=== PATIENT | female | born 1970 | race Caucasian/White ===

== ENCOUNTER → 2020-07-23 11:09 | Outpatient (REF) | payer OTHER, SELFPAY | LOC: HO.SL 11:09 | PROVIDERS: PCP Internal Medicine; Visit Provider Nurse Practitioner Family | DX: G47.33 Obstructive sleep apnea (adult) (pediatric) (principal) | CPT/HCPCS: 95806 ==

== ENCOUNTER → 2020-09-11 08:25 | Outpatient (BNVA) | payer OTHER, SELFPAY | PROVIDERS: Visit Provider Nurse Practitioner Family | DX: Z13.89 Encounter for screening for other disorder (principal) ==

== ENCOUNTER 2020-10-12 11:30 | Emergency (ER) | payer OTHER, SELFPAY ==
--- NOTE | 2020-10-12 | ECG_ITS ---
Test Reason : CHEST DISCOMFORT Blood Pressure : / mmHG Vent. Rate : 082 BPM Atrial Rate : 082 BPM P-R Int : 170 ms QRS Dur : 088 ms QT Int : 388 ms P-R-T Axes : 047 016 017 degrees QTc Int : 453 ms Normal sinus rhythm Normal ECG No previous ECGs available Referred By: Generic ED Physician Electronically Signed By:Saeid Higgins
[2020-10-12 11:39] VITALS: BP 144/75; PULSE 78; RESP 18; TEMP 36.7; O2SAT 98
[2020-10-12 11:49] LABS: Glucose, Whole Blood 120 mg/dL (60-115)
--- NOTE | 2020-10-12 12:12 | XR_ITS ---
EXAMINATION: XR CHEST CLINICAL INFORMATION: Palpitations COMPARISON: None TECHNIQUE: Portable upright AP view of the chest was obtained. FINDINGS: The lungs are clear. There is a vascularity is normal. The heart is normal in size. There is no vascular congestion, airspace consolidation, or effusion. The cardiac and hilar and mediastinal contours and visualized bony structures are unremarkable. XR/XR chest 1V IMPRESSION: Unremarkable examination.
--- NOTE | 2020-10-12 12:13 | ED_ITS ---
HPI - Chest Pain General Chief Complaint: Chest Pain Stated Complaint: Chest discomfort Time Seen by Provider: 10/12/20 11:46 Source: patient Mode of arrival: ambulatory History of Present Illness HPI narrative: 50-year-old female with a past medical history of asthma, DM, fibromyalgia, hyperlipidemia presenting today complaining of intermittent palpitations x 1.5 weeks with assoc intermittent SOB, lightheadedness and blurry vision. Denies fever, chills, cough, headache, abd pain, nausea, vomiting, recent travel, hx clots, LE edema MD complaint: chest discomfort Related Data Home Medications Medication Instructions Recorded Confirmed aspirin 81 mg chewable tablet 81 mg PO DAILY 09/11/20 atorvastatin 10 mg tablet 10 mg PO DAILY 09/11/20 cetirizine 10 mg tablet 10 mg PO DAILY 09/11/20 metformin 500 mg tablet 500 mg PO BID 09/11/20 omeprazole magnesium 20 mg 20 mg PO DAILY 09/11/20 capsule,delayed release pioglitazone 15 mg tablet 15 mg PO DAILY 09/11/20 Allergies Allergy/AdvReac Type Severity Reaction Status Date / Time moxifloxacin [From Avelox] AdvReac Intermediate hand and Verified 09/11/20 10:04 limp numbness Review of Systems Review of Systems: Constitutional: No Weight loss, No Fever, No Chills, No Night Sweats, No Fatigue, No Malaise ENT/Mouth: No Hearing loss, No Ear Pain, No Nasal Congestion, No Sinus Pain, No Hoarseness, No sore throat, No Rhinorrhea Eyes: No Eye Pain, No Swelling, No Redness, No Foreign Body,+blurry Vision Cardiovascular: No Chest Pain, +intermittent SOB, + Palpitations Respiratory: No Cough, No Sputum, No Wheezing Gastrointestinal: No Nausea, No Vomiting, No Diarrhea, No Constipation, No Abdominal pain Genitourinary: No irregular bleeding, No Dysuria, No Urinary Frequency, No Hematuria Musculoskeletal: No joint pain, No Myalgias, No Joint Swelling Skin: No Skin Lesions, No rash Neuro: No Weakness, No Numbness, No Paresthesias, No Loss of Consciousness, +lighteadedness, No Headache Yes all other systems are reviewed and are negative Neurologic: Denies Sensory deficit (Neuro) [facility] Past Medical History Attestation statement: The following information was validated with the patient. Medical History (Updated 10/12/20 @ 14:06 by ALEC Corey) Asthma Carpal tunnel syndrome on right Diabetes Fibromyalgia High cholesterol Surgical History (Updated 10/12/20 @ 11:43 by Wanda Lira) H/O shoulder surgery Social History Social History Smoked in Last 30 Days: No Use of substances other than those prescribed or required for medical reasons: No Advance Directives: No Advance Directives Information Provided: No Physical Exam Vital Signs: Vital Signs: Last Vital Signs Temp 98.1 F 10/12/20 11:39 Pulse 76 10/12/20 12:34 Resp 18 10/12/20 11:39 BP 143/80 H 10/12/20 12:34 Pulse Ox 98 10/12/20 11:39 Body Mass Index 30.0 Const: General: cooperative, healthy appearing and comfortable Orientation/consciousness: patient oriented x3 Limitations: no limitations HENMT: Head: Yes normal to inspection Ears: hearing grossly normal bilaterally General nose exam: Normal external nose present Face and sinus: Yes normal facial exam Throat: Yes posterior oropharynx normal Eyes: General: appearance normal, both eyes and all related structures Conjunctivae: conjunctivae normal Sclerae: sclerae normal Corneas: corneas normal Pupils: Equal, round and reactive pupils present EOM: EOMs intact bilaterally Neck: Neck: Yes normal visual inspection and Yes no meningeal signs Resp: Effort & Inspection: normal respiratory effort Auscultation: clear to auscultation bilaterally, no crackles, no rales, no rhonchi and no wheezes Cardio: Rate: regular rate Heart sounds: S1 normal heart sound present and S2 normal heart sound present GI: Inspection: Yes normal to inspection Palpation (GI): Soft to palpation, nontender, no guarding and not rigid Skin: Rashes: no rashes Wounds: no wounds Neuro: General: patient oriented x3, gait normal, no meningeal signs and no focal motor deficits Cranial nerves: Yes CN's II-XII intact bilaterally and Yes Equal, round and reactive pupils present Cognition (Neuro): normal cognition Gait exam (Neuro): Normal gait present Motor exam (neuro): 5/5 motor strength present throughout Sensory Exam: No Sensory deficit (Neuro) Coordination: [id number] test normal Extrem: General: Yes normal to inspection Course Course Course Narrative: * labs and UA unremarkable * CXR unremarkable, orthostatic VS negative * VA 20/30 and 20/40 results discussed with patient including worrisome s/s and strict return precautions. She has f/u with her PCP on Thursday. She verbalized understanding and feels safe for d/c MDM - Chest Pain MDM Narrative Medical decision making narrative: 50-year-old female with a past medical history of asthma, DM, fibromyalgia, hyperlipidemia presenting today complaining of intermittent palpitations x 1.5 weeks with assoc intermittent SOB, lightheadedness and blurry vision. On exam VSS, NAD, well appearing, no focal deficits, lungs CTA. Concern for metabolic abnls vs arrhythmia vs ?infectious etiology vs anxiety. Low concern for CVA/TIA, pna, ACS or PE Plan: EKG, labs, UA, CXR, Orthostatics, VA, Reassess Lab Data Result diagrams: 10/12/20 12:29 10/12/20 11:21 Labs: Lab Results 10/12/20 10/12/20 10/12/20 Range/Units 11:21 11:37 12:29 WBC 5.2 (4.8-10.8) X10*3/uL RBC 4.42 (4.20-5.50) X10*6/uL Hgb 12.6 (12.0-16.0) g/dl Hct 39.7 (37-47) % MCV 89.8 (80-98) fL MCH 28.5 (27.0-33.0) pg MCHC 31.7 (31.0-35.0) g/dl RDW 13.3 (11.0-16.0) % Plt Count 247 (160-400) X10*3/uL MPV 8.9 L (9.4-12.3) fL Immature Gran % (Auto) 0.2 (0.0-0.4) % Neut % (Auto) 56.0 (45-73) % Lymph % (Auto) 34.2 (20-40) % Bullitt % (Auto) 7.7 (2-11) % Eos % (Auto) 1.5 (0-4) % Baso % (Auto) 0.4 (0-2) % Lymph # (Auto) 1.8 (1.2-4.9) X10*3/uL Bullitt # (Auto) 0.4 (0.1-1.2) X10*3/uL Eos # (Auto) 0.1 (0.0-0.4) X10*3/uL Baso # (Auto) 0.0 (0.0-0.2) X10*3/uL Abs Immat Gran (auto) 0.01 (0.00-0.03) X10*3/uL Absolute Neuts (auto) 2.9 (2.0-8.3) X10*3/uL Absolute Nucleated RBC 0.000 (0.0-0.012) X10*3/uL Nucleated RBC % (auto) 0.0 (0.0-0.2) /100WBC Hold Blue Top Sodium 141 (135-145) mmol/L Potassium 3.7 (3.3-5.1) mmol/l Chloride 104 (96-108) mmol/L Carbon Dioxide 27 (22-29) mmol/L Anion Gap 14 (12-20) BUN 18 H (9-16) mg/dL Creatinine 0.78 (0.5-1.4) mg/dL Estim Creat Clear Calc 73.5 Estimated GFR > 60 POC Glucose 120 H (60-115) mg/dL Random Glucose 88 (60-115) mg/dL Calcium 8.8 (8.4-10.2) mg/dL Magnesium 1.6 (1.6-2.6) mg/dL Total Bilirubin 0.4 (0.0-1.0) mg/dL Direct Bilirubin 0.2 (0.0-0.5) mg/dL AST 19 (5-31) U/L ALT 15 (0-31) U/L Alkaline Phosphatase 71 (39-117) U/L Troponin I High Sens (<3.5-17.0) ng/L B-Natriuretic Peptide (<100) pg/mL Total Protein 6.8 (6.5-8.0) g/dL Albumin 3.9 (3.5-5.0) g/dL TSH 2.29 (0.32-4.0) mIU/mL Urine Color Urine Appearance Urine pH (5.0-8.0) Ur Specific Taylor (1.005-1.025) Urine Protein (NEG-TRACE) MG/DL Urine Glucose (UA) (NEG) MG/DL Urine Ketones (NEG) MG/DL Urine Blood (NEG) Urine Nitrite (NEG) Ur Leukocyte Esterase (NEG) Urine Test (NEGATIVE) 10/12/20 10/12/20 10/12/20 Range/Units 12:29 12:29 12:29 WBC (4.8-10.8) X10*3/uL RBC (4.20-5.50) X10*6/uL Hgb (12.0-16.0) g/dl Hct (37-47) % MCV (80-98) fL MCH (27.0-33.0) pg MCHC (31.0-35.0) g/dl RDW (11.0-16.0) % Plt Count (160-400) X10*3/uL MPV (9.4-12.3) fL Immature Gran % (Auto) (0.0-0.4) % Neut % (Auto) (45-73) % Lymph % (Auto) (20-40) % Bullitt % (Auto) (2-11) % Eos % (Auto) (0-4) % Baso % (Auto) (0-2) % Lymph # (Auto) (1.2-4.9) X10*3/uL Bullitt # (Auto) (0.1-1.2) X10*3/uL Eos # (Auto) (0.0-0.4) X10*3/uL Baso # (Auto) (0.0-0.2) X10*3/uL Abs Immat Gran (auto) (0.00-0.03) X10*3/uL Absolute Neuts (auto) (2.0-8.3) X10*3/uL Absolute Nucleated RBC (0.0-0.012) X10*3/uL Nucleated RBC % (auto) (0.0-0.2) /100WBC Hold Blue Top SEE NOTE Sodium (135-145) mmol/L Potassium (3.3-5.1) mmol/l Chloride (96-108) mmol/L Carbon Dioxide (22-29) mmol/L Anion Gap (12-20) BUN (9-16) mg/dL Creatinine (0.5-1.4) mg/dL Estim Creat Clear Calc Estimated GFR POC Glucose (60-115) mg/dL Random Glucose (60-115) mg/dL Calcium (8.4-10.2) mg/dL Magnesium (1.6-2.6) mg/dL Total Bilirubin (0.0-1.0) mg/dL Direct Bilirubin (0.0-0.5) mg/dL AST (5-31) U/L ALT (0-31) U/L Alkaline Phosphatase (39-117) U/L Troponin I High Sens < 3.5 (<3.5-17.0) ng/L B-Natriuretic Peptide < 10 (<100) pg/mL Total Protein (6.5-8.0) g/dL Albumin (3.5-5.0) g/dL TSH (0.32-4.0) mIU/mL Urine Color YELLOW Urine Appearance CLEAR Urine pH 5.5 (5.0-8.0) Ur Specific Taylor 1.025 (1.005-1.025) Urine Protein NEG (NEG-TRACE) MG/DL Urine Glucose (UA) NEG (NEG) MG/DL Urine Ketones NEG (NEG) MG/DL Urine Blood NEG (NEG) Urine Nitrite NEG (NEG) Ur Leukocyte Esterase NEG (NEG) Urine Test NEGATIVE (NEGATIVE) Discharge Plan Discharge Clinical Impression: Palpitations Patient Disposition: Home, Self-Care Instructions: Heart Palpitations (ED) Additional Instructions: YOUR BLOOD WORK And CHEST X-RAY WERE REASSURING TODAY IN THE ED FOLLOW UP WITH YOUR MD ON SCHEDULED IF YOUR SYMPTOMS PERSIST OR WORSEN, YOU HAVE FEVER, RETURN TO THE ED Prescriptions: No Action aspirin [Aspirin Childrens] 81 mg tablet,chewable 81 mg PO DAILY RF: 0 cetirizine [Zyrtec] 10 mg tablet 10 mg PO DAILY RF: 0 omeprazole magnesium [Acid [employer] (omeprazole)] 20 mg capsule,delayed release(DR/EC) 20 mg PO DAILY RF: 0 pioglitazone 15 mg tablet 15 mg PO DAILY RF: 0 metformin 500 mg tablet 500 mg PO BID RF: 0 atorvastatin 10 mg tablet 10 mg PO DAILY RF: 0 Referrals: Saeid Higgins MD [Physician] - 1 week
[2020-10-12] MEDS: 0.9 % Sodium Chloride 1,000 ML 999 ML IVCONT (12:28)
[2020-10-12 12:32] VITALS: BP 138/73; PULSE 72
[2020-10-12 12:33] VITALS: BP 144/77; PULSE 76
[2020-10-12 12:34] VITALS: BP 143/80; PULSE 76
[2020-10-12 12:37] LABS: Basophils Percent Auto 0.4 % (0-2); Eosinophils Absolute Auto 0.1 X10*3/uL (0.0-0.4); Eosinophils Percent Auto 1.5 % (0-4); Hematocrit 39.7 % (37-47); Hemoglobin 12.6 g/dl (12.0-16.0); Imm Gran Abs Auto 0.01 X10*3/uL (0.00-0.03); Imm Gran Pct Auto 0.2 % (0.0-0.4); Lymphocytes Absolute Auto 1.8 X10*3/uL (1.2-4.9); Lymphocytes Percent Auto 34.2 % (20-40); MANUAL DIFF FLAG NO; Mean Corpuscular HGB Conc 31.7 g/dl (31.0-35.0); Mean Corpuscular Hemoglobin 28.5 pg (27.0-33.0); Mean Corpuscular Volume 89.8 fL (80-98); Mean Platelet Volume 8.9 fL (9.4-12.3); Monocytes Absolute Auto 0.4 X10*3/uL (0.1-1.2); Monocytes Percent Auto 7.7 % (2-11); Neutrophils Absolute Auto 2.9 X10*3/uL (2.0-8.3); Platelet Count 247 X10*3/uL (160-400); Red Blood Count 4.42 X10*6/uL (4.20-5.50); Red Cell Distribution Width 13.3 % (11.0-16.0); White Blood Count 5.2 X10*3/uL (4.8-10.8)
[2020-10-12 12:41] LABS: Glucose Urine UA NEG (NEG); Leukocyte Esterase Urine NEG (NEG); Nitrite Urine NEG (NEG); PH 5.5 (5.0-8.0); Specific Gravity - Urine 1.025 (1.005-1.025); Urine Blood NEG (NEG); Urine Ketones NEG (NEG); Urine Protein NEG (NEG-TRACE)
[2020-10-12 12:42] LABS: Appearance Urine CLEAR; Color Urine YELLOW
[2020-10-12 12:43] LABS: UPreg QC Valid YES; Urine Pregnancy NEGATIVE (NEGATIVE)
[2020-10-12 13:08] LABS: Alanine Aminotransferase 15 U/L (0-31); Albumin Level 3.9 g/dL (3.5-5.0); Alkaline Phosphatase 71 U/L (39-117); Anion Gap 14 (12-20); Aspartate Amino Transferase 19 U/L (5-31); Bilirubin Direct 0.2 mg/dL (0.0-0.5); Bilirubin Total 0.4 mg/dL (0.0-1.0); Blood Urea Nitrogen 18 mg/dL (9-16); Calcium 8.8 mg/dL (8.4-10.2); Carbon Dioxide 27 mmol/L (22-29); Chloride 104 mmol/L (96-108); Creatinine Clr Calc Pharmacy 73.5; Estimated Glomerular Filt Rate > 60; Glucose Random 88 mg/dL (60-115); Magnesium 1.6 mg/dL (1.6-2.6); Potassium 3.7 mmol/l (3.3-5.1); Sodium 141 mmol/L (135-145); Total Protein 6.8 g/dL (6.5-8.0)
[2020-10-12 13:12] LABS: B Type Natriuretic Peptide < 10 pg/mL (<100); Troponin-I High Sensitivity < 3.5 ng/L (<3.5-17.0)
[2020-10-12 13:31] LABS: TSH reflex Free T4 2.29 mIU/mL (0.32-4.0)
== END 2020-10-12 15:13 | disposition home or self-care (01) ==
PROVIDERS: Physician Assistant; Emergency Provider Emergency Medicine; PCP Internal Medicine
DX: R00.2 Palpitations (principal); R07.9 Chest pain, unspecified; Z79.899 Other long term (current) drug therapy
CPT/HCPCS: 36415; 71045; 80048; 80076; 81003; 81025; 82947; 83735; 83880; 84443; 84484; 85025; 93005; 96360; 99284

== ENCOUNTER → 2021-10-02 14:21 | Outpatient (BNVA) | payer OTHER, SELFPAY | PROVIDERS: PCP Internal Medicine; Visit Provider Nurse Practitioner Family ==

== ENCOUNTER → 2024-03-02 12:45 | Outpatient (BNVA) | payer SELFPAY | PROVIDERS: PCP Internal Medicine ==

== ENCOUNTER → 2024-03-15 11:26 | Outpatient (BNVA) | payer OTHER, SELFPAY | PROVIDERS: PCP Internal Medicine; Visit Provider Physician Assistant Medical | DX: Z13.89 Encounter for screening for other disorder (principal) | CPT/HCPCS: 84450; 84460; 86803; 87389; 99202 ==

== ENCOUNTER 2024-04-08 07:19 | Outpatient (REF) | payer OTHER, SELFPAY | END 2024-04-08 07:20 | disposition home or self-care (01) | LOC: HO.MAMMO 07:19 | PROVIDERS: PCP Nurse Practitioner Acute Care; Visit Provider Internal Medicine | DX: Z12.31 Encounter for screening mammogram for malignant neoplasm of breast (principal) | CPT/HCPCS: 77063; 77067 ==

== ENCOUNTER → 2024-04-08 07:30 | Outpatient (BNV) | payer OTHER, SELFPAY | PROVIDERS: PCP Nurse Practitioner Acute Care; Visit Provider Radiology Diagnostic Radiology | DX: Z12.31 Encounter for screening mammogram for malignant neoplasm of breast (principal) | CPT/HCPCS: 77063; 77067 ==

== ENCOUNTER → 2024-04-27 09:34 | Outpatient (BNVA) | payer OTHER, SELFPAY | PROVIDERS: PCP Nurse Practitioner Acute Care | DX: Z13.89 Encounter for screening for other disorder (principal) | CPT/HCPCS: 84450; 84460; 87389; 99211 ==

== ENCOUNTER 2024-06-01 08:10 | Outpatient (REF) | payer OTHER, SELFPAY ==
[2024-06-01 08:27] LABS: MANUAL DIFF FLAG NO
[2024-06-01 08:45] LABS: Basophils Percent Auto 0.8 % (0-2); Eosinophils Absolute Auto 0.2 X10*3/uL (0.0-0.4); Eosinophils Percent Auto 3.8 % (0-4); Hematocrit 42.4 % (37.0-47.0); Hemoglobin 13.8 g/dl (12.0-16.0); Imm Gran Abs Auto 0.01 X10*3/uL (0.00-0.03); Imm Gran Pct Auto 0.2 % (0.0-0.4); Lymphocytes Percent Auto 39.8 % (20-40); Mean Corpuscular HGB Conc 32.5 g/dl (31.0-35.0); Mean Corpuscular Hemoglobin 28.5 pg (27.0-33.0); Mean Corpuscular Volume 87.6 fL (80.0-98.0); Mean Platelet Volume 8.9 fL (9.4-12.3); Monocytes Absolute Auto 0.5 X10*3/uL (0.1-1.2); Monocytes Percent Auto 9.1 % (2-11); Neutrophils Absolute Auto 2.3 x10*3/uL (2.0-8.3); Neutrophils Percent Auto 46.3 % (45-73); Platelet Count 257 X10*3/uL (160-400); Red Blood Count 4.84 X10*6/uL (4.20-5.50); Red Cell Distribution Width 13.1 % (11.0-16.0)
[2024-06-01 09:02] LABS: Estimated Average Glucose 126 mg/dL
[2024-06-01 09:35] LABS: Alanine Aminotransferase 13 U/L (0-31); Albumin Level 4.2 g/dL (3.5-5.0); Alkaline Phosphatase 60 U/L (39-117); Anion Gap 10 (12-20); Aspartate Amino Transferase 18 U/L (5-31); Bilirubin Total 0.5 mg/dL (0.0-1.0); Blood Urea Nitrogen 12 mg/dL (9-16); Calcium 9.4 mg/dL (8.4-10.2); Carbon Dioxide 28 mmol/L (22-29); Chloride 106 mmol/L (96-108); Cholesterol 146 mg/dL (<200); Estimated Glomerular Filt Rate > 60; Glucose Random 116 mg/dL (60-115); HDL Cholesterol 57 mg/dL (>40); LDL Cholesterol Calculated 69 mg/dL (<100); Potassium 4.2 mmol/L (3.3-5.1); Sodium 140 mmol/L (135-145); Total Protein 7.1 g/dL (6.5-8.0); Triglycerides 101 mg/dL (<150)
[2024-06-01 09:51] LABS: TSH reflex Free T4 4.03 uIU/mL (0.32-4.0)
[2024-06-01 10:27] LABS: Free T4 (Free Thyroxine) 0.84 ng/dL (0.71-1.85)
[2024-06-01 10:57] LABS: Appearance Urine Clear; Color Urine Yellow; Glucose Urine UA >=1000 mg/dL (Negative); Leukocyte Esterase Urine Negative (Negative); Nitrite Urine Negative (Negative); PH 5.5 (5.0-9.0); Specific Gravity - Urine >= 1.030 (1.005-1.025); UMIC TRIGGER UACC YES; Urine Blood Negative (Negative); Urine Ketones Negative (Negative); Urine Protein Negative (Neg-Trace)
[2024-06-01 11:09] LABS: Bacteria Urine None Seen (None Seen); Hyaline Casts Urine 0-2 /LPF (0-2); RBC Urine 0-2 /HPF (0-2); Squamous Epithelial Cell Urine 0-2 /HPF (0-2); WBC Urine 0-5 /HPF (0-5)
[2024-06-01 12:00] LABS: Creatinine Urine 75.83 mg/dL; Microalbum/Creatinine Ratio Ur 7.9 ug/mg cr (<30)
== END 2024-06-01 08:11 | disposition home or self-care (01) ==
LOC: HO.LAB 08:10
PROVIDERS: PCP Nurse Practitioner Acute Care; Visit Provider Nurse Practitioner Acute Care
DX: E11.9 Type 2 diabetes mellitus without complications (principal); K21.9 Gastro-esophageal reflux disease without esophagitis; E78.00 Pure hypercholesterolemia, unspecified; E55.9 Vitamin D deficiency, unspecified
CPT/HCPCS: 36415; 80053; 80061; 81001; 82043; 82306; 82570; 83036; 84439; 84443; 85025

== ENCOUNTER → 2024-06-20 12:37 | Outpatient (BNVA) | payer OTHER, SELFPAY | PROVIDERS: PCP Nurse Practitioner Acute Care | DX: Z13.89 Encounter for screening for other disorder (principal) | CPT/HCPCS: 84450; 84460; 86803; 87389; 99211 ==

== ENCOUNTER → 2024-09-13 13:34 | Outpatient (BNVA) | payer OTHER, SELFPAY | PROVIDERS: PCP Nurse Practitioner Acute Care | DX: Z13.89 Encounter for screening for other disorder (principal) | CPT/HCPCS: 84450; 84460; 86803; 87389; 99211 ==

== ENCOUNTER 2024-09-16 16:41 | Emergency (ER) | payer OTHER, SELFPAY ==
--- NOTE | ~2024-09-16 | XR_ITS ---
EXAMINATION: XR CHEST CLINICAL INFORMATION: cough, wheezing COMPARISON: Chest radiograph dated October 12, 2020. TECHNIQUE: 2 views of the chest were obtained. FINDINGS: The heart is normal in size. Both lungs are clear. No pleural effusion. No pneumothorax. No acute osseous abnormality. XR/XR chest 2V IMPRESSION: No acute cardiopulmonary disease. Electronically signed by: Mukesh Catalan DO 09/16/2024 05:39 PM EST
--- NOTE | 2024-09-16 16:46 | ECG_ITS ---
Test Reason : cp Blood Pressure : / mmHG Vent. Rate : 096 BPM Atrial Rate : 096 BPM P-R Int : 158 ms QRS Dur : 086 ms QT Int : 354 ms P-R-T Axes : -19 015 007 degrees QTc Int : 447 ms Sinus rhythm with marked sinus arrhythmia Low voltage QRS Borderline ECG When compared with ECG of 12-OCT-2020 11:33, T wave inversion now evident in Anterior leads Referred By: Maynor Lyon Electronically Signed By:MARICRUZ LOPES MD
--- OUTSIDE RECORDS SUMMARY | 2024-09-16 16:48 | XMS_ITS | Patient Health Record ---
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 Name Role Phone WALLACE DING Unavailable [phone] ALLERGIES Allergen (clinical drug ingredient) Drug/Non Drug Allergy documented on EMR Reaction Allergy Type Onset Date Status Pollen Pollen Swelling Allergy Active RESULTS Component Value Reference Range Notes CR Shoulder RT Min 2 View Reviewed date:06/21/2024 08:18:51 AM Interpretation: Performing Lab: Notes/Report: Original Ordering Provider: WALLACE DING NP [facility] CR Humerus RT Min 2 Views Reviewed date:06/21/2024 08:18:51 AM Interpretation: Performing Lab: Notes/Report: Original Ordering Provider: WALLACE DING NP [facility] CR Forearm RT 2 Views Reviewed date:06/21/2024 08:18:51 AM Interpretation: Performing Lab: Notes/Report: Original Ordering Provider: WALLACE DING NP [facility] MR Brain WO Reviewed date:01/21/2024 12:48:24 PM Interpretation: Performing Lab: Notes/Report: Original Ordering Provider: WALLACE DING NP [facility] REASON FOR REFERRAL Reason Pt called office req uesting neurology referral Diagnosis 1 Chronic tension-type headache, intractable (G44.221) Diagnosis 2 Pain in eye, unspeci fied laterality (H57.10) Referral Organization [facility] 119 Referring Provider First Name WALLACE Referring Provider Last Name TOÑA Referring Provider Speciality Internal M edicine Referred Provider Specialty Neurology General Notes faxed over to [facility] neurology at , fax [phone] Clinical Notes Annie Petty 12/27 04:05:18 PM >\, called to get an update on status of the referral , they stated they did not receive anything, they requested we sent over office notes and once they receive the notes they will reach out to the pt directly. I did get Pt registered over the phone and gave them her information such as diagnosis and past imaging that has been done. called Pt to update her. 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 - as directed for 365 days 07/06 Active Cetirizine HCl 10 MG TAKE ONE (1) TABLET BY MOUTH EVERY DAY for 90 Active Albuterol Sulfate HFA 108 (90 Base) MCG/ACT 1 puff as needed Inhalation every 4 hrs for 30 days 06/24/2023 Active Omeprazole 20 MG TAKE TWO (2) CAPSULE S (40MG)PO ONCE EVERY DAY for 45 Active Ozempic (1 MG/DOSE) 4 MG/3ML 1mg Subcutaneous weekly for 30 days Active Lexapro 5 MG 1 tablet Orally Once a day for 90 days Active Wixela Inhub 500-50 MCG/ACT 1 puff Inhalation Twice a day Active Farxiga 10 MG 1 tablet Orally Once a day for 90 days Active Montelukast Sodium 10 MG 1 tablet Orally Once a day Active Losartan Potassium 50 MG 1 tablet Orally Once a day for 90 days 06/24/2023 Active Lidocaine 5 % 1 patch remove after 12 hours Externally Once a day for 30 days Active Ondansetron HCl 4 MG 1 tablet Orally jo ry 8 hrs for 30 days Active FreeStyle Racquel 3 Sensor - Use 1 sensor every 14 days for diabetes E11.9 for 90 days Active Atorvastatin Calcium 10 MG 1 tablet Oral ly Once a day for 90 days Active Dexcom G7 Sensor - apply one sensor jo ry 10 days for 30 days 01/21/2024 Active SOCIAL HISTORY Tobacco Use: Social History Observation Description Date Details (start date - stop date) Never Smoker NA - NA Sex Assigned At : Social History Observation Description Sex Assigned At Unknown Tobacco Use/Smoking Question Answer Notes Are you a nonsmoker Section Notes: 3 children Some college- phlebotomy 3 children Some college- phlebotomy 3 children Some college- phlebotomy 3 children Some college- phlebotomy 3 children Some college- phlebotomy 3 children Some college- phlebotomy 3 children Some college- phlebotomy 3 children Some college- phlebotomy PROBLEMS Problem Type ICD Code Onset Dates Problem Status W/U Status Risk SNOMED Code Notes Problem Vitamin D deficiency, unspecified (E55.9) Active confirmed Vitamin D deficiency (11657040) Problem Chronic tension-type headache, intractable (G44.221) Active confirmed [id number] Problem Fibromyalgia (M79.7) Active confirmed 738940238 Problem Pure hypercholesterolemi a, unspecified (E78.00) Active confirmed 370706610 Problem Hyperlipidemia, unspecified hyperlipidemia type (E78.5) Active confirmed Hyperlipidaemia (20377595) Problem Hypothyroidism, unspecified type (E03.9) Active confirmed Hypothyroidism (37837342) Problem Gastroesophageal reflux disease without esophagitis (K21.9) Active confirmed 224498600 Problem Type 2 diabetes mellitus without complication, without long-term current use of insulin (E11.9) Active confirmed 189546124 Problem Other migraine without status migrainosus, not intractable (G43.809) Active confirmed 97485254 Problem Pain in eye, unspecified laterality (H57.10) Active confirmed 19066150 VITAL SIGNS Heart Rate 90 /min 06/20/2024 Oximetry 97 % 05/30/2024 Blood pressure diastolic 60 mm Hg 06/20/2024 Height 60 in 06/20/2024 Blood pressure systolic 102 mm Hg 06/20/2024 Weight 115 lbs 06/20/2024 BMI 22.46 kg/m2 06/20/2024 Encounters Encounter Location Date Provider Diagnosis [facility] [address] [facility] [address] [facility] [address] [place] [address] 02/23/[address] [facility] [address] [email or web address] [address] [place] [address] 11/09/2023 WALLACE DING Type 2 diabetes ray itus without complication, without long-term current use of insulin E11.9 ; Fibromyalgia M79.7 ; Gastroesophageal reflux disease without esophagitis K21.9 ; Pure hypercholesterolemia, unspecified E78.00 ; Vitamin D deficiency, unspecified E55.9 and Nausea R11.[address] [facility] [address] [address] 01/08/2024 WALLACE DING Transient visual los s, left H53.122 ; Other migraine without status migrainosus, not intractable G43.809 and Intermittent confusion R41.0 [facility] [address] [address] 05/30/2024 WALLACE DING Type 2 diabetes ray itus without complication, without long-term current use of insulin E11.9 ; Fibromyalgia M79.7 ; Gastroesophageal reflux disease without esophagitis K21.9 ; Pure hypercholesterolemia, unspecified E78.00 ; Vitamin D deficiency, unspecified E55.9 and Transient visual loss, left H53.122 [facility] [address] 06/20/2024 WALLACE DING Type 2 diabetes ray itus without complication, without long-term current use of insulin E11.9 ; Annual physical exam Z00.00 ; Fibromyalgia M79.7 ; Gastroesophageal reflux disease without esophagitis K21.9 ; Pure hypercholesterolemia, unspecified E78.00 ; Closed fracture of nasal bone, initial encounter S02.2XXA ; Acute pain of right shoulder M25.511 and Right arm pain M79.601 [facility] [address] [place] [address] 11/18/2023 [facility] [address] [address] 12/28/2023 [facility] [address] [facility] [address] [address] 01/05/2024 [facility] [address] [address] 01/21/[address] [facility] [address] [facility] [address] [place] [address] 01/25/[address] [facility] [address] [facility] [address] [facility] [address] [place], [place] 02/02/2024 WALLACE Morales M79.[address] [facility] [address] [facility] [address] [place] [address] 02/09/2024 WALLACE Vilchis [address] [facility] [address] [place], [place] 03/02/[address] [facility] [address] [facility] [address] [place] [address] 03/11/[address] [facility] [address] [facility] [address] [facility] [address] [place], [place] 03/15/[address] [facility] [address] [facility] [address] [place], [place] 03/18/[address] [facility] [address] [facility] [address] [place], [place] 03/18/[address] [facility] [address] [facility] [address] [place], [place] 03/22/[address] [facility] [address] [facility] [address] [place], [place] 03/28/[address] [facility] [address] [facility] [address] [place], [place] 03/29/[address] [facility] [address] [facility] [address] [place], [place] 04/01/[address] [facility] [address] [facility] [address] [place] [address] 05/16/[address] [facility] [address] [facility] [address] [place], [place] 05/17/2024 WALLACE DING [facility] M79.[address] [facility] [address] [facility] [address] [place] [address] 06/08/[address] [facility] [address] [facility] [address] [place], [place] 06/14/2024 [facility] [address] [facility] [address] [place] [address] 07/05/2024 [facility] [address] [facility] [address] [place], [place] 08/01/2024 [facility] [address] [facility] [address] [place] [address] 08/01/2024 [facility] [address] [facility] [address] [place], [place] 08/09/2024 WALLACE BORJANAK Pre-op exam Z01.[address] [facility] [address] [facility] [address] [place], [place] 08/12/2024 [facility] [address] [facility] [address] [place] [address] 06/02/2024 WALLACE COVARRUBIAS ASSESSMENTS Encounter Date Diagnosis Assessment Notes Treatment Notes Treatment Clinical Notes Section Notes 01/08/2024 Transient visual loss, left (ICD-10 - H53.122) Patient is here today for an ER follow-up visit Patient seen and examined. Full past medical history, social history, family history, allergies and current medications were reviewed and updated. Hospital diagnostics, laboratory data, imaging, clinical notes were reviewed Will obtain MRI without contrast She will be referred to neurology for further workup I did give her some samples of CGRP to trial in case this is a complex migraine to see if it helps her symptoms Of note, some information is being carried forward from prior records for informational purposes only and is being cited so that efficiency, safety and quality of the patient's care is not compromised This note was prepared using voice recognition software and direct typing Please excuse inadvertent weight checker or typing errors, or uncorrected word substitutions Although every attempt has been made by the provider to proofread this document, occasional misspellings and typographical errors may still be present Due to the previous pandemic, and the use of personal protective equipment (PPE) This may decrease voice recognition accuracy Inadvertent weight checker errors may occur 02/02/2024 Fibromyalgia (ICD-10 - M79.7) 05/17/2024 Fibromyalgia (ICD-10 - M79.7) 11/09/2023 Type 2 diabetes mellitus without complication, without long-term current use of insulin (ICD-10 - E11.9) Pt here for chronic disease mgt visit/DM2 Diabetes: Current regimen: Metformin 500 mg BID ER Please continue with CGM and Ozempic, as well as SGLT-2 Farxiga we have started Farxiga 10mg f/u hgb a1c in office next OV HTN: Patients SBP in office today is 138. Patient instructed to keep at home BP journal and bring Journal to f/u visit possible low dose RAHUL or ARB for renalprotection Anxiety/Depression we have started LExapro 5mg f/u CPE, with Labs We discussed in detail the management of diabetes mellitus. Emphasis was paid on nutrition, low carbohydrate diet with good fat and protein sources, fruits and vegetables was discussed. Exercise was recommended. Incorporation of daily walking into a routine was discussed. A pedometer goal of 10,000 steps was discussed. Management of diabetes mellitus along with medications to treat the condition was discussed. Importance of diabetic foot exam, diabetic eye exam, urine microalbumin analysis annually was discussed. Side effects of diabetic medications were discussed again. Patient agrees to take medications as prescribed and comply with lifestyle modifications. Reviewed with patient the importance of medication and treatment plan compliance with BP goal of less then 140/90 per JNC 8 guidelines based on patient's age. This will ensure optimal health outcomes and prevent target organ damage. Made aware that uncontrolled hypertension may be silent and result in a stroke, heart attack, renal failure or even . Discussed the rationale for individualized medication regimen and the effects of their BP. Instructed to seek emergent care if the patient develops a headache, blurry vision, dizziness, chest pain or pressure. Of note, some information is being carried forward from prior records for informational purposes only and is being cited so that efficiency, safety and quality of the patient's care is not compromised This note was prepared using voice recognition software and direct typing Please excuse inadvertent weight checker or typing errors, or uncorrected word substitutions Although every attempt has been made by the provider to proofread this document, occasional misspellings and typographical errors may still be present Due to the previous pandemic, and the use of personal protective equipment (PPE) This may decrease voice recognition accuracy Inadvertent weight checker errors may occur 01/08/2024 Other migraine without status migrainosus, not intractable (ICD-10 - G43.809) Patient is here today for an ER follow-up visit Patient seen and examined. Full past medical history, social history, family history, allergies and current medications were reviewed and updated. Hospital diagnostics, laboratory data, imaging, clinical notes were reviewed Will obtain MRI without contrast She will be referred to neurology for further workup I did give her some samples of CGRP to trial in case this is a complex migraine to see if it helps her symptoms Of note, some information is being carried forward from prior records for informational purposes only and is being cited so that efficiency, safety and quality of the patient's care is not compromised This note was prepared using voice recognition software and direct typing Please excuse inadvertent weight checker or typing errors, or uncorrected word substitutions Although every attempt has been made by the provider to proofread this document, occasional misspellings and typographical errors may still be present Due to the previous pandemic, and the use of personal protective equipment (PPE) This may decrease voice recognition accuracy Inadvertent weight checker errors may occur 05/30/2024 Type 2 diabetes mellitus without complication, without long-term current use of insulin (ICD-10 - E11.9) Pt here for chronic disease mgt visit/DM2 Acute Concerns/Problem List: 05/30/2024 _update labs and CPE Refer to [facility] for colonoscopy screening Diabetes management and glycemic control is excellent at 6.2 Continue SGLT, Ozempic 1 mg as well as metformin We have discontinued sulfonylurea Blood pressure is stable We discussed in detail the management of diabetes mellitus. Emphasis was paid on nutrition, low carbohydrate diet with good fat and protein sources, fruits and vegetables was discussed. Exercise was recommended. Incorporation of daily walking into a routine was discussed. A pedometer goal of 10,000 steps was discussed. Management of diabetes mellitus along with medications to treat the condition was discussed. Importance of diabetic foot exam, diabetic eye exam, urine microalbumin analysis annually was discussed. Side effects of diabetic medications were discussed again. Patient agrees to take medications as prescribed and comply with lifestyle modifications. Reviewed with patient the importance of medication and treatment plan compliance with BP goal of less then 140/90 per JNC 8 guidelines based on patient's age. This will ensure optimal health outcomes and prevent target organ damage. Made aware that uncontrolled hypertension may be silent and result in a stroke, heart attack, renal failure or even . Discussed the rationale for individualized medication regimen and the effects of their BP. Instructed to seek emergent care if the patient develops a headache, blurry vision, dizziness, chest pain or pressure. Of note, some information is being carried forward from prior records for informational purposes only and is being cited so that efficiency, safety and quality of the patient's care is not compromised This note was prepared using voice recognition software and direct typing Please excuse inadvertent weight checker or typing errors, or uncorrected word substitutions Although every attempt has been made by the provider to proofread this document, occasional misspellings and typographical errors may still be present Due to the previous pandemic, and the use of personal protective equipment (PPE) This may decrease voice recognition accuracy Inadvertent weight checker errors may occur 06/20/2024 Annual physical exam (ICD-10 - Z00.00) Pt here for CPE Acute Concerns/Problem List: 06/20/2024 Will get some x-rays of the right forearm/ shoulder Discussed closed head injury nasal bone fractures Did see ENT Refer to [facility] for colonoscopy screening Diabetes management and glycemic control is excellent at 6 Continue SGLT, Ozempic 1 mg as well as metformin We have discontinued sulfonylurea Blood pressure is stable We discussed in detail the management of diabetes mellitus. Emphasis was paid on nutrition, low carbohydrate diet with good fat and protein sources, fruits and vegetables was discussed. Exercise was recommended. Incorporation of daily walking into a routine was discussed. A pedometer goal of 10,000 steps was discussed. Management of diabetes mellitus along with medications to treat the condition was discussed. Importance of diabetic foot exam, diabetic eye exam, urine microalbumin analysis annually was discussed. Side effects of diabetic medications were discussed again. Patient agrees to take medications as prescribed and comply with lifestyle modifications. Reviewed with patient the importance of medication and treatment plan compliance with BP goal of less then 140/90 per JNC 8 guidelines based on patient's age. This will ensure optimal health outcomes and prevent target organ damage. Made aware that uncontrolled hypertension may be silent and result in a stroke, heart attack, renal failure or even . Discussed the rationale for individualized medication regimen and the effects of their BP. Instructed to seek emergent care if the patient develops a headache, blurry vision, dizziness, chest pain or pressure. Of note, some information is being carried forward from prior records for informational purposes only and is being cited so that efficiency, safety and quality of the patient's care is not compromised This note was prepared using voice recognition software and direct typing Please excuse inadvertent weight checker or typing errors, or uncorrected word substitutions Although every attempt has been made by the provider to proofread this document, occasional misspellings and typographical errors may still be present Due to the previous pandemic, and the use of personal protective equipment (PPE) This may decrease voice recognition accuracy Inadvertent weight checker errors may occur 06/20/2024 Type 2 diabetes mellitus without complication, without long-term current use of insulin (ICD-10 - E11.9) Pt here for CPE Acute Concerns/Problem List: 06/20/2024 Will get some x-rays of the right forearm/ shoulder Discussed closed head injury nasal bone fractures Did see ENT Refer to [facility] for colonoscopy screening Diabetes management and glycemic control is excellent at 6 Continue SGLT, Ozempic 1 mg as well as metformin We have discontinued sulfonylurea Blood pressure is stable We discussed in detail the management of diabetes mellitus. Emphasis was paid on nutrition, low carbohydrate diet with good fat and protein sources, fruits and vegetables was discussed. Exercise was recommended. Incorporation of daily walking into a routine was discussed. A pedometer goal of 10,000 steps was discussed. Management of diabetes mellitus along with medications to treat the condition was discussed. Importance of diabetic foot exam, diabetic eye exam, urine microalbumin analysis annually was discussed. Side effects of diabetic medications were discussed again. Patient agrees to take medications as prescribed and comply with lifestyle modifications. Reviewed with patient the importance of medication and treatment plan compliance with BP goal of less then 140/90 per JNC 8 guidelines based on patient's age. This will ensure optimal health outcomes and prevent target organ damage. Made aware that uncontrolled hypertension may be silent and result in a stroke, heart attack, renal failure or even . Discussed the rationale for individualized medication regimen and the effects of their BP. Instructed to seek emergent care if the patient develops a headache, blurry vision, dizziness, chest pain or pressure. Of note, some information is being carried forward from prior records for informational purposes only and is being cited so that efficiency, safety and quality of the patient's care is not compromised This note was prepared using voice recognition software and direct typing Please excuse inadvertent weight checker or typing errors, or uncorrected word substitutions Although every attempt has been made by the provider to proofread this document, occasional misspellings and typographical errors may still be present Due to the previous pandemic, and the use of personal protective equipment (PPE) This may decrease voice recognition accuracy Inadvertent weight checker errors may occur 08/09/2024 Pre-op exam (ICD-10 - Z01.818) 06/20/2024 Fibromyalgia (ICD-10 - M79.7) Pt here for CPE Acute Concerns/Problem List: 06/20/2024 Will get some x-rays of the right forearm/ shoulder Discussed closed head injury nasal bone fractures Did see ENT Refer to [facility] for colonoscopy screening Diabetes management and glycemic control is excellent at 6 Continue SGLT, Ozempic 1 mg as well as metformin We have discontinued sulfonylurea Blood pressure is stable We discussed in detail the management of diabetes mellitus. Emphasis was paid on nutrition, low carbohydrate diet with good fat and protein sources, fruits and vegetables was discussed. Exercise was recommended. Incorporation of daily walking into a routine was discussed. A pedometer goal of 10,000 steps was discussed. Management of diabetes mellitus along with medications to treat the condition was discussed. Importance of diabetic foot exam, diabetic eye exam, urine microalbumin analysis annually was discussed. Side effects of diabetic medications were discussed again. Patient agrees to take medications as prescribed and comply with lifestyle modifications. Reviewed with patient the importance of medication and treatment plan compliance with BP goal of less then 140/90 per JNC 8 guidelines based on patient's age. This will ensure optimal health outcomes and prevent target organ damage. Made aware that uncontrolled hypertension may be silent and result in a stroke, heart attack, renal failure or even . Discussed the rationale for individualized medication regimen and the effects of their BP. Instructed to seek emergent care if the patient develops a headache, blurry vision, dizziness, chest pain or pressure. Of note, some information is being carried forward from prior records for informational purposes only and is being cited so that efficiency, safety and quality of the patient's care is not compromised This note was prepared using voice recognition software and direct typing Please excuse inadvertent weight checker or typing errors, or uncorrected word substitutions Although every attempt has been made by the provider to proofread this document, occasional misspellings and typographical errors may still be present Due to the previous pandemic, and the use of personal protective equipment (PPE) This may decrease voice recognition accuracy Inadvertent weight checker errors may occur 01/08/2024 Intermittent confusion (ICD-10 - R41.0) Patient is here today for an ER follow-up visit Patient seen and examined. Full past medical history, social history, family history, allergies and current medications were reviewed and updated. Hospital diagnostics, laboratory data, imaging, clinical notes were reviewed Will obtain MRI without contrast She will be referred to neurology for further workup I did give her some samples of CGRP to trial in case this is a complex migraine to see if it helps her symptoms Of note, some information is being carried forward from prior records for informational purposes only and is being cited so that efficiency, safety and quality of the patient's care is not compromised This note was prepared using voice recognition software and direct typing Please excuse inadvertent weight checker or typing errors, or uncorrected word substitutions Although every attempt has been made by the provider to proofread this document, occasional misspellings and typographical errors may still be present Due to the previous pandemic, and the use of personal protective equipment (PPE) This may decrease voice recognition accuracy Inadvertent weight checker errors may occur 05/30/2024 Fibromyalgia (ICD-10 - M79.7) Pt here for chronic disease mgt visit/DM2 Acute Concerns/Problem List: 05/30/2024 _update labs and CPE Refer to [facility] for colonoscopy screening Diabetes management and glycemic control is excellent at 6.2 Continue SGLT, Ozempic 1 mg as well as metformin We have discontinued sulfonylurea Blood pressure is stable We discussed in detail the management of diabetes mellitus. Emphasis was paid on nutrition, low carbohydrate diet with good fat and protein sources, fruits and vegetables was discussed. Exercise was recommended. Incorporation of daily walking into a routine was discussed. A pedometer goal of 10,000 steps was discussed. Management of diabetes mellitus along with medications to treat the condition was discussed. Importance of diabetic foot exam, diabetic eye exam, urine microalbumin analysis annually was discussed. Side effects of diabetic medications were discussed again. Patient agrees to take medications as prescribed and comply with lifestyle modifications. Reviewed with patient the importance of medication and treatment plan compliance with BP goal of less then 140/90 per JNC 8 guidelines based on patient's age. This will ensure optimal health outcomes and prevent target organ damage. Made aware that uncontrolled hypertension may be silent and result in a stroke, heart attack, renal failure or even . Discussed the rationale for individualized medication regimen and the effects of their BP. Instructed to seek emergent care if the patient develops a headache, blurry vision, dizziness, chest pain or pressure. Of note, some information is being carried forward from prior records for informational purposes only and is being cited so that efficiency, safety and quality of the patient's care is not compromised This note was prepared using voice recognition software and direct typing Please excuse inadvertent weight checker or typing errors, or uncorrected word substitutions Although every attempt has been made by the provider to proofread this document, occasional misspellings and typographical errors may still be present Due to the previous pandemic, and the use of personal protective equipment (PPE) This may decrease voice recognition accuracy Inadvertent weight checker errors may occur 11/09/2023 Fibromyalgia (ICD-10 - M79.7) Pt here for chronic disease mgt visit/DM2 Diabetes: Current regimen: Metformin 500 mg BID ER Please continue with CGM and Ozempic, as well as SGLT-2 Farxiga we have started Farxiga 10mg f/u hgb a1c in office next OV HTN: Patients SBP in office today is 138. Patient instructed to keep at home BP journal and bring Journal to f/u visit possible low dose RAHUL or ARB for renalprotection Anxiety/Depression we have started LExapro 5mg f/u CPE, with Labs We discussed in detail the management of diabetes mellitus. Emphasis was paid on nutrition, low carbohydrate diet with good fat and protein sources, fruits and vegetables was discussed. Exercise was recommended. Incorporation of daily walking into a routine was discussed. A pedometer goal of 10,000 steps was discussed. Management of diabetes mellitus along with medications to treat the condition was discussed. Importance of diabetic foot exam, diabetic eye exam, urine microalbumin analysis annually was discussed. Side effects of diabetic medications were discussed again. Patient agrees to take medications as prescribed and comply with lifestyle modifications. Reviewed with patient the importance of medication and treatment plan compliance with BP goal of less then 140/90 per JNC 8 guidelines based on patient's age. This will ensure optimal health outcomes and prevent target organ damage. Made aware that uncontrolled hypertension may be silent and result in a stroke, heart attack, renal failure or even . Discussed the rationale for individualized medication regimen and the effects of their BP. Instructed to seek emergent care if the patient develops a headache, blurry vision, dizziness, chest pain or pressure. Of note, some information is being carried forward from prior records for informational purposes only and is being cited so that efficiency, safety and quality of the patient's care is not compromised This note was prepared using voice recognition software and direct typing Please excuse inadvertent weight checker or typing errors, or uncorrected word substitutions Although every attempt has been made by the provider to proofread this document, occasional misspellings and typographical errors may still be present Due to the previous pandemic, and the use of personal protective equipment (PPE) This may decrease voice recognition accuracy Inadvertent weight checker errors may occur 11/09/2023 Gastroesophageal reflux disease without esophagitis (ICD-10 - K21.9) Pt here for chronic disease mgt visit/DM2 Diabetes: Current regimen: Metformin 500 mg BID ER Please continue with CGM and Ozempic, as well as SGLT-2 Farxiga we have started Farxiga 10mg f/u hgb a1c in office next OV HTN: Patients SBP in office today is 138. Patient instructed to keep at home BP journal and bring Journal to f/u visit possible low dose RAHUL or ARB for renalprotection Anxiety/Depression we have started LExapro 5mg f/u CPE, with Labs We discussed in detail the management of diabetes mellitus. Emphasis was paid on nutrition, low carbohydrate diet with good fat and protein sources, fruits and vegetables was discussed. Exercise was recommended. Incorporation of daily walking into a routine was discussed. A pedometer goal of 10,000 steps was discussed. Management of diabetes mellitus along with medications to treat the condition was discussed. Importance of diabetic foot exam, diabetic eye exam, urine microalbumin analysis annually was discussed. Side effects of diabetic medications were discussed again. Patient agrees to take medications as prescribed and comply with lifestyle modifications. Reviewed with patient the importance of medication and treatment plan compliance with BP goal of less then 140/90 per JNC 8 guidelines based on patient's age. This will ensure optimal health outcomes and prevent target organ damage. Made aware that uncontrolled hypertension may be silent and result in a stroke, heart attack, renal failure or even . Discussed the rationale for individualized medication regimen and the effects of their BP. Instructed to seek emergent care if the patient develops a headache, blurry vision, dizziness, chest pain or pressure. Of note, some information is being carried forward from prior records for informational purposes only and is being cited so that efficiency, safety and quality of the patient's care is not compromised This note was prepared using voice recognition software and direct typing Please excuse inadvertent weight checker or typing errors, or uncorrected word substitutions Although every attempt has been made by the provider to proofread this document, occasional misspellings and typographical errors may still be present Due to the previous pandemic, and the use of personal protective equipment (PPE) This may decrease voice recognition accuracy Inadvertent weight checker errors may occur 06/20/2024 Gastroesophageal reflux disease without esophagitis (ICD-10 - K21.9) Pt here for CPE Acute Concerns/Problem List: 06/20/2024 Will get some x-rays of the right forearm/ shoulder Discussed closed head injury nasal bone fractures Did see ENT Refer to [facility] for colonoscopy screening Diabetes management and glycemic control is excellent at 6 Continue SGLT, Ozempic 1 mg as well as metformin We have discontinued sulfonylurea Blood pressure is stable We discussed in detail the management of diabetes mellitus. Emphasis was paid on nutrition, low carbohydrate diet with good fat and protein sources, fruits and vegetables was discussed. Exercise was recommended. Incorporation of daily walking into a routine was discussed. A pedometer goal of 10,000 steps was discussed. Management of diabetes mellitus along with medications to treat the condition was discussed. Importance of diabetic foot exam, diabetic eye exam, urine microalbumin analysis annually was discussed. Side effects of diabetic medications were discussed again. Patient agrees to take medications as prescribed and comply with lifestyle modifications. Reviewed with patient the importance of medication and treatment plan compliance with BP goal of less then 140/90 per JNC 8 guidelines based on patient's age. This will ensure optimal health outcomes and prevent target organ damage. Made aware that uncontrolled hypertension may be silent and result in a stroke, heart attack, renal failure or even . Discussed the rationale for individualized medication regimen and the effects of their BP. Instructed to seek emergent care if the patient develops a headache, blurry vision, dizziness, chest pain or pressure. Of note, some information is being carried forward from prior records for informational purposes only and is being cited so that efficiency, safety and quality of the patient's care is not compromised This note was prepared using voice recognition software and direct typing Please excuse inadvertent weight checker or typing errors, or uncorrected word substitutions Although every attempt has been made by the provider to proofread this document, occasional misspellings and typographical errors may still be present Due to the previous pandemic, and the use of personal protective equipment (PPE) This may decrease voice recognition accuracy Inadvertent weight checker errors may occur 05/30/2024 Gastroesophageal reflux disease without esophagitis (ICD-10 - K21.9) Pt here for chronic disease mgt visit/DM2 Acute Concerns/Problem List: 05/30/2024 _update labs and CPE Refer to [facility] for colonoscopy screening Diabetes management and glycemic control is excellent at 6.2 Continue SGLT, Ozempic 1 mg as well as metformin We have discontinued sulfonylurea Blood pressure is stable We discussed in detail the management of diabetes mellitus. Emphasis was paid on nutrition, low carbohydrate diet with good fat and protein sources, fruits and vegetables was discussed. Exercise was recommended. Incorporation of daily walking into a routine was discussed. A pedometer goal of 10,000 steps was discussed. Management of diabetes mellitus along with medications to treat the condition was discussed. Importance of diabetic foot exam, diabetic eye exam, urine microalbumin analysis annually was discussed. Side effects of diabetic medications were discussed again. Patient agrees to take medications as prescribed and comply with lifestyle modifications. Reviewed with patient the importance of medication and treatment plan compliance with BP goal of less then 140/90 per JNC 8 guidelines based on patient's age. This will ensure optimal health outcomes and prevent target organ damage. Made aware that uncontrolled hypertension may be silent and result in a stroke, heart attack, renal failure or even . Discussed the rationale for individualized medication regimen and the effects of their BP. Instructed to seek emergent care if the patient develops a headache, blurry vision, dizziness, chest pain or pressure. Of note, some information is being carried forward from prior records for informational purposes only and is being cited so that efficiency, safety and quality of the patient's care is not compromised This note was prepared using voice recognition software and direct typing Please excuse inadvertent weight checker or typing errors, or uncorrected word substitutions Although every attempt has been made by the provider to proofread this document, occasional misspellings and typographical errors may still be present Due to the previous pandemic, and the use of personal protective equipment (PPE) This may decrease voice recognition accuracy Inadvertent weight checker errors may occur 06/20/2024 Pure hypercholesterolemi a, unspecified (ICD-10 - E78.00) Pt here for CPE Acute Concerns/Problem List: 06/20/2024 Will get some x-rays of the right forearm/ shoulder Discussed closed head injury nasal bone fractures Did see ENT Refer to [facility] for colonoscopy screening Diabetes management and glycemic control is excellent at 6 Continue SGLT, Ozempic 1 mg as well as metformin We have discontinued sulfonylurea Blood pressure is stable We discussed in detail the management of diabetes mellitus. Emphasis was paid on nutrition, low carbohydrate diet with good fat and protein sources, fruits and vegetables was discussed. Exercise was recommended. Incorporation of daily walking into a routine was discussed. A pedometer goal of 10,000 steps was discussed. Management of diabetes mellitus along with medications to treat the condition was discussed. Importance of diabetic foot exam, diabetic eye exam, urine microalbumin analysis annually was discussed. Side effects of diabetic medications were discussed again. Patient agrees to take medications as prescribed and comply with lifestyle modifications. Reviewed with patient the importance of medication and treatment plan compliance with BP goal of less then 140/90 per JNC 8 guidelines based on patient's age. This will ensure optimal health outcomes and prevent target organ damage. Made aware that uncontrolled hypertension may be silent and result in a stroke, heart attack, renal failure or even . Discussed the rationale for individualized medication regimen and the effects of their BP. Instructed to seek emergent care if the patient develops a headache, blurry vision, dizziness, chest pain or pressure. Of note, some information is being carried forward from prior records for informational purposes only and is being cited so that efficiency, safety and quality of the patient's care is not compromised This note was prepared using voice recognition software and direct typing Please excuse inadvertent weight checker or typing errors, or uncorrected word substitutions Although every attempt has been made by the provider to proofread this document, occasional misspellings and typographical errors may still be present Due to the previous pandemic, and the use of personal protective equipment (PPE) This may decrease voice recognition accuracy Inadvertent weight checker errors may occur 11/09/2023 Pure hypercholesterolemi a, unspecified (ICD-10 - E78.00) Pt here for chronic disease mgt visit/DM2 Diabetes: Current regimen: Metformin 500 mg BID ER Please continue with CGM and Ozempic, as well as SGLT-2 Farxiga we have started Farxiga 10mg f/u hgb a1c in office next OV HTN: Patients SBP in office today is 138. Patient instructed to keep at home BP journal and bring Journal to f/u visit possible low dose RAHUL or ARB for renalprotection Anxiety/Depression we have started LExapro 5mg f/u CPE, with Labs We discussed in detail the management of diabetes mellitus. Emphasis was paid on nutrition, low carbohydrate diet with good fat and protein sources, fruits and vegetables was discussed. Exercise was recommended. Incorporation of daily walking into a routine was discussed. A pedometer goal of 10,000 steps was discussed. Management of diabetes mellitus along with medications to treat the condition was discussed. Importance of diabetic foot exam, diabetic eye exam, urine microalbumin analysis annually was discussed. Side effects of diabetic medications were discussed again. Patient agrees to take medications as prescribed and comply with lifestyle modifications. Reviewed with patient the importance of medication and treatment plan compliance with BP goal of less then 140/90 per JNC 8 guidelines based on patient's age. This will ensure optimal health outcomes and prevent target organ damage. Made aware that uncontrolled hypertension may be silent and result in a stroke, heart attack, renal failure or even . Discussed the rationale for individualized medication regimen and the effects of their BP. Instructed to seek emergent care if the patient develops a headache, blurry vision, dizziness, chest pain or pressure. Of note, some information is being carried forward from prior records for informational purposes only and is being cited so that efficiency, safety and quality of the patient's care is not compromised This note was prepared using voice recognition software and direct typing Please excuse inadvertent weight checker or typing errors, or uncorrected word substitutions Although every attempt has been made by the provider to proofread this document, occasional misspellings and typographical errors may still be present Due to the previous pandemic, and the use of personal protective equipment (PPE) This may decrease voice recognition accuracy Inadvertent weight checker errors may occur 05/30/2024 Pure hypercholesterolemi a, unspecified (ICD-10 - E78.00) Pt here for chronic disease mgt visit/DM2 Acute Concerns/Problem List: 05/30/2024 _update labs and CPE Refer to [facility] for colonoscopy screening Diabetes management and glycemic control is excellent at 6.2 Continue SGLT, Ozempic 1 mg as well as metformin We have discontinued sulfonylurea Blood pressure is stable We discussed in detail the management of diabetes mellitus. Emphasis was paid on nutrition, low carbohydrate diet with good fat and protein sources, fruits and vegetables was discussed. Exercise was recommended. Incorporation of daily walking into a routine was discussed. A pedometer goal of 10,000 steps was discussed. Management of diabetes mellitus along with medications to treat the condition was discussed. Importance of diabetic foot exam, diabetic eye exam, urine microalbumin analysis annually was discussed. Side effects of diabetic medications were discussed again. Patient agrees to take medications as prescribed and comply with lifestyle modifications. Reviewed with patient the importance of medication and treatment plan compliance with BP goal of less then 140/90 per JNC 8 guidelines based on patient's age. This will ensure optimal health outcomes and prevent target organ damage. Made aware that uncontrolled hypertension may be silent and result in a stroke, heart attack, renal failure or even . Discussed the rationale for individualized medication regimen and the effects of their BP. Instructed to seek emergent care if the patient develops a headache, blurry vision, dizziness, chest pain or pressure. Of note, some information is being carried forward from prior records for informational purposes only and is being cited so that efficiency, safety and quality of the patient's care is not compromised This note was prepared using voice recognition software and direct typing Please excuse inadvertent weight checker or typing errors, or uncorrected word substitutions Although every attempt has been made by the provider to proofread this document, occasional misspellings and typographical errors may still be present Due to the previous pandemic, and the use of personal protective equipment (PPE) This may decrease voice recognition accuracy Inadvertent weight checker errors may occur 05/30/2024 Vitamin D deficiency, unspecified (ICD-10 - E55.9) Pt here for chronic disease mgt visit/DM2 Acute Concerns/Problem List: 05/30/2024 _update labs and CPE Refer to [facility] for colonoscopy screening Diabetes management and glycemic control is excellent at 6.2 Continue SGLT, Ozempic 1 mg as well as metformin We have discontinued sulfonylurea Blood pressure is stable We discussed in detail the management of diabetes mellitus. Emphasis was paid on nutrition, low carbohydrate diet with good fat and protein sources, fruits and vegetables was discussed. Exercise was recommended. Incorporation of daily walking into a routine was discussed. A pedometer goal of 10,000 steps was discussed. Management of diabetes mellitus along with medications to treat the condition was discussed. Importance of diabetic foot exam, diabetic eye exam, urine microalbumin analysis annually was discussed. Side effects of diabetic medications were discussed again. Patient agrees to take medications as prescribed and comply with lifestyle modifications. Reviewed with patient the importance of medication and treatment plan compliance with BP goal of less then 140/90 per JNC 8 guidelines based on patient's age. This will ensure optimal health outcomes and prevent target organ damage. Made aware that uncontrolled hypertension may be silent and result in a stroke, heart attack, renal failure or even . Discussed the rationale for individualized medication regimen and the effects of their BP. Instructed to seek emergent care if the patient develops a headache, blurry vision, dizziness, chest pain or pressure. Of note, some information is being carried forward from prior records for informational purposes only and is being cited so that efficiency, safety and quality of the patient's care is not compromised This note was prepared using voice recognition software and direct typing Please excuse inadvertent weight checker or typing errors, or uncorrected word substitutions Although every attempt has been made by the provider to proofread this document, occasional misspellings and typographical errors may still be present Due to the previous pandemic, and the use of personal protective equipment (PPE) This may decrease voice recognition accuracy Inadvertent weight checker errors may occur 11/09/2023 Vitamin D deficiency, unspecified (ICD-10 - E55.9) Pt here for chronic disease mgt visit/DM2 Diabetes: Current regimen: Metformin 500 mg BID ER Please continue with CGM and Ozempic, as well as SGLT-2 Farxiga we have started Farxiga 10mg f/u hgb a1c in office next OV HTN: Patients SBP in office today is 138. Patient instructed to keep at home BP journal and bring Journal to f/u visit possible low dose RAHUL or ARB for renalprotection Anxiety/Depression we have started LExapro 5mg f/u CPE, with Labs We discussed in detail the management of diabetes mellitus. Emphasis was paid on nutrition, low carbohydrate diet with good fat and protein sources, fruits and vegetables was discussed. Exercise was recommended. Incorporation of daily walking into a routine was discussed. A pedometer goal of 10,000 steps was discussed. Management of diabetes mellitus along with medications to treat the condition was discussed. Importance of diabetic foot exam, diabetic eye exam, urine microalbumin analysis annually was discussed. Side effects of diabetic medications were discussed again. Patient agrees to take medications as prescribed and comply with lifestyle modifications. Reviewed with patient the importance of medication and treatment plan compliance with BP goal of less then 140/90 per JNC 8 guidelines based on patient's age. This will ensure optimal health outcomes and prevent target organ damage. Made aware that uncontrolled hypertension may be silent and result in a stroke, heart attack, renal failure or even . Discussed the rationale for individualized medication regimen and the effects of their BP. Instructed to seek emergent care if the patient develops a headache, blurry vision, dizziness, chest pain or pressure. Of note, some information is being carried forward from prior records for informational purposes only and is being cited so that efficiency, safety and quality of the patient's care is not compromised This note was prepared using voice recognition software and direct typing Please excuse inadvertent weight checker or typing errors, or uncorrected word substitutions Although every attempt has been made by the provider to proofread this document, occasional misspellings and typographical errors may still be present Due to the previous pandemic, and the use of personal protective equipment (PPE) This may decrease voice recognition accuracy Inadvertent weight checker errors may occur 06/20/2024 Closed fracture of nasal bone, initial encounter (ICD-10 - S02.2XXA) Pt here for CPE Acute Concerns/Problem List: 06/20/2024 Will get some x-rays of the right forearm/ shoulder Discussed closed head injury nasal bone fractures Did see ENT Refer to [facility] for colonoscopy screening Diabetes management and glycemic control is excellent at 6 Continue SGLT, Ozempic 1 mg as well as metformin We have discontinued sulfonylurea Blood pressure is stable We discussed in detail the management of diabetes mellitus. Emphasis was paid on nutrition, low carbohydrate diet with good fat and protein sources, fruits and vegetables was discussed. Exercise was recommended. Incorporation of daily walking into a routine was discussed. A pedometer goal of 10,000 steps was discussed. Management of diabetes mellitus along with medications to treat the condition was discussed. Importance of diabetic foot exam, diabetic eye exam, urine microalbumin analysis annually was discussed. Side effects of diabetic medications were discussed again. Patient agrees to take medications as prescribed and comply with lifestyle modifications. Reviewed with patient the importance of medication and treatment plan compliance with BP goal of less then 140/90 per JNC 8 guidelines based on patient's age. This will ensure optimal health outcomes and prevent target organ damage. Made aware that uncontrolled hypertension may be silent and result in a stroke, heart attack, renal failure or even . Discussed the rationale for individualized medication regimen and the effects of their BP. Instructed to seek emergent care if the patient develops a headache, blurry vision, dizziness, chest pain or pressure. Of note, some information is being carried forward from prior records for informational purposes only and is being cited so that efficiency, safety and quality of the patient's care is not compromised This note was prepared using voice recognition software and direct typing Please excuse inadvertent weight checker or typing errors, or uncorrected word substitutions Although every attempt has been made by the provider to proofread this document, occasional misspellings and typographical errors may still be present Due to the previous pandemic, and the use of personal protective equipment (PPE) This may decrease voice recognition accuracy Inadvertent weight checker errors may occur 06/20/2024 Acute pain of right shoulder (ICD-10 - M25.511) Pt here for CPE Acute Concerns/Problem List: 06/20/2024 Will get some x-rays of the right forearm/ shoulder Discussed closed head injury nasal bone fractures Did see ENT Refer to [facility] for colonoscopy screening Diabetes management and glycemic control is excellent at 6 Continue SGLT, Ozempic 1 mg as well as metformin We have discontinued sulfonylurea Blood pressure is stable We discussed in detail the management of diabetes mellitus. Emphasis was paid on nutrition, low carbohydrate diet with good fat and protein sources, fruits and vegetables was discussed. Exercise was recommended. Incorporation of daily walking into a routine was discussed. A pedometer goal of 10,000 steps was discussed. Management of diabetes mellitus along with medications to treat the condition was discussed. Importance of diabetic foot exam, diabetic eye exam, urine microalbumin analysis annually was discussed. Side effects of diabetic medications were discussed again. Patient agrees to take medications as prescribed and comply with lifestyle modifications. Reviewed with patient the importance of medication and treatment plan compliance with BP goal of less then 140/90 per JNC 8 guidelines based on patient's age. This will ensure optimal health outcomes and prevent target organ damage. Made aware that uncontrolled hypertension may be silent and result in a stroke, heart attack, renal failure or even . Discussed the rationale for individualized medication regimen and the effects of their BP. Instructed to seek emergent care if the patient develops a headache, blurry vision, dizziness, chest pain or pressure. Of note, some information is being carried forward from prior records for informational purposes only and is being cited so that efficiency, safety and quality of the patient's care is not compromised This note was prepared using voice recognition software and direct typing Please excuse inadvertent weight checker or typing errors, or uncorrected word substitutions Although every attempt has been made by the provider to proofread this document, occasional misspellings and typographical errors may still be present Due to the previous pandemic, and the use of personal protective equipment (PPE) This may decrease voice recognition accuracy Inadvertent weight checker errors may occur 05/30/2024 Transient visual loss, left (ICD-10 - H53.122) Pt here for chronic disease mgt visit/DM2 Acute Concerns/Problem List: 05/30/2024 _update labs and CPE Refer to [facility] for colonoscopy screening Diabetes management and glycemic control is excellent at 6.2 Continue SGLT, Ozempic 1 mg as well as metformin We have discontinued sulfonylurea Blood pressure is stable We discussed in detail the management of diabetes mellitus. Emphasis was paid on nutrition, low carbohydrate diet with good fat and protein sources, fruits and vegetables was discussed. Exercise was recommended. Incorporation of daily walking into a routine was discussed. A pedometer goal of 10,000 steps was discussed. Management of diabetes mellitus along with medications to treat the condition was discussed. Importance of diabetic foot exam, diabetic eye exam, urine microalbumin analysis annually was discussed. Side effects of diabetic medications were discussed again. Patient agrees to take medications as prescribed and comply with lifestyle modifications. Reviewed with patient the importance of medication and treatment plan compliance with BP goal of less then 140/90 per JNC 8 guidelines based on patient's age. This will ensure optimal health outcomes and prevent target organ damage. Made aware that uncontrolled hypertension may be silent and result in a stroke, heart attack, renal failure or even . Discussed the rationale for individualized medication regimen and the effects of their BP. Instructed to seek emergent care if the patient develops a headache, blurry vision, dizziness, chest pain or pressure. Of note, some information is being carried forward from prior records for informational purposes only and is being cited so that efficiency, safety and quality of the patient's care is not compromised This note was prepared using voice recognition software and direct typing Please excuse inadvertent weight checker or typing errors, or uncorrected word substitutions Although every attempt has been made by the provider to proofread this document, occasional misspellings and typographical errors may still be present Due to the previous pandemic, and the use of personal protective equipment (PPE) This may decrease voice recognition accuracy Inadvertent weight checker errors may occur 11/09/2023 Nausea (ICD-10 - R11.0) Pt here for chronic disease mgt visit/DM2 Diabetes: Current regimen: Metformin 500 mg BID ER Please continue with CGM and Ozempic, as well as SGLT-2 Farxiga we have started Farxiga 10mg f/u hgb a1c in office next OV HTN: Patients SBP in office today is 138. Patient instructed to keep at home BP journal and bring Journal to f/u visit possible low dose RAHUL or ARB for renalprotection Anxiety/Depression we have started LExapro 5mg f/u CPE, with Labs We discussed in detail the management of diabetes mellitus. Emphasis was paid on nutrition, low carbohydrate diet with good fat and protein sources, fruits and vegetables was discussed. Exercise was recommended. Incorporation of daily walking into a routine was discussed. A pedometer goal of 10,000 steps was discussed. Management of diabetes mellitus along with medications to treat the condition was discussed. Importance of diabetic foot exam, diabetic eye exam, urine microalbumin analysis annually was discussed. Side effects of diabetic medications were discussed again. Patient agrees to take medications as prescribed and comply with lifestyle modifications. Reviewed with patient the importance of medication and treatment plan compliance with BP goal of less then 140/90 per JNC 8 guidelines based on patient's age. This will ensure optimal health outcomes and prevent target organ damage. Made aware that uncontrolled hypertension may be silent and result in a stroke, heart attack, renal failure or even . Discussed the rationale for individualized medication regimen and the effects of their BP. Instructed to seek emergent care if the patient develops a headache, blurry vision, dizziness, chest pain or pressure. Of note, some information is being carried forward from prior records for informational purposes only and is being cited so that efficiency, safety and quality of the patient's care is not compromised This note was prepared using voice recognition software and direct typing Please excuse inadvertent weight checker or typing errors, or uncorrected word substitutions Although every attempt has been made by the provider to proofread this document, occasional misspellings and typographical errors may still be present Due to the previous pandemic, and the use of personal protective equipment (PPE) This may decrease voice recognition accuracy Inadvertent weight checker errors may occur 06/20/2024 Right arm pain (ICD-10 - M79.601) Pt here for CPE Acute Concerns/Problem List: 06/20/2024 Will get some x-rays of the right forearm/ shoulder Discussed closed head injury nasal bone fractures Did see ENT Refer to [facility] for colonoscopy screening Diabetes management and glycemic control is excellent at 6 Continue SGLT, Ozempic 1 mg as well as metformin We have discontinued sulfonylurea Blood pressure is stable We discussed in detail the management of diabetes mellitus. Emphasis was paid on nutrition, low carbohydrate diet with good fat and protein sources, fruits and vegetables was discussed. Exercise was recommended. Incorporation of daily walking into a routine was discussed. A pedometer goal of 10,000 steps was discussed. Management of diabetes mellitus along with medications to treat the condition was discussed. Importance of diabetic foot exam, diabetic eye exam, urine microalbumin analysis annually was discussed. Side effects of diabetic medications were discussed again. Patient agrees to take medications as prescribed and comply with lifestyle modifications. Reviewed with patient the importance of medication and treatment plan compliance with BP goal of less then 140/90 per JNC 8 guidelines based on patient's age. This will ensure optimal health outcomes and prevent target organ damage. Made aware that uncontrolled hypertension may be silent and result in a stroke, heart attack, renal failure or even . Discussed the rationale for individualized medication regimen and the effects of their BP. Instructed to seek emergent care if the patient develops a headache, blurry vision, dizziness, chest pain or pressure. Of note, some information is being carried forward from prior records for informational purposes only and is being cited so that efficiency, safety and quality of the patient's care is not compromised This note was prepared using voice recognition software and direct typing Please excuse inadvertent weight checker or typing errors, or uncorrected word substitutions Although every attempt has been made by the provider to proofread this document, occasional misspellings and typographical errors may still be present Due to the previous pandemic, and the use of personal protective equipment (PPE) This may decrease voice recognition accuracy Inadvertent weight checker errors may occur PLAN OF TREATMENT Pending Test Test Name Order Date PT AND PTT 06/24/2023 MRI : Brain without Contrast 01/08/2024 EKG 06/24/2023 25OH VITAMIN D 11/09/2023 CBC (COMPLETE BLOOD COUNT) WITH DIFF 02/2024 COMPREHENSIVE METABOLIC PANEL 11/09/2023 HEMOGLOBIN A1C 11/09/2023 LIPID PANEL 11/09/2023 MICROALBUMIN, URINE 11/09/2023 TSH WITH REFLEX TO FT4 11/09/2023 URINALYSIS W/REFLEX CULTURE 11/09/2023 Chest 2 Views Frontal and Lat 06/26/2023 XR Forearm 2 Views RT 06/20/2024 XR Humerus 2+ Views RT 06/20/2024 XR Shoulder 2+ Views RT 06/20/2024 INSULIN LEVEL 05/20/2023 COMPLETE URINALYSIS 05/20/2023 Next Appt Details Provider Name:WALLACE DING, 12/20/2024 03:30:00 PM, [address] [facility], [facility] [[email or web address] [address], [place], [address], Insurance Providers Payer Name Payer Address Payer Phone Subscriber Number Group Number Insured Name Patient Relationship to Insured Coverage Start Date Coverage End Date [facility] [address] [place] [address] [phone] [id number] PAULO LOPEZ Self - patient is the insured MEDICAL (GENERAL) HISTORY Medical History History ICD Code high cholesterol Diabetes Asthma Headaches Fibromyalgia
--- OUTSIDE RECORDS SUMMARY | 2024-09-16 16:48 | XMS_ITS ---
Author Organization [facility] Address [address] [place] [address] Care Team Providers Care Market Research Coordinator Name Role Phone MARCIWALLACE Hart Unavailable [phone] MEDICATIONS Medication SIG (Take, Route, Frequency, Duration) Notes Start Date End Date Status Albuterol Sulfate HFA 108 (90 Base) MCG/ACT 1 puff as needed Inhalation every 4 hrs for 30 days 06/24/2023 Active Encounters Encounter Location Date Provider Diagnosis [facility] [address] [address] 08/09/2024 WALLACE DING Pre-op exam Z01.818 ASSESSMENTS Encounter Date Diagnosis Assessment Notes Treatment Notes Treatment Clinical Notes Section Notes 08/09/2024 Pre-op exam (ICD-10 - Z01.818) PLAN OF TREATMENT Medication Medication Name Sig Start Date Stop Date Notes Albuterol Sulfate HFA 108 (9 0 Base) MCG/ACT 1 puff as needed Inhalation every 4 hrs for 30 days 06/24/2023 Next Appt Details Provider Name:WALLACE DING, 12/20/2024 03:30:00 PM, [address] [address], [place], [address], Progress Notes * PAULO LOPEZ LDOB:[birth year] (54 yo F)Acc No.[id number]:08/09/2024 Patient:??PAULO LOPEZ :1970?Age:54 Y?Sex:Fe male Address:[address] [place] [address], [place] [address] * Refills?? Refill Albuterol Sulfate HFA Aerosol Solution, 108 (90 Base) MCG/ACT, Inhalation, 1 Unspecified, 1 puff as needed, every 4 hrs, 30 days, Refills=3 * true * Date:??
--- OUTSIDE RECORDS SUMMARY | 2024-09-16 16:48 | XMS_ITS ---
Author Organization [facility] Address [address] [place] [address] Care Team Providers Care Wire Coiler Name Role Phone WALLACE DING Unavailable [phone] MEDICATIONS Medication SIG (Take, Route, Fr equency, Duration) Notes Start Date End Date Status Dexcom G7 Sorter Pricer - as directed for 365 days 07/06 Active Encounters Encounter Location Date Provider Diagnosis [facility] [address] [address] 08/01/2024 WALLACE DING PLAN OF TREATMENT Medication Medication Name Sig Start Date Stop Date Notes Dexcom G7 Sorter Pricer - as directed for 365 days 08/01/2024 Next Appt Details Provider Name:WALLACE DING, 12/20/2024 03:30:00 PM, [address] [facility], [address] [address], [place], [address], Progress Notes * PAULO LOPEZ LDOB:[birth year] (54 yo F)Acc No.[id number]:08/01/2024 Patient:??PAULO LOPEZ :1970?Age:54 Y?Sex:Fe male Address:[address] [place] [address] * Refills?? Start Dexcom G7 Sorter Pricer Device, -, 1 Unspecified, as directed, 365 days, Refills=3 * true * Date:??
--- OUTSIDE RECORDS SUMMARY | 2024-09-16 16:48 | XMS_ITS ---
Author Organization [facility] Address [address] [place] [address] Care Team Providers Care Central Lab Technician Name Role Phone GOLDCRESENCIO WALLACE Unavailable [phone] MEDICATIONS Medication SIG (Take, Route, Frequency, Duration) Notes Start Date End Date Status Albuterol Sulfate (2.5 MG/3ML) 0.083% 3 mL as needed Inhalation every 6 hrs for 30 days 08/12/2024 Active Encounters Encounter Location Date Provider Diagnosis [facility] [address] [address] 08/12/2024 WALLACE DING PLAN OF TREATMENT Medication Medication Name Sig Start Date Stop Date Notes Albuterol Sulfate (2.5 MG/3ML) 0.083% 3 mL as needed Inhalation every 6 hrs for 30 days 08/12/2024 Next Appt Details Provider Name:WALLACE DING, 12/20/2024 03:30:00 PM, [address], [address], Progress Notes * PAULO LOPEZ LDOB:[birth year] (54 yo F)Acc No.[id number]:08/12/2024 Patient:??PAULO LOPEZ :1970?Age:54 Y?Sex:Fe male Address:[address] [place] [address] * Refills?? Start Albuterol Sulfate Nebulization Solution, (2.5 MG/3ML) 0.083%, Inhalation, 360 ML, 3 mL as needed, every 6 hrs, 30 days, Refills=1 * true * Date:??
--- OUTSIDE RECORDS SUMMARY | 2024-09-16 16:49 | XMS_ITS | Data Portability ---
Author Organization [place] - [facility], Allergy Address [address] [place] [address] Care Team Providers Care Project Economist Name Role Phone WALLACE DING Primary Care Provider [phone] Assessment Encounter Date Assessment Date Assessment LastModified by Organization Details LastModified Time 06/14/2024 06/14/2024 The patient has an isolated non-displaced nasal fracture. There is no septal hematoma. There is no significant nasal obstruction or cosmetic deformity. I have not recommended surgical repair. Pt understands that the ultimate result after normal healing may result in mild cosmetic change and obstruction. They are comfortable with this plan of action. All questions were answered. [email or web address] Not available 06/14/2024 15:22:37 Plan of Treatment Reminders Order Date Submit Date Provider Last Modified By Organization Details Last Modified Time Details Appointments None record ed. Lab None record ed. Referral None record ed. Procedures None record ed. Surgeries None record ed. Imaging None record ed. Medication Orders None record ed. Patient TargetsNo targets recorded. Patient InstructionsNo instructions recorded. Reason for Referral None Reported. Results Created Date Observation Date Name Description Value Unit Range Abnormal Flag Note LastModifiedBy Organization Detail LastModifiedTime 06/14/20 24 06/12/2024 CT, maxil lofac ial, w/o contr ast No observ ation record ed. [email or web address] Not Available 06/05 15:09:44 Result Notes None recorded. Problems Name Problem SNOMED Code Status Onset Date Resolution Date Notes Provider Name and Address Organization Details Recorded Time Closed fracture of nasal bones 19879011 Active 024 KERRI TREJO PA-C [address] [facility], [facility] [place] doming[place], [address] , [place] - [facility] 15:22:16 Problem Notes None recorded. Procedures Surgical History None recorded. Imaging Results Imaging Date Name Status LastModified by Organiz ation Details LastModified Time 06/12/2024 CT, maxillofacial , w/o contrast completed [email or web address] Information not available 06/14/2024 15:09:44 Procedure Notes None recorded. Medical Equipment None Reported. Medications Name Sig Start Date Stop Date Status Note LastModified by Organization Details LastModified Time losartan 50 mg tablet active Not Available Not Available Not Available terconazole 0.4 % vaginal cream active Not Available Not Availa ble Not Available cetirizine 10 mg tablet active Not Available Not Available No t Available atorvastatin 10 mg tablet active Not Available Not Available No t Available azithromycin 250 mg tablet active Not Available Not Availabl e Not Available metronidazole 0.75 % (37.5 mg/5 gram) vaginal gel active Not Available Not Available Not Available ondansetron HCl 4 mg tablet active Not Available Not Available Not Available prednisone 20 mg tablet 06/14 completed Not Available Not Available Not Available omeprazole 40 mg capsule,delayed release active Not Available Not Available Not Available omeprazole 20 mg capsule,delayed release active Not Available Not Available Not Available ibuprofen 600 mg tablet active Not Available Not Available No t Available albuterol sulfate HFA 90 mcg/actuation aerosol inhaler active Not Available Not Availa ble Not Available fluticasone propionate 50 mcg/actuation nasal spray,suspensio n active Not Available Not Available Not Available metformin ER 500 mg tablet,extended release 24 hr active Not Available Not Availabl e Not Available oxycodone 5 mg tablet 06/14 completed Not Available Not Available Not Available escitalopram 5 mg tablet active Not Available Not Available No t Available Symbicort 160 mcg-4.5 mcg/actuation HFA aerosol inhaler active Not Available Not Available Not Available Aerochamber Plus Flow-Vu active Not Available Not Available Not Available Farxiga 10 mg tablet active Not Available Not Available Not Available FreeStyle Racquel 14 Day Sensor kit active Not Available Not Available Not Available Ozempic 1 mg/dose (4 mg/3 mL) subcutaneous pen injector active Not Available Not Available Not Available Dexcom G7 Sensor device active Not Available Not Availabl e Not Available FreeStyle Racquel [address] [place] active Not Available Not Available Not Available Vitals Date Recorded Body height Body mass index (BMI) Body weight Provider Name and Address Organization Details Last Updated DateTime 06/14/2024 152.4 cm 22.5 kg/m2 46343.12 g Paola Vyas [place] - [facility] 06/14/2024 14:52:28 Social History None recorded. Functional Status None recorded. Mental Status None recorded. Family History Nothing Reported. Medical History No medical history recorded. Gynecological HistoryNo gynecological history recorded. Obstetrics History GPAL:G 0 P 0 0 0 0 Past Encounters Encounter ID Performer Location Encounter Start Date Encounter Closed Date Diagnosis/Indication Diagnosis SNOMED-CT Code Diagnosis ICD10 Code 13113 KERRI TREJO PA-C [facility] [address] [address] 06/14/2024 14:43:26 06/14/2024 15:05:35 Closed fracture of nasal bones 75024319 S02.2XXA Health Concerns Section Related Observation LastModified by Organization Detai ls LastModified Time None Recorded Concern Status LastModified by Organization Details LastModified Time None Recorded Advance Directives Directive None Recorded Payers Encounter Date Sequence Insurance Name Policy Number Policy Johnson Covered Member ID Johnson Member ID Guarantor Name 06/14/2024 1 [employer] [facility] [id number] [facility] [id number] Notes Date Note Type Note Provider Name and Address Organization Details Recorded Time 06/14/2024 text/html 54 year old radha singleton presents for evaluation of the nose. Fell face forward onto cement 06/11. Hit her face, mostly the right eye. No epistaxis at the time. She has not noticed a change in the appearance of the nose but she does endorse reduced airflow on both sides. No dental malocclusion nor chipped teeth. Hurts to move the right eye, attributes to her significant bruising. There has been no diplopia. Vision was a little blurry when the eye was swollen mostly shut, but it is improving now. Feels a throbbing pain in the region of the eye. She has been blowing her nose a little bit, no blood. KERRI TREJO PA-C [address] [place] [address],[place] [address], [place], [address], [facility] - [facility] 06/14/2024 15:22:53 OBGyn Episode No OBEpisode recorded.
--- OUTSIDE RECORDS SUMMARY | 2024-09-16 16:49 | XMS_ITS ---
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 Name Role Phone Janel Temple Primary Care Provider Unavailmick e MARIAJOSE PATEL Unavailable [phone] REASON FOR VISIT 1 month f/u Encounters Encounter Location Date Provider Diagnosis [facility] [address] [address] 10/16/2023 MARIAJOSE PATEL PLAN OF TREATMENT No Information Progress Notes * Jessica LOPEZDOB: [birth year] (54 yo F)Acc No.[id number]:10/16/2023 post-op Patient:??Jessica LOPEZ Provider:??Mariajose Patel DPM :1970?Age:53 Y?Sex:Fe male Date:10/16/2023 Phone: Address:[address] [place], [place] [phone] Pcp:Janel Temple Subjective: * Chief Complaints: Objective: Assessment: Plan: * Treatment: * Billing Information: * Sign off status: Pending * Provider:??Mariajose Patel DPM Date: ??10/16/2023
--- OUTSIDE RECORDS SUMMARY | 2024-09-16 16:49 | XMS_ITS ---
Author Organization [facility] Address [address] [address] Care Team Providers Care Group Home Paraprofessional Name Role Phone RachanaJanel pace Primary Care Provider Unavailmick e HUSSEIN DUMONT Unavailable [phone] REASON FOR VISIT Cxl Apt Encounters Encounter Location Date Provider Diagnosis [facility] [address] [address] 10/20/2023 HUSSEIN DUMONT PLAN OF TREATMENT No Information Progress Notes * Jessica LOPEZDOB: [birth year] (53 yo F)Acc No.[id number]:10/20/2023 Patient:??Jessica LOPEZ :1970?Age:53 Y?Sex:Fe male Phone: Address:[address] [place] [phone] * true * Date:??
--- OUTSIDE RECORDS SUMMARY | 2024-09-16 16:49 | XMS_ITS ---
Author Organization [facility] Address [address] [address] Care Team Providers Care Foot Roentgenologist Name Role Phone Janel Temple Primary Care Provider Unavailmick e MARIAJOSE PATEL Unavailable [phone] REASON FOR VISIT 1 month f/u Encounters Encounter Location Date Provider Diagnosis [facility] [address] [address] 10/21/2023 MARIAJOSE PATEL PLAN OF TREATMENT No Information Progress Notes * Jessica LOPEZDOB: [birth year] (54 yo F)Acc No.[id number]:10/21/2023 post-op Patient:??Jessica LOPEZ Provider:??Mariajose Patel DPM :1970?Age:53 Y?Sex:Fe male Date:10/21/2023 Phone: Address:[address] [place], [place] [phone] Pcp:Janel Temple Subjective: * Chief Complaints: Objective: Assessment: Plan: * Treatment: * Billing Information: * Sign off status: Pending * Provider:??Mariajose Patel DPM Date: ??10/21/2023
--- OUTSIDE RECORDS SUMMARY | 2024-09-16 16:50 | XMS_ITS | Patient Health Record ---
Author Organization [facility] Address [address] [facility] [address] [place] [address] Care Team Providers Care Typing Office Worker Name Role Phone RachanaJanel pace Primary Care Provider UnavailHUSSEIN Vicente Unavailable [phone] ALLERGIES Allergen (clinical drug ingredient) Drug/Non Drug Allergy documented on EMR Reaction Allergy Type Onset Date Status moxifloxacin Avelox blurry vision Drug Allergy Active povidone-iodine Betadine rash, itchy Drug Allergy Active REASON FOR REFERRAL No Information MEDICATIONS Medication SIG (Take, Route, Frequency, Duration) Notes Start Date End Date Status Losartan Potassium 25 MG 1 tablet Orally Once a day Active Acetaminophen 500 MG 1 tablet as needed Orally every 6 hrs for 30 days 07/10/2023 Not-Taking Ozempic 1MG Active oxyCODONE HCl 5 MG 1 tablet as needed Orally every 6 hrs for 5 days PRN 07/10/2023 Not-Taking Ondansetron HCl 4 MG 1 tablet Orally jo ry 8 hours as needed for nausea for 10 days 07/10/2023 Not-Taking Ibuprofen 600 MG 1 tablet with food o r milk as needed Orally four times a day for 30 days 07/10/2023 Not-Taking Cetirizine HCl 10 MG 1 tablet Orally Onc e a day Active Atorvastatin Calcium 10 MG 1 tablet Orally Once a day Active Lidocaine 5 % 1 patch remove after 12 hours Externally Once a day PRN Active Aspirin 81 MG 1 tablet Orally Once a day Not-Taking Flovent HFA 110 MCG/ACT 2 puffs Inhalati on Twice a day Active glipiZIDE ER 5 MG 1 tablet with food Orally Once a day Not-Taking Ativan 0.5 MG 1 tablet at bedtime as needed Orally Once a day PRN Not-Taking metFORMIN HCl ER 500 MG 1 tablet with ev ening meal Orally Once a day Active Xopenex HFA 45 MCG/ACT 1 puff as needed Inhalation every 6 hrs Active Victoza 18 MG/3ML as directed Subcutaneous Not-Taking Omeprazole 20 MG 1 capsule 30 minutes before morning meal Orally Once a day Active glipiZIDE ER 10 MG 1 tablet with breakf ast Orally Once a day Not-Taking PROBLEMS Problem Type ICD Code Onset Dates Problem Status W/U Status Risk SNOMED Code Notes Problem Hallux rigidus, right foot (M20.21) Active confirmed 581574128 Problem Hallux rigidus, left foot (M20.22) Active confirmed 096010973 Problem Controlled type 2 diabetes mellitus without complication, without long-term current use of insulin (E11.9) Active confirmed [id number] Encounters Encounter Location Date Provider Diagnosis [facility] [address] [address] 10/16/2023 HUSSEIN DUMONT [facility] [address] [address] 10/21/2023 HUSSEIN DUMONT [facility] [address] [address] 10/20/2023 HUSSEIN DUMONT PLAN OF TREATMENT Pending Test Test Name Order Date X ray : Foot, left 3v 03/06/2023 X ray : Foot, right 3v 08/19/2023 X ray : Foot, right 3v 09/14/2023 X ray : Foot, right 3v 03/06/2023 BASIC METABOLIC PANEL 05/08/2023 CBC (COMPLETE BLOOD COUNT) WITH DIFF 01/2023 Insurance Providers Payer Name Payer Address Payer Phone Subscriber Number Group Number Insured Name Patient Relationship to Insured Coverage Start Date Coverage End Date [facility] [address] [place] [address] [id number] Jessica Lozano Self - patient is the insured MEDICAL (GENERAL) HISTORY Medical History History ICD Code anxiety and depression asthma chronic low back pain dense breasts disorder of left rotator cuff hypertension REGINA on CPAP type 2 diabetes mellitus fibromyalgia + COVID X 2 COVID vaccinated X 2 (Pfizer) Surgical History Surgery Date(Month/Year) esophagogastroduodenoscopy and biopsy upper gastrointestinal endoscopy colonoscopy 05/22/2017 right wrist carpel tunnel left shoulder bone spur right shoulder bone spur Hospitalization History Reason Date(Month/Year) asthma 10/2022 vaginal delivery (girl) 1990 vaginal delivery (girl) 1987 vaginal delivery (boy) 1987
[2024-09-16 17:08] VITALS: BP 136/71; PULSE 94; RESP 18; TEMP 36.8; O2SAT 98; BMI 22.1
--- NOTE | 2024-09-16 17:13 | ED.GENADULT ---
HPI - General Adult General Chief complaint: Upper Respiratory Symptoms Stated complaint: Chest pain, asthma Time Seen by Provider: 09/16/24 17:25 Source: patient Mode of arrival: ambulatory Limitations: no limitations History of Present Illness HPI narrative: Patient is a 54-year-old female with past medical history of asthma, diabetes, GERD, hypertension, sleep apnea, fibromyalgia presenting to emergency department for evaluation. She reports that she has been experiencing intermittent episodes of shortness of breath and wheezing over the past month. She takes her inhalers as well as her nebulizer machine and her symptoms improve but then return. She has associated intermittently productive cough, pain to the anterior chest but only during episodes of coughing. She denies associated fevers, chills, lower extremity redness pain or swelling. She states that this does feel consistent with her asthma exacerbations which she has experienced in the past. She expresses a lot of reservations about taking prednisone as when she has taken in the past it causes her blood sugars to become extremely elevated and she ultimately winds up being hospitalized. She would very much like to avoid this. She is not taking any insulin, her only diabetes management is Ozempic weekly. Related Data Home Medications ?Medication ?Instructions ?Recorded ?Confirmed aspirin 81 mg chewable tablet 81 mg PO DAILY 09/11/20 10/02/21 (Aspirin Childrens) atorvastatin 10 mg tablet 10 mg PO DAILY 09/11/20 10/02/21 cetirizine 10 mg tablet (Zyrtec) 10 mg PO DAILY 09/11/20 10/02/21 metformin 500 mg tablet 500 mg PO BID 09/11/20 10/02/21 omeprazole magnesium 20 mg 20 mg PO DAILY 09/11/20 10/02/21 capsule,delayed release (Acid Live In Housekeeper (omeprazole)) liraglutide 0.6 mg/0.1 mL (18 mg/3 1.2 mg subcut DAILY 10/02/21 10/02/21 mL) subcutaneous pen injector (Victoza 2-Emile) tramadol 50 mg tablet 50 mg PO Q8H PRN 10/02/21 10/02/21 Previous Rx's ?Medication ?Instructions ?Recorded lidocaine 5 % topical patch 1 patch topical DAILY 30 days #30 10/28/21 ea azithromycin 250 mg tablet See Rx Instructions PO .COMPLEX #6 09/16/24 tabs prednisone 20 mg tablet 20 mg PO DAILY #5 tabs 09/16/24 Allergies Allergy/AdvReac Type Severity Reaction Status Date / Time moxifloxacin [From Avelox] AdvReac Intermediate hand and Verified 09/16/24 17:09 limp numbness Review of Systems Review of Systems: Yes all other systems are reviewed and are negative COUNTS INCLUDE 234 BEDS AT THE [facility] Past Medical History Attestation statement: The following information was validated with the patient. Source: old records reviewed Medical History Carpal tunnel syndrome on right Fibromyalgia Asthma High cholesterol Diabetes Surgical History H/O shoulder surgery Social History Social History Advance Directives: No Advance Directives Information Provided: No Do you have a plan to hurt others: No Plan Physical Exam ED Vital Signs: Vital Signs - 24 hr 09/16/24 17:08 09/16/24 17:30 Temperature 98.2 F Pulse Rate 94 94 Respiratory Rate 18 18 Blood Pressure 136/71 Pulse Oximetry 98 BMI result Body Mass Index 22.1 Appearance: Alert.?Oriented to person, place and time. No acute distress.?Normal affect. Eyes: Pupils equal, round and reactive to light.? ENT: Pharynx normal.?? Neck: Normal inspection.? Neck supple.?? CVS: Heart sounds normal. Normal heart rate and rhythm.? Pulses normal.?? Respiratory: No respiratory distress.? Lung sounds with diffuse expiratory wheezing Abdomen: Soft and non-tender. Normoactive bowel sounds. Skin: Skin warm and dry.? Normal skin color.? Extremities: No lower extremity edema.? No calf ttp? Neuro: Moves all extremities spontaneously. Sensation intact bilaterally. No focal neuro deficits. Ambulates with normal steady gait. Course Course Course Narrative: RME, this is a rapid medical exam performed by Lai Lyon please refer to primary provider for complete H&P- 54-year-old female with past medical history significant for asthma, diabetes, GERD, hypertension, sleep apnea presents for evaluation of shortness of breath and wheezing for the last month. She feels it is consistent with her asthma. She used a nebulizer treatment with minimal relief. She denies any fevers, chills but is endorsing chest pain with coughing. EKG was performed. Plan for chest x-ray, viral swabs and likely DuoNeb treatment Medications Administered Discontinued Medications Generic Name Dose Route Start Last Admin Trade Name Freq PRN Reason Stop Dose Admin Albuterol Sulfate 2.5 mg/ 0 mg 09/16/24 17:25 09/16/24 17:29 Albuterol/Ipratropium 3 ml INHALE 09/16/24 17:26 1 dose ONCE ONE Administration Medical Decision Making Medical Decision Making [facility] Narrative: Patient is a 54-year-old female with past medical history of asthma, diabetes, GERD, hypertension, sleep apnea, fibromyalgia presenting for evaluation of intermittent shortness breath cough and difficulty breathing over the past month. At this time she is well-appearing, nontoxic, afebrile, no respiratory distress. She has a history of asthma, has diffuse expiratory wheezing on examination. At rest she is without tachypnea, increased work of breathing, or tripoding. She is able to ambulate down the ledezma with minimal dyspnea. She declines interest in receiving additional nebulizer at this time. We discussed the usage of prednisone during an asthma exacerbation to facilitate improvement, she has significant reservations as it is open hyperglycemia for her. She is requesting a lower than normal dosing. I did discuss with her that 20 mg daily may not be sufficient to facilitate resolution of her symptoms, but will trial and advised close monitoring of her blood glucose levels. CXR is without evidence of pneumonia, she may benefit from azithromycin for police atopic effect which I will send to the pharmacy as well. Differential Diagnosis Differential Diagnoses: The differential diagnosis associated with the presentation includes No rash or lesions, urticaria, or evidence of angioedema to suggest allergic reaction/anaphylaxis. No swallowing difficulties to suggest aspiration. No persistent chest pain, lower extremity redness pain or swelling, history of VTE/malignancy to suggest ACS. CHF, pericardial effusion, or pulmonary embolism. No palpitations or history of known arrhythmias. No recent trauma or injury, no tracheal deviation, unlikely tension pneumothorax. No acute bleeding or known anemia, no associated dizziness fatigue or chest pain to suggest acute anemia. Admission/Observation Consideration of admission/observation: Escalation of care including admission/observation considered (Respiratory distress, on room air hypoxia, ambulatory with a steady gait, after receiving nebulizer treatment well enough for discharge home) Lab Data [facility] Lab Attestation statement: I reviewed the patient's lab results. (Viral serologies are negative) Labs: Lab Results 09/16/24 Range/Units 17:26 Influenza Type A (PCR) NEGATIVE (Negative) Influenza Type B (PCR) NEGATIVE (Negative) RSV RNA Qual (PCR) NEGATIVE (Negative) SARS-CoV-2 RNA (RT-PCR) NEGATIVE (Negative) Independent Interpretation I performed an independent interpretation of an: EKG and Plain X-Ray (No consolidation or infiltrate) Interpretation: EKG reveals a sinus rhythm, ventricular rate of 96, QTC 447, no ST elevation, no ST depression Radiology Impression Discussion of test interpretation with radiology: I have reviewed the radiologist's reading. Radiologist Impression: XR/XR chest 2V IMPRESSION: No acute cardiopulmonary disease. External Record Review External record reviewed: Outpatient record Prescription Management I considered prescription management with: Other (See narrative above) Discharge Plan Discharge Clinical Impression: Asthma exacerbation Patient Disposition: Home, Self-Care Prescriptions: New prednisone 20 mg tablet 20 mg PO DAILY Qty: 5 0RF azithromycin 250 mg tablet See Rx Instructions .ROUTE .COMPLEX Qty: 6 0RF Rx Instructions: For 250 mg dose pack: take 500 mg today (day 1), then 250 mg for 4 days (days 2-5) No Action lidocaine 5 % adhesive patch,medicated 1 patch topical DAILY 30 Days Qty: 30 8RF Rx Instructions: leave on most painful area for up to 12 hrs aspirin [Aspirin Childrens] 81 mg tablet,chewable 81 mg PO DAILY cetirizine [Zyrtec] 10 mg tablet 10 mg PO DAILY omeprazole magnesium [Acid Live In Housekeeper (omeprazole)] 20 mg capsule,delayed release(DR/EC) 20 mg PO DAILY metformin 500 mg tablet 500 mg PO BID atorvastatin 10 mg tablet 10 mg PO DAILY Victoza 2-Emile 0.6 mg/0.1 mL (18 mg/3 mL) pen injector 1.2 mg subcut DAILY tramadol 50 mg tablet 50 mg PO Q8H PRN Referrals: Physician,Unknown J [Primary Care Provider] - Print Language: Swedish
[2024-09-16] MEDS: Albuterol Sulfate 2.5 MG, Albuterol/Iprat 2.5/0.5MG 3 ML 3 ML INHALE (17:29)
[2024-09-16 17:30] VITALS: PULSE 94; RESP 18; O2SAT 97
[2024-09-16 18:10] LABS: Influenza A PCR NEGATIVE (Negative); Influenza B PCR NEGATIVE (Negative); Resp Syncy Virus RNA Qual PCR NEGATIVE (Negative); SARS COV2 PCR INHOUSE NEGATIVE (Negative)
[2024-09-16 18:57] VITALS: BP 132/79; PULSE 94; RESP 18; TEMP 36.7; O2SAT 97
== END 2024-09-16 19:00 | disposition home or self-care (01) ==
PROVIDERS: Physician Assistant; Emergency Provider Emergency Medicine
DX: J45.901 Unspecified asthma with (acute) exacerbation (principal); R06.02 Shortness of breath; R05.9 Cough, unspecified; K21.9 Gastro-esophageal reflux disease without esophagitis; I10 Essential (primary) hypertension; J45.909 Unspecified asthma, uncomplicated; Z79.899 Other long term (current) drug therapy; Z03.818 Encounter for observation for suspected exposure to other biological agents ruled out
CPT/HCPCS: 0241U; 71046; 93005; 94640; 94664; 99284

== ENCOUNTER → 2024-09-16 16:46 | Outpatient (BNV) | payer OTHER, SELFPAY | PROVIDERS: Emergency Provider Emergency Medicine; Visit Provider Internal Medicine Cardiovascular Disease | DX: R07.9 Chest pain, unspecified (principal) | CPT/HCPCS: 93010 ==

== ENCOUNTER 2024-11-10 07:49 | Outpatient (REF) | payer OTHER, SELFPAY ==
--- OUTSIDE RECORDS SUMMARY | 2024-11-10 07:52 | XMS_ITS | Data Portability ---
Author Organization [place] - [facility], Allergy Address [address] [place] [id number] Care Team Providers Care Telecommunications Support Name Role Phone WALLACE DING Primary Care Provider Assessment Encounter Date Assessment Date Assessment LastModified [...] Recorded Time Closed fracture of nasal bones [id number] Active [id number] KERRI TREJO PA-C [address] [facility], [facility] [place], [address] , [place] - [facility] 15:22:16 Problem Notes None recorded. Procedures Surgical [...] Availabl e Not Available [employer] [place] [address] [place] active Not Available Not Available Not Available Vitals Date Recorded Body height Body mass index (BMI) Body weight Provider Name and Address Organization Details Last Updated DateTime 06/14/2024 152.4 cm 22.5 kg/m2 58171.12 g Paola Vyas [place] - [facility] 06/14/2024 14:52:28 Social History None recorded. Functional Status None recorded. Mental Status None recorded. Family History Nothing Reported. Medical History No medical history recorded. Gynecological HistoryNo gynecological history recorded. Obstetrics History GPAL:G 0 P 0 0 0 0 Past Encounters Encounter ID Performer Location Encounter Start Date Encounter Closed Date Diagnosis/Indication Diagnosis SNOMED-CT Code Diagnosis ICD10 Code Diagnosis Note [id number] KERRI TREJO PA-C [facility] [address] [place] [address] 06/14/2024 14:43:26 06/14/2024 15:05:35 Closed fracture of nasal bones 85290598 S02.2XXA Health Concerns Section Related Observation LastModified by Organization Detai ls LastModified Time None Recorded Concern Status LastModified by Organization Details LastModified Time None Recorded Advance Directives Directive None Recorded Payers Encounter Date Sequence Insurance Name Policy Number Policy Johnson Covered Member ID Johnson Member ID Guarantor Name 06/14/2024 1 [employer] [place] [id number] ([facility] [id number] Jessica Lozano [id number] Jessica Blake Notes Date Note Type Note Provider Name and Address Organization Details Recorded Time 06/14/2024 text/html 54 year old femsuhail singleton presents for evaluation of the nose. [...] little bit, no blood. KERRI TREJO PA-C [address] [facility],[place] [address], [place], [address], [facility] - [facility] 06/14/2024 15:22:53 OBGyn Episode No OBEpisode recorded.
[2024-11-10 07:58] LABS: MANUAL DIFF FLAG NO
[2024-11-10 08:14] LABS: Basophils Percent Auto 0.7 % (0-2); Eosinophils Absolute Auto 0.3 X10*3/uL (0.0-0.4); Hematocrit 43.6 % (37.0-47.0); Hemoglobin 14.3 g/dl (12.0-16.0); Imm Gran Abs Auto 0.01 X10*3/uL (0.00-0.03); Imm Gran Pct Auto 0.2 % (0.0-0.4); Lymphocytes Absolute Auto 2.2 X10*3/uL (1.2-4.9); Lymphocytes Percent Auto 49.2 % (20-40); Mean Corpuscular HGB Conc 32.8 g/dl (31.0-35.0); Mean Corpuscular Hemoglobin 28.6 pg (27.0-33.0); Mean Corpuscular Volume 87.2 fL (80.0-98.0); Mean Platelet Volume 8.9 fL (9.4-12.3); Monocytes Absolute Auto 0.4 X10*3/uL (0.1-1.2); Monocytes Percent Auto 8.8 % (2-11); Neutrophils Absolute Auto 1.6 x10*3/uL (2.0-8.3); Neutrophils Percent Auto 35.1 % (45-73); Platelet Count 241 X10*3/uL (160-400); Red Cell Distribution Width 12.9 % (11.0-16.0); White Blood Count 4.5 X10*3/uL (4.8-10.8)
[2024-11-10 08:50] LABS: Alanine Aminotransferase 19 U/L (0-31); Albumin Level 4.2 g/dL (3.5-5.0); Alkaline Phosphatase 58 U/L (39-117); Anion Gap 8 (12-20); Aspartate Amino Transferase 25 U/L (5-31); Bilirubin Total 0.4 mg/dL (0.0-1.0); Blood Urea Nitrogen 12 mg/dL (9-16); Calcium 9.3 mg/dL (8.4-10.2); Carbon Dioxide 29 mmol/L (22-29); Chloride 106 mmol/L (96-108); Cholesterol 138 mg/dL (<200); Estimated Glomerular Filt Rate > 60; Glucose Random 129 mg/dL (60-115); HDL Cholesterol 56 mg/dL (>40); LDL Cholesterol Calculated 70 mg/dL (<100); Potassium 3.8 mmol/L (3.3-5.1); Sodium 139 mmol/L (135-145); Total Protein 7.4 g/dL (6.5-8.0); Triglycerides 60 mg/dL (<150)
[2024-11-10 09:07] LABS: TSH reflex Free T4 4.46 uIU/mL (0.32-4.0); Vitamin D 25-OH Total 16.9 ng/mL (>30)
[2024-11-10 10:07] LABS: Free T4 (Free Thyroxine) 0.98 ng/dL (0.71-1.85)
[2024-11-10 11:21] LABS: Estimated Average Glucose 126 mg/dL; Hemoglobin A1C 155.1134 umol/L; Total Hemoglobin (HGBA1C) 3643.2753 umol/L
== END 2024-11-10 07:50 | disposition home or self-care (01) ==
LOC: HO.LAB 07:49
PROVIDERS: PCP Nurse Practitioner Acute Care; Visit Provider Nurse Practitioner Acute Care
DX: Z00.00 Encounter for general adult medical examination without abnormal findings (principal); R53.1 Weakness; E55.9 Vitamin D deficiency, unspecified; E03.9 Hypothyroidism, unspecified; E78.5 Hyperlipidemia, unspecified; E11.9 Type 2 diabetes mellitus without complications
CPT/HCPCS: 36415; 80053; 80061; 82306; 83036; 84439; 84443; 85025

== ENCOUNTER → 2024-12-02 07:42 | Outpatient (REF) | payer OTHER, SELFPAY ==
--- NOTE | 2024-12-02 | ECG_ITS ---
Test Reason : r00.2 Blood Pressure : */* mmHG Vent. Rate : 75 BPM Atrial Rate : 75 BPM P-R Int : 176 ms QRS Dur : 80 ms QT Int : 388 ms P-R-T Axes : 71 59 63 degrees QTcB Int : 433 ms Normal sinus rhythm Normal ECG When compared with ECG of 16-Sep-2024 16:51, T wave inversion no longer evident in Anterior leads Referred By: Janel Temple Electronically Signed By: Saeid Higgins
--- OUTSIDE RECORDS SUMMARY | 2024-12-02 07:46 | XMS_ITS ---
Author Organization [facility] Address [address] [address] Care Team Providers Care Manager Interventional Name Role Phone Janel Temple Primary Care Provider Unavailmick e MARIAJOSE PATEL Unavailable [phone] REASON FOR VISIT 1 month f/u Encounters Encounter Location Date Provider Diagnosis [facility] [address] [address] 10/16/2023 MARIAJOSE PATEL Plan Of Treatment No Information Progress Notes * Jessica LOPEZDOB: [birth year] (54 yo F)Acc No.[id number]:10/16/2023 post-op Patient:?JESSICA Jessica Provider:?Mariajose Patel DPM :1970???Age:53 Y???Sex:Female D ate:10/16/2023 Phone: Address:[address] [place], [place] [phone] Pcp:Janel Temple Subjective: * Chief Complaints: Objective: * Vitals:? Assessment: Plan: * Treatment: * Billing Information: * Electronic signature of DIOR PATEL D.P.M on 12/02/2024 at 07:46 AM EST Sign off status: Pending * Provider:?Mariajose Patel DPM Date:? 10/16/2023 Generated for Ana stephenson/Rose/eTkaismitting on:?12/02/2024 07:46 AM EST
--- OUTSIDE RECORDS SUMMARY | 2024-12-02 07:47 | XMS_ITS ---
Author Organization [facility] Address [address] [address] Care Team Providers Care Campus Security Officer Name Role Phone Janel Temple Primary Care Provider Unavailmick e MARIAJOSE PATEL Unavailable [phone] REASON FOR VISIT 1 month f/u Encounters Encounter Location Date Provider Diagnosis [facility] [address] [address] 10/21/2023 MARIAJOSE PATEL Plan Of Treatment No Information Progress Notes * Jessica LOPEZDOB: [birth year] (54 yo F)Acc No.[id number]:10/21/2023 post-op Patient:?Jessica LOPEZ Provider:?Mariajose Patel DPM :1970???Age:53 Y???Sex:Female D ate:10/21/2023 Phone: Address:[address] [place], [place] [phone] Pcp:Janel Temple Subjective: * Chief Complaints: Objective: * Vitals:? Assessment: Plan: * Treatment: * Billing Information: * Electronic signature of DIOR PATEL D.P.M on 12/02/2024 at 07:47 AM EST Sign off status: Pending * Provider:?Mariajose Patel DPM Date:? 10/21/2023 Generated for Ana stephenson/Rose/eTkaismitting on:?12/02/2024 07:47 AM EST
--- OUTSIDE RECORDS SUMMARY | 2024-12-02 07:47 | XMS_ITS | Patient Health Record ---
Author Organization [facility] Address [address] [place] [address] Care Team Providers Care Escape Wheel Tooth Cutter Name Role Phone WALLACE DING Unavailable [phone] ALLERGIES Allergen (clinical drug ingredient) Drug/Non Drug Allergy documented on EMR Reaction Allergy Type Onset Date Status Pollen Pollen Swelling Allergy Active RESULTS Component Value Reference Range Notes MR Brain WO Reviewed date:01/21/2024 12:48:24 PM Interpretation: Performing Lab: Notes/Report: Original Ordering Provider: WALLACE DING [facility] CR Shoulder RT Min 2 View Reviewed date:06/21/2024 08:18:51 AM Interpretation: Performing Lab: Notes/Report: Original Ordering Provider: WALLACE DING NP [facility] CR Humerus RT Min 2 Views Reviewed date:06/21/2024 08:18:51 AM Interpretation: Performing Lab: Notes/Report: Original Ordering Provider: WALLACE DING NP [facility] CR Forearm RT 2 Views Reviewed date:06/21/2024 08:18:51 AM Interpretation: Performing Lab: Notes/Report: Original Ordering Provider: WALLACE DING NP [facility] REASON FOR REFERRAL Reason Pt called office req uesting neurology referral Diagnosis 1 Chronic tension-type headache, intractable (G44.221) Diagnosis 2 Pain in eye, unspeci fied laterality (H57.10) Referral Organization [facility] 119 Referring Provider First Name WALLACE Referring Provider Last Name TOÑA Referring Provider Speciality Internal M edicine Referred Provider Specialty Neurology General Notes faxed over to [facility] neurology at , fax [phone] Clinical Notes Annie Petty 12/27 04:05:18 PM [...] Pt schedule for NPV with reynaldo decker, SKIN CARE THERAPIST for 04/01/24 at 7AM Referral Priority Routine Diagnosis 1 Asthma, unspecified asthma severity, unspecified whether complicated, unspecified whether persistent (J45.909) Referral Organization [place] [address] Referring Provider First Name WALLACE Referring Provider Last Name TOÑA Referring Provider Speciality Internal M edicine Referred Provider Specialty Pulmonology General Notes Dr. José Miguel Ayon , , Clinical Notes Annie Petty 09/23 02:28:04 PM >, Betsy Cook 10/20/2024 02:40:37 PM > Scheduled for 12/02 at 3 pm. Pt aware Referral Priority Routine MEDICATIONS Medication SIG (Take, Route, Frequency, Duration) Notes Start Date End Date Status Atorvastatin Calcium 10 MG TAKE 1 TABLET BY MOUTH ONCE A DAY 90 DAYS for 90 Active Ondansetron HCl 4 MG 1 tablet Orally jo ry 8 hrs for 30 days Active Albuterol Sulfate (2.5 MG/3ML) 0.083% INHALE 3ML VIA NEBULIZER EVERY 6 HOURS NEEDED for 30 Active Diclofenac Sodium 3 % 1 application to a ffected area Externally Twice a day for 30 days 05/27/2023 Active Losartan Potassium 50 MG 1 tablet Orally Once a day for 90 days 06/24/2023 Active Farxiga 10 MG 1 tablet Orally Once a day for 90 days Active Dexcom G7 Needle Loom Setter - as directed for 365 days 07/06 Active FreeStyle Racquel 3 Sensor - Use 1 sensor every 14 days for diabetes E11.9 for 90 days Active metFORMIN HCl ER 500 MG TAKE ONE TABLET BY MOUTH TWO TIMES A DAY WITH FOOD for 30 Active Albuterol Sulfate HFA 108 (90 Base) MCG/ACT 1 puff as needed Inhalation every 4 hrs for 30 days 06/24/2023 Active Lidocaine 5 % 1 patch remove after 12 hours Externally Once a day for 30 days Active Dexcom G7 Sensor - apply one sensor jo ry 10 days for 30 days 01/21/2024 Active Cetirizine HCl 10 MG TAKE ONE (1) TABLET BY MOUTH EVERY DAY for 90 Active Omeprazole 20 MG TAKE TWO (2) CAPSULE S (40MG)PO ONCE EVERY DAY for 45 Active SOCIAL HISTORY Tobacco Use: Social History [...] unspecified (E55.9) Active confirmed Vitamin D deficiency (86205740) Problem Chronic tension-type headache, intractable (G44.221) Active confirmed 304153168120056 Problem Fibromyalgia (M79.7) Active confirmed 763744005 Problem Weakness (R53.1) Active confirmed 52014 008 Problem Pure hypercholesterolemi a, unspecified (E78.00) Active confirmed 447910540 Problem Hyperlipidemia, unspecified hyperlipidemia type (E78.5) Active confirmed Hyperlipidaemia (40610433) Problem Hypothyroidism, unspecified type (E03.9) Active confirmed Hypothyroidism (32090905) Problem Annual physical exam (Z00.00) Active confirmed 127395986 Problem Gastroesophageal reflux disease without esophagitis (K21.9) Active confirmed 669046129 Problem Type 2 diabetes mellitus without complication, without long-term current use of insulin (E11.9) Active confirmed 807691843 Problem Asthma, unspecified asthma severity, unspecified whether complicated, unspecified whether persistent (J45.909) Active confirmed 064482301 Problem Other migraine without status migrainosus, not intractable (G43.809) Active confirmed 86581316 Problem Pain in eye, unspecified laterality (H57.10) Active confirmed 45179802 VITAL SIGNS Heart Rate 88 /min 12/01/2024 Blood pressure diastolic 82 mm Hg 12/01/2024 Oximetry 99 % 12/01/2024 Height 60 in 12/01/2024 Blood pressure systolic 124 mm Hg 12/01/2024 Weight 115 lbs 12/01/2024 BMI 22.46 kg/m2 12/01/2024 Encounters Encounter Location Date Provider Diagnosis [place] [address] 02/23/2024 WALLACE DING [place] [address] 01/08/2024 WALLACE DING Transient visual los s, left H53.122 ; Other migraine without status migrainosus, not intractable G43.809 and Intermittent confusion R41.0 [place] [address] 05/30/2024 WALLACE DING Type 2 diabetes ray itus without complication, without long-term current use of insulin E11.9 ; Fibromyalgia M79.7 ; Gastroesophageal reflux disease without esophagitis K21.9 ; Pure hypercholesterolemia, unspecified E78.00 ; Vitamin D deficiency, unspecified E55.9 and Transient visual loss, left H53.122 [place] [address] 06/20/2024 WALLACE DING Type 2 diabetes ray itus without complication, without long-term current use of insulin E11.9 ; Annual physical exam Z00.00 ; Fibromyalgia M79.7 ; Gastroesophageal reflux disease without esophagitis K21.9 ; Pure hypercholesterolemia, unspecified E78.00 ; Closed fracture of nasal bone, initial encounter S02.2XXA ; Acute pain of right shoulder M25.511 and Right arm pain M79.601 [place] [address] 12/01/2024 WALLACE DING Palpitations R00.2 a nd Abdominal bloating R14.0 [place] [address] 12/28/2023 WALLACE DING [place] [address] 01/04/[address] [facility] [address] [facility] [address] [place] [address] 01/05/[address] [facility] [address] [facility] [address] [place], [place] 01/21/[address] [facility] [address] [facility] [address] [place] [address] 01/25/[address] [facility] [address] [facility] [address] [place] [address] 02/02/2024 WALLACE DING [facility] M79.[address] [facility] [address] [facility] [address] [facility] [address] [place] [address] 02/09/2024 WALLACE DING [address] [place] [address] 03/02/[address] [facility] [address] [facility] [address] [place] [address] 03/11/[address] [facility] [address] [facility] [address] [place] [address] 03/15/[address] [facility] [address] [facility] [address] [place] [address] 03/18/[address] [facility] [address] [facility] [address] [place], [place] 03/18/[address] [facility] [address] [facility] [address] [place], [place] 03/22/[address] [facility] [address] [facility] [address] [place] [address] 03/28/[address] [facility] [address] [facility] [address] [place] [address] 03/29/[address] [facility] [address] [facility] [address] [place] 04/01/[address] [facility] [address] [facility] [address] [place] 05/16/[address] [facility] [address] [facility] [address] [place] 05/17/2024 WALLACE DING Fibromyalgia M79.[address] [facility] [address] [facility] [address] [place] [address] 06/08/[address] [facility] [address] [facility] [address] [place] 06/14/2024 WALLACE DING [address] [place] [address] 07/05/[address] [facility] [address] [facility] [address] [place], [place] 08/01/[address] [facility] [address] [facility] [address] [place], [place] 08/01/[address] [facility] [address] [facility] [address] [place] 08/09/2024 WALLACE DING Pre-op exam Z01.[address] [facility] [address] [facility] [address] [place], [place] 08/12/[address] [facility] [address] [facility] [address] [place], [place] 09/23/[address] [facility] [address] [facility] [address] [place] 11/08/2024 WALLACE DING Annual physical exam Z00.00 ; Weakness R53.1 ; Vitamin D deficiency, unspecified E55.9 ; Hypothyroidism, unspecified type E03.9 ; Hyperlipidemia, unspecified hyperlipidemia type E78.5 and Type 2 diabetes mellitus without complication, without long-term current use of insulin E11.9 [address] [place] [address] 11/11/[address] [facility] [address] [place] [address] 11/16/[address] [facility] [address] [facility] [address] [place] 11/30/2024 [facility] [address] [place] [address] 06/02/[address] [facility] [address] [place] [address] 10/10/2024 WALLACE DING Type 2 diabetes ray itus without complication, without long-term current use of insulin E11.9 and Pre-op exam Z01.[address] [facility] [address] [address] 11/17/[address] [facility] [address] [facility] [address] [place] [address] 11/29/2024 WALLACE DING ASSESSMENTS Encounter Date Diagnosis Assessment Notes Treatment [...] software and direct typing Please excuse inadvertent estate conservator or typing errors, or uncorrected word substitutions Although every attempt has been made by the provider to proofread this document, occasional misspellings and typographical errors may still be present Due to the previous pandemic, and the use of personal protective equipment (PPE) This may decrease voice recognition accuracy Inadvertent estate conservator errors may occur 02/02/2024 Fibromyalgia (ICD-10 - M79.7) 05/17/2024 Fibromyalgia (ICD-10 - M79.7) 01/08/2024 Other migraine without status migrainosus, not [...] software and direct typing Please excuse inadvertent estate conservator or typing errors, or uncorrected word substitutions Although every attempt has been made by the provider to proofread this document, occasional misspellings and typographical errors may still be present Due to the previous pandemic, and the use of personal protective equipment (PPE) This may decrease voice recognition accuracy Inadvertent estate conservator errors may occur 05/30/2024 Type 2 diabetes mellitus without complication, without long-term current use of insulin (ICD-10 - E11.9) Pt here for chronic disease mgt visit/DM2 Acute Concerns/Problem List: 05/30/2024 _update labs and CPE Refer to [facility] for colonoscopy screening Diabetes management and [...] software and direct typing Please excuse inadvertent estate conservator or typing errors, or uncorrected word substitutions Although every attempt has been made by the provider to proofread this document, occasional misspellings and typographical errors may still be present Due to the previous pandemic, and the use of personal protective equipment (PPE) This may decrease voice recognition accuracy Inadvertent estate conservator errors may occur 06/20/2024 Annual physical exam (ICD-10 - Z00.00) Pt here for CPE Acute Concerns/Problem List: 06/20/2024 Will get some x-rays of the right forearm/ shoulder Discussed closed head injury nasal bone fractures Did see ENT Refer to [facility] for colonoscopy screening Diabetes management and [...] software and direct typing Please excuse inadvertent estate conservator or typing errors, or uncorrected word substitutions Although every attempt has been made by the provider to proofread this document, occasional misspellings and typographical errors may still be present Due to the previous pandemic, and the use of personal protective equipment (PPE) This may decrease voice recognition accuracy Inadvertent estate conservator errors may occur 06/20/2024 Type 2 diabetes mellitus without complication, without long-term current use of insulin (ICD-10 - E11.9) Pt here for CPE Acute Concerns/Problem List: 06/20/2024 Will get some x-rays of the right forearm/ shoulder Discussed closed head injury nasal bone fractures Did see ENT Refer to [facility] for colonoscopy screening Diabetes management and [...] software and direct typing Please excuse inadvertent estate conservator or typing errors, or uncorrected word substitutions Although every attempt has been made by the provider to proofread this document, occasional misspellings and typographical errors may still be present Due to the previous pandemic, and the use of personal protective equipment (PPE) This may decrease voice recognition accuracy Inadvertent estate conservator errors may occur 08/09/2024 Pre-op exam (ICD-10 - Z01.818) 10/10/2024 Type 2 diabetes mellitus without complication, without long-term current use of insulin (ICD-10 - E11.9) 11/08/2024 Annual physical exam (ICD-10 - Z00.00) 12/01/2024 Palpitations (ICD-10 - R00.2) Currently in NSR, says she is not presently having Palpitations. She will go for EKG today. Discussed Holter Monitor, she will be outfitted with 14 day model. She will hold PPI for two weeks, get H pylori testing due to bloating. Other comprehensive labs reviewed at [facility] and were unremarkable including thyroid function Of note, some information is being carried forward from prior records for informational purposes only and is being cited so that efficiency, safety and quality of the patient's care is not compromised This note was prepared using voice recognition software and direct typing Please excuse inadvertent estate conservator or typing errors, or uncorrected word substitutions Although every attempt has been made by the provider to proofread this document, occasional misspellings and typographical errors may still be present Due to the previous pandemic, and the use of personal protective equipment (PPE) This may decrease voice recognition accuracy Inadvertent estate conservator errors may occur 12/01/2024 Abdominal bloating (ICD-10 - R14.0) Currently in NSR, says she is not presently having Palpitations. She will go for EKG today. Discussed Holter Monitor, she will be outfitted with 14 day model. She will hold PPI for two weeks, get H pylori testing due to bloating. Other comprehensive labs reviewed at [facility] and were unremarkable including thyroid function Of note, some information is being carried forward from prior records for informational purposes only and is being cited so that efficiency, safety and quality of the patient's care is not compromised This note was prepared using voice recognition software and direct typing Please excuse inadvertent estate conservator or typing errors, or uncorrected word substitutions Although every attempt has been made by the provider to proofread this document, occasional misspellings and typographical errors may still be present Due to the previous pandemic, and the use of personal protective equipment (PPE) This may decrease voice recognition accuracy Inadvertent estate conservator errors may occur 11/08/2024 Weakness (ICD-10 - R53.1) 10/10/2024 Pre-op exam (ICD-10 - Z01.818) 06/20/2024 Fibromyalgia (ICD-10 - M79.7) Pt here for CPE Acute Concerns/Problem List: 06/20/2024 Will get some x-rays of the right forearm/ shoulder Discussed closed head injury nasal bone fractures Did see ENT Refer to [facility] for colonoscopy screening Diabetes management and [...] software and direct typing Please excuse inadvertent estate conservator or typing errors, or uncorrected word substitutions Although every attempt has been made by the provider to proofread this document, occasional misspellings and typographical errors may still be present Due to the previous pandemic, and the use of personal protective equipment (PPE) This may decrease voice recognition accuracy Inadvertent estate conservator errors may occur 01/08/2024 Intermittent confusion (ICD-10 [...] software and direct typing Please excuse inadvertent estate conservator or typing errors, or uncorrected word substitutions Although every attempt has been made by the provider to proofread this document, occasional misspellings and typographical errors may still be present Due to the previous pandemic, and the use of personal protective equipment (PPE) This may decrease voice recognition accuracy Inadvertent estate conservator errors may occur 05/30/2024 Fibromyalgia (ICD-10 - M79.7) Pt here for chronic disease mgt visit/DM2 Acute Concerns/Problem List: 05/30/2024 _update labs and CPE Refer to [facility] for colonoscopy screening Diabetes management and [...] software and direct typing Please excuse inadvertent estate conservator or typing errors, or uncorrected word substitutions Although every attempt has been made by the provider to proofread this document, occasional misspellings and typographical errors may still be present Due to the previous pandemic, and the use of personal protective equipment (PPE) This may decrease voice recognition accuracy Inadvertent estate conservator errors may occur 06/20/2024 Gastroesophageal reflux disease without esophagitis (ICD-10 - K21.9) Pt here for CPE Acute Concerns/Problem List: 06/20/2024 Will get some x-rays of the right forearm/ shoulder Discussed closed head injury nasal bone fractures Did see ENT Refer to [facility] for colonoscopy screening Diabetes management and [...] software and direct typing Please excuse inadvertent estate conservator or typing errors, or uncorrected word substitutions Although every attempt has been made by the provider to proofread this document, occasional misspellings and typographical errors may still be present Due to the previous pandemic, and the use of personal protective equipment (PPE) This may decrease voice recognition accuracy Inadvertent estate conservator errors may occur 05/30/2024 Gastroesophageal reflux disease without esophagitis (ICD-10 - K21.9) Pt here for chronic disease mgt visit/DM2 Acute Concerns/Problem List: 05/30/2024 _update labs and CPE Refer to [facility] for colonoscopy screening Diabetes management and [...] software and direct typing Please excuse inadvertent estate conservator or typing errors, or uncorrected word substitutions Although every attempt has been made by the provider to proofread this document, occasional misspellings and typographical errors may still be present Due to the previous pandemic, and the use of personal protective equipment (PPE) This may decrease voice recognition accuracy Inadvertent estate conservator errors may occur 11/08/2024 Vitamin D deficiency, unspecified (ICD-10 - E55.9) 06/20/2024 Pure hypercholesterolemi a, unspecified (ICD-10 - E78.00) Pt here for CPE Acute Concerns/Problem List: 06/20/2024 Will get some x-rays of the right forearm/ shoulder Discussed closed head injury nasal bone fractures Did see ENT Refer to [facility] for colonoscopy screening Diabetes management and [...] software and direct typing Please excuse inadvertent estate conservator or typing errors, or uncorrected word substitutions Although every attempt has been made by the provider to proofread this document, occasional misspellings and typographical errors may still be present Due to the previous pandemic, and the use of personal protective equipment (PPE) This may decrease voice recognition accuracy Inadvertent estate conservator errors may occur 11/08/2024 Hypothyroidism, unspecified type (ICD-10 - E03.9) 05/30/2024 Pure hypercholesterolemi a, unspecified (ICD-10 - E78.00) Pt here for chronic disease mgt visit/DM2 Acute Concerns/Problem List: 05/30/2024 _update labs and CPE Refer to [facility] for colonoscopy screening Diabetes management and [...] software and direct typing Please excuse inadvertent estate conservator or typing errors, or uncorrected word substitutions Although every attempt has been made by the provider to proofread this document, occasional misspellings and typographical errors may still be present Due to the previous pandemic, and the use of personal protective equipment (PPE) This may decrease voice recognition accuracy Inadvertent estate conservator errors may occur 05/30/2024 Vitamin D deficiency, unspecified (ICD-10 - E55.9) Pt here for chronic disease mgt visit/DM2 Acute Concerns/Problem List: 05/30/2024 _update labs and CPE Refer to [facility] for colonoscopy screening Diabetes management and [...] software and direct typing Please excuse inadvertent estate conservator or typing errors, or uncorrected word substitutions Although every attempt has been made by the provider to proofread this document, occasional misspellings and typographical errors may still be present Due to the previous pandemic, and the use of personal protective equipment (PPE) This may decrease voice recognition accuracy Inadvertent estate conservator errors may occur 11/08/2024 Hyperlipidemia, unspecified hyperlipidemia type (ICD-10 - E78.5) 06/20/2024 Closed fracture of nasal bone, initial encounter (ICD-10 - S02.2XXA) Pt here for CPE Acute Concerns/Problem List: 06/20/2024 Will get some x-rays of the right forearm/ shoulder Discussed closed head injury nasal bone fractures Did see ENT Refer to [facility] for colonoscopy screening Diabetes management and [...] software and direct typing Please excuse inadvertent estate conservator or typing errors, or uncorrected word substitutions Although every attempt has been made by the provider to proofread this document, occasional misspellings and typographical errors may still be present Due to the previous pandemic, and the use of personal protective equipment (PPE) This may decrease voice recognition accuracy Inadvertent estate conservator errors may occur 06/20/2024 Acute pain of right shoulder (ICD-10 - M25.511) Pt here for CPE Acute Concerns/Problem List: 06/20/2024 Will get some x-rays of the right forearm/ shoulder Discussed closed head injury nasal bone fractures Did see ENT Refer to [facility] for colonoscopy screening Diabetes management and [...] software and direct typing Please excuse inadvertent estate conservator or typing errors, or uncorrected word substitutions Although every attempt has been made by the provider to proofread this document, occasional misspellings and typographical errors may still be present Due to the previous pandemic, and the use of personal protective equipment (PPE) This may decrease voice recognition accuracy Inadvertent estate conservator errors may occur 05/30/2024 Transient visual loss, left (ICD-10 - H53.122) Pt here for chronic disease mgt visit/DM2 Acute Concerns/Problem List: 05/30/2024 _update labs and CPE Refer to [facility] for colonoscopy screening Diabetes management and [...] software and direct typing Please excuse inadvertent estate conservator or typing errors, or uncorrected word substitutions Although every attempt has been made by the provider to proofread this document, occasional misspellings and typographical errors may still be present Due to the previous pandemic, and the use of personal protective equipment (PPE) This may decrease voice recognition accuracy Inadvertent estate conservator errors may occur 11/08/2024 Type 2 diabetes mellitus without complication, without long-term current use of insulin (ICD-10 - E11.9) 06/20/2024 Right arm pain (ICD-10 - M79.601) Pt here for CPE Acute Concerns/Problem List: 06/20/2024 Will get some x-rays of the right forearm/ shoulder Discussed closed head injury nasal bone fractures Did see ENT Refer to [facility] for colonoscopy screening Diabetes management and [...] software and direct typing Please excuse inadvertent estate conservator or typing errors, or uncorrected word substitutions Although every attempt has been made by the provider to proofread this document, occasional misspellings and typographical errors may still be present Due to the previous pandemic, and the use of personal protective equipment (PPE) This may decrease voice recognition accuracy Inadvertent estate conservator errors may occur PLAN OF TREATMENT Pending Test Test Name Order Date PT AND PTT 06/24/2023 MRI : Brain without Contrast 01/08/2024 EKG 06/24/2023 EKG 12/01/2024 25OH VITAMIN D 11/08/2024 25OH VITAMIN D 11/09/2023 CBC (COMPLETE BLOOD COUNT) WITH DIFF 02/2024 CBC (COMPLETE BLOOD COUNT) WITH DIFF 01/2025 COMPREHENSIVE METABOLIC PANEL 11/08/2024 COMPREHENSIVE METABOLIC PANEL 11/09/2023 HEMOGLOBIN A1C 11/09/2023 HEMOGLOBIN A1C 11/08/2024 LIPID PANEL 11/08/2024 LIPID PANEL 11/09/2023 MICROALBUMIN, URINE 11/09/2023 TSH WITH REFLEX TO FT4 11/09/2023 TSH WITH REFLEX TO FT4 11/08/2024 URINALYSIS W/REFLEX CULTURE 11/09/2023 Chest 2 Views Frontal and Lat 06/26/2023 C-Peptide 11/08/2024 XR Forearm 2 Views RT 06/20/2024 XR Humerus 2+ Views RT 06/20/2024 XR Shoulder 2+ Views RT 06/20/2024 INSULIN LEVEL 05/20/2023 COMPLETE URINALYSIS 05/20/2023 H PYLORI BREATH TEST 12/01/2024 Next Appt Details Provider Name:WALLACE DING, 12/20/2024 03:30:00 PM, [address] [place] [address] [address], [address], Insurance Providers Payer Name Payer Address Payer Phone Subscriber Number Group Number Insured Name Patient Relationship to Insured Coverage Start Date Coverage End Date Blue Benefits Admin [address] [address] [place] [address] [phone] [id number] PAULO LOPEZ Self - patient is the insured MEDICAL (GENERAL) HISTORY Medical History History ICD Code high cholesterol Diabetes Asthma Headaches Fibromyalgia
--- OUTSIDE RECORDS SUMMARY | 2024-12-02 07:47 | XMS_ITS | Patient Health Record ---
Author Organization [facility] Address [address] [facility] [address] [place] [address] Care Team Providers Care Fiber Drier Operator Name Role Phone RachanaJanel pace Primary Care Provider Unavailabl e Allergies Allergen (clinical drug ingredient) Drug/Non Drug Allergy documented on EMR Reaction Allergy Type Onset Date Status moxifloxacin Avelox blurry vision Drug Allergy Active povidone-iodine Betadine rash, itchy Drug Allergy Active Reason For Referral No Information Medications Medication SIG (Take, Route, Frequency, Duration) Notes [...] breakf ast Orally Once a day Not-Taking Problems Problem Type SNOMED Code ICD Code Onset Dates Problem Status W/U Status Risk Notes Problem 691771472 Hallux rigidus, right foot (M20.21) Active confirmed Problem [id number] Hallux rigidus, left foot (M20.22) Active confirmed Problem 750592283 Controlled type 2 diabetes mellitus without complication, without long-term current use of insulin (E11.9) Active confirmed Plan Of Treatment Pending Test Test Name Order Date X [...] Insured Coverage Start Date Coverage End Date [facility] [address] [facility] [place] [address] [id number] Jessica Lozano Self - patient is the insured Medical (General) History Medical History History ICD Code anxiety and [...] vaginal delivery (girl) 1987 vaginal delivery (boy) 1986
--- OUTSIDE RECORDS SUMMARY | 2024-12-02 07:47 | XMS_ITS ---
Author Organization [facility] Address [address] [place] [address] Care Team Providers Care Plaster Mold Maker Name Role Phone MARCIHailey WALLACE Unavailable [phone] REASON FOR VISIT New Refill Request MEDICATIONS Medication SIG (Take, Route, Fr equency, Duration) Notes Start Date End Date Status Ozempic (1 MG/DOSE) 4 MG/3ML INJECT 1MG (0.75ML) SUBCUTANEOUSLY WEEKLY for 37 Act tierra Encounters Encounter Location Date Provider Diagnosis [facility] [address] [address] 11/29/2024 WALLACE DING PLAN OF TREATMENT Medication Medication Name Sig Start Date Stop Date Notes Ozempic (1 MG/DOSE) 4 MG/3ML INJECT 1MG (0.75ML) SUBCUTANEOUSLY WEEKLY for 37 Next Appt Details Provider Name:WALLACE DING, 12/20/2024 03:30:00 PM, [address] [address], [place], [address], Progress Notes * PAULO LOPEZ LDOB:[birth year] (54 yo F)Acc No.[id number]:11/29/2024 Patient:??PAULO LOPEZ :1970?Age:54 Y?Sex:Fe male Address:[address] [place] [address] * Refills?? Refill Ozempic (1 MG/DOSE) Solution Pen-injector, 4 MG/3ML, 4, INJECT 1MG (0.75ML) SUBCUTANEOUSLY WEEKLY, 37, Refills=3 * true * Date:??
--- OUTSIDE RECORDS SUMMARY | 2024-12-02 07:47 | XMS_ITS ---
Author Organization [facility] Address [address] [address] Care Team Providers Care Environment Coordinator Name Role Phone RachanaJanel pace Primary Care Provider Unavailmick e HUSSEIN DUMONT Unavailable [phone] REASON FOR VISIT Cxl Apt Encounters Encounter Location Date Provider Diagnosis [facility] [address] [address] 10/20/2023 HUSSEIN DUMONT Plan Of Treatment No Information Progress Notes * Jessica LOPEZDOB: [birth year] (53 yo F)Acc No.[id number]:10/20/2023 Patient:?Jessica LOPEZ :1970???Age:53 Y???Sex:Female Phone: Address:[address] [place] [address] * true * Date:? Generated for Rimai seema/Rose/eTransmitting on:?12/02/2024 07:46 AM EST
--- OUTSIDE RECORDS SUMMARY | 2024-12-02 07:47 | XMS_ITS ---
Author Organization [facility] Address [address] [place] [address] Care Team Providers Care Health Education Specialist Name Role Phone GOLDWALLACE DUPONT Unavailable [phone] REASON FOR VISIT heart palpitations Encounters Encounter Location Date Provider Diagnosis [facility] [address] [facility] [address] [place] [address] 11/30/2024 WALLACE DING PLAN OF TREATMENT Next Appt Details Provider Name:WALLACE DING, 12/20/2024 03:30:00 PM, [address], [address], [place], [address], Progress Notes * PAULO LOPEZ LDOB:[birth year] (54 yo F)Acc No.[id number]:11/30/2024 Patient:??PUALO LOPEZ :1970?Age:54 Y?Sex:Fe male Address:[address] [place] [address] * true * Date:??
--- OUTSIDE RECORDS SUMMARY | 2024-12-02 07:47 | XMS_ITS ---
Author Organization [facility] Address [address] [place] [address] Care Team Providers Care Plant Operations Manager Name Role Phone WALLACE DING Unavailable [phone] ALLERGIES Allergen (clinical drug ingredient) Drug/Non Drug Allergy documented on EMR Reaction Allergy Type Onset Date Status Pollen Pollen Swelling Allergy Active REASON FOR VISIT Pt here for urgent visit for abdominal blaoting and pain, shakes, increase heart rate for 3 weeks. MEDICATIONS Medication SIG (Take, Route, Frequency, Duration) Notes Start Date End Date Status Ondansetron HCl 4 MG 1 tablet Orally jo ry 8 hrs for 30 days Active Diclofenac Sodium 3 % 1 application to a ffected area Externally Twice a day for 30 days 05/27/2023 Active FreeStyle Racquel 3 Sensor - Use 1 sensor every 14 days for diabetes E11.9 for 90 days Active Atorvastatin Calcium 10 MG TAKE 1 TABLET BY MOUTH ONCE A DAY 90 DAYS for 90 Active Losartan Potassium 50 MG 1 tablet Orally Once a day for 90 days 06/24/2023 Active Farxiga 10 MG 1 tablet Orally Once a day for 90 days Active Albuterol Sulfate (2.5 MG/3ML) 0.083% INHALE 3ML VIA NEBULIZER EVERY 6 HOURS NEEDED for 30 Active Dexcom G7 Program Support Assistant - as directed for 365 days 07/06 Active metFORMIN HCl ER 500 MG TAKE ONE TABLET BY MOUTH TWO TIMES A DAY WITH FOOD for 30 Active Albuterol Sulfate HFA 108 (90 Base) MCG/ACT 1 puff as needed Inhalation every 4 hrs for 30 days 06/24/2023 Active Cetirizine HCl 10 MG TAKE ONE (1) TABLET BY MOUTH EVERY DAY for 90 Active Lidocaine 5 % 1 patch remove after 12 hours Externally Once a day for 30 days Active Dexcom G7 Sensor - apply one sensor jo ry 10 days for 30 days 01/21/2024 Active Omeprazole 20 MG TAKE TWO (2) [...] Section Notes: 3 children Some college- phlebotomy VITAL SIGNS Blood pressure systolic 124 mm Hg 12/01/19 25 Blood pressure diastolic 82 mm Hg 025 Heart Rate 88 /min 12/01/2024 Height 60 in 12/01/2024 Weight 115 lbs 12/01/2024 BMI 22.46 kg/m2 12/01/2024 Oximetry 99 % 12/01/2024 Encounters Encounter Location Date Provider Diagnosis [facility] [address] [facility] [address] [place] [address] 12/01/2024 WALLACE TOÑA Palpitations R00.2 a nd Abdominal bloating R14.0 ASSESSMENTS Encounter Date Diagnosis Assessment Notes Treatment Notes Treatment Clinical Notes Section Notes 12/01/2024 Palpitations (ICD-10 - R00.2) Currently in NSR, says she is not presently having Palpitations. She will go for EKG today. Discussed Holter Monitor, she will be outfitted with 14 day model. She will hold PPI for two weeks, get H pylori testing due to bloating. Other comprehensive labs reviewed at [facility] and were unremarkable including thyroid function Of note, some information is being carried forward from prior records for informational purposes only and is being cited so that efficiency, safety and quality of the patient's care is not compromised This note was prepared using voice recognition software and direct typing Please excuse inadvertent terminal block assembler or typing errors, or uncorrected word substitutions Although every attempt has been made by the provider to proofread this document, occasional misspellings and typographical errors may still be present Due to the previous pandemic, and the use of personal protective equipment (PPE) This may decrease voice recognition accuracy Inadvertent terminal block assembler errors may occur 12/01/2024 Abdominal bloating (ICD-10 - R14.0) Currently in NSR, says she is not presently having Palpitations. She will go for EKG today. Discussed Holter Monitor, she will be outfitted with 14 day model. She will hold PPI for two weeks, get H pylori testing due to bloating. Other comprehensive labs reviewed at [facility] and were unremarkable including thyroid function Of note, some information is being carried forward from prior records for informational purposes only and is being cited so that efficiency, safety and quality of the patient's care is not compromised This note was prepared using voice recognition software and direct typing Please excuse inadvertent terminal block assembler or typing errors, or uncorrected word substitutions Although every attempt has been made by the provider to proofread this document, occasional misspellings and typographical errors may still be present Due to the previous pandemic, and the use of personal protective equipment (PPE) This may decrease voice recognition accuracy Inadvertent terminal block assembler errors may occur PLAN OF TREATMENT Pending Test Test Name Order Date EKG 12/01/2024 H PYLORI BREATH TEST 12/01/2024 Next Appt Details Follow Up: 2 Weeks, Reason: Provider Name:WALLACE DING, 12/20/2024 03:30:00 PM, [address] [place] [address], [facility] [address], [place], [address], Procedure Notes * Category Sub-Category Detail Notes Holter Monitor Indication(s) palpitations Duration of monitoring 14 days Holter placement Patient aware of ins tructions Serial # [id number] Holter removal 12/15/24 Progress Notes * PAULO LOPEZ LDOB:[birth year] (54 yo F)Acc No.[id number]:12/01/2024 Progress Notes Patient:??PAULO LOPEZ Provider:??WALLACE DING NP :1970?Age:54 Y?Sex:Fe male Date:12/01/2024 Address:[address] [place], [place] [id number] Subjective: * Chief Complaints: * ?1. Pt here for urgent visit for abdominal blaoting and pain, shakes, increase heart rate for 3 weeks.. * HPI: ?Constitutional:? 3 weeks ago, felt like sugars were very low ?Palpitations, shaking, fatigued. ?POC measurements close to 44. ?Stopped Ozempic since then, POC have been around 120/ ?Palpitations occur every day at rest. ?Not brought on by exertion or standing. ?Denies chest pain, has chest shakiness . ?Denies visual disturbance, nausea. ?Also feels bloated, having normal BMs. ?HAs tried OTC gas pill. ?Fatigued, no change in sleep habits. ?Comprehensive labs were 2024, [facility] ?CBC is stable ?Hemoglobin A1c of 6.0 ?Renal function electrolytes and LFTs are stable ?Total cholesterol 138, LDL 70, HDL 56, triglycerides 60 ?Vitamin D 60 ?TSH 4.46 ?Free T4, 0.98. * ROS:?All Other Systems:?Review of Systems (ROS)??All others negative except those mentioned in HPI.? * Medical History:??High gabriele sterol, Diabetes, Asthma, Headaches, Fibromyalgia. * Family History:??Father: lynette ve 78 yrs.??Mother: .??1 sister(s) . 1 son(s) , 2 daughter(s) . .?? Cancer Diabetes stroke memory problems mental disease. * Social History:?Tobacco Use:??Tobacco Use/Smoking??Are you a??nonsmoker.?3 children ???Some college- phlebotomy. * Medications:??Taking FreeSty le Racquel 3 Sensor - Miscellaneous Use 1 sensor every 14 days for diabetes E11.9 , Taking Ondansetron HCl 4 MG Tablet 1 tablet Orally every 8 hrs , Taking Diclofenac Sodium 3 % Gel 1 application to affected area Externally Twice a day , Taking Dexcom G7 Sensor - Miscellaneous apply one sensor every 10 days , Taking Lidocaine 5 % Patch 1 patch remove after 12 hours Externally Once a day , Taking Omeprazole 20 MG Capsule Delayed Release TAKE TWO (2) CAPSULES (40MG)PO ONCE EVERY DAY , Taking Cetirizine HCl 10 MG Tablet TAKE ONE (1) TABLET BY MOUTH EVERY DAY , Taking Dexcom G7 Program Support Assistant - Device as directed , Taking Albuterol Sulfate HFA 108 (90 Base) MCG/ACT Aerosol Solution 1 puff as needed Inhalation every 4 hrs , Taking metFORMIN HCl ER 500 MG Tablet Extended Release 24 Hour TAKE ONE TABLET BY MOUTH TWO TIMES A DAY WITH FOOD , Taking Albuterol Sulfate (2.5 MG/3ML) 0.083% Nebulization Solution INHALE 3ML VIA NEBULIZER EVERY 6 HOURS NEEDED , Taking Atorvastatin Calcium 10 MG Tablet TAKE 1 TABLET BY MOUTH ONCE A DAY 90 DAYS , Taking Farxiga 10 MG Tablet 1 tablet Orally Once a day , Taking Losartan Potassium 50 MG Tablet 1 tablet Orally Once a day , Discontinued Lexapro 5 MG Tablet 1 tablet Orally Once a day , Discontinued Wixela Inhub 500-50 MCG/ACT Aerosol Powder Breath Activated 1 puff Inhalation Twice a day , Discontinued Montelukast Sodium 10 MG Tablet 1 tablet Orally Once a day , Discontinued Ozempic (1 MG/DOSE) 4 MG/3ML Solution Pen-injector INJECT 1MG (0.75ML) SUBCUTANEOUSLY WEEKLY , Medication List reviewed and reconciled with the patient * Allergies:??Pollen: Swelling . Objective: * Vitals:??HR:88/min, BP:124/8 2mm Hg, Wt:115lbs, BMI:22.46Index, Ht: 60 in, Oxygen sat %:99%. * Examination: ?General Examination: ?GENERAL APPEARANCE:??in no acute distress, well developed, well nourished.??HEAD:??normocephalic, atraumatic.??EYES:??pupils equal, round, reactive to light and accommodation.??EARS:??normal.??ORAL CAVITY:??mucosa moist.??THROAT:??clear.??NECK/THYROID:??neck supple, full range of motion, no cervical lymphadenopathy.??SKIN:??no suspicious lesions, warm and dry.??HEART:??no murmurs, regular rate and rhythm, S1, S2 normal.??LUNGS:??clear to auscultation bilaterally.??ABDOMEN:??normal, bowel sounds present, soft, nontender, nondistended.??EXTREMITIES:??no clubbing, cyanosis, or edema.??NEUROLOGIC:??nonfocal, motor strength normal upper and lower extremities, sensory exam intact.? Assessment: * Assessment: 1.??Abdominal bloating - R14 .0 (Primary)??2.??Palpitations - R00.2?? Currently in NSR, says she i s not presently having Palpitations. She will go for EKG today. Discussed Holter Monitor, she will be outfitted with 14 day model. She will hold PPI for two weeks, get H pylori testing due to bloating. Other comprehensive labs reviewed at [facility] and were unremarkable including thyroid function Of note, some information is being carried forward from prior records for informational purposes only and is being cited so that efficiency, safety and quality of the patient's care is not compromised This note was prepared using voice recognition software and direct typing Please excuse inadvertent terminal block assembler or typing errors, or uncorrected word substitutions Although every attempt has been made by the provider to proofread this document, occasional misspellings and typographical errors may still be present Due to the previous pandemic, and the use of personal protective equipment (PPE) This may decrease voice recognition accuracy Inadvertent terminal block assembler errors may occur. Plan: * Treatment: 2.??Palpitations?Imaging: EKG * Procedures:?Holter Monitor:?Indication(s)??palpitations.??Holter placement??Patient aware of instructions.??Serial #??[id number].??Holter removal??12/15/24.??Duration of monitoring??14 days.? * Procedure Codes:??51275 -GEO CTROCARDIOGRAM, COMPLETE, Modifiers: 59 , 04478 EXT ECG>48HR<7D RECORDING * Follow Up:??2 Weeks Care Plan: * Problems:?? * Images: Billing Information: * Visit Code:?? 24359 Office Visit, Est Pt., Level 4. Modifiers: 25, SA * Procedure Codes:?? 56397 -ELECTROCARDIOGRAM, COMPLETE. Modifiers: 59 22008 EXT ECG>48HR<7D RECORDING. Care Plan Details* * Sign off status: Completed true * Provider:??WALLACE DING NP Date:??11/06 History and Physical Notes * HPI (History of Present Illness) Category Sub-Category Detail Notes Category Not es Constitutional 3 weeks ago, felt like sugars were very low Palpitations, shaking, fatigued. POC measurements close to 44. Stopped Ozempic since then, POC have been around 120/ Palpitations occur every day at rest. Not brought on by exertion or standing. Denies chest pain, has chest shakiness . Denies visual disturbance, nausea. Also feels bloated, having normal BMs. HAs tried OTC gas pill. Fatigued, no change in sleep habits. Comprehensive labs were 2024, [facility] CBC is stable Hemoglobin A1c of 6.0 Renal function electrolytes and LFTs are stable Total cholesterol 138, LDL 70, HDL 56, triglycerides 60 Vitamin D 60 TSH 4.46 Free T4, 0.98 Examination Category Sub-Category Detail Notes Category Not es General Examination GENERAL APPEARANCE: in no ac [place] distress, well developed, well nourished HEAD: normocephalic, atrau matic EYES: pupils equal, round, reactive to light and accommodation EARS: normal THROAT: clear NECK/THYROID: neck supple, full ra nge of motion, no cervical lymphadenopathy HEART: no murmurs, regular rate and rhythm, S1, S2 normal LUNGS: clear to auscultatio n bilaterally ABDOMEN: normal, bowel sounds present, soft, nontender, nondistended NEUROLOGIC: nonfocal, motor stre ngth normal upper and lower extremities, sensory exam intact SKIN: no suspicious lesion s, warm and dry EXTREMITIES: no clubbing, cyanosi s, or edema ORAL CAVITY: mucosa moist
== END ==
LOC: HO.CARD 07:42
PROVIDERS: PCP Nurse Practitioner Acute Care; Visit Provider Nurse Practitioner Acute Care
DX: R00.2 Palpitations (principal)
CPT/HCPCS: 93005

== ENCOUNTER → 2024-12-02 08:02 | Outpatient (BNV) | payer OTHER, SELFPAY | PROVIDERS: PCP Nurse Practitioner Acute Care; Visit Provider Internal Medicine Cardiovascular Disease | DX: R00.2 Palpitations (principal) | CPT/HCPCS: 93010 ==

== ENCOUNTER 2025-01-10 16:28 | Outpatient (REF) | payer OTHER, SELFPAY ==
--- OUTSIDE RECORDS SUMMARY | 2025-01-10 19:05 | XMS_ITS ---
Author Organization [facility] Address [address] [address] Care Team Providers Care Bridge Maintainer Name Role Phone Janel Temple Primary Care Provider Unavailmick e MARIAJOSE PATEL Unavailable [phone] REASON FOR VISIT 1 month f/u Encounters Encounter Location Date Provider Diagnosis [facility] [address] [address] 10/16/2023 MARIAJOSE PATEL Plan Of Treatment No Information Progress Notes * Jessica LOPEZDOB: [birth year] (54 yo F)Acc No.[id number]:10/16/2023 post-op Patient:?JESSICA Jessica Provider:?Mariajose Patel DPM :1970???Age:53 Y???Sex:Female D ate:10/16/2023 Phone: Address:[address] [place], [place] [id number] Pcp:Janel Temple Subjective: * Chief Complaints: Objective: * Vitals:? Assessment: Plan: * Treatment: * Billing Information: * Electronic signature of DIOR PATEL D.P.M on 01/10/2025 at 07:05 PM EDT Sign off status: Pending * Provider:?Mariajose Patel DPM Date:? 10/16/2023 Generated for Ana stephenson/Rose/eTransmitting on:?01/10/2025 07:05 PM EDT
--- OUTSIDE RECORDS SUMMARY | 2025-01-10 19:05 | XMS_ITS ---
Author Organization [facility] Address [address] [place] [address] Care Team Providers Care Home Health Provider Name Role Phone WALLACE DING Unavailable [phone] REASON FOR VISIT 2 week f/u, shanice holter Encounters Encounter Location Date Provider Diagnosis [place] [address] [address] [address] 12/20/2024 WALLACE DIGN Palpitations R00.2 ; Abdominal bloating R14.0 ; Type 2 diabetes mellitus without complication, without long-term current use of insulin E11.9 ; Fibromyalgia M79.7 ; Gastroesophageal reflux disease without esophagitis K21.9 ; Pure hypercholesterolemia, unspecified E78.00 and Other migraine without status migrainosus, not intractable G43.809 ASSESSMENTS Encounter Date Diagnosis Assessment Notes Treatment [...] to bloating. Other comprehensive labs reviewed at [facility] and were unremarkable including thyroid function Of note, some information is being carried forward from prior records for informational purposes only and is being cited so that efficiency, safety and quality of the patient's care is not compromised This note was prepared using voice recognition software and direct typing Please excuse inadvertent boating safety officer or typing errors, or uncorrected word substitutions Although every attempt has been made by the provider to proofread this document, occasional misspellings and typographical errors may still be present Due to the previous pandemic, and the use of personal protective equipment (PPE) This may decrease voice recognition accuracy Inadvertent boating safety officer errors may occur 12/20/2024 Abdominal bloating (ICD-10 - R14.0) Acute Concerns/Problem List: 12/20/2024 Currently in NSR, says she is not presently having Palpitations. She will go for EKG today. Discussed Holter Monitor, she will be outfitted with 14 day model. She will hold PPI for two weeks, get H pylori testing due to bloating. Other comprehensive labs reviewed at [facility] and were unremarkable including thyroid function Of note, some information is being carried forward from prior records for informational purposes only and is being cited so that efficiency, safety and quality of the patient's care is not compromised This note was prepared using voice recognition software and direct typing Please excuse inadvertent boating safety officer or typing errors, or uncorrected word substitutions Although every attempt has been made by the provider to proofread this document, occasional misspellings and typographical errors may still be present Due to the previous pandemic, and the use of personal protective equipment (PPE) This may decrease voice recognition accuracy Inadvertent boating safety officer errors may occur 12/20/2024 Type 2 diabetes [...] to bloating. Other comprehensive labs reviewed at [facility] and were unremarkable including thyroid function Of note, some information is being carried forward from prior records for informational purposes only and is being cited so that efficiency, safety and quality of the patient's care is not compromised This note was prepared using voice recognition software and direct typing Please excuse inadvertent boating safety officer or typing errors, or uncorrected word substitutions Although every attempt has been made by the provider to proofread this document, occasional misspellings and typographical errors may still be present Due to the previous pandemic, and the use of personal protective equipment (PPE) This may decrease voice recognition accuracy Inadvertent boating safety officer errors may occur 12/20/2024 Fibromyalgia (ICD-10 - M79.7) Acute Concerns/Problem List: 12/20/2024 Currently in NSR, says she is not presently having Palpitations. She will go for EKG today. Discussed Holter Monitor, she will be outfitted with 14 day model. She will hold PPI for two weeks, get H pylori testing due to bloating. Other comprehensive labs reviewed at [facility] and were unremarkable including thyroid function Of note, some information is being carried forward from prior records for informational purposes only and is being cited so that efficiency, safety and quality of the patient's care is not compromised This note was prepared using voice recognition software and direct typing Please excuse inadvertent boating safety officer or typing errors, or uncorrected word substitutions Although every attempt has been made by the provider to proofread this document, occasional misspellings and typographical errors may still be present Due to the previous pandemic, and the use of personal protective equipment (PPE) This may decrease voice recognition accuracy Inadvertent boating safety officer errors may occur 12/20/2024 Gastroesophageal reflux disease without esophagitis (ICD-10 - K21.9) Acute Concerns/Problem List: 12/20/2024 Currently in NSR, says she is not presently having Palpitations. She will go for EKG today. Discussed Holter Monitor, she will be outfitted with 14 day model. She will hold PPI for two weeks, get H pylori testing due to bloating. Other comprehensive labs reviewed at [facility] and were unremarkable including thyroid function Of note, some information is being carried forward from prior records for informational purposes only and is being cited so that efficiency, safety and quality of the patient's care is not compromised This note was prepared using voice recognition software and direct typing Please excuse inadvertent boating safety officer or typing errors, or uncorrected word substitutions Although every attempt has been made by the provider to proofread this document, occasional misspellings and typographical errors may still be present Due to the previous pandemic, and the use of personal protective equipment (PPE) This may decrease voice recognition accuracy Inadvertent boating safety officer errors may occur 12/20/2024 Pure hypercholesterolemi a, unspecified (ICD-10 - E78.00) Acute Concerns/Problem List: 12/20/2024 Currently in NSR, says she is not presently having Palpitations. She will go for EKG today. Discussed Holter Monitor, she will be outfitted with 14 day model. She will hold PPI for two weeks, get H pylori testing due to bloating. Other comprehensive labs reviewed at [facility] and were unremarkable including thyroid function Of note, some information is being carried forward from prior records for informational purposes only and is being cited so that efficiency, safety and quality of the patient's care is not compromised This note was prepared using voice recognition software and direct typing Please excuse inadvertent boating safety officer or typing errors, or uncorrected word substitutions Although every attempt has been made by the provider to proofread this document, occasional misspellings and typographical errors may still be present Due to the previous pandemic, and the use of personal protective equipment (PPE) This may decrease voice recognition accuracy Inadvertent boating safety officer errors may occur 12/20/2024 Other migraine without [...] to bloating. Other comprehensive labs reviewed at [facility] and were unremarkable including thyroid function Of note, some information is being carried forward from prior records for informational purposes only and is being cited so that efficiency, safety and quality of the patient's care is not compromised This note was prepared using voice recognition software and direct typing Please excuse inadvertent boating safety officer or typing errors, or uncorrected word substitutions Although every attempt has been made by the provider to proofread this document, occasional misspellings and typographical errors may still be present Due to the previous pandemic, and the use of personal protective equipment (PPE) This may decrease voice recognition accuracy Inadvertent boating safety officer errors may occur PLAN OF TREATMENT No Information Progress Notes * PAULO LOPEZ LDOB:[birth year] (54 yo F)Acc No.[id number]:12/20/2024 Progress Notes Patient:??PAULO LOPEZ Provider:??WALLACE DING NP :1970?Age:54 Y?Sex:Fe male Date:12/20/2024 Address:[address], [place] [facility] Subjective: * Chief Complaints: * ?1. 2 week f/u, shanice colon. * HPI: ?Constitutional:? Patient is here today for a Chronic Disease Management Follow-up Visit ?Full past medical history, social history, family history, ?allergies and current medications were reviewed and updated. ?Acute Concerns/Problem List: ?12/20/2024 ?labs were 2024, [facility] ?CBC is stable Hemoglobin A1c of 6.0 Renal function electrolytes and LFTs are stable ?Total cholesterol 138, LDL 70, HDL 56, triglycerides 60 ?Vitamin D 60 ? TSH 4.46 Free T4, 0.98 ?seen 11/2024 for sick visit ? felt like sugars were very low Palpitations, shaking, fatigued. ?POC measurements close to 44. Stopped Ozempic since then, POC have been around 120 ?Palpitations occur every day at rest. Not brought on by exertion or standing. ?Denies chest pain, has chest shakiness . ?Denies visual disturbance, nausea. Also feels bloated, having normal BMs. ?HAs tried OTC gas pill. Fatigued, no change in sleep habits ?We set her up with 14-day Holter monitor, Shanice ?We told her to hold her PPI for 2 weeks and we are going to test H. pylori secondary to abdominal bloating ?The patient reports she does not use her CPAP ?other Medical history: asthma, diabetes, fibromyalgia, Hypercholesteremia, GERD, REGINA ?Was previously followed by industrial controls technician Erika, [address] [facility] ?She is off her sulfonylurea, now on Farxiga 10mg/as well as metformin 500mg BID ?pt educated to continue to use CGM/Dexcom ?Diabetic Eye exam: 2023, at [facility], Normal ?Neurological symptoms have essentially resolved ?She did see neurologist [place] [facility] ?MRI of the brain w/o January 2024 ?Unremarkable ?Surgical history: Bone spurs on both shoulders removed, carpel tunnel ?Surgery to come on toes for bone spurs (NEOS) ?family history, ?Father: diabetes, heart surgery (unknown) ?Mother: deseased, dimentia ?Allergies: cats, dogs, pollen, grass, dust, Avelox ?Social history ?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 * ROS:?All Other Systems:?Review of Systems (ROS)??All others negative except those mentioned in HPI.? * Medical History:?? Objective: * Examination: ?General Examination: ?GENERAL APPEARANCE:??in no [...] 1.??Abdominal bloating - R14 .0 (Primary)??2.??Palpitations - R00.2??3.??Type 2 diabetes mellitus without complication, without long-term current use of insulin - E11.9??4.??Fibromyalgia - M79.7??5.??Gastroesophageal reflux disease without esophagitis - K21.9??6.??Pure hypercholesterolemia, unspecified - E78.00??7.??Other migraine without status migrainosus, not intractable - G43.809?? Acute Concerns/Problem List: 12/20/2024 Currently in NSR, says she is not presently having Palpitations. She will go for EKG today. Discussed Holter Monitor, she will be outfitted with 14 day model. She will hold PPI for two weeks, get H pylori testing due to bloating. Other comprehensive labs reviewed at [facility] and were unremarkable including thyroid function Of note, some information is being carried forward from prior records for informational purposes only and is being cited so that efficiency, safety and quality of the patient's care is not compromised This note was prepared using voice recognition software and direct typing Please excuse inadvertent boating safety officer or typing errors, or uncorrected word substitutions Although every attempt has been made by the provider to proofread this document, occasional misspellings and typographical errors may still be present Due to the previous pandemic, and the use of personal protective equipment (PPE) This may decrease voice recognition accuracy Inadvertent boating safety officer errors may occur. Plan: * Treatment: * Images: Billing Information: * Visit Code:?? * Procedure Codes:?? Care Plan Details* * Sign off status: Pending * Provider:??WALLACE DING NP Date:??12/03 History and Physical Notes * HPI (History of Present Illness) Category Sub-Category Detail Notes Category Not es Constitutional Patient is here today for a Chronic Disease Management Follow-up Visit Full past medical history, social history, family history, allergies and current medications were reviewed and updated. Acute Concerns/Problem List: 12/20/2024 labs were 2024, [facility] CBC is stable Hemoglobin A1c of [...] Hypercholesteremia, GERD, REGINA Was previously followed by industrial controls technician Erika, [address] [place] [address] She is off her sulfonylurea, now on Farxiga 10mg/as well as metformin 500mg BID pt educated to continue to use CGM/Dexcom Diabetic Eye exam: 2023, at [facility], Normal Neurological symptoms have essentially resolved She did see neurologist at [facility] MRI of the brain w/o January 2024 Unremarkable Surgical history: Bone spurs on both shoulders removed, carpel tunnel Surgery to come on toes for bone spurs (NEOS) family history, Father: diabetes, heart surgery (unknown) Mother: deseased, dimentia Allergies: cats, dogs, pollen, grass, dust, Avelox Social history 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
--- OUTSIDE RECORDS SUMMARY | 2025-01-10 19:05 | XMS_ITS | Patient Health Record ---
Author Organization [facility] Address [address] [place] [address] Care Team Providers Care Postal Superintendent Name Role Phone RachanaJanel pace Primary Care [...] Problem Status W/U Status Risk Notes Problem [id number] Hallux rigidus, right foot (M20.21) Active confirmed Problem [id number] Hallux rigidus, left foot (M20.22) Active confirmed Problem [id number] Controlled type 2 diabetes mellitus without complication, [...] Insured Coverage Start Date Coverage End Date [facility] [address] [place] [place] [address] [id number] Jessica Lozano Self - patient is the [...]
--- OUTSIDE RECORDS SUMMARY | 2025-01-10 19:06 | XMS_ITS ---
Author Organization [facility] Address [address] [place] [phone] Care Team Providers Care Rodeo Performer Name Role Phone WALLACE DING Unavailable [phone] ALLERGIES Allergen (clinical drug ingredient) Drug/Non Drug [...] HOURS NEEDED for 30 Active Dexcom G7 Customer Operations Associate - as directed for 365 days 07/06 [...] 12/01/2024 Encounters Encounter Location Date Provider Diagnosis [facility] [address] [facility] [address] [place] [address] 12/01/2024 WALLACE TOÑA Palpitations R00.2 a nd [...] to bloating. Other comprehensive labs reviewed at [facility] and were unremarkable including thyroid function Of note, some information is being carried forward from prior records for informational purposes only and is being cited so that efficiency, safety and quality of the patient's care is not compromised This note was prepared using voice recognition software and direct typing Please excuse inadvertent automatic equipment technician or typing errors, or uncorrected word substitutions Although every attempt has been made by the provider to proofread this document, occasional misspellings and typographical errors may still be present Due to the previous pandemic, and the use of personal protective equipment (PPE) This may decrease voice recognition accuracy Inadvertent automatic equipment technician errors may occur 12/01/2024 Abdominal bloating (ICD-10 - R14.0) Currently in NSR, says she is not presently having Palpitations. She will go for EKG today. Discussed Holter Monitor, she will be outfitted with 14 day model. She will hold PPI for two weeks, get H pylori testing due to bloating. Other comprehensive labs reviewed at [facility] and were unremarkable including thyroid function Of note, some information is being carried forward from prior records for informational purposes only and is being cited so that efficiency, safety and quality of the patient's care is not compromised This note was prepared using voice recognition software and direct typing Please excuse inadvertent automatic equipment technician or typing errors, or uncorrected word substitutions Although every attempt has been made by the provider to proofread this document, occasional misspellings and typographical errors may still be present Due to the previous pandemic, and the use of personal protective equipment (PPE) This may decrease voice recognition accuracy Inadvertent automatic equipment technician errors may occur PLAN OF TREATMENT Pending Test Test Name Order Date EKG 12/01/2024 H PYLORI BREATH TEST 12/01/2024 Next Appt Details Follow Up: 2 Weeks, Reason: Procedure Notes * Category Sub-Category Detail Notes Holter Monitor Indication(s) palpitations Duration of monitoring 14 days Holter placement Patient aware of ins tructions Serial # [id number] Holter removal 12/15/24 Progress Notes * PAULO LOPEZ LDOB:[birth year] (54 yo F)Acc No.[id number]:12/01/2024 Progress Notes Patient:??PAULO LOPEZ Provider:??WALLACE DING NP :1970?Age:54 Y?Sex:Fe male Date:12/01/2024 Address:[address] [place], [place] [id number] Subjective: * Chief Complaints: * ?1. Pt [...] in sleep habits. ?Comprehensive labs were 2024, [facility] ?CBC is stable ?Hemoglobin A1c of [...] MOUTH EVERY DAY , Taking Dexcom G7 Customer Operations Associate - Device as directed , Taking Albuterol [...] to bloating. Other comprehensive labs reviewed at [facility] and were unremarkable including thyroid function Of note, some information is being carried forward from prior records for informational purposes only and is being cited so that efficiency, safety and quality of the patient's care is not compromised This note was prepared using voice recognition software and direct typing Please excuse inadvertent automatic equipment technician or typing errors, or uncorrected word substitutions Although every attempt has been made by the provider to proofread this document, occasional misspellings and typographical errors may still be present Due to the previous pandemic, and the use of personal protective equipment (PPE) This may decrease voice recognition accuracy Inadvertent automatic equipment technician errors may occur. Plan: * Treatment: 2.??Palpitations?Imaging: EKG * Procedures:?Holter Monitor:?Indication(s)??palpitations.??Holter placement??Patient aware of instructions.??Serial #??[id number].??Holter removal??12/15/24.??Duration of monitoring??14 days.? * Procedure Codes:??41092 -GEO CTROCARDIOGRAM, COMPLETE, Modifiers: 59 , 80894 EXT ECG>48HR<7D RECORDING * Follow Up:??2 Weeks Care Plan: * Problems:?? * Images: Billing Information: * Visit Code:?? 21181 Office Visit, Est Pt., Level 4. Modifiers: 25, SA * Procedure Codes:?? 72691 -ELECTROCARDIOGRAM, COMPLETE. Modifiers: 59 60718 EXT ECG>48HR<7D RECORDING. Care Plan Details* * Sign off status: Completed true * Provider:??WALLACE DING, ANNMARIE Date:??11/06 History and Physical Notes * HPI [...] in sleep habits. Comprehensive labs were 2024, [facility] CBC is stable Hemoglobin A1c [...]
--- OUTSIDE RECORDS SUMMARY | 2025-01-10 19:06 | XMS_ITS ---
Author Organization [facility] Address [address] [place] [address] Care Team Providers Care Underlay Stitcher Name Role Phone GOLDWALLACE DUPONT Unavailable [phone] REASON FOR VISIT TB Test Order Encounters Encounter Location Date Provider Diagnosis [facility] [address] [address] 01/10/2025 WALLACE DING Encounter for immunization Z23 ASSESSMENTS Encounter Date Diagnosis Assessment Notes Treatment Notes Treatment Clinical Notes Section Notes 01/10/2025 Encounter for immunization (ICD-10 - Z23) PLAN OF TREATMENT Pending Test Test Name Order Date QUANTIFERON TB GOLD PLUS 01/10/2025 Progress Notes * PAULO LOPEZ LDOB:[birth year] (54 yo F)Acc No.[id number]:01/10/2025 Patient:??PAULO LOPEZ :1970?Age:54 Y?Sex:Fe male Address:[address] [place] [address] Subjective: * Chief Complaints: * ?TB Test Order * Medical History:?? * Surgical History:?? * Hospitalization/Major Diagno stic Procedure:?? * Medications:?? Objective: Assessment: * Assessment: 1.??Encounter for immunizati on - Z23?? Plan: * Treatment: * Procedure Codes:?? * true * Date:??
--- OUTSIDE RECORDS SUMMARY | 2025-01-10 19:06 | XMS_ITS | Data Portability ---
Author Organization [place] - [facility], Allergy Address [address] [place] [address] Care Team Providers Care Electric Motor Controls Assembler Name Role Phone WALLACE DING Primary Care Provider [phone] Assessment Encounter Date Assessment Date Assessment LastModified [...] Recorded Time Closed fracture of nasal bones [id number] Active 024 KERRI TREJO PA-C [address] [facility], [facility] [place], [address] , [place] - [facility] 15:22:16 Problem Notes None recorded. Procedures Surgical [...] Availabl e Not Available [employer] [place] [address] [place] active Not Available Not Available Not Available Vitals Date Recorded Body height Body mass index (BMI) Body weight Provider Name and Address Organization Details Last Updated DateTime 06/14/2024 152.4 cm 22.5 kg/m2 43053.12 g Paola Vyas [place] - [facility] 06/14/2024 14:52:28 Social History None recorded. Functional Status None recorded. Mental Status None recorded. Family History Nothing Reported. Medical History No medical history recorded. Gynecological HistoryNo gynecological history recorded. Obstetrics History GPAL:G 0 P 0 0 0 0 Past Encounters Encounter ID Performer Location Encounter Start Date Encounter Closed Date Diagnosis/Indication Diagnosis SNOMED-CT Code Diagnosis ICD10 Code Diagnosis Note [id number] KERRI TREJO PA-C [facility] [address] [place] [address] 06/14/2024 14:43:26 06/14/2024 15:05:35 Closed fracture of nasal bones 77001687 S02.2XXA Health Concerns Section Related Observation LastModified by Organization Detai ls LastModified Time None Recorded Concern Status LastModified by Organization Details LastModified Time None Recorded Advance Directives Directive None Recorded Payers Encounter Date Sequence Insurance Name Policy Number Policy Johnson Covered Member ID Johnson Member ID Guarantor Name 06/14/2024 1 [employer] [place] [employer] ([facility]) [id number] Jessica Lozano [id number] Jessica Blake Notes Date Note Type [...] bit, no blood. KERRI TREJO PA-C [address] [facility],[place] [address], [place], [address], [facility] - [facility] 06/14/2024 15:22:53 OBGyn Episode No OBEpisode recorded.
--- OUTSIDE RECORDS SUMMARY | 2025-01-10 19:06 | XMS_ITS ---
Author Organization [facility] Address [address] [address] Care Team Providers Care Construction Sales Representative Name Role Phone Janel Temple Primary Care Provider Unavailmick e MARIAJOSE PATEL Unavailable [phone] REASON FOR VISIT 1 month f/u Encounters Encounter Location Date Provider Diagnosis [facility] [address] [address] 10/21/2023 MARIAJOSE PATEL Plan Of Treatment No Information Progress Notes * Jessica LOPEZDOB: [birth year] (54 yo F)Acc No.[id number]:10/21/2023 post-op Patient:?Jessica LOPEZ Provider:?Mariajose Patel DPM :1970???Age:53 Y???Sex:Female D ate:10/21/2023 Phone: Address:[address] [place], [place] [phone] Pcp:Janel Temple Subjective: * Chief Complaints: Objective: * Vitals:? Assessment: Plan: * Treatment: * Billing Information: * Electronic signature of DIOR PATEL D.P.M on 01/10/2025 at 07:06 PM EDT Sign off status: Pending * Provider:?Mariajose Patel DPM Date:? 10/21/2023 Generated for Ana stephenson/Rose/eTransmitting on:?01/10/2025 07:06 PM EDT
--- OUTSIDE RECORDS SUMMARY | 2025-01-10 19:06 | XMS_ITS ---
Author Organization [facility] Address [address] [address] Care Team Providers Care Student Assistant Name Role Phone RachanaJanel pace Primary Care Provider Unavailmick e HUSSEIN DUMONT Unavailable [phone] REASON FOR VISIT Cxl Apt Encounters Encounter Location Date Provider Diagnosis [facility] [address] [address] 10/20/2023 HUSSEIN DUMONT Plan Of Treatment No Information Progress Notes * Jessica LOPEZDOB: [birth year] (53 yo F)Acc No.[id number]:10/20/2023 Patient:?Jessica LOPEZ :1970???Age:53 Y???Sex:Female Phone: Address:[address] [place] [phone] * true * Date:? Generated for Printi ng/Faurbang/eTransmitting on:?01/10/2025 07:06 PM EDT
== END 2025-01-10 16:29 | disposition home or self-care (01) ==
LOC: HO.LAB 16:28
PROVIDERS: PCP Nurse Practitioner Acute Care; Visit Provider Nurse Practitioner Acute Care
DX: Z23 Encounter for immunization (principal)
CPT/HCPCS: 36415; 86481

== ENCOUNTER 2025-01-16 13:27 | Outpatient (REF) | payer OTHER, SELFPAY ==
--- OUTSIDE RECORDS SUMMARY | 2025-01-16 15:29 | XMS_ITS ---
Author Organization [facility] Address [address] [address] Care Team Providers Care Training Project Manager Name Role Phone Janel Temple Primary Care Provider Unavailmick e MARIAJOSE PATEL Unavailable [phone] REASON FOR VISIT 1 month f/u Encounters Encounter Location Date Provider Diagnosis [facility] [address] [address] 10/16/2023 MARIAJOSE PATEL Plan Of Treatment No Information Progress Notes * Jessica LOPEZDOB: [birth year] (54 yo F)Acc No.[id number]:10/16/2023 post-op Patient:?Jessica LOPEZ Provider:?Mariajose Patel DPM :1970???Age:53 Y???Sex:Female D ate:10/16/2023 Phone: Address:[address] [place], [place] [phone] Pcp:Janel Temple Subjective: * Chief Complaints: Objective: * Vitals:? Assessment: Plan: * Treatment: * Billing Information: * Electronic signature of DIOR PATEL D.P.M on 01/16/2025 at 03:28 PM EDT Sign off status: Pending * Provider:?Mariajose Patel DPM Date:? 10/16/2023 Generated for Ana stephenson/Rose/eTransmitting on:?01/16/2025 03:28 PM EDT
--- OUTSIDE RECORDS SUMMARY | 2025-01-16 15:29 | XMS_ITS | Patient Health Record ---
Author Organization [facility] Address [address] [facility] [address] [place] [address] Care Team Providers Care Foam Fabricator Name Role Phone RachanaJanel pace Primary Care [...] Problem Status W/U Status Risk Notes Problem [id number] Hallux rigidus, right foot (M20.21) Active confirmed Problem 762700835 Hallux rigidus, left foot (M20.22) Active confirmed Problem 673369010 Controlled type 2 diabetes mellitus without complication, [...] Insured Coverage Start Date Coverage End Date [facility] [address] [place] [address] [place] [address] [phone] [id number] Jessica Lozano Self - patient is the [...]
--- OUTSIDE RECORDS SUMMARY | 2025-01-16 15:29 | XMS_ITS | Patient Health Record ---
Author Organization [facility] Address [address] [place] [address] Care Team Providers Care Olericulturist Name Role Phone WALLACE DING Unavailable [phone] ALLERGIES Allergen (clinical drug ingredient) Drug/Non Drug Allergy documented on EMR Reaction Allergy Type Onset Date Status Pollen Pollen Swelling Allergy Active RESULTS Component Value Reference Range Notes MR Brain WO Reviewed date:01/21/2024 12:48:24 PM Interpretation: Performing Lab: Notes/Report: Original Ordering Provider: WALLACE DING [facility] CR Shoulder RT Min 2 View Reviewed date:06/21/2024 08:18:51 AM Interpretation: Performing Lab: Notes/Report: Original Ordering Provider: WALLACE DING NP [facility] CR Humerus RT Min 2 Views Reviewed date:06/21/2024 08:18:51 AM Interpretation: Performing Lab: Notes/Report: Original Ordering Provider: WALLACE DING NP [facility] CR Forearm RT 2 Views Reviewed date:06/21/2024 08:18:51 AM Interpretation: Performing Lab: Notes/Report: Original Ordering Provider: WALLACE DING NP [facility] REASON FOR REFERRAL Diagnosis 1 Asthma, unspecified asthma severity, unspecified whether complicated, unspecified whether persistent (J45.909) Referral Organization [place] [address] Referring Provider First Name WALLACE Referring Provider [...] 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 for 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 07/06 [...] unspecified (E55.9) Active confirmed Vitamin D deficiency (29036057) Problem Chronic tension-type headache, intractable (G44.221) Active confirmed [id number] Problem Fibromyalgia (M79.7) Active confirmed 481376861 Problem Weakness (R53.1) Active confirmed 74498 008 Problem Pure hypercholesterolemi a, unspecified (E78.00) Active confirmed 250222103 Problem Hyperlipidemia, unspecified hyperlipidemia type (E78.5) Active confirmed Hyperlipidaemia (74140897) Problem Hypothyroidism, unspecified type (E03.9) Active confirmed Hypothyroidism (63878940) Problem Annual physical exam (Z00.00) Active confirmed 969441536 Problem Gastroesophageal reflux disease without esophagitis (K21.9) Active confirmed 065223984 Problem Type 2 diabetes mellitus without complication, without long-term current use of insulin (E11.9) Active confirmed 278713225 Problem Asthma, unspecified asthma severity, unspecified whether complicated, unspecified whether persistent (J45.909) Active confirmed 199575051 Problem Other migraine without status migrainosus, not intractable (G43.809) Active confirmed 23301974 Problem Pain in eye, unspecified laterality (H57.10) Active confirmed 45457869 VITAL SIGNS Heart Rate 88 /min 12/01/2024 Oximetry 99 % 12/01/2024 Blood pressure diastolic 82 mm Hg 12/01/2024 Height 60 in 12/01/2024 Blood pressure systolic 124 mm Hg 12/01/2024 Weight 115 lbs 12/01/2024 BMI 22.46 kg/m2 12/01/2024 Encounters Encounter Location Date Provider Diagnosis [place] [address] 02/23/2024 WALLACE BORHOT [place] [address] 12/20/2024 WALLACE DING Palpitations R00.2 ; Abdominal bloating R14.0 ; Type 2 diabetes mellitus without complication, without long-term current use of insulin E11.9 ; Fibromyalgia M79.7 ; Gastroesophageal reflux disease without esophagitis K21.9 ; Pure hypercholesterolemia, unspecified E78.00 and Other migraine without status migrainosus, not intractable G43.809 [place] [address] 05/30/2024 WALLACE MALCOLMJANAKHaiely Type 2 diabetes ray itus without complication, without long-term current use of insulin E11.9 ; Fibromyalgia M79.7 ; Gastroesophageal reflux disease without esophagitis K21.9 ; Pure hypercholesterolemia, unspecified E78.00 ; Vitamin D deficiency, unspecified E55.9 and Transient visual loss, left H53.[address] [facility] [address] [place] [address] 06/20/2024 WALLACE GOLDJANAKHailey Type 2 diabetes ray itus without complication, without long-term current use of insulin E11.9 ; Annual physical exam Z00.00 ; Fibromyalgia M79.7 ; Gastroesophageal reflux disease without esophagitis K21.9 ; Pure hypercholesterolemia, unspecified E78.00 ; Closed fracture of nasal bone, initial encounter S02.2XXA ; Acute pain of right shoulder M25.511 and Right arm pain M79.[address] [facility] [address] [place] [address] 12/01/2024 WALLACE DING Palpitations R00.2 a nd Abdominal bloating R14.[address] [facility] [address] [facility] [address] [place] [address] 01/21/[address] [facility] [address] [facility] [address] [place] [address] 01/25/[address] [facility] [address] [facility] [address] [place], [place] 02/02/2024 WALLACE DING Fibromyalgia M79.[address] [facility] [address] [facility] [address] [place] [address] 02/09/2024 WALLACE DING [address] [place], [place] 03/02/[address] [facility] [address] [facility] [address] [place] [address] 03/11/[address] [facility] [address] [facility] [address] [place] [address] 03/15/[address] [facility] [address] [facility] [place] [address] 03/18/[address] [facility] [address] [place] [address] 03/18/[address] [facility] [address] [facility] [address] [place], [place] 03/22/[address] [facility] [address] [facility] [address] [place], [place] 03/28/[address] [facility] [address] [facility] [address] [place], [place] 03/29/[address] [facility] [address] [facility] [address] [place] 04/01/[address] [facility] [address] [facility] [address] [place], [place] 05/16/[address] [facility] [address] [facility] [address] [place] 05/17/2024 WALLACE DING Fibromyalgia M79.[address] [facility] [address] [facility] [place], [place] 06/08/[address] [facility] [address] [facility] [address] [place] [address] 06/14/2024 WALLACE DING [address] [place] [address] 07/05/[address] [facility] [address] [facility] [place], [place] 08/01/[address] [facility] [address] [facility] [address] [place], [place] 08/01/[address] [facility] [address] [facility] [address] [place] 08/09/2024 WALLACE DING Pre-op exam Z01.[address] [facility] [address] [place] [address] 08/12/[address] [facility] [address] [facility] [address] [place] [address] 09/23/[address] [facility] [address] [facility] [address] [place] [address] 11/08/2024 WALLACE DING Annual physical exam Z00.00 ; Weakness R53.1 ; Vitamin D deficiency, unspecified E55.9 ; Hypothyroidism, unspecified type E03.9 ; Hyperlipidemia, unspecified hyperlipidemia type E78.5 and Type 2 diabetes mellitus without complication, without long-term current use of insulin E11.9 [address] [facility] [address] [place] [address] 11/11/2024 [facility] [address] [facility] [address] [facility] [address] [address] 11/16/2024 [facility] [address] [facility] [facility] [address] [address] 11/30/2024 [facility] [address] [facility] [address] [address] 01/10/2025 [facility] Encounter for immuni zation Z23 [facility] [address] [facility] [address] [address] 06/02/2024 [facility] [address] [address] 10/10/2024 [facility] Type 2 diabetes ray itus without complication, without long-term current use of insulin E11.9 and Pre-op exam Z01.818 [facility] [address] [address] 11/17/2024 [facility] [address] [facility] [address] [address] 11/29/2024 [facility] ASSESSMENTS Encounter Date Diagnosis Assessment Notes Treatment Notes Treatment Clinical Notes Section Notes 02/02/2024 Fibromyalgia (ICD-10 - M79.7) 05/17/2024 Fibromyalgia (ICD-10 - M79.7) 05/30/2024 Type 2 diabetes mellitus without complication, without long-term current use of insulin (ICD-10 - E11.9) Pt here for chronic disease mgt visit/DM2 Acute Concerns/Problem List: 05/30/2024 _update labs and CPE Refer to [facility] for colonoscopy screening Diabetes management and [...] software and direct typing Please excuse inadvertent steel engraver or typing errors, or uncorrected word substitutions Although every attempt has been made by the provider to proofread this document, occasional misspellings and typographical errors may still be present Due to the previous pandemic, and the use of personal protective equipment (PPE) This may decrease voice recognition accuracy Inadvertent steel engraver errors may occur 06/20/2024 Annual physical exam (ICD-10 - Z00.00) Pt here for CPE Acute Concerns/Problem List: 06/20/2024 Will get some x-rays of the right forearm/ shoulder Discussed closed head injury nasal bone fractures Did see ENT Refer to [facility] for colonoscopy screening Diabetes management and [...] software and direct typing Please excuse inadvertent steel engraver or typing errors, or uncorrected word substitutions Although every attempt has been made by the provider to proofread this document, occasional misspellings and typographical errors may still be present Due to the previous pandemic, and the use of personal protective equipment (PPE) This may decrease voice recognition accuracy Inadvertent steel engraver errors may occur 06/20/2024 Type 2 diabetes mellitus without complication, without long-term current use of insulin (ICD-10 - E11.9) Pt here for CPE Acute Concerns/Problem List: 06/20/2024 Will get some x-rays of the right forearm/ shoulder Discussed closed head injury nasal bone fractures Did see ENT Refer to [facility] for colonoscopy screening Diabetes management and [...] software and direct typing Please excuse inadvertent steel engraver or typing errors, or uncorrected word substitutions Although every attempt has been made by the provider to proofread this document, occasional misspellings and typographical errors may still be present Due to the previous pandemic, and the use of personal protective equipment (PPE) This may decrease voice recognition accuracy Inadvertent steel engraver errors may occur 10/10/2024 Type 2 diabetes mellitus without complication, [...] to bloating. Other comprehensive labs reviewed at [facility] and were unremarkable including thyroid function Of note, some information is being carried forward from prior records for informational purposes only and is being cited so that efficiency, safety and quality of the patient's care is not compromised This note was prepared using voice recognition software and direct typing Please excuse inadvertent steel engraver or typing errors, or uncorrected word substitutions Although every attempt has been made by the provider to proofread this document, occasional misspellings and typographical errors may still be present Due to the previous pandemic, and the use of personal protective equipment (PPE) This may decrease voice recognition accuracy Inadvertent steel engraver errors may occur 12/01/2024 Abdominal bloating (ICD-10 - R14.0) Currently in NSR, says she is not presently having Palpitations. She will go for EKG today. Discussed Holter Monitor, she will be outfitted with 14 day model. She will hold PPI for two weeks, get H pylori testing due to bloating. Other comprehensive labs reviewed at [facility] and were unremarkable including thyroid function Of note, some information is being carried forward from prior records for informational purposes only and is being cited so that efficiency, safety and quality of the patient's care is not compromised This note was prepared using voice recognition software and direct typing Please excuse inadvertent steel engraver or typing errors, or uncorrected word substitutions Although every attempt has been made by the provider to proofread this document, occasional misspellings and typographical errors may still be present Due to the previous pandemic, and the use of personal protective equipment (PPE) This may decrease voice recognition accuracy Inadvertent steel engraver errors may occur 12/20/2024 Palpitations (ICD-10 - R00.2) Acute Concerns/Problem List: 12/20/2024 Currently in NSR, says she is not presently having Palpitations. She will go for EKG today. Discussed Holter Monitor, she will be outfitted with 14 day model. She will hold PPI for two weeks, get H pylori testing due to bloating. Other comprehensive labs reviewed at [facility] and were unremarkable including thyroid function Of note, some information is being carried forward from prior records for informational purposes only and is being cited so that efficiency, safety and quality of the patient's care is not compromised This note was prepared using voice recognition software and direct typing Please excuse inadvertent steel engraver or typing errors, or uncorrected word substitutions Although every attempt has been made by the provider to proofread this document, occasional misspellings and typographical errors may still be present Due to the previous pandemic, and the use of personal protective equipment (PPE) This may decrease voice recognition accuracy Inadvertent steel engraver errors may occur 01/10/2025 Encounter for immunization (ICD-10 - Z23) 08/09/2024 Pre-op exam (ICD-10 - Z01.818) 12/20/2024 Type 2 diabetes mellitus without complication, [...] to bloating. Other comprehensive labs reviewed at [facility] and were unremarkable including thyroid function Of note, some information is being carried forward from prior records for informational purposes only and is being cited so that efficiency, safety and quality of the patient's care is not compromised This note was prepared using voice recognition software and direct typing Please excuse inadvertent steel engraver or typing errors, or uncorrected word substitutions Although every attempt has been made by the provider to proofread this document, occasional misspellings and typographical errors may still be present Due to the previous pandemic, and the use of personal protective equipment (PPE) This may decrease voice recognition accuracy Inadvertent steel engraver errors may occur 12/20/2024 Abdominal bloating (ICD-10 - R14.0) Acute Concerns/Problem List: 12/20/2024 Currently in NSR, says she is not presently having Palpitations. She will go for EKG today. Discussed Holter Monitor, she will be outfitted with 14 day model. She will hold PPI for two weeks, get H pylori testing due to bloating. Other comprehensive labs reviewed at [facility] and were unremarkable including thyroid function Of note, some information is being carried forward from prior records for informational purposes only and is being cited so that efficiency, safety and quality of the patient's care is not compromised This note was prepared using voice recognition software and direct typing Please excuse inadvertent steel engraver or typing errors, or uncorrected word substitutions Although every attempt has been made by the provider to proofread this document, occasional misspellings and typographical errors may still be present Due to the previous pandemic, and the use of personal protective equipment (PPE) This may decrease voice recognition accuracy Inadvertent steel engraver errors may occur 10/10/2024 Pre-op exam (ICD-10 - Z01.818) 11/08/2024 Weakness (ICD-10 - R53.1) 06/20/2024 Fibromyalgia (ICD-10 - M79.7) Pt here for CPE Acute Concerns/Problem List: 06/20/2024 Will get some x-rays of the right forearm/ shoulder Discussed closed head injury nasal bone fractures Did see ENT Refer to [facility] for colonoscopy screening Diabetes management and [...] software and direct typing Please excuse inadvertent steel engraver or typing errors, or uncorrected word substitutions Although every attempt has been made by the provider to proofread this document, occasional misspellings and typographical errors may still be present Due to the previous pandemic, and the use of personal protective equipment (PPE) This may decrease voice recognition accuracy Inadvertent steel engraver errors may occur 05/30/2024 Fibromyalgia (ICD-10 - M79.7) Pt here for chronic disease mgt visit/DM2 Acute Concerns/Problem List: 05/30/2024 _update labs and CPE Refer to [facility] for colonoscopy screening Diabetes management and [...] software and direct typing Please excuse inadvertent steel engraver or typing errors, or uncorrected word substitutions Although every attempt has been made by the provider to proofread this document, occasional misspellings and typographical errors may still be present Due to the previous pandemic, and the use of personal protective equipment (PPE) This may decrease voice recognition accuracy Inadvertent steel engraver errors may occur 06/20/2024 Gastroesophageal reflux disease without esophagitis (ICD-10 - K21.9) Pt here for CPE Acute Concerns/Problem List: 06/20/2024 Will get some x-rays of the right forearm/ shoulder Discussed closed head injury nasal bone fractures Did see ENT Refer to [facility] for colonoscopy screening Diabetes management and [...] software and direct typing Please excuse inadvertent steel engraver or typing errors, or uncorrected word substitutions Although every attempt has been made by the provider to proofread this document, occasional misspellings and typographical errors may still be present Due to the previous pandemic, and the use of personal protective equipment (PPE) This may decrease voice recognition accuracy Inadvertent steel engraver errors may occur 05/30/2024 Gastroesophageal reflux disease without esophagitis (ICD-10 - K21.9) Pt here for chronic disease mgt visit/DM2 Acute Concerns/Problem List: 05/30/2024 _update labs and CPE Refer to [facility] for colonoscopy screening Diabetes management and [...] software and direct typing Please excuse inadvertent steel engraver or typing errors, or uncorrected word substitutions Although every attempt has been made by the provider to proofread this document, occasional misspellings and typographical errors may still be present Due to the previous pandemic, and the use of personal protective equipment (PPE) This may decrease voice recognition accuracy Inadvertent steel engraver errors may occur 11/08/2024 Vitamin D deficiency, unspecified (ICD-10 - E55.9) 12/20/2024 Fibromyalgia (ICD-10 - M79.7) Acute Concerns/Problem List: 12/20/2024 Currently in NSR, says she is not presently having Palpitations. She will go for EKG today. Discussed Holter Monitor, she will be outfitted with 14 day model. She will hold PPI for two weeks, get H pylori testing due to bloating. Other comprehensive labs reviewed at [facility] and were unremarkable including thyroid function Of note, some information is being carried forward from prior records for informational purposes only and is being cited so that efficiency, safety and quality of the patient's care is not compromised This note was prepared using voice recognition software and direct typing Please excuse inadvertent steel engraver or typing errors, or uncorrected word substitutions Although every attempt has been made by the provider to proofread this document, occasional misspellings and typographical errors may still be present Due to the previous pandemic, and the use of personal protective equipment (PPE) This may decrease voice recognition accuracy Inadvertent steel engraver errors may occur 12/20/2024 Gastroesophageal reflux disease without esophagitis (ICD-10 - K21.9) Acute Concerns/Problem List: 12/20/2024 Currently in NSR, says she is not presently having Palpitations. She will go for EKG today. Discussed Holter Monitor, she will be outfitted with 14 day model. She will hold PPI for two weeks, get H pylori testing due to bloating. Other comprehensive labs reviewed at [facility] and were unremarkable including thyroid function Of note, some information is being carried forward from prior records for informational purposes only and is being cited so that efficiency, safety and quality of the patient's care is not compromised This note was prepared using voice recognition software and direct typing Please excuse inadvertent steel engraver or typing errors, or uncorrected word substitutions Although every attempt has been made by the provider to proofread this document, occasional misspellings and typographical errors may still be present Due to the previous pandemic, and the use of personal protective equipment (PPE) This may decrease voice recognition accuracy Inadvertent steel engraver errors may occur 11/08/2024 Hypothyroidism, unspecified type (ICD-10 - E03.9) 06/20/2024 Pure hypercholesterolemi a, unspecified (ICD-10 - E78.00) Pt here for CPE Acute Concerns/Problem List: 06/20/2024 Will get some x-rays of the right forearm/ shoulder Discussed closed head injury nasal bone fractures Did see ENT Refer to [facility] for colonoscopy screening Diabetes management and [...] software and direct typing Please excuse inadvertent steel engraver or typing errors, or uncorrected word substitutions Although every attempt has been made by the provider to proofread this document, occasional misspellings and typographical errors may still be present Due to the previous pandemic, and the use of personal protective equipment (PPE) This may decrease voice recognition accuracy Inadvertent steel engraver errors may occur 05/30/2024 Pure hypercholesterolemi a, unspecified (ICD-10 - E78.00) Pt here for chronic disease mgt visit/DM2 Acute Concerns/Problem List: 05/30/2024 _update labs and CPE Refer to [facility] for colonoscopy screening Diabetes management and [...] software and direct typing Please excuse inadvertent steel engraver or typing errors, or uncorrected word substitutions Although every attempt has been made by the provider to proofread this document, occasional misspellings and typographical errors may still be present Due to the previous pandemic, and the use of personal protective equipment (PPE) This may decrease voice recognition accuracy Inadvertent steel engraver errors may occur 05/30/2024 Vitamin D deficiency, unspecified (ICD-10 - E55.9) Pt here for chronic disease mgt visit/DM2 Acute Concerns/Problem List: 05/30/2024 _update labs and CPE Refer to [facility] for colonoscopy screening Diabetes management and [...] software and direct typing Please excuse inadvertent steel engraver or typing errors, or uncorrected word substitutions Although every attempt has been made by the provider to proofread this document, occasional misspellings and typographical errors may still be present Due to the previous pandemic, and the use of personal protective equipment (PPE) This may decrease voice recognition accuracy Inadvertent steel engraver errors may occur 06/20/2024 Closed fracture of nasal bone, initial encounter (ICD-10 - S02.2XXA) Pt here for CPE Acute Concerns/Problem List: 06/20/2024 Will get some x-rays of the right forearm/ shoulder Discussed closed head injury nasal bone fractures Did see ENT Refer to [facility] for colonoscopy screening Diabetes management and [...] software and direct typing Please excuse inadvertent steel engraver or typing errors, or uncorrected word substitutions Although every attempt has been made by the provider to proofread this document, occasional misspellings and typographical errors may still be present Due to the previous pandemic, and the use of personal protective equipment (PPE) This may decrease voice recognition accuracy Inadvertent steel engraver errors may occur 11/08/2024 Hyperlipidemia, unspecified hyperlipidemia type (ICD-10 - E78.5) 12/20/2024 Pure hypercholesterolemi a, unspecified (ICD-10 - E78.00) Acute Concerns/Problem List: 12/20/2024 Currently in NSR, says she is not presently having Palpitations. She will go for EKG today. Discussed Holter Monitor, she will be outfitted with 14 day model. She will hold PPI for two weeks, get H pylori testing due to bloating. Other comprehensive labs reviewed at [facility] and were unremarkable including thyroid function Of note, some information is being carried forward from prior records for informational purposes only and is being cited so that efficiency, safety and quality of the patient's care is not compromised This note was prepared using voice recognition software and direct typing Please excuse inadvertent steel engraver or typing errors, or uncorrected word substitutions Although every attempt has been made by the provider to proofread this document, occasional misspellings and typographical errors may still be present Due to the previous pandemic, and the use of personal protective equipment (PPE) This may decrease voice recognition accuracy Inadvertent steel engraver errors may occur 12/20/2024 Other migraine without [...] to bloating. Other comprehensive labs reviewed at [facility] and were unremarkable including thyroid function Of note, some information is being carried forward from prior records for informational purposes only and is being cited so that efficiency, safety and quality of the patient's care is not compromised This note was prepared using voice recognition software and direct typing Please excuse inadvertent steel engraver or typing errors, or uncorrected word substitutions Although every attempt has been made by the provider to proofread this document, occasional misspellings and typographical errors may still be present Due to the previous pandemic, and the use of personal protective equipment (PPE) This may decrease voice recognition accuracy Inadvertent steel engraver errors may occur 11/08/2024 Type 2 diabetes mellitus without complication, without long-term current use of insulin (ICD-10 - E11.9) 06/20/2024 Acute pain of right shoulder (ICD-10 - M25.511) Pt here for CPE Acute Concerns/Problem List: 06/20/2024 Will get some x-rays of the right forearm/ shoulder Discussed closed head injury nasal bone fractures Did see ENT Refer to [facility] for colonoscopy screening Diabetes management and [...] software and direct typing Please excuse inadvertent steel engraver or typing errors, or uncorrected word substitutions Although every attempt has been made by the provider to proofread this document, occasional misspellings and typographical errors may still be present Due to the previous pandemic, and the use of personal protective equipment (PPE) This may decrease voice recognition accuracy Inadvertent steel engraver errors may occur 05/30/2024 Transient visual loss, left (ICD-10 - H53.122) Pt here for chronic disease mgt visit/DM2 Acute Concerns/Problem List: 05/30/2024 _update labs and CPE Refer to [facility] for colonoscopy screening Diabetes management and [...] software and direct typing Please excuse inadvertent steel engraver or typing errors, or uncorrected word substitutions Although every attempt has been made by the provider to proofread this document, occasional misspellings and typographical errors may still be present Due to the previous pandemic, and the use of personal protective equipment (PPE) This may decrease voice recognition accuracy Inadvertent steel engraver errors may occur 06/20/2024 Right arm pain (ICD-10 - M79.601) Pt here for CPE Acute Concerns/Problem List: 06/20/2024 Will get some x-rays of the right forearm/ shoulder Discussed closed head injury nasal bone fractures Did see ENT Refer to [facility] for colonoscopy screening Diabetes management and [...] software and direct typing Please excuse inadvertent steel engraver or typing errors, or uncorrected word substitutions Although every attempt has been made by the provider to proofread this document, occasional misspellings and typographical errors may still be present Due to the previous pandemic, and the use of personal protective equipment (PPE) This may decrease voice recognition accuracy Inadvertent steel engraver errors may occur PLAN OF TREATMENT Pending [...] 2+ Views RT 06/20/2024 INSULIN LEVEL 05/20/2023 QUANTIFERON TB GOLD PLUS 01/10/2025 COMPLETE URINALYSIS 05/20/2023 H PYLORI BREATH TEST 12/01/2024 Insurance Providers Payer Name Payer Address Payer Phone Subscriber Number Group Number Insured Name Patient Relationship to Insured Coverage Start Date Coverage End Date Blue Benefits Admin [address] [address] [place] [address] [id number] PAULO LOPEZ Self - patient is the insured MEDICAL (GENERAL) HISTORY Medical History History ICD Code high cholesterol Diabetes Asthma Headaches Fibromyalgia
--- OUTSIDE RECORDS SUMMARY | 2025-01-16 15:29 | XMS_ITS ---
Author Organization [facility] Address [address] [place] [address] Care Team Providers Care Operator Technician Name Role Phone WALLACE DING Unavailable [phone] REASON FOR VISIT 2 week f/u, shanice holter Encounters Encounter Location Date Provider Diagnosis [place] [id number] [address] 12/20/2024 WALLACE DING Palpitations R00.2 ; Abdominal [...] Other comprehensive labs reviewed at [facility] and were unremarkable including thyroid function Of note, some information is being carried forward from prior records for informational purposes only and is being cited so that efficiency, safety and quality of the patient's care is not compromised This note was prepared using voice recognition software and direct typing Please excuse inadvertent salvage laborer or typing errors, or uncorrected word substitutions Although every attempt has been made by the provider to proofread this document, occasional misspellings and typographical errors may still be present Due to the previous pandemic, and the use of personal protective equipment (PPE) This may decrease voice recognition accuracy Inadvertent salvage laborer errors may occur 12/20/2024 Abdominal bloating (ICD-10 - R14.0) Acute Concerns/Problem List: 12/20/2024 Currently in NSR, says she is not presently having Palpitations. She will go for EKG today. Discussed Holter Monitor, she will be outfitted with 14 day model. She will hold PPI for two weeks, get H pylori testing due to bloating. Other comprehensive labs reviewed at [facility] and were unremarkable including thyroid function Of note, some information is being carried forward from prior records for informational purposes only and is being cited so that efficiency, safety and quality of the patient's care is not compromised This note was prepared using voice recognition software and direct typing Please excuse inadvertent salvage laborer or typing errors, or uncorrected word substitutions Although every attempt has been made by the provider to proofread this document, occasional misspellings and typographical errors may still be present Due to the previous pandemic, and the use of personal protective equipment (PPE) This may decrease voice recognition accuracy Inadvertent salvage laborer errors may occur 12/20/2024 Type 2 diabetes [...] Other comprehensive labs reviewed at [facility] and were unremarkable including thyroid function Of note, some information is being carried forward from prior records for informational purposes only and is being cited so that efficiency, safety and quality of the patient's care is not compromised This note was prepared using voice recognition software and direct typing Please excuse inadvertent salvage laborer or typing errors, or uncorrected word substitutions Although every attempt has been made by the provider to proofread this document, occasional misspellings and typographical errors may still be present Due to the previous pandemic, and the use of personal protective equipment (PPE) This may decrease voice recognition accuracy Inadvertent salvage laborer errors may occur 12/20/2024 Fibromyalgia (ICD-10 - M79.7) Acute Concerns/Problem List: 12/20/2024 Currently in NSR, says she is not presently having Palpitations. She will go for EKG today. Discussed Holter Monitor, she will be outfitted with 14 day model. She will hold PPI for two weeks, get H pylori testing due to bloating. Other comprehensive labs reviewed at [facility] and were unremarkable including thyroid function Of note, some information is being carried forward from prior records for informational purposes only and is being cited so that efficiency, safety and quality of the patient's care is not compromised This note was prepared using voice recognition software and direct typing Please excuse inadvertent salvage laborer or typing errors, or uncorrected word substitutions Although every attempt has been made by the provider to proofread this document, occasional misspellings and typographical errors may still be present Due to the previous pandemic, and the use of personal protective equipment (PPE) This may decrease voice recognition accuracy Inadvertent salvage laborer errors may occur 12/20/2024 Gastroesophageal reflux disease [...] Other comprehensive labs reviewed at [facility] and were unremarkable including thyroid function Of note, some information is being carried forward from prior records for informational purposes only and is being cited so that efficiency, safety and quality of the patient's care is not compromised This note was prepared using voice recognition software and direct typing Please excuse inadvertent salvage laborer or typing errors, or uncorrected word substitutions Although every attempt has been made by the provider to proofread this document, occasional misspellings and typographical errors may still be present Due to the previous pandemic, and the use of personal protective equipment (PPE) This may decrease voice recognition accuracy Inadvertent salvage laborer errors may occur 12/20/2024 Pure hypercholesterolemi a, unspecified (ICD-10 - E78.00) Acute Concerns/Problem List: 12/20/2024 Currently in NSR, says she is not presently having Palpitations. She will go for EKG today. Discussed Holter Monitor, she will be outfitted with 14 day model. She will hold PPI for two weeks, get H pylori testing due to bloating. Other comprehensive labs reviewed at [facility] and were unremarkable including thyroid function Of note, some information is being carried forward from prior records for informational purposes only and is being cited so that efficiency, safety and quality of the patient's care is not compromised This note was prepared using voice recognition software and direct typing Please excuse inadvertent salvage laborer or typing errors, or uncorrected word substitutions Although every attempt has been made by the provider to proofread this document, occasional misspellings and typographical errors may still be present Due to the previous pandemic, and the use of personal protective equipment (PPE) This may decrease voice recognition accuracy Inadvertent salvage laborer errors may occur 12/20/2024 Other migraine without [...] Other comprehensive labs reviewed at [facility] and were unremarkable including thyroid function Of note, some information is being carried forward from prior records for informational purposes only and is being cited so that efficiency, safety and quality of the patient's care is not compromised This note was prepared using voice recognition software and direct typing Please excuse inadvertent salvage laborer or typing errors, or uncorrected word substitutions Although every attempt has been made by the provider to proofread this document, occasional misspellings and typographical errors may still be present Due to the previous pandemic, and the use of personal protective equipment (PPE) This may decrease voice recognition accuracy Inadvertent salvage laborer errors may occur PLAN OF TREATMENT No Information Progress Notes * PAULO LOPEZ LDOB:[birth year] (54 yo F)Acc No.[id number]:12/20/2024 Progress Notes Patient:??PAULO LOPEZ Provider:??WALLACE DING NP :1970?Age:54 Y?Sex:Fe male Date:12/20/2024 Address:[address], [place] [facility] Subjective: * Chief Complaints: * ?1. 2 week f/u, shanice colon. * HPI: ?Constitutional:? Patient is here today for a Chronic Disease Management Follow-up Visit ?Full past medical history, social history, family history, ?allergies and current medications were reviewed and updated. ?Acute Concerns/Problem List: ?12/20/2024 ?labs were 2024, [facility] ?CBC is stable Hemoglobin A1c of [...] Hypercholesteremia, GERD, REGINA ?Was previously followed by pre sales technical consultant Erika, [address] [facility] ?She is off her sulfonylurea, now on Farxiga 10mg/as well as metformin 500mg BID ?pt educated to continue to use CGM/Dexcom ?Diabetic Eye exam: 2023, at [facility], Normal ?Neurological symptoms have essentially resolved ?She did see neurologist at [facility] ?MRI of the brain w/o January 2024 ?Unremarkable ?Surgical history: Bone spurs on both shoulders removed, carpel tunnel ?Surgery to come on toes for bone spurs (NEOS) ?family history, ?Father: diabetes, heart surgery (unknown) ?Mother: deseased, dimentia ?Allergies: cats, dogs, pollen, grass, dust, Avelox ?Social history ?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 ?Urinalysis mostly unremarkable ?Renal function electrolytes and LFTs are stable ?Total cholesterol 146, LDL 69, HDL 57, triglycerides 101 ?TSH 4.03, T4, 0.84 ?Hemoglobin A1c of 6.0 ?CBC is stable ?Vitamin D 26 ?Health Maintenance: ?COVID MRNA: 2 initial series ?Flu 2023 UTD ?TDAP: Unknown, thinks she got it ?Gyno/Pap: 2023 UTD ?Mammography: at [facility] in may 2024, UTD ?Cscope: 2019 [...] Other comprehensive labs reviewed at [facility] and were unremarkable including thyroid function Of note, some information is being carried forward from prior records for informational purposes only and is being cited so that efficiency, safety and quality of the patient's care is not compromised This note was prepared using voice recognition software and direct typing Please excuse inadvertent salvage laborer or typing errors, or uncorrected word substitutions Although every attempt has been made by the provider to proofread this document, occasional misspellings and typographical errors may still be present Due to the previous pandemic, and the use of personal protective equipment (PPE) This may decrease voice recognition accuracy Inadvertent salvage laborer errors may occur. Plan: * Treatment: * [...] Acute Concerns/Problem List: 12/20/2024 labs were 2024, [facility] CBC is stable Hemoglobin A1c of [...] Hypercholesteremia, GERD, REGINA Was previously followed by pre sales technical consultant Erika, [address] [place] [address] She is off her sulfonylurea, now on Farxiga 10mg/as well as metformin 500mg BID pt educated to continue to use CGM/Dexcom Diabetic Eye exam: 2023, at [facility], Normal Neurological symptoms have essentially resolved She did see neurologist at [facility] MRI of the brain w/o January 2024 Unremarkable Surgical history: Bone spurs on both shoulders removed, carpel tunnel Surgery to come on toes for bone spurs (NEOS) family history, Father: diabetes, heart surgery (unknown) Mother: deseased, dimentia Allergies: cats, dogs, pollen, grass, dust, Avelox Social 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 Urinalysis mostly unremarkable Renal function electrolytes and LFTs are stable Total cholesterol 146, LDL 69, HDL 57, triglycerides 101 TSH 4.03, T4, 0.84 Hemoglobin A1c of 6.0 CBC is stable Vitamin D 26 Health Maintenance: COVID MRNA: 2 initial series Flu 2023 UTD TDAP: Unknown, thinks she got it Gyno/Pap: 2023 UTD Mammography: at [facility] in may 2024, UTD Cscope: 2019 DXA: N/a Shingrix: No Examination Category Sub-Category Detail Notes Category Not es General Examination GENERAL APPEARANCE: in no ac [place] distress, well developed, well nourished HEAD: normocephalic, [...]
--- OUTSIDE RECORDS SUMMARY | 2025-01-16 15:29 | XMS_ITS ---
Author Organization [facility] Address [address] [place] [address] Care Team Providers Care Devulcanizer Head Name Role Phone GOLDWALLACE DUPONT Unavailable [phone] REASON FOR VISIT TB Test Order Encounters Encounter Location Date Provider Diagnosis [facility] [address] [address] 01/10/2025 WALLACE DING Encounter for immunization Z23 ASSESSMENTS Encounter Date Diagnosis Assessment Notes Treatment Notes Treatment Clinical Notes Section Notes 01/10/2025 Encounter for immunization (ICD-10 - Z23) PLAN OF TREATMENT Pending Test Test Name Order Date QUANTIFERON TB GOLD PLUS 01/10/2025 Progress Notes * PAULO LOPEZ LDOB:[birth year] (54 yo F)Acc No.[id number]:01/10/2025 Patient:??PAULO LOPEZ :1970?Age:54 Y?Sex:Fe male Address:[address] [place] [address] Subjective: * Chief Complaints: * ?TB Test Order * Medical History:?? * Surgical History:?? * Hospitalization/Major Diagno stic Procedure:?? * Medications:?? Objective: Assessment: * Assessment: 1.??Encounter for immunizati on - Z23?? Plan: * Treatment: * Procedure Codes:?? * true * Date:??
--- OUTSIDE RECORDS SUMMARY | 2025-01-16 15:30 | XMS_ITS ---
Author Organization [facility] Address [address] [address] Care Team Providers Care Continuous Pillowcase Cutter Name Role Phone RachanaJanel pace Primary Care Provider Unavailmick e HUSSEIN DUMONT Unavailable [phone] REASON FOR VISIT Cxl Apt Encounters Encounter Location Date Provider Diagnosis [facility] [address] [address] 10/20/2023 HUSSEIN DUMONT Plan Of Treatment No Information Progress Notes * Jessica LOPEZDOB: [birth year] (53 yo F)Acc No.[id number]:10/20/2023 Patient:?Jessica LOPEZ :1970???Age:53 Y???Sex:Female Phone: Address:[address] [place] [phone] * true * Date:? Generated for Printi ng/Faurbang/eTransmitting on:?01/16/2025 03:29 PM EDT
--- OUTSIDE RECORDS SUMMARY | 2025-01-16 15:30 | XMS_ITS ---
Author Organization [facility] Address [address] [place] [address] Care Team Providers Care Risk Control Product Liability Director Name Role Phone WALLACE DING Unavailable [phone] ALLERGIES Allergen (clinical drug ingredient) Drug/Non Drug [...] HOURS NEEDED for 30 Active Dexcom G7 Glass Cutter Helper - as directed for 365 days 07/06 [...] 12/01/2024 Encounters Encounter Location Date Provider Diagnosis [facility] [address] [facility] [address] [place] [address] 12/01/2024 WALLACE TOÑA Palpitations R00.2 a nd [...] to bloating. Other comprehensive labs reviewed at [facility] and were unremarkable including thyroid function Of note, some information is being carried forward from prior records for informational purposes only and is being cited so that efficiency, safety and quality of the patient's care is not compromised This note was prepared using voice recognition software and direct typing Please excuse inadvertent travel med surg rn or typing errors, or uncorrected word substitutions Although every attempt has been made by the provider to proofread this document, occasional misspellings and typographical errors may still be present Due to the previous pandemic, and the use of personal protective equipment (PPE) This may decrease voice recognition accuracy Inadvertent travel med surg rn errors may occur 12/01/2024 Abdominal bloating (ICD-10 - R14.0) Currently in NSR, says she is not presently having Palpitations. She will go for EKG today. Discussed Holter Monitor, she will be outfitted with 14 day model. She will hold PPI for two weeks, get H pylori testing due to bloating. Other comprehensive labs reviewed at [facility] and were unremarkable including thyroid function Of note, some information is being carried forward from prior records for informational purposes only and is being cited so that efficiency, safety and quality of the patient's care is not compromised This note was prepared using voice recognition software and direct typing Please excuse inadvertent travel med surg rn or typing errors, or uncorrected word substitutions Although every attempt has been made by the provider to proofread this document, occasional misspellings and typographical errors may still be present Due to the previous pandemic, and the use of personal protective equipment (PPE) This may decrease voice recognition accuracy Inadvertent travel med surg rn errors may occur PLAN OF TREATMENT Pending Test Test Name Order Date EKG 12/01/2024 H PYLORI BREATH TEST 12/01/2024 Next Appt Details Follow Up: 2 Weeks, Reason: Procedure Notes * Category Sub-Category Detail Notes Holter Monitor Indication(s) palpitations Duration of monitoring 14 days Holter placement Patient aware of ins tructions Serial # [id number] Holter removal 12/15/24 Progress Notes * PAULO LOPEZ LDOB:[birth year] (54 yo F)Acc No.[id number]:12/01/2024 Progress Notes Patient:??PAULO LOPEZ Provider:??WALLACE DING NP :1970?Age:54 Y?Sex:Fe male Date:12/01/2024 Address:[address] [place], [place] [id number] Subjective: * Chief Complaints: * ?1. Pt [...] in sleep habits. ?Comprehensive labs were 2024, [facility] ?CBC is stable ?Hemoglobin A1c of [...] MOUTH EVERY DAY , Taking Dexcom G7 Glass Cutter Helper - Device as directed , Taking Albuterol [...] to bloating. Other comprehensive labs reviewed at [facility] and were unremarkable including thyroid function Of note, some information is being carried forward from prior records for informational purposes only and is being cited so that efficiency, safety and quality of the patient's care is not compromised This note was prepared using voice recognition software and direct typing Please excuse inadvertent travel med surg rn or typing errors, or uncorrected word substitutions Although every attempt has been made by the provider to proofread this document, occasional misspellings and typographical errors may still be present Due to the previous pandemic, and the use of personal protective equipment (PPE) This may decrease voice recognition accuracy Inadvertent travel med surg rn errors may occur. Plan: * Treatment: 2.??Palpitations?Imaging: EKG * Procedures:?Holter Monitor:?Indication(s)??palpitations.??Holter placement??Patient aware of instructions.??Serial #??[id number].??Holter removal??12/15/24.??Duration of monitoring??14 days.? * Procedure Codes:??15130 -GEO CTROCARDIOGRAM, COMPLETE, Modifiers: 59 , 93839 EXT ECG>48HR<7D RECORDING * Follow Up:??2 Weeks Care Plan: * Problems:?? * Images: Billing Information: * Visit Code:?? 81300 Office Visit, Est Pt., Level 4. Modifiers: 25, SA * Procedure Codes:?? 10793 -ELECTROCARDIOGRAM, COMPLETE. Modifiers: 59 23267 EXT ECG>48HR<7D RECORDING. Care Plan Details* * [...] in sleep habits. Comprehensive labs were 2024, [facility] CBC is stable Hemoglobin A1c of [...]
--- OUTSIDE RECORDS SUMMARY | 2025-01-16 15:30 | XMS_ITS ---
Author Organization [facility] Address [address] [address] Care Team Providers Care Tennis Net Maker Name Role Phone Janel Temple Primary Care Provider Unavailmick e MARIAJOSE PATEL Unavailable [phone] REASON FOR VISIT 1 month f/u Encounters Encounter Location Date Provider Diagnosis [facility] [address] [address] 10/21/2023 MARIAJOSE PATEL Plan Of Treatment No Information Progress Notes * Jessica LOPEZDOB: [birth year] (54 yo F)Acc No.[id number]:10/21/2023 post-op Patient:?Jessica LOPEZ Provider:?Mariajose Patel DPM :1970???Age:53 Y???Sex:Female D ate:10/21/2023 Phone: Address:[address] [place], [place] [id number] Pcp:Janel Temple Subjective: * Chief Complaints: Objective: * Vitals:? Assessment: Plan: * Treatment: * Billing Information: * Electronic signature of DIOR PATEL D.P.M on 01/16/2025 at 03:29 PM EDT Sign off status: Pending * Provider:?Mariajose Patel DPM Date:? 10/21/2023 Generated for Ana stephenson/Rose/eTransmitting on:?01/16/2025 03:29 PM EDT
[2025-01-18 20:38] LABS: TS Negative Control Passed; TS Panel A 0; TS Panel B 0; TS Positive Control Passed; TSpotTB Negative (Negative)
== END 2025-01-16 13:28 | disposition home or self-care (01) ==
LOC: HO.LAB 13:27
PROVIDERS: PCP Nurse Practitioner Acute Care; Visit Provider Nurse Practitioner Acute Care
DX: Z11.1 Encounter for screening for respiratory tuberculosis (principal)
CPT/HCPCS: 36415; 86481

== ENCOUNTER 2025-03-06 08:40 | Outpatient (AMB) | payer OTHER, SELFPAY ==
[2025-03-06 08:42] VITALS: BP 116/68; PULSE 82; O2SAT 97; BMI 22.8
--- NOTE | 2025-03-06 08:42 | A.OFFVIS_ITS ---
Vital Signs 03/06/25 08:42 Height 5 ft Weight 116 lb 13.52 oz BMI 22.8 BP 116/68 Blood Pressure Location Lt brachial Position Sitting Pulse 82 Pulse Source Pulse Oximeter Pulse Oximetry (%) 97 Oxygen Delivery Method Room Air Intake Visit Reasons: asthma Child Advocate Required: No Accompanied by: Self / Same As Patient Allergies moxifloxacin [From Avelox] Adverse Reaction (Intermediate, Verified 03/06/25 08:46) hand and limp numbness HPI Comments Details: The patient is here for pulmonary evaluation. The patient is a 54 year woman with known history of lifelong asthma and REGINA. Initially she had asthma as a child in his settled then came back later on in life. She has been followed closely by [facility] pulmonary for some time but is difficult for her to get there. She typically has a couple flare-ups during the year. The last time was back in late winter or early spring. She was prescribed prednisone which did not take take it because it increases her blood sugars and she has diabetes. Currently on a GLP 1 inhibitor. The patient does have a rescue inhaler. She is currently not on a maintenance inhaler. She does not want to be on inhaler all the time. Although, she does have some wheezing rhonchi on exam therefore she does need some type of maintenance medication. The patient also has underlying allergies. She is allergic to cats and she does have a cat at home. She does take Zyrtec. She has never taking Singulair. Will try to maximize her allergy therapy by adding Singulair. She should also be on maintenance inhaler therefore while Symbicort. The patient should have pulmonary function studies and also chest x-ray and will follow-up in a few months. In regards of her obstructive sleep apnea. We did talk about positional therapy specially since she did not have any significant sleep apneas when sleeping her side. Once she gets situated with her positional therapy will discuss if we should be repeating sleep study. Will discuss that further during the next visit. If she has any issues prior to that she will call for an earlier assessment. In regards [facility] Medical History (Updated 03/06/25 @ 14:11 by José Miguel Ayon MD) Chronic rhinitis Carpal tunnel syndrome on right Fibromyalgia Asthma High cholesterol Diabetes Surgical History H/O shoulder surgery Social History (Updated 03/06/25 @ 08:49 by Kitty Gonsales CMA) Patient Tobacco Use Status: Never used Tobacco Review of Systems Const Reports daytime sleepiness and Reports snoring Eyes Reports no additional complaints ENT Reports nasal congestion Card Denies chest pain Resp Reports cough, Reports snoring and Reports wheezing GI Reports no additional complaints Skin/Breast Reports system reviewed and no additional complaints, except as documented Emanuel/Lymph Reports no additional complaints Aller/Immun Reports wheezing Physical Exam Vital Signs: Last Vital Signs Pulse 82 03/06/25 08:42 BP 116/68 03/06/25 08:42 Pulse Ox 97 03/06/25 08:42 Oxygen Delivery Method Room Air 03/06/25 08:42 BMI result Body Mass Index 22.8 Const General: comfortable HEENT General nose exam: Abnormal mucous membranes and turbinates present Neck Neck: Yes supple Chest Chest palpation & inspection: normal inspection of the chest Resp Effort & Inspection: normal respiratory effort Auscultation: rhonchi, wheezes and diminished lung sounds Cardio Heart sounds: S1 normal heart sound present and S2 normal heart sound present GI Palpation (GI): Soft to palpation Skin General skin exam: no rashes or lesions noted Extrem General: Yes no clubbing, cyanosis or edema Assessment & Plan Assessment & Plan (1) Obstructive sleep apnea: Comment: AHI 9/hr, O2 jose 81% Code(s): G47.33 - Obstructive sleep apnea (adult) (pediatric) Category: Medical (2) Chronic rhinitis: Code(s): J31.0 - Chronic rhinitis Category: Medical (3) Asthma: Code(s): J45.909 - Unspecified asthma, uncomplicated Category: Medical Qualifiers: Asthma severity: moderate Asthma persistence: persistent Asthma complication type: uncomplicated Qualified Code(s): J45.40 - Moderate persistent asthma, uncomplicated Plan start Singulair start Symbicort continue antihitamine therapy GALILEA as needed positional sleep therapy PFTs consider repeating PSG F/U 2-3 months Orders: Orders PFT pulmonary function test Today J45.40 - Moderate persistent asthma, uncomplicated Medications: New montelukast (Singulair) 10 mg PO BEDTIME 30 days 30 tabs 11RF J45.909 - Unspecified asthma, uncomplicated budesonide-formoterol 160-4.5 mcg/actuation 2 puffs inhalation BID 30 days 10.2 grams 11RF J44.89 - Other specified chronic obstructive pulmonary disease Coding Level of Care Code New Pt Level 4 (96257) Diagnoses Obstructive sleep apnea G47.33 Chronic rhinitis J31.0 Moderate persistent asthma without complication J45.40 Asthma severity: moderate Asthma persistence: persistent Asthma complication type: uncomplicated Time Spent (min) 40
--- OUTSIDE RECORDS SUMMARY | 2025-03-06 08:59 | XMS_ITS ---
Author Organization [facility] Address [address] [address] Care Team Providers Care Photo Producer Name Role Phone Janel Temple Primary Care Provider Unavailmick e MARIAJOSE PATEL Unavailable [phone] REASON FOR VISIT 1 month f/u Encounters Encounter Location Date Provider Diagnosis [facility] [address] [address] 10/16/2023 MARIAJOSE PATEL Plan Of Treatment No Information Progress Notes * Jessica LOPEZDOB: [birth year] (54 yo F)Acc No.[id number]:10/16/2023 post-op Patient:?JESSICA Jessica Provider:?Mariajose Patel DPM :1970???Age:53 Y???Sex:Female D ate:10/16/2023 Phone: Address:[address] [place], [place] [phone] Pcp:Janel Temple Subjective: * Chief Complaints: Objective: * Vitals:? Assessment: Plan: * Treatment: * Billing Information: * Electronic signature of DIOR PATEL D.P.M on 03/06/2025 at 08:59 AM EDT Sign off status: Pending * Provider:?Mariajose Patel DPM Date:? 10/16/2023 Generated for Ana stephenson/Rose/eTransmitting on:?03/06/2025 08:59 AM EDT
== END 2025-03-06 09:15 | disposition home or self-care (01) ==
LOC: HO.HPS 08:40
PROVIDERS: PCP Nurse Practitioner Acute Care; Visit Provider Hospitalist
DX: G47.33 Obstructive sleep apnea (adult) (pediatric) (principal); J31.0 Chronic rhinitis; J45.40 Moderate persistent asthma, uncomplicated
CPT/HCPCS: 99204

== ENCOUNTER 2025-03-16 13:43 | Emergency (ER) | payer OTHER, SELFPAY ==
--- NOTE | 2025-03-16 | ECG_ITS ---
Test Reason : cp Blood Pressure : */* mmHG Vent. Rate : 83 BPM Atrial Rate : 83 BPM P-R Int : 158 ms QRS Dur : 82 ms QT Int : 372 ms P-R-T Axes : 3 11 16 degrees QTcB Int : 437 ms Normal sinus rhythm Normal ECG When compared with ECG of 02-Dec-2024 08:02, No significant change was found Referred By: Generic ED Physician Electronically Signed By: MARICRUZ LOPES MD
--- NOTE | ~2025-03-16 | XR_ITS ---
EXAMINATION: XR CHEST 2 VIEWS HISTORY: pain COMPARISON: Comparison is made with the prior examination dated 09/16/2024. FINDINGS: PA and lateral views of the chest are submitted. The lungs are expanded and clear. There is no pleural effusion, pneumothorax, or pulmonary vascular congestion. The heart is normal in size. The bones are intact. XR/XR chest 2V IMPRESSION: No acute cardiopulmonary abnormality. Electronically signed by: Mikhail De Leon MD 03/16/2025 02:10 PM EDT
[2025-03-16 13:52] VITALS: BP 120/84; PULSE 86; RESP 16; TEMP 35.9; O2SAT 100; BMI 19.0
--- NOTE | 2025-03-16 13:52 | ED_ITS ---
HPI - General Adult General Chief complaint: General Medical Stated complaint: chest pain diff swallowing Time Seen by Provider: 03/16/25 14:04 Source: patient and old records reviewed Mode of arrival: ambulatory Limitations: no limitations History of Present Illness ED Provider: JOB GARCIA narrative: 54 yo female with PMH of asthma, HLD, DM, fibromyalgia here with c/o eating a nice meal yesterday at home of pork chops, lobster she noted something felt painful while eating. Since then she feels like she cannot get food or water down and it hurts. She vomited once this AM. She can tolerate her saliva. No GIB symptoms reported. This happened one other time and she had normal MBS. She denies prior EGD or PPI use. She has tried one dose of omeprazole without relief. No abdominal pain. She feels like her esophagus isn't moving right and it hurts. MD complaint: throat pain, difficulty swallowing Onset (ago): day(s) (1) Location: mouth Radiation: non-radiation Severity: moderate Quality: burning Pain Consistency: intermittent Relieving factors: none Exacerbating factors: eating Associated symptoms: denies other symptoms Treatments prior to arrival: none Related Data Home Medications ?Medication ?Instructions ?Recorded ?Confirmed atorvastatin 10 mg tablet 10 mg PO DAILY 09/11/20 10/02/21 cetirizine 10 mg tablet (Zyrtec) 10 mg PO DAILY 09/11/20 10/02/21 metformin 500 mg tablet 500 mg PO BID 09/11/20 10/02/21 albuterol sulfate 2.5 mg/3 mL 2.5 mg inhalation Q6H 03/06/25 (0.083 %) solution for nebulization albuterol sulfate 90 mcg/actuation 2 inh inhalation Q6H 03/06/25 breath activated powder inhaler,sensor losartan 25 mg tablet 25 mg PO DAILY 03/06/25 ondansetron HCl 4 mg tablet 4 mg PO Q8H 03/06/25 semaglutide 1 mg/dose (4 mg/3 mL) 1 mg subcut QWEEK 03/06/25 subcutaneous pen injector (Ozempic) Previous Rx's ?Medication ?Instructions ?Recorded lidocaine 5 % topical patch 1 patch topical DAILY 30 days #30 10/28/21 ea budesonide-formoterol HFA 160 2 puff inhalation BID 30 days 03/06/25 mcg-4.5 mcg/actuation aerosol #10.2 grams inhaler montelukast 10 mg tablet 10 mg PO BEDTIME 30 days #30 tabs 03/06/25 (Singulair) sucralfate 100 mg/mL oral 10 ml PO BID 7 days #140 mL 03/16/25 suspension (Carafate) Allergies Allergy/AdvReac Type Severity Reaction Status Date / Time moxifloxacin [From Avelox] AdvReac Intermediate hand and Verified 03/16/25 13:56 limp numbness Review of Systems 2 Review of Systems: Constitutional : No Fever, No Chills, No Fatigue ENT/Mouth : pos sore throat, No Rhinorrhea Eyes: No Eye Pain, No Swelling, No Redness Cardiovascular : No Chest Pain, No SOB, No Dyspnea on Exertion Respiratory : No Cough, No Sputum Gastrointestinal : No Nausea, No Vomiting, No Diarrhea, No abdominal Pain Genitourinary : No Dysuria, No Urinary Frequency, No Hematuria, Musculoskeletal : No joint pain, No Myalgias, No Joint Swelling Skin : No Skin Lesions, No rash Neuro : No Weakness, No Numbness, No Dizziness, positive Headache All other systems reviewed and are negative [facility] Past Medical History Attestation statement: The following information was validated with the patient. Source: old records reviewed Medical History Chronic rhinitis Carpal tunnel syndrome on right Fibromyalgia Asthma High cholesterol Diabetes Surgical History H/O shoulder surgery Social History Social History Patient Tobacco Use Status: Never used Tobacco Smoked in Last 30 Days: No Use of substances other than those prescribed or required for medical reasons: No Advance Directives: No Advance Directives Information Provided: Yes Physical Exam ED Vital Signs: Vital Signs - 24 hr 03/16/25 13:52 Temperature 96.6 F L Pulse Rate 86 Respiratory Rate 16 Blood Pressure 120/84 Pulse Oximetry 100 Oxygen Delivery Method Room Air BMI result Body Mass Index 19.0 Appearance: Alert. Oriented X3. No acute distress. Eyes: Pupils equal, round and reactive to light. ENT: Pharynx normal. normal sore throat Neck: Normal inspection. Neck supple. CVS: Normal heart rate and rhythm. Pulses normal. Respiratory: No respiratory distress. Breath sounds normal. Abdomen: Soft and nontender. Skin: Skin warm and dry. Normal skin color. Normal skin turgor. Extremities: No lower extremity edema. No calf ttp Neuro: Oriented X 3. No motor deficit. No sensory deficit. CN2-12 intact Course Course Course Narrative: RME, this is a rapid medical exam performed by Lai Lyon please refer to primary provider for complete H&P- 54 year old female presents for evaluation of chest pain and difficulty swallowing. She reports her symptoms started yesterday. Plan for labs, ekg, chest x-ray Medications Administered Discontinued Medications Generic Name Dose Route Start Last Admin Trade Name Freq PRN Reason Stop Dose Admin Lidocaine HCl 15 ml 03/16/25 14:43 03/16/25 15:33 Lidocaine Hcl Viscous 2 % 15 Ml Solution MUCOUS MEM 03/16/25 14:44 15 ml ONCE ONE Administration Sucralfate 1 gm 03/16/25 14:43 03/16/25 15:33 Sucralfate Oral Suspension 1 Gm/10 Ml Oral.Susp PO 03/16/25 14:44 1 gm ONCE ONE Administration Medical Decision Making Medical Decision Making [facility] Narrative: 54 yo female with PMH of asthma, HLD, DM, fibromyalgia here with c/o painful swallowing after a large meal at home - she has no signs of inability to tolerate saliva, she has normal voice, no stridor at this time will obtain labs, EKG CXR and start on oral medications of carafate and lidocaine. Suspect esophagitis, dysmotility, food impaction with her ability to swallow seems less likely. Differential Diagnosis Differential Diagnoses: The differential diagnosis associated with the presentation includes esophagitis, dysmotility, food impaction Admission/Observation Consideration of admission/observation: Escalation of care including admission/observation considered feels much better after meds tolerated the carafate and lidocaine well she has 40mg omeprazole at home will continue that and start her on carafate with soft diet Lab Data [facility] Lab Attestation statement: I reviewed the patient's lab results. 03/16/25 15:11 03/16/25 15:11 Labs: Lab Results 03/16/25 Range/Units 15:11 WBC 4.8 (4.8-10.8) X10*3/uL RBC 4.36 (4.20-5.50) X10*6/uL Hgb 12.8 (12.0-16.0) g/dl Hct 38.0 (37.0-47.0) % MCV 87.2 (80.0-98.0) fL MCH 29.4 (27.0-33.0) pg MCHC 33.7 (31.0-35.0) g/dl RDW 12.7 (11.0-16.0) % Plt Count 213 (160-400) X10*3/uL MPV 8.6 L (9.4-12.3) fL Immature Gran % (Auto) 0.0 (0.0-0.4) % Neut % (Auto) 43.4 L (45-73) % Lymph % (Auto) 45.0 H (20-40) % [place] % (Auto) 7.9 (2-11) % Eos % (Auto) 3.3 (0-4) % Baso % (Auto) 0.4 (0-2) % Lymph # (Auto) 2.2 (1.2-4.9) X10*3/uL [place] # (Auto) 0.4 (0.1-1.2) X10*3/uL Eos # (Auto) 0.2 (0.0-0.4) X10*3/uL Baso # (Auto) 0.0 (0.0-0.2) X10*3/uL Abs Immat Gran (auto) 0.00 (0.00-0.03) X10*3/uL Absolute Neuts (auto) 2.1 (2.0-8.3) x10*3/uL Absolute Nucleated RBC 0.000 (0.0-0.012) X10*3/uL Nucleated RBC % (auto) 0.0 (0.0-0.2) /100WBC Sodium 142 (135-145) mmol/L Potassium 4.0 (3.3-5.1) mmol/L Chloride 104 (96-108) mmol/L Carbon Dioxide 31 H (22-29) mmol/L Anion Gap 11 L (12-20) BUN 13 (9-16) mg/dL Creatinine 0.75 (0.5-1.4) mg/dL Estim Creat Clear Calc 70.6 Estimated GFR > 60 Random Glucose 83 (60-115) mg/dL Calcium 9.5 (8.4-10.2) mg/dL Total Bilirubin 0.5 (0.0-1.0) mg/dL AST 26 (5-31) U/L ALT 20 (0-31) U/L Alkaline Phosphatase 54 (39-117) U/L Troponin I High Sens < 2.7 (<3.5-17.0) ng/L Total Protein 6.7 (6.5-8.0) g/dL Albumin 4.3 (3.5-5.0) g/dL Lipase 31 (8-78) U/L Urine Color Yellow Urine Appearance Clear Urine pH 7.5 (5.0-9.0) Ur Specific [place] 1.010 (1.005-1.025) Urine Protein Negative (Neg-Trace) mg/dL Urine Glucose (UA) Negative (Negative) mg/dL Urine Ketones Negative (Negative) mg/dL Urine Blood Negative (Negative) Urine Nitrite Negative (Negative) Ur Leukocyte Esterase Negative (Negative) Urine RBC 0-2 (0-2) /HPF Urine WBC 0-5 (0-5) /HPF Ur Squamous Epith Cells 0-2 (0-2) /HPF Urine Bacteria None Seen (None Seen) Hyaline Casts 0-2 (0-2) /LPF S. pyogenes GrpA KESHAV Negative (Negative) Independent Interpretation I performed an independent interpretation of an: EKG and Plain X-Ray (normal ) Interpretation: Rate: 83 Rhythm: NSR Kechi: normal Normal P waves. Normal ANA. Normal QRS complex. ST T wave : inverted t wave V1, no MEGAN qTC: 437 prior studies: no acute ischemia, no change from prior The study has been interpreted contemporaneously by me. . Radiology Impression Discussion of test interpretation with radiology: I have reviewed the radiologist's reading. External Record Review External record reviewed: Outpatient record Prescription Management I considered prescription management with: Other Discharge Plan Discharge Clinical Impression: Odynophagia, Esophagitis Patient Disposition: Home, Self-Care Instructions: Soft Diet (ED), Esophagitis (ED) Additional Instructions: labs reassuring EKG reassuring chest xray reassuring take the omeprazole 40mg daily start carafate full soft diet for 7 days avoid any over the counter pain medications - TYLENOL IS OKAY AND SAFE return for any worsening pain, black or bloody stools or any other concerns Prescriptions: New sucralfate [Carafate] 100 mg/mL suspension 10 ml PO BID 7 Days Qty: 140 0RF No Action lidocaine 5 % adhesive patch,medicated 1 patch topical DAILY 30 Days Qty: 30 8RF Rx Instructions: leave on most painful area for up to 12 hrs cetirizine [Zyrtec] 10 mg tablet 10 mg PO DAILY metformin 500 mg tablet 500 mg PO BID atorvastatin 10 mg tablet 10 mg PO DAILY ondansetron HCl 4 mg tablet 4 mg PO Q8H albuterol sulfate 90 mcg/actuation aero powdr breath act w/sensor 2 inh inhalation Q6H albuterol sulfate 2.5 mg /3 mL (0.083 %) solution for nebulization 2.5 mg inhalation Q6H losartan 25 mg tablet 25 mg PO DAILY Ozempic 1 mg/dose (4 mg/3 mL) pen injector 1 mg subcut QWEEK montelukast [Singulair] 10 mg tablet 10 mg PO BEDTIME 30 Days Qty: 30 11RF budesonide-formoterol 160-4.5 mcg/actuation HFA aerosol inhaler 2 puff inhalation BID 30 Days Qty: 10.2 11RF Print Language: Australian
[2025-03-16 15:16] LABS: MANUAL DIFF FLAG NO
[2025-03-16 15:17] LABS: Basophils Percent Auto 0.4 % (0-2); Eosinophils Absolute Auto 0.2 X10*3/uL (0.0-0.4); Eosinophils Percent Auto 3.3 % (0-4); Hemoglobin 12.8 g/dl (12.0-16.0); Lymphocytes Absolute Auto 2.2 X10*3/uL (1.2-4.9); Mean Corpuscular HGB Conc 33.7 g/dl (31.0-35.0); Mean Corpuscular Hemoglobin 29.4 pg (27.0-33.0); Mean Corpuscular Volume 87.2 fL (80.0-98.0); Mean Platelet Volume 8.6 fL (9.4-12.3); Monocytes Absolute Auto 0.4 X10*3/uL (0.1-1.2); Monocytes Percent Auto 7.9 % (2-11); Neutrophils Absolute Auto 2.1 x10*3/uL (2.0-8.3); Neutrophils Percent Auto 43.4 % (45-73); Platelet Count 213 X10*3/uL (160-400); Red Blood Count 4.36 X10*6/uL (4.20-5.50); Red Cell Distribution Width 12.7 % (11.0-16.0); White Blood Count 4.8 X10*3/uL (4.8-10.8)
[2025-03-16 15:21] LABS: Appearance Urine Clear; Color Urine Yellow; Glucose Urine UA Negative (Negative); Leukocyte Esterase Urine Negative (Negative); Nitrite Urine Negative (Negative); PH 7.5 (5.0-9.0); Urine Blood Negative (Negative); Urine Ketones Negative (Negative); Urine Protein Negative (Neg-Trace)
[2025-03-16 15:23] LABS: Bacteria Urine None Seen (None Seen); Hyaline Casts Urine 0-2 /LPF (0-2); RBC Urine 0-2 /HPF (0-2); Squamous Epithelial Cell Urine 0-2 /HPF (0-2); WBC Urine 0-5 /HPF (0-5)
[2025-03-16 15:24] LABS: IDNOW Serial# 58CA691E; Strep A Nucleic Acid Negative (Negative)
[2025-03-16 15:30] LABS: Alanine Aminotransferase 20 U/L (0-31); Albumin Level 4.3 g/dL (3.5-5.0); Alkaline Phosphatase 54 U/L (39-117); Anion Gap 11 (12-20); Aspartate Amino Transferase 26 U/L (5-31); Bilirubin Total 0.5 mg/dL (0.0-1.0); Blood Urea Nitrogen 13 mg/dL (9-16); Calcium 9.5 mg/dL (8.4-10.2); Carbon Dioxide 31 mmol/L (22-29); Chloride 104 mmol/L (96-108); Creatinine Clr Calc Pharmacy 70.6; Estimated Glomerular Filt Rate > 60; Glucose Random 83 mg/dL (60-115); Lipase 31 U/L (8-78); Sodium 142 mmol/L (135-145); Total Protein 6.7 g/dL (6.5-8.0)
[2025-03-16] MEDS: Sucralfate Oral Suspension 1 GM/10 ML ORAL.SUSP PO (15:33)
[2025-03-16] MEDS: Lidocaine HCl Viscous 2 % 15 ML SOLUTION MUCOUS MEM (15:33)
[2025-03-16 15:39] LABS: Troponin-I High Sensitivity < 2.7 ng/L (<3.5-17.0)
--- OUTSIDE RECORDS SUMMARY | 2025-03-16 16:49 | XMS_ITS ---
Author Organization [facility] Address [address] [address] Care Team Providers Care Strategic Partner Development Manager Name Role Phone Janel Temple Primary Care Provider Unavailmick e MARIJAOSE PATEL Unavailable [phone] REASON FOR VISIT 1 month f/u Encounters Encounter Location Date Provider Diagnosis [facility] [address] [address] 10/16/2023 MARIAJOSE PATEL Plan Of Treatment No Information Progress Notes * Jessica LOPEZDOB: [birth year] (54 yo F)Acc No.[id number]:10/16/2023 post-op Patient:?Jessica LOPEZ Provider:?Mariajose Patel DPM :1970???Age:53 Y???Sex:Female D ate:10/16/2023 Phone: Address:[address] [place], [place] [phone] Pcp:Janel Temple Subjective: * Chief Complaints: Objective: * Vitals:? Assessment: Plan: * Treatment: * Billing Information: * Electronic signature of DIOR PATEL D.P.M on 03/16/2025 at 04:48 PM EDT Sign off status: Pending * Provider:?Mariajose Patel DPM Date:? 10/16/2023 Generated for Ana stephenson/Rose/eTransmitting on:?03/16/2025 04:48 PM EDT
[2025-03-16 16:58] VITALS: BP 151/63; PULSE 60; RESP 16; TEMP 36.4; O2SAT 100
== END 2025-03-16 16:59 | disposition home or self-care (01) ==
PROVIDERS: Physician Assistant; Emergency Provider Emergency Medicine; PCP Nurse Practitioner Acute Care
DX: K20.90 Esophagitis, unspecified without bleeding (principal); R07.89 Other chest pain; R13.10 Dysphagia, unspecified; Z79.899 Other long term (current) drug therapy
CPT/HCPCS: 36415; 71046; 80053; 81001; 83690; 84484; 85025; 87651; 93005; 99283; 99284

== ENCOUNTER → 2025-03-16 13:46 | Outpatient (BNV) | payer OTHER, SELFPAY | PROVIDERS: Emergency Provider Emergency Medicine; PCP Nurse Practitioner Acute Care; Visit Provider Internal Medicine Cardiovascular Disease | DX: R07.9 Chest pain, unspecified (principal) | CPT/HCPCS: 93010 ==

== ENCOUNTER → 2025-03-16 13:54 | Outpatient (BNV) | payer OTHER, SELFPAY | PROVIDERS: Emergency Provider Emergency Medicine; PCP Nurse Practitioner Acute Care; Visit Provider Radiology Diagnostic Radiology | DX: R07.9 Chest pain, unspecified (principal) | CPT/HCPCS: 71046 ==

== ENCOUNTER 2025-03-28 10:23 | Outpatient (AMB) | payer OTHER, SELFPAY ==
--- OUTSIDE RECORDS SUMMARY | 2023-10-16 09:30 | XMS_ITS ---
Author Organization [facility] Address [address] [address] Care Team Providers Care Tufter Hand Name Role Phone Janel Temple Primary Care Provider UnavailHUSSEIN Vicente Unavailable [phone] REASON FOR VISIT 1 month f/u Encounters Encounter Location Date Provider Diagnosis [facility] [address] [address] 10/16/2023 HUSSEIN PATEL Plan Of Treatment No Information Progress Notes * Jessica LOPEZDOB: [birth year] (54 yo F)Acc No.[id number]:10/16/2023 post-op Patient: Tomasa NOLASCObeth Provider: Gerardo Patel DPM :1970 A ge:53 Y S ex:Female Date:10/16/2023 Phone: Address:[address] [place] [phone] Pcp:Janel Temple Subjective: * Chief Complaints: Objective: * Vitals: Assessment: Plan: * Treatment: * Billing Information: * Electronic signature of DIOR PATEL D.P.M on 03/28/2025 at 11:32 AM EDT Sign off status: Pending * Provider: Gerardo Patel DPM Date: 10/16/2023 Generated for Ana stephenson/Rose/eTransmitting on: 0 03/28/2025 11:32 AM EDT
--- NOTE | 2025-03-28 10:43 | A.OFFPC_ITS ---
Vital Signs 03/28/25 10:53 Height 5 ft 0.83 in Weight 118 lb BMI 22.4 BP 117/56 L Respiration 14 Pulse 72 Pulse Source Pulse Oximeter Temp 97.5 F Temp Source Temporal Artery Scan Pulse Oximetry (%) 99 Oxygen Delivery Method Room Air Intake Visit Reasons: establish care - see comments Superintendent Of Generation Required: No Accompanied by: Self / Same As Patient Allergies moxifloxacin (From Avelox) Adverse Reaction (Intermediate, Verified 03/28/25 10:44) hand and limp numbness Tobacco use date assessed: 03/28/25 Dental Screening Dental Screen Date: 03/28/25 Did you have a dental visit in the last 12 months?: Yes Did you have a dental problem in the last 6 months where you did not have access to dental care?: No Was dental information given to patient?: Patient has dentist [facility] Medical History (Updated 03/28/25 @ 11:17 by Song Garcia MD) Chronic pain syndrome Chronic rhinitis Carpal tunnel syndrome on right Fibromyalgia Asthma High cholesterol Diabetes Surgical History H/O shoulder surgery Family History (Updated 03/28/25 @ 11:01 by AVINASH Bajwa) Father Heart problem Diabetes Mother BP (high blood pressure) Pre-diabetes Cervical cancer Social History (Updated 03/28/25 @ 11:01 by AVINASH Bajwa) Housing: Apartment Alcohol intake: current Alcohol intake frequency: holidays/special occasions only Patient Tobacco Use Status: Never used Tobacco service: No Current occupational status: employed Cognitive needs: No Hearing needs: No Vision needs: Yes (rx glasses) Questionnaire Thrive Questionnaire Date Thrive assessed: 03/28/25 I am a: Patient What is your living situation today?: I have a steady place to live Within the past 12 months, did the food you bought not last and you didn't have the money to get more?: Never true Within the past 12 months, did you worry whether your food would run out before you got money to buy more?: Never true Do you have trouble paying for medicines?: No Do you have trouble getting transportation to medical appointments?: No Do you have trouble paying your heating and electricity bill?: No Do you have trouble taking care of your child, family member or friend?: No Do you have trouble with day-to-day activities such as bathing, preparing meals, shopping, managing finances, etc.?: No Are you currently unemployed and looking for a job?: No Are you interested in more education?: No Please select the resources that you would like help with: None THRIVE Score: 0 AUDIT C Alcohol Use Questionnaire (AUDIT-C) 1. How often do you have a drink containing alcohol?: Monthly or less 2. How many drinks containing alcohol do you have on a typical day when you are drinking?: 1 or 2 3. How often do you have six or more drinks on one occasion?: Never Total Score: 1 MICHAEL-7 AMB Questionnaire MICHAEL-7 Date MICHAEL - 7 assessed: 03/28/25 Feeling nervous, anxious, or on edge: 0 = Not at all Not being able to stop or control worryin = Not at all Worrying too much about different things: 0 = Not at all Trouble relaxin = Not at all Being so restless that it is hard to sit still: 0 = Not at all Becoming easily annoyed or irritable: 0 = Not at all Feeling afraid as if something awful might happen: 0 = Not at all Total MICHAEL-7 score (0-4 normal; 5-9 mild; 10-14 moderate; 15-21 severe): 0 Source: Developed by Drs. Mikhail Huber, Tiff Enrique, Pollo Johnson and colleagues, with an educational madelyn from [employer]. Physical exam (Primary Care) Vital Signs: Last Vital Signs Temp 97.5 F 03/28/25 10:53 Pulse 72 03/28/25 10:53 Resp 14 03/28/25 10:53 BP 117/56 L 03/28/25 10:53 Pulse Ox 99 03/28/25 10:53 Oxygen Delivery Method Room Air 03/28/25 10:53 BMI result Body Mass Index 22.4 Tobacco/Smoking Status: Tobacco use Status Tobacco use date assessed 03/28/25 03/28/25 10:45 Patient Tobacco Use Status Never used Tobacco 03/28/25 11:01 Thrive Assessment: Date of Thrive Assessment Date Thrive assessed 03/28/25 03/28/25 10:45 Coding Level of Care Code New Pt Level 4 (99043) Complex EM visit Add On G2211 Diagnoses Dysphagia R13.10 Assessment & Plan Assessment & Plan (1) Dysphagia: Code(s): R13.10 - Dysphagia, unspecified Plan: ER note revd. No improvement with Xylocaine and Maalox concoction. Omeprazole of not much help. On exam, tenderness near the suprasternal notch with a firm thyroid. Possible thyroiditis. US ordered, barium swallow ordered. Plan History of Present Illness - The patient is a 54-year-old female presenting with dysphagia. - The swallowing difficulty has been present for about one month, with a sens ation of something stuck in the throat, affecting both solids and liquids. - The condition worsened, prompting an emergency room visit where initial blood work was performed. - The patient reports no significant weight loss due to Ozempic, which has been used for weight management for about a year, resulting in a weight reduction from 145 lbs to 118 lbs. - The patient has a history of diabetes mellitus with a last known HbA1c of 6.2, though the date of this test is not recalled. - Additional medical history includes asthma, obstructive sleep apnea, hyperlipidemia, fibromyalgia, and hypertension. - The patient expresses concern about a thyroid disorder, with previous indications of elevated thyroid levels. 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 - Weight Management: The patient has been using Ozempic for weight management, resulting in significant weight loss. Review of Systems - Gastrointestinal: Reports dysphagia for one month, sensation of something stuck in the throat, affecting both solids and liquids. - Endocrine: Reports previous elevated thyroid levels. - General: Denies significant weight loss due to Ozempic use. Physical Exam General: Cooperative and healthy appearing Nutritional Appearance: Well nourished Orientation/consciousness: Patient oriented x3 Limitations: No limitations Head: Normal to inspection General: Appearance normal, both eyes and all related structures Neck: Normal visual inspection Chest: Normal palpation of entire chest wall Respiratory: N ormal respiratory effort Neurology: Patient oriented x3, but reports difficulty swallowing and sensation of something stuck in the throat. Results - Labs: Initial blood work performed at the emergency room, details not specified. Plan 1. Dysphagia - Plan to perform a barium swallow test to assess swallowing function and identify any obstructions. - If the barium swallow is inconclusive, an endoscopy will be considered. 2. Thyroid Disorder - Blood work to be ordered to assess thyroid function. - An ultrasound of the neck will be performed to evaluate the thyroid gland. 3. Diabetes Mellitus - Referral to an well control instructor for diabetes management and thyroid evaluation if necessary. - Blood work to include HbA1c and thyroid function tests. Discussion Notes I discussed with the patient the plan to perform a barium swallow test to evaluate her swallowing difficulties. If the results are inconclusive, an endoscopy may be necessary. We also talked about the need for blood work to assess her thyroid function and the possibility of an ultrasound to further evaluate her thyroid. I explained the referral process to an well control instructor for her diabetes and thyroid concerns, and we agreed on follow-up arrangements. Patient Instructions - Schedule and complete the barium swallow test as instructed. - Follow up with blood work and ultrasound appointments for thyroid evaluation. - Contact the well control instructor for diabetes management if referred. - Return for follow-up in one month or sooner if symptoms worsen. Orders: Orders Lipid Panel Today G89.4 - Chronic pain syndrome Thyroid Stimulating Hormone Today G89.4 - Chronic pain syndrome UA and rflx microscopic Today G89.4 - Chronic pain syndrome FL barium swallow w SBFT Today R13.10 - Dysphagia, unspecified Complete Blood Count no Diff Today G89.4 - Chronic pain syndrome Basic Metabolic Panel Today G89.4 - Chronic pain syndrome Liver Panel Today G89.4 - Chronic pain syndrome Hemoglobin A1c Today G89.4 - Chronic pain syndrome US thyroid Today E06.9 - Thyroiditis, unspecified
[2025-03-28 10:53] VITALS: BP 117/56; PULSE 72; RESP 14; TEMP 36.4; O2SAT 99; BMI 22.4
== END 2025-03-28 11:39 | disposition home or self-care (01) ==
LOC: HO.HMCSH 10:23
PROVIDERS: PCP Internal Medicine; Visit Provider Internal Medicine
DX: R13.10 Dysphagia, unspecified (principal)

== ENCOUNTER → 2025-03-28 10:23 | Outpatient (BNVA) | payer OTHER, SELFPAY | PROVIDERS: PCP Internal Medicine; Visit Provider Internal Medicine | DX: Z13.89 Encounter for screening for other disorder (principal) ==

== ENCOUNTER 2025-03-29 07:58 | Outpatient (REF) | payer OTHER, SELFPAY ==
--- OUTSIDE RECORDS SUMMARY | 2023-10-16 09:30 | XMS_ITS ---
Author Organization [facility] Address [address] [address] Care Team Providers Care Radio Artist Name Role Phone Janel Temple Primary Care Provider UnavailHUSSEIN Vicente Unavailable [phone] REASON FOR VISIT 1 month f/u Encounters Encounter Location Date Provider Diagnosis [facility] [address] [address] 10/16/2023 HUSSEIN PATEL Plan Of Treatment No Information Progress Notes * Jessica LOPEZDOB: [birth year] (54 yo F)Acc No.[id number]:10/16/2023 post-op Patient: Tomasa NOLASCObeth Provider: Gerardo Patel DPM :1970 A ge:53 Y S ex:Female Date:10/16/2023 Phone: Address:[address] [place] [id number] Pcp:Janel Temple Subjective: * Chief Complaints: Objective: * Vitals: Assessment: Plan: * Treatment: * Billing Information: * Electronic signature of DIOR PATEL D.P.M on 03/29/2025 at 08:04 AM EDT Sign off status: Pending * Provider: Gerardo Patel DPM Date: 0 10/16/2023 Generated for Ana stephenson/Rose/eTransmitting on: 0 03/29/2025 08:04 AM EDT
[2025-03-29 08:27] LABS: Hematocrit 39.2 % (37.0-47.0); Hemoglobin 12.9 g/dl (12.0-16.0); Mean Corpuscular HGB Conc 32.9 g/dl (31.0-35.0); Mean Corpuscular Hemoglobin 29.2 pg (27.0-33.0); Mean Corpuscular Volume 88.7 fL (80.0-98.0); Mean Platelet Volume 8.8 fL (9.4-12.3); Platelet Count 259 X10*3/uL (160-400); Red Blood Count 4.42 X10*6/uL (4.20-5.50)
[2025-03-29 08:29] LABS: Appearance Urine Clear; Color Urine Yellow; Glucose Urine UA Negative (Negative); Leukocyte Esterase Urine Trace (Negative); Nitrite Urine Negative (Negative); PH 5.5 (5.0-9.0); Specific Gravity - Urine >= 1.030 (1.005-1.025); UMIC TRIGGER UA YES; Urine Blood Negative (Negative); Urine Ketones Trace mg/dL (Negative); Urine Protein Negative (Neg-Trace)
[2025-03-29 08:35] LABS: Bacteria Urine None Seen (None Seen); Hyaline Casts Urine 0-2 /LPF (0-2); RBC Urine 0-2 /HPF (0-2); WBC Urine 0-5 /HPF (0-5)
[2025-03-29 08:47] LABS: Estimated Average Glucose 120 mg/dL; Hemoglobin A1c % 5.8 % (<6.0)
[2025-03-29 08:51] LABS: Alanine Aminotransferase 17 U/L (0-31); Albumin Level 4.1 g/dL (3.5-5.0); Alkaline Phosphatase 53 U/L (39-117); Anion Gap 11 (12-20); Aspartate Amino Transferase 27 U/L (5-31); Bilirubin Direct 0.2 mg/dL (0.0-0.5); Bilirubin Total 0.6 mg/dL (0.0-1.0); Blood Urea Nitrogen 12 mg/dL (9-16); Calcium 9.2 mg/dL (8.4-10.2); Carbon Dioxide 30 mmol/L (22-29); Chloride 106 mmol/L (96-108); Cholesterol 140 mg/dL (<200); Estimated Glomerular Filt Rate > 60; Glucose Random 114 mg/dL (60-115); HDL Cholesterol 63 mg/dL (>40); LDL Cholesterol Calculated 68 mg/dL (<100); Potassium 4.4 mmol/L (3.3-5.1); Sodium 143 mmol/L (135-145); Total Protein 6.8 g/dL (6.5-8.0); Triglycerides 47 mg/dL (<150)
== END 2025-03-29 07:59 | disposition home or self-care (01) ==
LOC: HO.LAB 07:58
PROVIDERS: PCP Internal Medicine; Visit Provider Internal Medicine
DX: G89.4 Chronic pain syndrome (principal)
CPT/HCPCS: 36415; 80048; 80061; 80076; 81001; 83036; 84443; 85027

== ENCOUNTER 2025-04-05 15:01 | Outpatient (REF) | payer OTHER, SELFPAY ==
--- OUTSIDE RECORDS SUMMARY | 2023-10-16 09:30 | XMS_ITS ---
Author Organization [facility] Address [address] [address] Care Team Providers Care Trolley Car Overhauler Name Role Phone Janel Temple Primary Care Provider UnavailHUSSEIN Vicente Unavailable [phone] REASON FOR VISIT 1 month f/u Encounters Encounter Location Date Provider Diagnosis [facility] [address] [address] 10/16/2023 HUSSEIN PATEL Plan Of Treatment No Information Progress Notes * Jessica LOPEZDOB: [birth year] (54 yo F)Acc No.[id number]:10/16/2023 post-op Patient: Tomasa NOLASCObeth Provider: Gerardo Patel DPM :1970 A ge:53 Y S ex:Female Date:10/16/2023 Phone: Address:[address] [place] [phone] Pcp:Janel Temple Subjective: * Chief Complaints: Objective: * Vitals: Assessment: Plan: * Treatment: * Billing Information: * Electronic signature of DIOR PATEL D.P.M on 04/05/2025 at 03:24 PM EDT Sign off status: Pending * Provider: Gerardo Patel DPM Date: 10/16/2023 Generated for Ana stephenson/Rose/eTransmitting on: 0 04/05/2025 03:24 PM EDT
--- NOTE | ~2025-04-05 | US_ITS ---
EXAMINATION: US THYROID HISTORY: E06.9 - Thyroiditis, unspecified TECHNIQUE: Real-time grayscale ultrasound imaging was performed and images were reviewed. COMPARISON: There are no prior studies available for comparison. FINDINGS: SIZE: The right thyroid lobe measures 3.7 x 1.4 x 0.7 cm. The left thyroid lobe measures 2.9 x 0.9 x 0.8 cm. The isthmus measures 5 mm. FLOW: Flow to the gland is increased. ECHOGENICITY: The echotexture of the gland is mildly heterogeneous. NODULES: A single nodule is seen in the left isthmus as described below: Nodule #: 1 Location: Left isthmus measuring 8 x 8 x 9 mm. Shape: Wider than tall (0 points) Margins: Smooth (0 points) Echotexture: Hyperechoic (1 point) Composition: Solid (2 points) Calcifications: Macrocalcifications (1 point) Total points: 4 TIRADS: TR4: Moderately suspicious. US/US thyroid IMPRESSION: Solitary subcentimeter nodule of the left isthmus as described. ACR TI-RADS Guidelines TR1 (0 points): Benign, No follow-up or biopsy required TR2 (2 points): Not Suspicious, No biopsy or follow up indicated TR3 (3 points): Mildly Suspicious, FNA if >= 2.5 cm, Follow if >= 1.5 cm TR4 (4-6 points): Moderately Suspicious, FNA if >= 1.5 cm, Follow if >= 1.0 cm TR5 (>=7 points): Highly Suspicious, FNA if >= 1.0 cm, Follow if >= 0.5 cm Electronically signed by: Mikhail De Leon MD 04/05/2025 03:38 PM EDT
--- OUTSIDE RECORDS SUMMARY | 2025-04-05 15:25 | XMS_ITS | Data Portability ---
Author Organization [place] - [facility], Allergy Address [address] [address] Care Team Providers Care Reed Press Feeder Name Role Phone WALLACE DING Primary Care Provider [phone] Assessment Encounter Date Assessment Date Assessment LastModified [...] Recorded Time Closed fracture of nasal bones [id number] Active 024 KERRI TREJO PA-C 100 [facility] [address], [place], [address] , [place] - [facility] 15:22:16 Problem Notes None recorded. Medical Equipment None Reported. [...] Availabl e Not Available [employer] [place] [address] [place] active Not Available Not Available Not Available Vitals Date Recorded Body height Body mass index (BMI) Body weight Provider Name and Address Organization Details Last Updated DateTime 06/14/2024 152.4 cm 22.5 kg/m2 44617.12 g Paola Vyas [place] - [facility] 06/14/2024 14:52:28 Social History None recorded. Functional Status None recorded. Mental Status None recorded. Family History Nothing Reported. Medical History No medical history recorded. Gynecological HistoryNo gynecological history recorded. Obstetrics History GPAL:G 0 P 0 0 0 0 Past Encounters Encounter ID Performer Location Encounter Start Date Encounter Closed Date Diagnosis/Indication Diagnosis SNOMED-CT Code Diagnosis ICD10 Code Diagnosis Note [id number] KERRI TREJO PA-C [facility] [address] [place] [address] 06/14/2024 14:43:26 06/14/2024 15:05:35 Closed fracture of nasal bones [id number] S02.2XXA Health Concerns Section Related Observation LastModified by Organization Detai ls LastModified Time None Recorded Concern Status LastModified by Organization Details LastModified Time None Recorded Advance Directives Directive None Recorded Payers Insurance Date Sequence Insurance Name Policy Number Policy Johnson Covered Member ID Johnson Member ID Guarantor Name 06/14/2024 1 [employer] [facility] [id number] [facility] [id number] Notes Date Note Type Note Provider Name [...] little bit, no blood. KERRI TREJO PA-C [address] [place] [address],[place] [address], [place], [address], [facility] - [facility] 06/14/2024 15:22:53 OBGyn Episode No OBEpisode recorded.
--- OUTSIDE RECORDS SUMMARY | 2025-04-05 15:25 | XMS_ITS | Patient Health Record ---
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 CR Humerus RT Min 2 Views Reviewed date:06/21/2024 08:18:51 AM Interpretation: Performing Lab: Notes/Report: Original Ordering Provider: WALLACE DING [facility] CR Shoulder RT Min 2 View Reviewed date:06/21/2024 08:18:51 AM Interpretation: Performing Lab: Notes/Report: Original Ordering Provider: WALLACE DING [facility] Reason For Referral Diagnosis 1 Asthma, unspecified asthma severity, unspecified whether complicated, unspecified whether persistent (J45.909) Referral Organization [facility] [address] Referring Provider First Name WALLACE Referring Provider Last Name TOÑA Referring Provider Speciality Internal M edicine Referred Provider Specialty Pulmonology General Notes Dr. José Miguel Ayon , , Clinical Notes Annie Petty 09/23 02:28:04 PM >, Betsy Cook 10/20/2024 02:40:37 PM > Scheduled for 12/02 at 3 pm. Pt aware Referral Priority Routine Medications Medication SIG (Take, Route, Frequency, Duration) Notes Start Date End Date Status Atorvastatin Calcium 10 MG TAKE 1 TABLET BY MOUTH ONCE A DAY 90 DAYS; Duration: 90 Active Ondansetron HCl 4 MG 1 tablet Orally jo ry 8 hrs; Duration: 30 days Active Albuterol Sulfate (2.5 MG/3ML) 0.083% INHALE 3ML VIA NEBULIZER EVERY 6 HOURS NEEDED; Duration: 30 Active Diclofenac Sodium 3 % 1 application to a ffected area Externally Twice a day; Duration: 30 days 05/27/2023 Active Losartan Potassium 50 MG 1 tablet Orally Once a day; Duration: 90 days 06/24/2023 Active Cetirizine HCl 10 MG TAKE ONE (1) TABLET BY MOUTH EVERY DAY; Duration: 90 Active Farxiga 10 MG 1 tablet Orally Once a day; Duration: 90 days Active 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; Durati on: 365 days 08/01/2024 Active FreeStyle Racquel 3 Sensor - Use 1 sensor every 14 days for diabetes E11.9; Duration: 90 days Active metFORMIN HCl ER 500 MG TAKE ONE TABLET BY MOUTH TWO TIMES A DAY WITH FOOD; Duration: 30 Active Albuterol Sulfate HFA 108 (90 Base) MCG/ACT 1 puff as needed Inhalation every 4 hrs; Duration: 30 days 06/24/2023 Active Lidocaine 5 % 1 patch remove after 12 hours Externally Once a day; Duration: 30 days Active Dexcom G7 Sensor - apply one sensor jo ry 10 days; Duration: 30 days 01/21/2024 Active Omeprazole 20 MG TAKE TWO (2) CAPSULE S (40MG)PO ONCE EVERY DAY; Duration: 45 Active Social History Tobacco Use: Social History Observation Description Date Details (start date - stop date) Never Smoker NA - NA Tobacco Use/Smoking Question Answer Notes Are you a nonsmoker Section Notes: 3 children Some college- phlebotomy 3 children Some college- phlebotomy 3 children Some college- phlebotomy 3 children Some college- phlebotomy 3 children Some college- phlebotomy 3 children Some college- phlebotomy 3 children Some college- phlebotomy 3 children Some college- phlebotomy 3 children Some college- phlebotomy Problems Problem Type SNOMED Code ICD Code Onset Dates Problem Status W/U Status Risk Notes Problem Vitamin D deficiency (29880632) Vitamin D deficiency, unspecified (E55.9) Active confirmed Problem Chronic tension-type headache (500425664) Chronic tension-type headache, intractable (G44.221) Active confirmed Problem Fibromyalgia (097141983) Fibromyalgia (M79.7) Active confirmed Problem Weakness (97321942) Weakness (R53.1) Active con firmed Problem Pure hypercholesterolemia (522572335) Pure hypercholesterolem ia, unspecified (E78.00) Active confirmed Problem Hyperlipidaemia (25019762) Hyperlipidemia, unspecified hyperlipidemia type (E78.5) Active confirmed Problem Hypothyroidism (16286192) Hypothyroidism, unspecified type (E03.9) Active confirmed Problem Annual health maintenance examination (08771611) Annual physical exam (Z00.00) Active confirmed Problem Gastroesophageal reflux disease without esophagitis (445704844) Gastroesophageal reflux disease without esophagitis (K21.9) Active confirmed Problem Type II diabetes mellitus without complication (693333292) Type 2 diabetes mellitus without complication, without long-term current use of insulin (E11.9) Active confirmed Problem Asthma without statu s asthmaticus (42212039) Asthma, unspecified asthma severity, unspecified whether complicated, unspecified whether persistent (J45.909) Active confirmed Problem Migraine without aur a, not refractory (762465534) Other migraine without status migrainosus, not intractable (G43.809) Active confirmed Problem Pain in eye (58935603) Pain in e ye, unspecified laterality (H57.10) Active confirmed Vital Signs Heart Rate 88 /min 12/01/2024 Blood pressure diastolic 82 mm Hg 12/01/2024 Oximetry 99 % 12/01/2024 Height 60 in 12/01/2024 Blood pressure systolic 124 mm Hg 12/01/2024 Weight 115 lbs 12/01/2024 BMI 22.46 kg/m2 12/01/2024 Encounters Encounter Location Date Provider Diagnosis [facility] [address] [address] 05/30/2024 WALLACE DING Type 2 diabetes ray itus without complication, without long-term current use of insulin E11.9 ; Fibromyalgia M79.7 ; Gastroesophageal reflux disease without esophagitis K21.9 ; Pure hypercholesterolemia, unspecified E78.00 ; Vitamin D deficiency, unspecified E55.9 and Transient visual loss, left H53.122 [facility] [address] [address] 06/20/2024 WALLACE DING Type 2 diabetes ray itus without complication, without long-term current use of insulin E11.9 ; Annual physical exam Z00.00 ; Fibromyalgia M79.7 ; Gastroesophageal reflux disease without esophagitis K21.9 ; Pure hypercholesterolemia, unspecified E78.00 ; Closed fracture of nasal bone, initial encounter S02.2XXA ; Acute pain of right shoulder M25.511 and Right arm pain M79.601 [facility] [address] [address] 12/01/2024 WALLACE DING Palpitations R00.2 a nd Abdominal bloating R14.0 [facility] [address] 05/16/2024 WALLACE DING [facility] [address] [facility] [address] 05/17/2024 WALLACE DING Fibromyalgia M79.7 [facility] [address] [facility] [address] [address] 06/08/2024 WALLACE DING [facility] [address] [address] 06/14/2024 WALLACE DING [facility] [address] [address] 07/05/2024 WALLACE DING [facility] [address] 08/01/2024 WALLACE DING [facility] [address] [address] 08/01/2024 WALLACE DING [facility] [address] [address] 08/09/2024 WALLACE DING Pre-op exam Z01.818 [facility] [address] [address] 08/12/2024 WALLACE DING [facility] [address] [facility] [address] [address] 09/23/2024 WALLACE DING [facility] [address] [facility] [address] [address] 11/08/2024 WALLACE DING Annual physical exam Z00.00 ; Weakness R53.1 ; Vitamin D deficiency, unspecified E55.9 ; Hypothyroidism, unspecified type E03.9 ; Hyperlipidemia, unspecified hyperlipidemia type E78.5 and Type 2 diabetes mellitus without complication, without long-term current use of insulin E11.9 [facility] [address] [facility] [address] [place] [address] 11/11/2024 WALLACE DING [facility] [address] [address] 11/16/2024 [facility] [address] [address] 11/30/2024 [facility] [address] [address] 01/10/2025 WALLACE DING Encounter for immuni zation Z23 [facility] [address] [address] 06/02/2024 WALLACE MARCI [facility] [address] [address] 10/10/2024 WALLACE DING Type 2 diabetes ray itus without complication, without long-term current use of insulin E11.9 and Pre-op exam Z01.818 [facility] [address] [address] 11/17/2024 [facility] [address] [address] 11/29/2024 WALLACE DING Assessments Encounter Date Diagnosis (ICD Code) Assessment Notes Treatment Notes Treatment Clinical Notes Section Notes 05/17/2024 Fibromyalgia (ICD-10 - M79.7) 05/30/2024 Type 2 diabetes mellitus without complication, without long-term current use of insulin (ICD-10 - E11.9) Pt here for chronic disease mgt visit/DM2 Acute Concerns/Problem List: 05/30/2024 _update labs and CPE Refer to [facility] for colonoscopy screening Diabetes management and [...] software and direct typing Please excuse inadvertent outpatient surgery rn or typing errors, or uncorrected word substitutions Although every attempt has been made by the provider to proofread this document, occasional misspellings and typographical errors may still be present Due to the previous pandemic, and the use of personal protective equipment (PPE) This may decrease voice recognition accuracy Inadvertent outpatient surgery rn errors may occur 06/20/2024 Annual physical exam (ICD-10 - Z00.00) Pt here for CPE Acute Concerns/Problem List: 06/20/2024 Will get some x-rays of the right forearm/ shoulder Discussed closed head injury nasal bone fractures Did see ENT Refer to [facility] for colonoscopy screening Diabetes management and [...] software and direct typing Please excuse inadvertent outpatient surgery rn or typing errors, or uncorrected word substitutions Although every attempt has been made by the provider to proofread this document, occasional misspellings and typographical errors may still be present Due to the previous pandemic, and the use of personal protective equipment (PPE) This may decrease voice recognition accuracy Inadvertent outpatient surgery rn errors may occur 06/20/2024 Type 2 diabetes mellitus without complication, without long-term current use of insulin (ICD-10 - E11.9) Pt here for CPE Acute Concerns/Problem List: 06/20/2024 Will get some x-rays of the right forearm/ shoulder Discussed closed head injury nasal bone fractures Did see ENT Refer to [facility] for colonoscopy screening Diabetes management and [...] software and direct typing Please excuse inadvertent outpatient surgery rn or typing errors, or uncorrected word substitutions Although every attempt has been made by the provider to proofread this document, occasional misspellings and typographical errors may still be present Due to the previous pandemic, and the use of personal protective equipment (PPE) This may decrease voice recognition accuracy Inadvertent outpatient surgery rn errors may occur 08/09/2024 Pre-op exam (ICD-10 [...] software and direct typing Please excuse inadvertent outpatient surgery rn or typing errors, or uncorrected word substitutions Although every attempt has been made by the provider to proofread this document, occasional misspellings and typographical errors may still be present Due to the previous pandemic, and the use of personal protective equipment (PPE) This may decrease voice recognition accuracy Inadvertent outpatient surgery rn errors may occur 12/01/2024 Abdominal bloating [...] software and direct typing Please excuse inadvertent outpatient surgery rn or typing errors, or uncorrected word substitutions Although every attempt has been made by the provider to proofread this document, occasional misspellings and typographical errors may still be present Due to the previous pandemic, and the use of personal protective equipment (PPE) This may decrease voice recognition accuracy Inadvertent outpatient surgery rn errors may occur 01/10/2025 Encounter for immunization (ICD-10 - Z23) 11/08/2024 Weakness (ICD-10 - R53.1) 10/10/2024 Pre-op exam (ICD-10 - Z01.818) 06/20/2024 Fibromyalgia (ICD-10 - M79.7) Pt here for CPE Acute Concerns/Problem List: 06/20/2024 Will get some x-rays of the right forearm/ shoulder Discussed closed head injury nasal bone fractures Did see ENT Refer to [facility] for colonoscopy screening Diabetes management and [...] software and direct typing Please excuse inadvertent outpatient surgery rn or typing errors, or uncorrected word substitutions Although every attempt has been made by the provider to proofread this document, occasional misspellings and typographical errors may still be present Due to the previous pandemic, and the use of personal protective equipment (PPE) This may decrease voice recognition accuracy Inadvertent outpatient surgery rn errors may occur 05/30/2024 Fibromyalgia (ICD-10 - M79.7) Pt here for chronic disease mgt visit/DM2 Acute Concerns/Problem List: 05/30/2024 _update labs and CPE Refer to [facility] for colonoscopy screening Diabetes management and [...] software and direct typing Please excuse inadvertent outpatient surgery rn or typing errors, or uncorrected word substitutions Although every attempt has been made by the provider to proofread this document, occasional misspellings and typographical errors may still be present Due to the previous pandemic, and the use of personal protective equipment (PPE) This may decrease voice recognition accuracy Inadvertent outpatient surgery rn errors may occur 06/20/2024 Gastroesophageal reflux disease without esophagitis (ICD-10 - K21.9) Pt here for CPE Acute Concerns/Problem List: 06/20/2024 Will get some x-rays of the right forearm/ shoulder Discussed closed head injury nasal bone fractures Did see ENT Refer to [facility] for colonoscopy screening Diabetes management and [...] software and direct typing Please excuse inadvertent outpatient surgery rn or typing errors, or uncorrected word substitutions Although every attempt has been made by the provider to proofread this document, occasional misspellings and typographical errors may still be present Due to the previous pandemic, and the use of personal protective equipment (PPE) This may decrease voice recognition accuracy Inadvertent outpatient surgery rn errors may occur 05/30/2024 Gastroesophageal reflux disease without esophagitis (ICD-10 - K21.9) Pt here for chronic disease mgt visit/DM2 Acute Concerns/Problem List: 05/30/2024 _update labs and CPE Refer to [facility] for colonoscopy screening Diabetes management and [...] software and direct typing Please excuse inadvertent outpatient surgery rn or typing errors, or uncorrected word substitutions Although every attempt has been made by the provider to proofread this document, occasional misspellings and typographical errors may still be present Due to the previous pandemic, and the use of personal protective equipment (PPE) This may decrease voice recognition accuracy Inadvertent outpatient surgery rn errors may occur 11/08/2024 Vitamin D deficiency, unspecified (ICD-10 - E55.9) 11/08/2024 Hypothyroidism, unspecified type (ICD-10 - E03.9) 06/20/2024 Pure hypercholesterolemi a, unspecified (ICD-10 - E78.00) Pt here for CPE Acute Concerns/Problem List: 06/20/2024 Will get some x-rays of the right forearm/ shoulder Discussed closed head injury nasal bone fractures Did see ENT Refer to [facility] for colonoscopy screening Diabetes management and [...] software and direct typing Please excuse inadvertent outpatient surgery rn or typing errors, or uncorrected word substitutions Although every attempt has been made by the provider to proofread this document, occasional misspellings and typographical errors may still be present Due to the previous pandemic, and the use of personal protective equipment (PPE) This may decrease voice recognition accuracy Inadvertent outpatient surgery rn errors may occur 05/30/2024 Pure hypercholesterolemi a, unspecified (ICD-10 - E78.00) Pt here for chronic disease mgt visit/DM2 Acute Concerns/Problem List: 05/30/2024 _update labs and CPE Refer to [facility] for colonoscopy screening Diabetes management and [...] software and direct typing Please excuse inadvertent outpatient surgery rn or typing errors, or uncorrected word substitutions Although every attempt has been made by the provider to proofread this document, occasional misspellings and typographical errors may still be present Due to the previous pandemic, and the use of personal protective equipment (PPE) This may decrease voice recognition accuracy Inadvertent outpatient surgery rn errors may occur 05/30/2024 Vitamin D deficiency, unspecified (ICD-10 - E55.9) Pt here for chronic disease mgt visit/DM2 Acute Concerns/Problem List: 05/30/2024 _update labs and CPE Refer to [facility] for colonoscopy screening Diabetes management and [...] software and direct typing Please excuse inadvertent outpatient surgery rn or typing errors, or uncorrected word substitutions Although every attempt has been made by the provider to proofread this document, occasional misspellings and typographical errors may still be present Due to the previous pandemic, and the use of personal protective equipment (PPE) This may decrease voice recognition accuracy Inadvertent outpatient surgery rn errors may occur 11/08/2024 Hyperlipidemia, unspecified hyperlipidemia type (ICD-10 - E78.5) 06/20/2024 Closed fracture of nasal bone, initial encounter (ICD-10 - S02.2XXA) Pt here for CPE Acute Concerns/Problem List: 06/20/2024 Will get some x-rays of the right forearm/ shoulder Discussed closed head injury nasal bone fractures Did see ENT Refer to [facility] for colonoscopy screening Diabetes management and [...] software and direct typing Please excuse inadvertent outpatient surgery rn or typing errors, or uncorrected word substitutions Although every attempt has been made by the provider to proofread this document, occasional misspellings and typographical errors may still be present Due to the previous pandemic, and the use of personal protective equipment (PPE) This may decrease voice recognition accuracy Inadvertent outpatient surgery rn errors may occur 11/08/2024 Type 2 diabetes mellitus without complication, without long-term current use of insulin (ICD-10 - E11.9) 06/20/2024 Acute pain of right shoulder (ICD-10 - M25.511) Pt here for CPE Acute Concerns/Problem List: 06/20/2024 Will get some x-rays of the right forearm/ shoulder Discussed closed head injury nasal bone fractures Did see ENT Refer to [facility] for colonoscopy screening Diabetes management and [...] software and direct typing Please excuse inadvertent outpatient surgery rn or typing errors, or uncorrected word substitutions Although every attempt has been made by the provider to proofread this document, occasional misspellings and typographical errors may still be present Due to the previous pandemic, and the use of personal protective equipment (PPE) This may decrease voice recognition accuracy Inadvertent outpatient surgery rn errors may occur 05/30/2024 Transient visual loss, left (ICD-10 - H53.122) Pt here for chronic disease mgt visit/DM2 Acute Concerns/Problem List: 05/30/2024 _update labs and CPE Refer to [facility] for colonoscopy screening Diabetes management and [...] software and direct typing Please excuse inadvertent outpatient surgery rn or typing errors, or uncorrected word substitutions Although every attempt has been made by the provider to proofread this document, occasional misspellings and typographical errors may still be present Due to the previous pandemic, and the use of personal protective equipment (PPE) This may decrease voice recognition accuracy Inadvertent outpatient surgery rn errors may occur 06/20/2024 Right arm pain (ICD-10 - M79.601) Pt here for CPE Acute Concerns/Problem List: 06/20/2024 Will get some x-rays of the right forearm/ shoulder Discussed closed head injury nasal bone fractures Did see ENT Refer to [facility] for colonoscopy screening Diabetes management and [...] software and direct typing Please excuse inadvertent outpatient surgery rn or typing errors, or uncorrected word substitutions Although every attempt has been made by the provider to proofread this document, occasional misspellings and typographical errors may still be present Due to the previous pandemic, and the use of personal protective equipment (PPE) This may decrease voice recognition accuracy Inadvertent outpatient surgery rn errors may occur 12/20/2024 Acute Concerns/Problem List: 12/20/2024 Currently in [facility], [...] software and direct typing Please excuse inadvertent outpatient surgery rn or typing errors, or uncorrected word substitutions Although every attempt has been made by the provider to proofread this document, occasional misspellings and typographical errors may still be present Due to the previous pandemic, and the use of personal protective equipment (PPE) This may decrease voice recognition accuracy Inadvertent outpatient surgery rn errors may occur Plan Of Treatment Pending Test Test Name Order Date PT [...] End Date [employer] [place] [address] [address] [place] [address] [id number] PAULO LOPEZ Self - patient is the insured Medical (General) History Medical History History ICD Code high cholesterol Diabetes Asthma Headaches Fibromyalgia
== END 2025-04-05 15:02 | disposition home or self-care (01) ==
LOC: HO.US 15:01
PROVIDERS: PCP Internal Medicine; Visit Provider Internal Medicine
DX: E06.9 Thyroiditis, unspecified (principal)
CPT/HCPCS: 76536

== ENCOUNTER → 2025-04-05 15:06 | Outpatient (BNV) | payer OTHER, SELFPAY | PROVIDERS: PCP Internal Medicine; Visit Provider Radiology Diagnostic Radiology | DX: E04.1 Nontoxic single thyroid nodule (principal) | CPT/HCPCS: 76536 ==

== ENCOUNTER 2025-05-01 15:58 | Outpatient (AMB) | payer OTHER, SELFPAY ==
--- NOTE | 2025-05-01 15:58 | A.OFFPC_ITS ---
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 Accompanied by: Self / Same As Patient Allergies moxifloxacin (From Avelox) Adverse Reaction (Intermediate, Verified 05/01/25 15:58) hand and limp numbness Tobacco use date assessed: 03/28/25 Dental Screening Dental Screen Date: 03/28/25 [facility] Medical History (Updated 04/05/25 @ 16:21 by Song Garcia MD) Thyroid nodule Chronic pain syndrome Chronic rhinitis Carpal tunnel syndrome on right Fibromyalgia Asthma High cholesterol Diabetes Surgical History (Updated 03/30/25 @ 08:12 by Nanette Reyez) History of colonoscopy (~05/22/17) H/O shoulder surgery Family History (Updated 03/28/25 @ 11:01 by AVINASH Bajwa) Father Heart problem Diabetes Mother BP (high blood pressure) Pre-diabetes Cervical cancer Social History (Updated 03/28/25 @ 11:01 by AVINASH Bajwa) Housing: Apartment Alcohol intake: current Alcohol intake frequency: holidays/special occasions only Patient Tobacco Use Status: Never used Tobacco e-Cigarette/Vaping Use: Never Used service: No Current occupational status: employed Cognitive needs: No Hearing needs: No Vision needs: Yes (rx glasses) Questionnaire Thrive Questionnaire Date Thrive assessed: 03/28/25 MICHAEL-7 AMB Questionnaire MICHAEL-7 Date MICHAEL - 7 assessed: 03/28/25 Source: Developed by Drs. Mikhail Huber, Tiff Enrique, Pollo Johnson and colleagues, with an educational madelyn from [employer]. Physical exam (Primary Care) Vital Signs: Last Vital Signs Temp 97.3 F 05/01/25 16:07 Pulse 81 05/01/25 16:07 Resp 16 05/01/25 16:07 BP 120/78 05/01/25 16:07 Pulse Ox 98 05/01/25 16:07 Oxygen Delivery Method Room Air 05/01/25 16:07 Tobacco/Smoking Status: Tobacco use Status Tobacco use date assessed 03/28/25 05/01/25 16:08 Patient Tobacco Use Status Never used Tobacco 05/01/25 16:08 e-Cigarette/Vaping Use Never Used 05/01/25 16:08 Thrive Assessment: Date of Thrive Assessment Date Thrive assessed 03/28/25 05/01/25 16:08 Coding Level of Care Code Est Pt Level 4 (29412) Complex EM visit Add On G2211 Diagnoses Thyroid nodule E04.1 Assessment & Plan Assessment & Plan (1) Thyroid nodule: Code(s): E04.1 - Nontoxic single thyroid nodule Category: Medical Plan: History of Present Illness - The patient is a 54-year-old female presenting with management of a thyroid nodule, diabetes mellitus, and weight management. - Thyroid nodule: An ultrasound revealed a nodule, and the patient is awaiting an endocrinology appointment for further evaluation, including a fine needle aspiration scheduled for May 30. - Diabetes mellitus: The patient has a history of diabetes and is currently taking metformin twice daily. She experienced hypoglycemia after starting Synthroid, which she has since discontinued. - Weight management: The patient is on Ozempic for diabetes management, which also aids in weight loss. She reported a slight weight gain after a vacation but expects to return to her previous weight. - Preventative care: The patient is due for a mammogram, which was last scheduled for April. An order for the mammogram will be placed. Social History - The patient recently returned from a vacation, during which she experienced a slight weight gain due to dietary changes. Review of Systems - Endocrine: Reports hypoglycemia after starting Synthroid. - General: Reports weight gain after vacation. Physical Exam General: Cooperative and healthy appearing Nutritional Appearance: Well nourished Orientation/consciousness: Patient oriented x3 Limitations: No limitations Head: Normal to inspection General: Appearance normal, both eyes and all related structures Neck: Normal visual inspection Chest: Normal palpation of entire chest wall Respiratory: Deep breath. Breathe. Deep breath. Deep breath. Deep breath. Deep breath. Deep breath. Deep breath. Deep breath. Deep breath. Deep breath. Deep breath. Deep breath. Deep breath. Deep breath okay. ormal respiratory effort Neurology: Patient oriented x3 Results - Imaging: Ultrasound revealed a thyroid nodule. Plan 1. Thyroid Nodule - Referral to endocrinology for further evaluation and fine needle aspiration scheduled for May 30. 2. Diabetes Mellitus - Continue metformin twice daily. Discuss hypoglycemia and Synthroid issues with transfusion aide. 3. Weight Management - Continue Ozempic for diabetes and weight management. Monitor weight post- vacation. 4. Preventative Care: Mammogram - Order placed for mammogram, which was due in April. Discussion Notes I discussed with the patient the need for endocrinology evaluation for the thyroid nodule, including a fine needle aspiration. We reviewed her diabetes management, emphasizing the importance of discussing hypoglycemia and Synthroid issues with the transfusion aide. I also advised her to continue Ozempic for weight management and placed an order for her overdue mammogram. Patient Instructions - Follow up with transfusion aide for thyroid nodule evaluation. - Continue taking metformin as prescribed and discuss any medication concerns with the transfusion aide. - Maintain current weight management plan with Ozempic and monitor weight changes. - Schedule and complete the mammogram as ordered. Orders: Orders MM screening mammo BI Today Z12.31 - Encounter for screening mammogram for malignant neoplasm of breast
--- OUTSIDE RECORDS SUMMARY | 2025-05-01 16:05 | XMS_ITS | Patient Health Record ---
Author Organization [facility] Address [address] [facility] [address] [place] [address] Care Team Providers Care Profiling Machine Setup Operator Name Role Phone RachanaJanel pace Primary [...] Problem Status W/U Status Risk Notes Problem [id number] Hallux rigidus, right foot (M20.21) Active confirmed Problem [id number] Hallux rigidus, left foot (M20.22) Active confirmed Problem [id number] Controlled type 2 diabetes mellitus without complication, [...] Insured Coverage Start Date Coverage End Date [facility] [address] [place] [address] [id number] Jessica Lozano Self - patient is the [...]
--- OUTSIDE RECORDS SUMMARY | 2025-05-01 16:05 | XMS_ITS | Patient Health Record ---
Author Organization [facility] [address] Address [address] [place] [address] Care Team Providers Care Record Filing Clerk Name Role Phone WALLACE DING Unavailable [phone] Allergies Allergen (clinical drug ingredient) Drug/Non Drug Allergy documented on EMR Reaction Allergy Type Onset Date Status Pollen Pollen Swelling Allergy Active Results Component Value Reference Range Notes CR Forearm RT 2 Views Reviewed date:06/21/2024 08:18:51 AM Interpretation: Performing Lab: Notes/Report: Original Ordering Provider: WALLACE DING [facility] CR Humerus RT Min 2 Views Reviewed date:06/21/2024 08:18:51 AM Interpretation: Performing Lab: Notes/Report: Original Ordering Provider: WALLACE DING [facility] CR Shoulder RT Min 2 View Reviewed date:06/21/2024 08:18:51 AM Interpretation: Performing Lab: Notes/Report: Original Ordering Provider: WALLACE DING [facility] Reason For Referral Diagnosis 1 Asthma, unspecified asthma severity, unspecified whether complicated, unspecified whether persistent (J45.909) Referral Organization [facility] [address] Referring Provider First Name WALLACE [...] day; Duration: 90 days Active 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; Durati on: 365 days [...] Status Risk Notes Problem Vitamin D deficiency (37025207) Vitamin D deficiency, unspecified (E55.9) Active confirmed Problem Chronic tension-type headache (907292905) Chronic tension-type headache, intractable (G44.221) Active confirmed Problem Fibromyalgia (831730293) Fibromyalgia (M79.7) Active confirmed Problem Weakness (28977133) Weakness (R53.1) Active con firmed Problem Pure hypercholesterolemia (405798768) Pure hypercholesterolem ia, unspecified (E78.00) Active confirmed Problem Hyperlipidaemia (70529619) Hyperlipidemia, unspecified hyperlipidemia type (E78.5) Active confirmed Problem Hypothyroidism (63295273) Hypothyroidism, unspecified type (E03.9) Active confirmed Problem Annual health maintenance examination (40312555) Annual physical exam (Z00.00) Active confirmed Problem Gastroesophageal reflux disease without esophagitis (012648109) Gastroesophageal reflux disease without esophagitis (K21.9) Active confirmed Problem Type II diabetes mellitus without complication (512415665) Type 2 diabetes mellitus without complication, without long-term current use of insulin (E11.9) Active confirmed Problem Asthma without statu s asthmaticus (37969951) Asthma, unspecified asthma severity, unspecified whether complicated, unspecified whether persistent (J45.909) Active confirmed Problem Migraine without aur a, not refractory (157703804) Other migraine without status migrainosus, not intractable (G43.809) Active confirmed Problem Pain in eye (93479294) Pain in e ye, unspecified laterality (H57.10) Active confirmed Vital Signs Heart Rate 88 /min 12/01/2024 Blood pressure diastolic 82 mm Hg 12/01/2024 Oximetry 99 % 12/01/2024 Height 60 in 12/01/2024 Blood pressure systolic 124 mm Hg 12/01/2024 Weight 115 lbs 12/01/2024 BMI 22.46 kg/m2 12/01/2024 Encounters Encounter Location Date Provider Diagnosis [facility] [address] [address] 05/30/2024 WALLACE DING Type 2 diabetes ray itus without complication, without long-term current use of insulin E11.9 ; Fibromyalgia M79.7 ; Gastroesophageal reflux disease without esophagitis K21.9 ; Pure hypercholesterolemia, unspecified E78.00 ; Vitamin D deficiency, unspecified E55.9 and Transient visual loss, left H53.122 [facility] [address] [address] 06/20/2024 WALLACE DING Type 2 diabetes ray [...] M79.601 [facility] [address] [address] 12/01/2024 WALLACE DING Palpitations R00.2 a nd Abdominal bloating R14.0 [facility] [address] 05/16/2024 WALLACE DING [facility] [address] [facility] [address] 05/17/2024 WALLACE DING Fibromyalgia M79.7 [facility] [address] [facility] [address] [address] 06/08/2024 WALLACE DING [facility] [address] [address] 06/14/2024 WALLACE DING [facility] [address] [address] 07/05/2024 WALLACE DING [facility] [address] 08/01/2024 WALLACE DING [facility] [address] [address] 08/01/2024 WALLACE DING [facility] [address] [address] 08/09/2024 WALLACE DING Pre-op exam Z01.818 [facility] [address] [address] 08/12/2024 WALLACE DING [facility] [address] [facility] [address] [address] 09/23/2024 WALLACE DING [facility] [address] [facility] [address] [address] 11/08/2024 WALLACE DING Annual physical exam Z00.00 ; Weakness R53.1 ; Vitamin D deficiency, unspecified E55.9 ; Hypothyroidism, unspecified type E03.9 ; Hyperlipidemia, unspecified hyperlipidemia type E78.5 and Type 2 diabetes mellitus without complication, without long-term current use of insulin E11.9 [facility] [address] [facility] [address] [place] [address] 11/11/2024 WALLACE DING [facility] [address] [address] 11/16/2024 [facility] [address] [address] 11/30/2024 [facility] [address] [address] 01/10/2025 WALLACE DING Encounter for immuni zation Z23 [facility] [address] [address] 06/02/2024 WALLACE MARCI [facility] [address] [address] 10/10/2024 WALLACE DING Type 2 diabetes ray itus without complication, without long-term current use of insulin E11.9 and Pre-op exam Z01.818 [facility] [address] [address] 11/17/2024 [facility] [address] [address] 11/29/2024 WALLACE DING Assessments Encounter Date Diagnosis (ICD Code) Assessment Notes Treatment Notes Treatment Clinical Notes Section Notes 05/17/2024 Fibromyalgia (ICD-10 - M79.7) 05/30/2024 Type 2 diabetes mellitus without complication, without long-term current use of insulin (ICD-10 - E11.9) Pt here for chronic disease mgt visit/DM2 Acute Concerns/Problem List: 05/30/2024 _update labs and CPE Refer to [facility] for colonoscopy screening Diabetes management and [...] software and direct typing Please excuse inadvertent systems protection technician or typing errors, or uncorrected word substitutions Although every attempt has been made by the provider to proofread this document, occasional misspellings and typographical errors may still be present Due to the previous pandemic, and the use of personal protective equipment (PPE) This may decrease voice recognition accuracy Inadvertent systems protection technician errors may occur 06/20/2024 Annual physical exam (ICD-10 - Z00.00) Pt here for CPE Acute Concerns/Problem List: 06/20/2024 Will get some x-rays of the right forearm/ shoulder Discussed closed head injury nasal bone fractures Did see ENT Refer to [facility] for colonoscopy screening Diabetes management and [...] software and direct typing Please excuse inadvertent systems protection technician or typing errors, or uncorrected word substitutions Although every attempt has been made by the provider to proofread this document, occasional misspellings and typographical errors may still be present Due to the previous pandemic, and the use of personal protective equipment (PPE) This may decrease voice recognition accuracy Inadvertent systems protection technician errors may occur 06/20/2024 Type 2 diabetes mellitus without complication, without long-term current use of insulin (ICD-10 - E11.9) Pt here for CPE Acute Concerns/Problem List: 06/20/2024 Will get some x-rays of the right forearm/ shoulder Discussed closed head injury nasal bone fractures Did see ENT Refer to [facility] for colonoscopy screening Diabetes management and [...] software and direct typing Please excuse inadvertent systems protection technician or typing errors, or uncorrected word substitutions Although every attempt has been made by the provider to proofread this document, occasional misspellings and typographical errors may still be present Due to the previous pandemic, and the use of personal protective equipment (PPE) This may decrease voice recognition accuracy Inadvertent systems protection technician errors may occur 08/09/2024 Pre-op exam (ICD-10 [...] software and direct typing Please excuse inadvertent systems protection technician or typing errors, or uncorrected word substitutions Although every attempt has been made by the provider to proofread this document, occasional misspellings and typographical errors may still be present Due to the previous pandemic, and the use of personal protective equipment (PPE) This may decrease voice recognition accuracy Inadvertent systems protection technician errors may occur 12/01/2024 Abdominal bloating [...] software and direct typing Please excuse inadvertent systems protection technician or typing errors, or uncorrected word substitutions Although every attempt has been made by the provider to proofread this document, occasional misspellings and typographical errors may still be present Due to the previous pandemic, and the use of personal protective equipment (PPE) This may decrease voice recognition accuracy Inadvertent systems protection technician errors may occur 01/10/2025 Encounter for immunization (ICD-10 - Z23) 11/08/2024 Weakness (ICD-10 - R53.1) 10/10/2024 Pre-op exam (ICD-10 - Z01.818) 06/20/2024 Fibromyalgia (ICD-10 - M79.7) Pt here for CPE Acute Concerns/Problem List: 06/20/2024 Will get some x-rays of the right forearm/ shoulder Discussed closed head injury nasal bone fractures Did see ENT Refer to [facility] for colonoscopy screening Diabetes management and [...] software and direct typing Please excuse inadvertent systems protection technician or typing errors, or uncorrected word substitutions Although every attempt has been made by the provider to proofread this document, occasional misspellings and typographical errors may still be present Due to the previous pandemic, and the use of personal protective equipment (PPE) This may decrease voice recognition accuracy Inadvertent systems protection technician errors may occur 05/30/2024 Fibromyalgia (ICD-10 - M79.7) Pt here for chronic disease mgt visit/DM2 Acute Concerns/Problem List: 05/30/2024 _update labs and CPE Refer to [facility] for colonoscopy screening Diabetes management and [...] software and direct typing Please excuse inadvertent systems protection technician or typing errors, or uncorrected word substitutions Although every attempt has been made by the provider to proofread this document, occasional misspellings and typographical errors may still be present Due to the previous pandemic, and the use of personal protective equipment (PPE) This may decrease voice recognition accuracy Inadvertent systems protection technician errors may occur 06/20/2024 Gastroesophageal reflux disease without esophagitis (ICD-10 - K21.9) Pt here for CPE Acute Concerns/Problem List: 06/20/2024 Will get some x-rays of the right forearm/ shoulder Discussed closed head injury nasal bone fractures Did see ENT Refer to [facility] for colonoscopy screening Diabetes management and [...] software and direct typing Please excuse inadvertent systems protection technician or typing errors, or uncorrected word substitutions Although every attempt has been made by the provider to proofread this document, occasional misspellings and typographical errors may still be present Due to the previous pandemic, and the use of personal protective equipment (PPE) This may decrease voice recognition accuracy Inadvertent systems protection technician errors may occur 05/30/2024 Gastroesophageal reflux disease without esophagitis (ICD-10 - K21.9) Pt here for chronic disease mgt visit/DM2 Acute Concerns/Problem List: 05/30/2024 _update labs and CPE Refer to [facility] for colonoscopy screening Diabetes management and [...] software and direct typing Please excuse inadvertent systems protection technician or typing errors, or uncorrected word substitutions Although every attempt has been made by the provider to proofread this document, occasional misspellings and typographical errors may still be present Due to the previous pandemic, and the use of personal protective equipment (PPE) This may decrease voice recognition accuracy Inadvertent systems protection technician errors may occur 11/08/2024 Vitamin D deficiency, unspecified (ICD-10 - E55.9) 11/08/2024 Hypothyroidism, unspecified type (ICD-10 - E03.9) 06/20/2024 Pure hypercholesterolemi a, unspecified (ICD-10 - E78.00) Pt here for CPE Acute Concerns/Problem List: 06/20/2024 Will get some x-rays of the right forearm/ shoulder Discussed closed head injury nasal bone fractures Did see ENT Refer to [facility] for colonoscopy screening Diabetes management and [...] software and direct typing Please excuse inadvertent systems protection technician or typing errors, or uncorrected word substitutions Although every attempt has been made by the provider to proofread this document, occasional misspellings and typographical errors may still be present Due to the previous pandemic, and the use of personal protective equipment (PPE) This may decrease voice recognition accuracy Inadvertent systems protection technician errors may occur 05/30/2024 Pure hypercholesterolemi a, unspecified (ICD-10 - E78.00) Pt here for chronic disease mgt visit/DM2 Acute Concerns/Problem List: 05/30/2024 _update labs and CPE Refer to [facility] for colonoscopy screening Diabetes management and [...] software and direct typing Please excuse inadvertent systems protection technician or typing errors, or uncorrected word substitutions Although every attempt has been made by the provider to proofread this document, occasional misspellings and typographical errors may still be present Due to the previous pandemic, and the use of personal protective equipment (PPE) This may decrease voice recognition accuracy Inadvertent systems protection technician errors may occur 05/30/2024 Vitamin D deficiency, unspecified (ICD-10 - E55.9) Pt here for chronic disease mgt visit/DM2 Acute Concerns/Problem List: 05/30/2024 _update labs and CPE Refer to [facility] for colonoscopy screening Diabetes management and [...] software and direct typing Please excuse inadvertent systems protection technician or typing errors, or uncorrected word substitutions Although every attempt has been made by the provider to proofread this document, occasional misspellings and typographical errors may still be present Due to the previous pandemic, and the use of personal protective equipment (PPE) This may decrease voice recognition accuracy Inadvertent systems protection technician errors may occur 11/08/2024 Hyperlipidemia, unspecified hyperlipidemia type (ICD-10 - E78.5) 06/20/2024 Closed fracture of nasal bone, initial encounter (ICD-10 - S02.2XXA) Pt here for CPE Acute Concerns/Problem List: 06/20/2024 Will get some x-rays of the right forearm/ shoulder Discussed closed head injury nasal bone fractures Did see ENT Refer to [facility] for colonoscopy screening Diabetes management and [...] software and direct typing Please excuse inadvertent systems protection technician or typing errors, or uncorrected word substitutions Although every attempt has been made by the provider to proofread this document, occasional misspellings and typographical errors may still be present Due to the previous pandemic, and the use of personal protective equipment (PPE) This may decrease voice recognition accuracy Inadvertent systems protection technician errors may occur 11/08/2024 Type 2 diabetes mellitus without complication, without long-term current use of insulin (ICD-10 - E11.9) 06/20/2024 Acute pain of right shoulder (ICD-10 - M25.511) Pt here for CPE Acute Concerns/Problem List: 06/20/2024 Will get some x-rays of the right forearm/ shoulder Discussed closed head injury nasal bone fractures Did see ENT Refer to [facility] for colonoscopy screening Diabetes management and [...] software and direct typing Please excuse inadvertent systems protection technician or typing errors, or uncorrected word substitutions Although every attempt has been made by the provider to proofread this document, occasional misspellings and typographical errors may still be present Due to the previous pandemic, and the use of personal protective equipment (PPE) This may decrease voice recognition accuracy Inadvertent systems protection technician errors may occur 05/30/2024 Transient visual loss, left (ICD-10 - H53.122) Pt here for chronic disease mgt visit/DM2 Acute Concerns/Problem List: 05/30/2024 _update labs and CPE Refer to [facility] for colonoscopy screening Diabetes management and [...] software and direct typing Please excuse inadvertent systems protection technician or typing errors, or uncorrected word substitutions Although every attempt has been made by the provider to proofread this document, occasional misspellings and typographical errors may still be present Due to the previous pandemic, and the use of personal protective equipment (PPE) This may decrease voice recognition accuracy Inadvertent systems protection technician errors may occur 06/20/2024 Right arm pain (ICD-10 - M79.601) Pt here for CPE Acute Concerns/Problem List: 06/20/2024 Will get some x-rays of the right forearm/ shoulder Discussed closed head injury nasal bone fractures Did see ENT Refer to [facility] for colonoscopy screening Diabetes management and [...] software and direct typing Please excuse inadvertent systems protection technician or typing errors, or uncorrected word substitutions Although every attempt has been made by the provider to proofread this document, occasional misspellings and typographical errors may still be present Due to the previous pandemic, and the use of personal protective equipment (PPE) This may decrease voice recognition accuracy Inadvertent systems protection technician errors may occur 12/20/2024 Acute Concerns/Problem List: [...] software and direct typing Please excuse inadvertent systems protection technician or typing errors, or uncorrected word substitutions Although every attempt has been made by the provider to proofread this document, occasional misspellings and typographical errors may still be present Due to the previous pandemic, and the use of personal protective equipment (PPE) This may decrease voice recognition accuracy Inadvertent systems protection technician errors may occur Plan Of Treatment Pending [...] End Date [place] [address] [address] [place] [address] [id number] PAULO LOPEZ Self - patient is the insured Medical (General) History Medical History History ICD Code high cholesterol Diabetes Asthma Headaches Fibromyalgia
--- OUTSIDE RECORDS SUMMARY | 2025-05-01 16:06 | XMS_ITS | Data Portability ---
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 Medical Equipment [...] Availabl e Not Available [employer] [place] [address] [place] active Not Available Not Available Not Available Vitals Date Recorded Body height Body mass index (BMI) Body weight Provider Name and Address Organization Details Last Updated DateTime 06/14/2024 152.4 cm 22.5 kg/m2 97218.12 g Paola Vyas [place] - [facility] 06/14/2024 14:52:28 Social History None recorded. Functional Status None recorded. Mental Status None recorded. Family History Nothing Reported. Medical History No medical history recorded. Gynecological HistoryNo gynecological history recorded. Obstetrics History GPAL:G 0 P 0 0 0 0 Past Encounters Encounter ID Performer Location Encounter Start Date Encounter Closed Date Diagnosis/Indication Diagnosis SNOMED-CT Code Diagnosis ICD10 Code Diagnosis Note [id number] KERRI TREJO PA-C [facility] [address] [address] 06/14/2024 14:43:26 06/14/2024 15:05:35 Closed fracture of nasal bones 87043182 S02.2XXA Health Concerns Section Related Observation LastModified by Organization Detai ls LastModified Time None Recorded Concern Status LastModified by Organization Details LastModified Time None Recorded Advance Directives Directive None Recorded Payers Insurance Date Sequence Insurance Name Policy Number Policy Johnson Covered Member ID Johnson Member ID Guarantor Name 06/14/2024 1 [employer] [place]) [id number] Jessica Lozano [id number] Jessica Lathan OBGyn Episode No OBEpisode recorded.
[2025-05-01 16:07] VITALS: BP 120/78; PULSE 81; RESP 16; TEMP 36.3; O2SAT 98
== END 2025-05-01 16:18 | disposition home or self-care (01) ==
LOC: HO.HMCHD 15:58
PROVIDERS: PCP Internal Medicine; Visit Provider Internal Medicine
DX: E04.1 Nontoxic single thyroid nodule (principal)

== ENCOUNTER 2025-05-30 15:36 | Outpatient (AMB) | payer OTHER, SELFPAY ==
--- OUTSIDE RECORDS SUMMARY | 2024-12-20 11:30 | XMS_ITS ---
Author Organization [facility] [address] Address [address] [place] [address] Care Team Providers Care Third Officer Name Role Phone WALLACE DING Unavailable [phone] REASON FOR VISIT 2 week f/u, bardray holter Encounters Encounter Location Date Provider Diagnosis [facility] [address] [address] 12/20/2024 WALLACE DING Palpitations R00.2 ; Abdominal [...] to bloating. Other comprehensive labs reviewed at [facility] and were unremarkable including thyroid function Of note, some information is being carried forward from prior records for informational purposes only and is being cited so that efficiency, safety and quality of the patient's care is not compromised This note was prepared using voice recognition software and direct typing Please excuse inadvertent sexual health physician or typing errors, or uncorrected word substitutions Although every attempt has been made by the provider to proofread this document, occasional misspellings and typographical errors may still be present Due to the previous pandemic, and the use of personal protective equipment (PPE) This may decrease voice recognition accuracy Inadvertent sexual health physician errors may occur 12/20/2024 Abdominal bloating (ICD-10 - R14.0) Acute Concerns/Problem List: 12/20/2024 Currently in NSR, says she is not presently having Palpitations. She will go for EKG today. Discussed Holter Monitor, she will be outfitted with 14 day model. She will hold PPI for two weeks, get H pylori testing due to bloating. Other comprehensive labs reviewed at [facility] and were unremarkable including thyroid function Of note, some information is being carried forward from prior records for informational purposes only and is being cited so that efficiency, safety and quality of the patient's care is not compromised This note was prepared using voice recognition software and direct typing Please excuse inadvertent sexual health physician or typing errors, or uncorrected word substitutions Although every attempt has been made by the provider to proofread this document, occasional misspellings and typographical errors may still be present Due to the previous pandemic, and the use of personal protective equipment (PPE) This may decrease voice recognition accuracy Inadvertent sexual health physician errors may occur 12/20/2024 Type 2 diabetes [...] to bloating. Other comprehensive labs reviewed at [facility] and were unremarkable including thyroid function Of note, some information is being carried forward from prior records for informational purposes only and is being cited so that efficiency, safety and quality of the patient's care is not compromised This note was prepared using voice recognition software and direct typing Please excuse inadvertent sexual health physician or typing errors, or uncorrected word substitutions Although every attempt has been made by the provider to proofread this document, occasional misspellings and typographical errors may still be present Due to the previous pandemic, and the use of personal protective equipment (PPE) This may decrease voice recognition accuracy Inadvertent sexual health physician errors may occur 12/20/2024 Fibromyalgia (ICD-10 - M79.7) Acute Concerns/Problem List: 12/20/2024 Currently in NSR, says she is not presently having Palpitations. She will go for EKG today. Discussed Holter Monitor, she will be outfitted with 14 day model. She will hold PPI for two weeks, get H pylori testing due to bloating. Other comprehensive labs reviewed at [facility] and were unremarkable including thyroid function Of note, some information is being carried forward from prior records for informational purposes only and is being cited so that efficiency, safety and quality of the patient's care is not compromised This note was prepared using voice recognition software and direct typing Please excuse inadvertent sexual health physician or typing errors, or uncorrected word substitutions Although every attempt has been made by the provider to proofread this document, occasional misspellings and typographical errors may still be present Due to the previous pandemic, and the use of personal protective equipment (PPE) This may decrease voice recognition accuracy Inadvertent sexual health physician errors may occur 12/20/2024 Gastroesophageal reflux disease without esophagitis (ICD-10 - K21.9) Acute Concerns/Problem List: 12/20/2024 Currently in NSR, says she is not presently having Palpitations. She will go for EKG today. Discussed Holter Monitor, she will be outfitted with 14 day model. She will hold PPI for two weeks, get H pylori testing due to bloating. Other comprehensive labs reviewed at [facility] and were unremarkable including thyroid function Of note, some information is being carried forward from prior records for informational purposes only and is being cited so that efficiency, safety and quality of the patient's care is not compromised This note was prepared using voice recognition software and direct typing Please excuse inadvertent sexual health physician or typing errors, or uncorrected word substitutions Although every attempt has been made by the provider to proofread this document, occasional misspellings and typographical errors may still be present Due to the previous pandemic, and the use of personal protective equipment (PPE) This may decrease voice recognition accuracy Inadvertent sexual health physician errors may occur 12/20/2024 Pure hypercholesterolemi a, unspecified (ICD-10 - E78.00) Acute Concerns/Problem List: 12/20/2024 Currently in NSR, says she is not presently having Palpitations. She will go for EKG today. Discussed Holter Monitor, she will be outfitted with 14 day model. She will hold PPI for two weeks, get H pylori testing due to bloating. Other comprehensive labs reviewed at [facility] and were unremarkable including thyroid function Of note, some information is being carried forward from prior records for informational purposes only and is being cited so that efficiency, safety and quality of the patient's care is not compromised This note was prepared using voice recognition software and direct typing Please excuse inadvertent sexual health physician or typing errors, or uncorrected word substitutions Although every attempt has been made by the provider to proofread this document, occasional misspellings and typographical errors may still be present Due to the previous pandemic, and the use of personal protective equipment (PPE) This may decrease voice recognition accuracy Inadvertent sexual health physician errors may occur 12/20/2024 Other migraine without [...] to bloating. Other comprehensive labs reviewed at [facility] and were unremarkable including thyroid function Of note, some information is being carried forward from prior records for informational purposes only and is being cited so that efficiency, safety and quality of the patient's care is not compromised This note was prepared using voice recognition software and direct typing Please excuse inadvertent sexual health physician or typing errors, or uncorrected word substitutions Although every attempt has been made by the provider to proofread this document, occasional misspellings and typographical errors may still be present Due to the previous pandemic, and the use of personal protective equipment (PPE) This may decrease voice recognition accuracy Inadvertent sexual health physician errors may occur Plan Of Treatment No Information Progress Notes * PAULO LOPEZ LDOB:[birth year] (54 yo F)Acc No.[id number]:12/20/2024 Progress Notes Patient: PAULO NOLASCO Provider: Isamar DING NP :[id number] A ge:54 Y S ex:Female Date:12/20/2024 Address:[address] [place], [place] [address], [id number] Subjective: * Chief Complaints: * 1 . 2 week f/u, shanice mccann. * HPI: C onstitutional: Patient is here today for a Chronic Disease Management Follow-up Visit Full past medical history, social history, family history, allergies and current medications were reviewed and updated. Acute Concerns/Problem List: 12/20/2024 labs were 2024, [facility] CBC is stable Hemoglobin A1c of [...] Hypercholesteremia, GERD, REGINA Was previously followed by sales force developer Erika, [address] [place] [address] She is off her sulfonylurea, now on Farxiga 10mg/as well as metformin 500mg BID pt educated to continue to use CGM/Dexcom Diabetic Eye exam: 2023, at [facility], Normal Neurological symptoms have essentially resolved She did see neurologist at [facility] MRI of the brain w/o January 2024 Unremarkable Surgical history: Bone spurs on both shoulders removed, carpel tunnel Surgery to come on toes for bone spurs (NEOS) family history, Father: diabetes, heart surgery (unknown) Mother: deseased, dimentia Allergies: cats, dogs, pollen, grass, dust, Avelox 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 Other comprehensive labs reviewed at [facility] and were unremarkable including thyroid function Of note, some information is being carried forward from prior records for informational purposes only and is being cited so that efficiency, safety and quality of the patient's care is not compromised This note was prepared using voice recognition software and direct typing Please excuse inadvertent sexual health physician or typing errors, or uncorrected word substitutions Although every attempt has been made by the provider to proofread this document, occasional misspellings and typographical errors may still be present Due to the previous pandemic, and the use of personal protective equipment (PPE) This may decrease voice recognition accuracy Inadvertent sexual health physician errors may occur. Plan: * Treatment: * Images: Billing Information: * Visit Code: * Procedure Codes: Care Plan Details* * Electronic signature of VITA DING on 05/30/2025 at 04:28 PM EDT Sign off status: Pending * Provider: Isamar DING NP Date: 0 12/20/2024 Generated for Ana stephenson/Rose/Mamadou on: 0 05/30/2025 04:28 PM EDT History and Physical Notes * HPI (History of Present Illness) Category Sub-Category Detail Notes Category Not es Constitutional Patient is here today for a Chronic Disease Management Follow-up Visit Full past medical history, social history, family history, allergies and current medications were reviewed and updated. Acute Concerns/Problem List: 12/20/2024 labs were 2024, [facility] CBC is stable Hemoglobin A1c of [...] Hypercholesteremia, GERD, REGINA Was previously followed by sales force developer Erika, [address] [place] [address] She is off her sulfonylurea, now on Farxiga 10mg/as well as metformin 500mg BID pt educated to continue to use CGM/Dexcom Diabetic Eye exam: 2023, at [facility], Normal Neurological symptoms have essentially resolved She did see neurologist at [facility] MRI of the brain w/o January 2024 Unremarkable Surgical history: Bone spurs on both shoulders removed, carpel tunnel Surgery to come on toes for bone spurs (NEOS) family history, Father: diabetes, heart surgery (unknown) Mother: deseased, dimentia Allergies: cats, dogs, pollen, grass, dust, Avelox 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[facility]) Alcohol: ocassionally Smoking: None Illicit drugs: Has medical marijuana card that she uses rarely Comprehensive labs May [address] [facility] Urinalysis mostly unremarkable Renal function electrolytes and LFTs are stable Total cholesterol 146, LDL 69, HDL 57, triglycerides 101 TSH 4.03, T4, 0.84 Hemoglobin A1c of 6.0 CBC is stable Vitamin D 26 Health Maintenance: COVID MRNA: 2 initial series Flu 2023 UTD TDAP: Unknown, thinks she got it Gyno/Pap: 2023 UTD Mammography: at [facility] in may 2024, UTD Cscope: 2019 DXA: N/a Shingrix: No Examination Category Sub-Category Detail Notes Category Not es General Examination GENERAL APPEARANCE: in no ac chilkat distress, well developed, well nourished HEAD: normocephalic, [...]
[2025-05-30 15:39] VITALS: BP 132/84; PULSE 91; O2SAT 95; BMI 23.0
--- NOTE | 2025-05-30 15:39 | MHC.OFFVIS ---
Vital Signs 05/30/25 15:39 Height 5 ft Weight 117 lb 15.157 oz BMI 23.0 BP 132/84 Blood Pressure Location Lt brachial Position Sitting Pulse 91 Pulse Source Pulse Oximeter Pulse Oximetry (%) 95 Oxygen Delivery Method Room Air Intake Visit Reasons: Nontoxic single thyroid nodule Intake Note: New patient present today for Nontoxic single thyroid nodule office visit. 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 Was having difficulty swallowing. Ultrasound with the thyroid 04/05/2025, I reviewed the images myself which showed a 0.9 cm isthmus solid hypoechoic nodule with macrocalcification. TR 4 category. Does not meet criteria for FNA. She also notably has subclinical hypothyroidism. Was started on levothyroxine for 2 days in April 2025, started having GI intolerance. Patient currently denies heat or cold intolerance,, palpitation, anxiety, weight changes, mood changes, low energy, changes in appearance of eyes or vision changes, tremors, increased diaphoresis or dry skin. ? Intermittent constipation Reports hair thinning Does endorse difficulty swallowing , for 2 years, worsening now. some hoarseness but having an asthma flare up. does complain of fullness in the neck . Patient denies any history of childhood neck radiation. Denies having ever used lithium, amiodarone or biotin supplements. Patient denies any family history of thyroid cancer . Daughter has thyroid medicine. Physical exam General: sitting comfortably in no acute distress HEENT: normocephalic/atraumatic, Neck: supple, symmetrical, Cardiac: normal heart sounds Pulm: normal breath sounds B/L, no added breath sounds Abd: not distended, no tenderness Extremities: no edema, no signs of myxedema Laboratory Tests 11/10/24 03/29/25 07:56 08:11 TSH 4.46 H 4.80 H Free T4 0.98 EXAMINATION: US THYROID 04/05/25 HISTORY: E06.9 - Thyroiditis, unspecified TECHNIQUE: Real-time grayscale ultrasound imaging was performed and images were reviewed. COMPARISON: There are no prior studies available for comparison. FINDINGS: SIZE: The right thyroid lobe measures 3.7 x 1.4 x 0.7 cm. The left thyroid lobe measures 2.9 x 0.9 x 0.8 cm. The isthmus measures 5 mm. FLOW: Flow to the gland is increased. ECHOGENICITY: The echotexture of the gland is mildly heterogeneous. NODULES: A single nodule is seen in the left isthmus as described below: Nodule #: 1 Location: Left isthmus measuring 8 x 8 x 9 mm. Shape: Wider than tall (0 points) Margins: Smooth (0 points) Echotexture: Hyperechoic (1 point) Composition: Solid (2 points) Calcifications: Macrocalcifications (1 point) Total points: 4 TIRADS: TR4: Moderately suspicious. US/US thyroid IMPRESSION: Solitary subcentimeter nodule of the left isthmus as described. [facility] Medical History (Updated 05/30/25 @ 16:11 by Genny Contreras MD) Subclinical hypothyroidism Thyroid nodule Chronic pain syndrome Chronic rhinitis Carpal tunnel syndrome on right Fibromyalgia Asthma High cholesterol Diabetes Surgical History History of colonoscopy (~05/22/17) H/O shoulder surgery Family History Father Heart problem Diabetes Mother BP (high blood pressure) Pre-diabetes Cervical cancer Social History Housing: Apartment Alcohol intake: current Alcohol intake frequency: holidays/special occasions only Patient Tobacco Use Status: Never used Tobacco e-Cigarette/Vaping Use: Never Used service: No Current occupational status: employed Cognitive needs: No Hearing needs: No Vision needs: Yes (rx glasses) Physical Exam Vital Signs: Last Vital Signs Pulse 91 05/30/25 15:39 BP 132/84 05/30/25 15:39 Pulse Ox 95 05/30/25 15:39 Oxygen Delivery Method Room Air 05/30/25 15:39 BMI result Body Mass Index 23.0 Assessment & Plan Assessment & Plan (1) Thyroid nodule: Code(s): E04.1 - Nontoxic single thyroid nodule Category: Medical Plan: 54-year-old female with no family history of thyroid cancer, with no personal history of head or neck radiation coming in today for initial evaluation of thyroid nodule. Was having difficulty swallowing. Which prompted the ultrasound. Ultrasound with the thyroid 04/05/2025, I reviewed the images myself which showed a 0.9 cm isthmus solid hypoechoic nodule with macrocalcification. TR 4 category. Does not meet criteria for FNA. I explained that it is common to have thyroid nodules. About 95% of the time these nodules are benign. However if the nodule is > 1 cm in size or suspicious on ultrasound then a fine need aspiration biopsy is recommended. We discussed that a FNAB involves 4-5 passes with a small gauge needle and material obtained is sent off for cytology.If the cytopathology is benign then the nodule will be followed annually with repeat ultrasounds. However if it is suspicious or malignant, we will need to discuss further management. Indeterminate cytology can be further investigated with repeat FNA, genetic testing or empiric lobectomy. Malignant cytology is managed with either lobectomy or total thyroidectomy. We discussed briefly that thyroid cancer is, in most patients, an indolent disease that does not affect mortality. At this time her nodule does not meet criteria for FNA. We will plan to repeat an ultrasound in 1 year. Plan: -ordered ultrasound of the thyroid to be done in April 2026 prior to follow up in May 2026 (2) Subclinical hypothyroidism: Code(s): E03.8 - Other specified hypothyroidism Category: Medical Plan: She also notably has subclinical hypothyroidism. Was started on levothyroxine for 2 days in April 2025, started having GI intolerance. Given her TSH is between 4-5, she does not meet criteria for treatment. Subclinical hypothyroidism is usually treated if patient's TSH is greater than 10 or they are having symptoms when TSH is between 6-9. Her TSH is only mildly elevated, no need for levothyroxine. She does need annual TFTs. Plan: -ordered TSH with a reflex free T4 to be done prior to follow up in 1 year Plan I spent 45 minutes in reviewing the record, seeing the patient and documenting in the medical record. Orders: Orders US thyroid 04/16/26 E04.1 - Nontoxic single thyroid nodule TSH reflex Free T4 04/16/26 E04.1 - Nontoxic single thyroid nodule Patient Instructions: Do ultrasound of the thyroid in April 2026, someone will call you to schedule this, please make sure this is done a few weeks prior to your next follow up with me in May 2026 Do thyroid blood work a few days prior to follow up , orders are in Coding Level of Care Code New Pt Level 4 (99628) Diagnoses Thyroid nodule E04.1 Subclinical hypothyroidism E03.8 Time Spent (min) 45
--- OUTSIDE RECORDS SUMMARY | 2025-05-30 16:28 | XMS_ITS | Patient Health Record ---
Author Organization [facility] Address [address] [place] [address] Care Team Providers Care Is Technician Name Role Phone WALLACE DING Unavailable [phone] Allergies Allergen (clinical drug ingredient) Drug/Non Drug Allergy documented on EMR Reaction Allergy Type Onset Date Status Pollen Pollen Swelling Allergy Active Results Component Value Reference Range Notes CR Forearm RT 2 Views Reviewed date:06/21/2024 08:18:51 AM Interpretation: Performing Lab: Notes/Report: Original Ordering Provider: WALLACE DING [facility] CR Humerus RT Min 2 Views Reviewed date:06/21/2024 08:18:51 AM Interpretation: Performing Lab: Notes/Report: Original Ordering Provider: WALLACE DING [facility] CR Shoulder RT Min 2 View Reviewed date:06/21/2024 08:18:51 AM Interpretation: Performing Lab: Notes/Report: Original Ordering Provider: WALLACE DING [facility] Reason For Referral Diagnosis 1 Asthma, unspecified asthma severity, unspecified whether complicated, unspecified whether persistent (J45.909) Referral Organization [facility] [address] Referring Provider First Name [...] day; Duration: 90 days Active Dexcom G7 [employer] 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; Durati on: 365 days [...] Status Risk Notes Problem Vitamin D deficiency (09819566) Vitamin D deficiency, unspecified (E55.9) Active confirmed Problem Chronic tension-type headache (359483527) Chronic tension-type headache, intractable (G44.221) Active confirmed Problem Fibromyalgia (648030690) Fibromyalgia (M79.7) Active confirmed Problem Weakness (77685619) Weakness (R53.1) Active con firmed Problem Pure hypercholesterolemia (739875320) Pure hypercholesterolem ia, unspecified (E78.00) Active confirmed Problem Hyperlipidaemia (06963950) Hyperlipidemia, unspecified hyperlipidemia type (E78.5) Active confirmed Problem Hypothyroidism (19517794) Hypothyroidism, unspecified type (E03.9) Active confirmed Problem Annual health maintenance examination (77948025) Annual physical exam (Z00.00) Active confirmed Problem Gastroesophageal reflux disease without esophagitis (242871095) Gastroesophageal reflux disease without esophagitis (K21.9) Active confirmed Problem Type II diabetes mellitus without complication (369992843) Type 2 diabetes mellitus without complication, without long-term current use of insulin (E11.9) Active confirmed Problem Asthma without statu s asthmaticus (29725064) Asthma, unspecified asthma severity, unspecified whether complicated, unspecified whether persistent (J45.909) Active confirmed Problem Migraine without aur a, not refractory (791350447) Other migraine without status migrainosus, not intractable (G43.809) Active confirmed Problem Pain in eye (64570427) Pain in e ye, unspecified laterality (H57.10) Active confirmed Vital Signs Heart Rate 88 /min 12/01/2024 Oximetry 99 % 12/01/2024 Blood pressure diastolic 82 mm Hg 12/01/2024 Height 60 in 12/01/2024 Blood pressure systolic 124 mm Hg 12/01/2024 Weight 115 lbs 12/01/2024 BMI 22.46 kg/m2 12/01/2024 Encounters Encounter Location Date Provider Diagnosis [facility] [address] [address] 05/30/2024 WALLACE DING Type 2 diabetes ray itus without complication, without long-term current use of insulin E11.9 ; Fibromyalgia M79.7 ; Gastroesophageal reflux disease without esophagitis K21.9 ; Pure hypercholesterolemia, unspecified E78.00 ; Vitamin D deficiency, unspecified E55.9 and Transient visual loss, left H53.122 [facility] [address] [address] 06/20/2024 WALLACE DING Type 2 diabetes ray itus without complication, without long-term current use of insulin E11.9 ; Annual physical exam Z00.00 ; Fibromyalgia M79.7 ; Gastroesophageal reflux disease without esophagitis K21.9 ; Pure hypercholesterolemia, unspecified E78.00 ; Closed fracture of nasal bone, initial encounter S02.2XXA ; Acute pain of right shoulder M25.511 and Right arm pain M79.601 [facility] [address] [facility] [address] [address] 12/01/2024 WALLACE DIGN Palpitations R00.2 a nd Abdominal bloating R14.0 [facility] [address] [address] 06/08/2024 WALLACE DING [facility] [address] [facility] [address] [address] 06/14/2024 WALLACE DING [facility] [address] [address] 07/05/2024 WALLACE DING [facility] [address] [facility] [address] [address] 08/01/2024 WALLACE DING [facility] [address] [address] 08/01/2024 WALLACE DING [facility] [address] [facility] [address] [address] 08/09/2024 WALLACE DING Pre-op exam Z01.818 [facility] [address] [facility] [address] [address] 08/12/2024 WALLACE DING [facility] [address] [address] 09/23/2024 WALLACE DING [facility] [address] [facility] [address] [address] 11/08/2024 WALLACE DING Annual physical exam Z00.00 ; Weakness R53.1 ; Vitamin D deficiency, unspecified E55.9 ; Hypothyroidism, unspecified type E03.9 ; Hyperlipidemia, unspecified hyperlipidemia type E78.5 and Type 2 diabetes mellitus without complication, without long-term current use of insulin E11.9 [facility] [address] [place] [address] 11/11/2024 WALLACE BORJANAK [facility] [address] [address] 11/16/2024 WALLACE BORHOT [facility] [address] [address] 11/30/2024 WALLACE BORHO [facility] [address] [address] 01/10/2025 WALLACE DING Encounter for immuni zation Z23 [facility] [address] [address] 06/02[facility] [address] [address] 10/10/2024 WALLACE DING Type 2 diabetes ray itus without complication, without long-term current use of insulin E11.9 and Pre-op exam Z01.818 [facility] [address] [address] 11/17/2024 WALLACE BORJANAK [facility] [address] [address] 11/29/2024 WALLACE DING Assessments Encounter Date Diagnosis (ICD Code) Assessment Notes Treatment Notes Treatment Clinical Notes Section Notes 05/30/2024 Type 2 diabetes mellitus without complication, without long-term current use of insulin (ICD-10 - E11.9) Pt here for chronic disease mgt visit/DM2 Acute Concerns/Problem List: 05/30/2024 _update labs and CPE Refer to [facility] for colonoscopy screening Diabetes management and [...] software and direct typing Please excuse inadvertent bean sorter or typing errors, or uncorrected word substitutions Although every attempt has been made by the provider to proofread this document, occasional misspellings and typographical errors may still be present Due to the previous pandemic, and the use of personal protective equipment (PPE) This may decrease voice recognition accuracy Inadvertent bean sorter errors may occur 06/20/2024 Annual physical exam (ICD-10 - Z00.00) Pt here for CPE Acute Concerns/Problem List: 06/20/2024 Will get some x-rays of the right forearm/ shoulder Discussed closed head injury nasal bone fractures Did see ENT Refer to [facility] for colonoscopy screening Diabetes management and [...] software and direct typing Please excuse inadvertent bean sorter or typing errors, or uncorrected word substitutions Although every attempt has been made by the provider to proofread this document, occasional misspellings and typographical errors may still be present Due to the previous pandemic, and the use of personal protective equipment (PPE) This may decrease voice recognition accuracy Inadvertent bean sorter errors may occur 06/20/2024 Type 2 diabetes mellitus without complication, without long-term current use of insulin (ICD-10 - E11.9) Pt here for CPE Acute Concerns/Problem List: 06/20/2024 Will get some x-rays of the right forearm/ shoulder Discussed closed head injury nasal bone fractures Did see ENT Refer to [facility] for colonoscopy screening Diabetes management and [...] software and direct typing Please excuse inadvertent bean sorter or typing errors, or uncorrected word substitutions Although every attempt has been made by the provider to proofread this document, occasional misspellings and typographical errors may still be present Due to the previous pandemic, and the use of personal protective equipment (PPE) This may decrease voice recognition accuracy Inadvertent bean sorter errors may occur 08/09/2024 Pre-op exam (ICD-10 [...] Other comprehensive labs reviewed at [facility] and were unremarkable including thyroid function Of note, some information is being carried forward from prior records for informational purposes only and is being cited so that efficiency, safety and quality of the patient's care is not compromised This note was prepared using voice recognition software and direct typing Please excuse inadvertent bean sorter or typing errors, or uncorrected word substitutions Although every attempt has been made by the provider to proofread this document, occasional misspellings and typographical errors may still be present Due to the previous pandemic, and the use of personal protective equipment (PPE) This may decrease voice recognition accuracy Inadvertent bean sorter errors may occur 12/01/2024 Abdominal bloating (ICD-10 - R14.0) Currently in NSR, says she is not presently having Palpitations. She will go for EKG today. Discussed Holter Monitor, she will be outfitted with 14 day model. She will hold PPI for two weeks, get H pylori testing due to bloating. Other comprehensive labs reviewed at [facility] and were unremarkable including thyroid function Of note, some information is being carried forward from prior records for informational purposes only and is being cited so that efficiency, safety and quality of the patient's care is not compromised This note was prepared using voice recognition software and direct typing Please excuse inadvertent bean sorter or typing errors, or uncorrected word substitutions Although every attempt has been made by the provider to proofread this document, occasional misspellings and typographical errors may still be present Due to the previous pandemic, and the use of personal protective equipment (PPE) This may decrease voice recognition accuracy Inadvertent bean sorter errors may occur 01/10/2025 Encounter for immunization (ICD-10 - Z23) 11/08/2024 Weakness (ICD-10 - R53.1) 10/10/2024 Pre-op exam (ICD-10 - Z01.818) 06/20/2024 Fibromyalgia (ICD-10 - M79.7) Pt here for CPE Acute Concerns/Problem List: 06/20/2024 Will get some x-rays of the right forearm/ shoulder Discussed closed head injury nasal bone fractures Did see ENT Refer to [facility] for colonoscopy screening Diabetes management and [...] software and direct typing Please excuse inadvertent bean sorter or typing errors, or uncorrected word substitutions Although every attempt has been made by the provider to proofread this document, occasional misspellings and typographical errors may still be present Due to the previous pandemic, and the use of personal protective equipment (PPE) This may decrease voice recognition accuracy Inadvertent bean sorter errors may occur 05/30/2024 Fibromyalgia (ICD-10 - M79.7) Pt here for chronic disease mgt visit/DM2 Acute Concerns/Problem List: 05/30/2024 _update labs and CPE Refer to [facility] for colonoscopy screening Diabetes management and [...] software and direct typing Please excuse inadvertent bean sorter or typing errors, or uncorrected word substitutions Although every attempt has been made by the provider to proofread this document, occasional misspellings and typographical errors may still be present Due to the previous pandemic, and the use of personal protective equipment (PPE) This may decrease voice recognition accuracy Inadvertent bean sorter errors may occur 06/20/2024 Gastroesophageal reflux disease without esophagitis (ICD-10 - K21.9) Pt here for CPE Acute Concerns/Problem List: 06/20/2024 Will get some x-rays of the right forearm/ shoulder Discussed closed head injury nasal bone fractures Did see ENT Refer to [facility] for colonoscopy screening Diabetes management and [...] software and direct typing Please excuse inadvertent bean sorter or typing errors, or uncorrected word substitutions Although every attempt has been made by the provider to proofread this document, occasional misspellings and typographical errors may still be present Due to the previous pandemic, and the use of personal protective equipment (PPE) This may decrease voice recognition accuracy Inadvertent bean sorter errors may occur 05/30/2024 Gastroesophageal reflux disease without esophagitis (ICD-10 - K21.9) Pt here for chronic disease mgt visit/DM2 Acute Concerns/Problem List: 05/30/2024 _update labs and CPE Refer to [facility] for colonoscopy screening Diabetes management and [...] software and direct typing Please excuse inadvertent bean sorter or typing errors, or uncorrected word substitutions Although every attempt has been made by the provider to proofread this document, occasional misspellings and typographical errors may still be present Due to the previous pandemic, and the use of personal protective equipment (PPE) This may decrease voice recognition accuracy Inadvertent bean sorter errors may occur 11/08/2024 Vitamin D deficiency, unspecified (ICD-10 - E55.9) 11/08/2024 Hypothyroidism, unspecified type (ICD-10 - E03.9) 06/20/2024 Pure hypercholesterolemi a, unspecified (ICD-10 - E78.00) Pt here for CPE Acute Concerns/Problem List: 06/20/2024 Will get some x-rays of the right forearm/ shoulder Discussed closed head injury nasal bone fractures Did see ENT Refer to [facility] for colonoscopy screening Diabetes management and [...] software and direct typing Please excuse inadvertent bean sorter or typing errors, or uncorrected word substitutions Although every attempt has been made by the provider to proofread this document, occasional misspellings and typographical errors may still be present Due to the previous pandemic, and the use of personal protective equipment (PPE) This may decrease voice recognition accuracy Inadvertent bean sorter errors may occur 05/30/2024 Pure hypercholesterolemi a, unspecified (ICD-10 - E78.00) Pt here for chronic disease mgt visit/DM2 Acute Concerns/Problem List: 05/30/2024 _update labs and CPE Refer to [facility] for colonoscopy screening Diabetes management and [...] software and direct typing Please excuse inadvertent bean sorter or typing errors, or uncorrected word substitutions Although every attempt has been made by the provider to proofread this document, occasional misspellings and typographical errors may still be present Due to the previous pandemic, and the use of personal protective equipment (PPE) This may decrease voice recognition accuracy Inadvertent bean sorter errors may occur 05/30/2024 Vitamin D deficiency, unspecified (ICD-10 - E55.9) Pt here for chronic disease mgt visit/DM2 Acute Concerns/Problem List: 05/30/2024 _update labs and CPE Refer to [facility] for colonoscopy screening Diabetes management and [...] software and direct typing Please excuse inadvertent bean sorter or typing errors, or uncorrected word substitutions Although every attempt has been made by the provider to proofread this document, occasional misspellings and typographical errors may still be present Due to the previous pandemic, and the use of personal protective equipment (PPE) This may decrease voice recognition accuracy Inadvertent bean sorter errors may occur 11/08/2024 Hyperlipidemia, unspecified hyperlipidemia type (ICD-10 - E78.5) 06/20/2024 Closed fracture of nasal bone, initial encounter (ICD-10 - S02.2XXA) Pt here for CPE Acute Concerns/Problem List: 06/20/2024 Will get some x-rays of the right forearm/ shoulder Discussed closed head injury nasal bone fractures Did see ENT Refer to [facility] for colonoscopy screening Diabetes management and [...] software and direct typing Please excuse inadvertent bean sorter or typing errors, or uncorrected word substitutions Although every attempt has been made by the provider to proofread this document, occasional misspellings and typographical errors may still be present Due to the previous pandemic, and the use of personal protective equipment (PPE) This may decrease voice recognition accuracy Inadvertent bean sorter errors may occur 11/08/2024 Type 2 diabetes mellitus without complication, without long-term current use of insulin (ICD-10 - E11.9) 06/20/2024 Acute pain of right shoulder (ICD-10 - M25.511) Pt here for CPE Acute Concerns/Problem List: 06/20/2024 Will get some x-rays of the right forearm/ shoulder Discussed closed head injury nasal bone fractures Did see ENT Refer to [facility] for colonoscopy screening Diabetes management and [...] software and direct typing Please excuse inadvertent bean sorter or typing errors, or uncorrected word substitutions Although every attempt has been made by the provider to proofread this document, occasional misspellings and typographical errors may still be present Due to the previous pandemic, and the use of personal protective equipment (PPE) This may decrease voice recognition accuracy Inadvertent bean sorter errors may occur 05/30/2024 Transient visual loss, left (ICD-10 - H53.122) Pt here for chronic disease mgt visit/DM2 Acute Concerns/Problem List: 05/30/2024 _update labs and CPE Refer to [facility] for colonoscopy screening Diabetes management and [...] software and direct typing Please excuse inadvertent bean sorter or typing errors, or uncorrected word substitutions Although every attempt has been made by the provider to proofread this document, occasional misspellings and typographical errors may still be present Due to the previous pandemic, and the use of personal protective equipment (PPE) This may decrease voice recognition accuracy Inadvertent bean sorter errors may occur 06/20/2024 Right arm pain (ICD-10 - M79.601) Pt here for CPE Acute Concerns/Problem List: 06/20/2024 Will get some x-rays of the right forearm/ shoulder Discussed closed head injury nasal bone fractures Did see ENT Refer to [facility] for colonoscopy screening Diabetes management and [...] software and direct typing Please excuse inadvertent bean sorter or typing errors, or uncorrected word substitutions Although every attempt has been made by the provider to proofread this document, occasional misspellings and typographical errors may still be present Due to the previous pandemic, and the use of personal protective equipment (PPE) This may decrease voice recognition accuracy Inadvertent bean sorter errors may occur 12/20/2024 Acute Concerns/Problem List: 12/20/2024 Currently in NSR, says she is not presently having Palpitations. She will go for EKG today. Discussed Holter Monitor, she will be outfitted with 14 day model. She will hold PPI for two weeks, get H pylori testing due to bloating. Other comprehensive labs reviewed at [facility] and were unremarkable including thyroid function Of note, some information is being carried forward from prior records for informational purposes only and is being cited so that efficiency, safety and quality of the patient's care is not compromised This note was prepared using voice recognition software and direct typing Please excuse inadvertent bean sorter or typing errors, or uncorrected word substitutions Although every attempt has been made by the provider to proofread this document, occasional misspellings and typographical errors may still be present Due to the previous pandemic, and the use of personal protective equipment (PPE) This may decrease voice recognition accuracy Inadvertent bean sorter errors may occur Plan Of Treatment Pending [...] End Date [employer] [place] [address] [address] [place] [address] [id number] PAULO LOPEZ Self - patient is the insured Medical (General) History Medical History History ICD Code high cholesterol Diabetes Asthma Headaches Fibromyalgia
--- OUTSIDE RECORDS SUMMARY | 2025-05-30 16:28 | XMS_ITS | Patient Health Record ---
Author Organization [facility] Address [address] [place] [address] Care Team Providers Care Stockroom Attendant Name Role Phone RachanaJanel pace Primary Care [...] 1 tablet as needed Orally every 6 hrs; Duration: 30 days 07/10/2023 Not-Taking Ozempic 1MG Active oxyCODONE HCl 5 MG 1 tablet as needed Orally every 6 hrs; Duration: 5 days PRN 07/10/2023 Not-Taking Ondansetron HCl 4 MG 1 tablet Orally jo ry 8 hours as needed for nausea; Duration: 10 days 07/10/2023 Not-Taking Ibuprofen 600 MG 1 tablet with food o r milk as needed Orally four times a day; Duration: 30 days 07/10/2023 Not-Taking Cetirizine HCl 10 [...] Problem Status W/U Status Risk Notes Problem Acquired hallux rigidus (5910499) Hallux rigidus, right foot (M20.21) Active confirmed Problem Acquired hallux rigidus (2751277) Hallux rigidus, left foot (M20.22) Active confirmed Problem Type II diabetes mellitus without complication (732598452) Controlled type 2 diabetes mellitus without complication, [...] Start Date Coverage End Date [facility] [address] [facility] [place] [phone] [id number] Jessica Lozano Self - patient is the [...]
== END 2025-05-30 16:09 | disposition home or self-care (01) ==
LOC: HO.ENCR 15:37
PROVIDERS: PCP Internal Medicine; Visit Provider Student in an Organized Health Care Education/Training Program
DX: E04.1 Nontoxic single thyroid nodule (principal); E03.8 Other specified hypothyroidism
CPT/HCPCS: 99204

== ENCOUNTER 2025-06-01 10:38 | Outpatient (AMB) | payer OTHER, SELFPAY ==
--- OUTSIDE RECORDS SUMMARY | 2024-12-20 11:30 | XMS_ITS ---
Author Organization [facility] [address] Address [address] [place] [address] Care Team Providers Care Assistant Professor Of Nursing Name Role Phone WALLACE DING Unavailable [phone] REASON FOR VISIT 2 week f/u, bardray holter Encounters Encounter Location Date Provider Diagnosis [facility] [address] [address] 12/20/2024 WALLACE DING Palpitations R00.2 ; Abdominal [...] to bloating. Other comprehensive labs reviewed at [facility] and were unremarkable including thyroid function Of note, some information is being carried forward from prior records for informational purposes only and is being cited so that efficiency, safety and quality of the patient's care is not compromised This note was prepared using voice recognition software and direct typing Please excuse inadvertent life skills specialist or typing errors, or uncorrected word substitutions Although every attempt has been made by the provider to proofread this document, occasional misspellings and typographical errors may still be present Due to the previous pandemic, and the use of personal protective equipment (PPE) This may decrease voice recognition accuracy Inadvertent life skills specialist errors may occur 12/20/2024 Abdominal bloating (ICD-10 - R14.0) Acute Concerns/Problem List: 12/20/2024 Currently in NSR, says she is not presently having Palpitations. She will go for EKG today. Discussed Holter Monitor, she will be outfitted with 14 day model. She will hold PPI for two weeks, get H pylori testing due to bloating. Other comprehensive labs reviewed at [facility] and were unremarkable including thyroid function Of note, some information is being carried forward from prior records for informational purposes only and is being cited so that efficiency, safety and quality of the patient's care is not compromised This note was prepared using voice recognition software and direct typing Please excuse inadvertent life skills specialist or typing errors, or uncorrected word substitutions Although every attempt has been made by the provider to proofread this document, occasional misspellings and typographical errors may still be present Due to the previous pandemic, and the use of personal protective equipment (PPE) This may decrease voice recognition accuracy Inadvertent life skills specialist errors may occur 12/20/2024 Type 2 diabetes [...] to bloating. Other comprehensive labs reviewed at [facility] and were unremarkable including thyroid function Of note, some information is being carried forward from prior records for informational purposes only and is being cited so that efficiency, safety and quality of the patient's care is not compromised This note was prepared using voice recognition software and direct typing Please excuse inadvertent life skills specialist or typing errors, or uncorrected word substitutions Although every attempt has been made by the provider to proofread this document, occasional misspellings and typographical errors may still be present Due to the previous pandemic, and the use of personal protective equipment (PPE) This may decrease voice recognition accuracy Inadvertent life skills specialist errors may occur 12/20/2024 Fibromyalgia (ICD-10 - M79.7) Acute Concerns/Problem List: 12/20/2024 Currently in NSR, says she is not presently having Palpitations. She will go for EKG today. Discussed Holter Monitor, she will be outfitted with 14 day model. She will hold PPI for two weeks, get H pylori testing due to bloating. Other comprehensive labs reviewed at [facility] and were unremarkable including thyroid function Of note, some information is being carried forward from prior records for informational purposes only and is being cited so that efficiency, safety and quality of the patient's care is not compromised This note was prepared using voice recognition software and direct typing Please excuse inadvertent life skills specialist or typing errors, or uncorrected word substitutions Although every attempt has been made by the provider to proofread this document, occasional misspellings and typographical errors may still be present Due to the previous pandemic, and the use of personal protective equipment (PPE) This may decrease voice recognition accuracy Inadvertent life skills specialist errors may occur 12/20/2024 Gastroesophageal reflux disease without esophagitis (ICD-10 - K21.9) Acute Concerns/Problem List: 12/20/2024 Currently in NSR, says she is not presently having Palpitations. She will go for EKG today. Discussed Holter Monitor, she will be outfitted with 14 day model. She will hold PPI for two weeks, get H pylori testing due to bloating. Other comprehensive labs reviewed at [facility] and were unremarkable including thyroid function Of note, some information is being carried forward from prior records for informational purposes only and is being cited so that efficiency, safety and quality of the patient's care is not compromised This note was prepared using voice recognition software and direct typing Please excuse inadvertent life skills specialist or typing errors, or uncorrected word substitutions Although every attempt has been made by the provider to proofread this document, occasional misspellings and typographical errors may still be present Due to the previous pandemic, and the use of personal protective equipment (PPE) This may decrease voice recognition accuracy Inadvertent life skills specialist errors may occur 12/20/2024 Pure hypercholesterolemi a, unspecified (ICD-10 - E78.00) Acute Concerns/Problem List: 12/20/2024 Currently in NSR, says she is not presently having Palpitations. She will go for EKG today. Discussed Holter Monitor, she will be outfitted with 14 day model. She will hold PPI for two weeks, get H pylori testing due to bloating. Other comprehensive labs reviewed at [facility] and were unremarkable including thyroid function Of note, some information is being carried forward from prior records for informational purposes only and is being cited so that efficiency, safety and quality of the patient's care is not compromised This note was prepared using voice recognition software and direct typing Please excuse inadvertent life skills specialist or typing errors, or uncorrected word substitutions Although every attempt has been made by the provider to proofread this document, occasional misspellings and typographical errors may still be present Due to the previous pandemic, and the use of personal protective equipment (PPE) This may decrease voice recognition accuracy Inadvertent life skills specialist errors may occur 12/20/2024 Other migraine without [...] to bloating. Other comprehensive labs reviewed at [facility] and were unremarkable including thyroid function Of note, some information is being carried forward from prior records for informational purposes only and is being cited so that efficiency, safety and quality of the patient's care is not compromised This note was prepared using voice recognition software and direct typing Please excuse inadvertent life skills specialist or typing errors, or uncorrected word substitutions Although every attempt has been made by the provider to proofread this document, occasional misspellings and typographical errors may still be present Due to the previous pandemic, and the use of personal protective equipment (PPE) This may decrease voice recognition accuracy Inadvertent life skills specialist errors may occur Plan Of Treatment No Information Progress Notes * PAULO LOPEZ LDOB:[birth year] (54 yo F)Acc No.[id number]:12/20/2024 Progress Notes Patient: PAULO NOLASCO Provider: Isamar DING NP :1970 A ge:54 Y S ex:Female Date:12/20/2024 Address:[address] [place], [place] [address] [place] Subjective: * Chief Complaints: * 1 . 2 week f/u, shanice mccann. * HPI: C onstitutional: Patient is here today for a Chronic Disease Management Follow-up Visit Full past medical history, social history, family history, allergies and current medications were reviewed and updated. Acute Concerns/Problem List: 12/20/2024 labs were 2024, [facility] CBC is stable Hemoglobin A1c of 6.0 [...] Hypercholesteremia, GERD, REGINA Was previously followed by instructor robot[employer] Erika, [address] [place] [address] She is off her sulfonylurea, now on Farxiga 10mg/as well as metformin 500mg BID pt educated to continue to use CGM/Dexcom Diabetic Eye exam: 2023, at [facility], Normal Neurological symptoms have essentially resolved She did see neurologist at [facility] MRI of the brain w/o January 2024 Unremarkable Surgical history: Bone spurs on both shoulders removed, carpel tunnel Surgery to come on toes for bone spurs (NEOS) family history, Father: diabetes, heart surgery (unknown) Mother: deseased, dimentia Allergies: cats, dogs, pollen, grass, dust, Avelox 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 Urinalysis mostly unremarkable Renal function electrolytes and LFTs are stable Total cholesterol 146, LDL 69, HDL 57, triglycerides 101 TSH 4.03, T4, 0.84 Hemoglobin A1c of 6.0 CBC is stable Vitamin D 26 Health Maintenance: COVID MRNA: 2 initial series Flu 2023 UTD TDAP: Unknown, thinks she got it Gyno/Pap: 2023 UTD Mammography: at [facility] in may 2024, UTD Cscope: 2019 [...] to bloating. Other comprehensive labs reviewed at [facility] and were unremarkable including thyroid function Of note, some information is being carried forward from prior records for informational purposes only and is being cited so that efficiency, safety and quality of the patient's care is not compromised This note was prepared using voice recognition software and direct typing Please excuse inadvertent life skills specialist or typing errors, or uncorrected word substitutions Although every attempt has been made by the provider to proofread this document, occasional misspellings and typographical errors may still be present Due to the previous pandemic, and the use of personal protective equipment (PPE) This may decrease voice recognition accuracy Inadvertent life skills specialist errors may occur. Plan: * Treatment: * Images: Billing Information: * Visit Code: * Procedure Codes: Care Plan Details* * Electronic signature of VITA DING on 06/01/2025 at 11:59 AM EDT Sign off status: Pending * Provider: Isamar DING NP Date: 0 12/20/2024 Generated for Ana stephenson/Rose/Mamadou on: 0 06/01/2025 11:59 AM EDT History and Physical Notes * HPI (History of Present Illness) Category Sub-Category Detail Notes Category Not es Constitutional Patient is here today for a Chronic Disease Management Follow-up Visit Full past medical history, social history, family history, allergies and current medications were reviewed and updated. Acute Concerns/Problem List: 12/20/2024 labs were 2024, [facility] CBC is stable Hemoglobin A1c of 6.0 [...] Hypercholesteremia, GERD, REGINA Was previously followed by instructor [employer] Erika, [address] [place] [address] She is off her sulfonylurea, now on Farxiga 10mg/as well as metformin 500mg BID pt educated to continue to use CGM/Dexcom Diabetic Eye exam: 2023, at [facility], Normal Neurological symptoms have essentially resolved She did see neurologist at [facility] MRI of the brain w/o January 2024 Unremarkable Surgical history: Bone spurs on both shoulders removed, carpel tunnel Surgery to come on toes for bone spurs (NEOS) family history, Father: diabetes, heart surgery (unknown) Mother: deseased, dimentia Allergies: cats, dogs, pollen, grass, dust, Avelox 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 Urinalysis mostly unremarkable Renal function electrolytes and LFTs are stable Total cholesterol 146, LDL 69, HDL 57, triglycerides 101 TSH 4.03, T4, 0.84 Hemoglobin A1c of 6.0 CBC is stable Vitamin D 26 Health Maintenance: COVID MRNA: 2 initial series Flu 2023 UTD TDAP: Unknown, thinks she got it Gyno/Pap: 2023 UTD Mammography: at [facility] in may 2024, UTD Cscope: 2019 DXA: N/a Shingrix: No Examination Category Sub-Category Detail Notes Category Not es General Examination GENERAL APPEARANCE: in no ac [place] distress, well developed, well nourished HEAD: normocephalic, [...]
--- NOTE | 2025-06-01 10:49 | MHC.OFFVIS ---
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 Initially she had asthma as a child in his settled then came back later on in life. She has been followed closely by [facility] pulmonary for some time but is difficult for her to get there. She typically has a couple flare-ups during the year. The last time was back in late winter or early spring. She was prescribed prednisone which did not take take it because it increases her blood sugars and she has diabetes. Currently on a GLP 1 inhibitor. The patient does have a rescue inhaler. She is currently not on a maintenance inhaler. She does not want to be on inhaler all the time. Although, she does have some wheezing rhonchi on exam therefore she does need some type of maintenance medication. The patient also has underlying allergies. She is allergic to cats and she does have a cat at home. She does take Zyrtec. She has never taking Singulair. Will try to maximize her allergy therapy by adding Singulair. She should also be on maintenance inhaler therefore while Symbicort. The patient should have pulmonary function studies and also chest x-ray and will follow-up in a few months. In regards of her obstructive sleep apnea. We did talk about positional therapy specially since she did not have any significant sleep apneas when sleeping her side. Once she gets situated with her positional therapy will discuss if we should be repeating sleep study. Will discuss that further during the next visit. If she has any issues prior to that she will call for an earlier assessment. 06/01/2025 The patient is here for a sick visit. Has been sick with her asthma for about 10 days. +sick contacts. Start Prednisone and amoxicillin, but no better. Significant wheezing. Needs a nebulizer machine. Provided a treatment in the office with xopenex and provided a nebulizer for her home too. Has significant wheezing, but also has DM. Therefore, will give 62.5mg Solumedrol IM and a lower dose of prednisone. She will monitor her BS. I did review her CXR from today, no pneumonia. [facility] Medical History (Updated 06/01/25 @ 21:46 by José Miguel Ayon MD) Subclinical hypothyroidism Thyroid nodule Chronic pain syndrome Chronic rhinitis Carpal tunnel syndrome on right Fibromyalgia Asthma High cholesterol Diabetes Surgical History History of colonoscopy (~05/22/17) H/O shoulder surgery Family History Father Heart problem Diabetes Mother BP (high blood pressure) Pre-diabetes Cervical cancer Social History Housing: Apartment Alcohol intake: current Alcohol intake frequency: holidays/special occasions only Patient Tobacco Use Status: Never used Tobacco e-Cigarette/Vaping Use: Never Used service: No Current occupational status: employed Cognitive needs: No Hearing needs: No Vision needs: Yes (rx glasses) Review of Systems Const Reports daytime sleepiness, Reports fatigue and Reports snoring Eyes Reports no additional complaints ENT Reports nasal congestion Card Denies chest pain and Reports dyspnea on exertion Resp Reports chest congestion, Reports cough, Reports dyspnea on exertion, Reports snoring and Reports wheezing GI Reports no additional complaints Skin/Breast Reports system reviewed and no additional complaints, except as documented Endo Reports fatigue Emanuel/Lymph Reports no additional complaints Aller/Immun Reports wheezing Physical Exam Vital Signs: Last Vital Signs Pulse 92 06/01/25 10:50 BP 140/70 H 06/01/25 10:50 Pulse Ox 98 06/01/25 10:50 Oxygen Delivery Method Room Air 06/01/25 10:50 BMI result Body Mass Index 23.2 Const General: comfortable HEENT General nose exam: Abnormal mucous membranes and turbinates present Neck Neck: Yes supple Chest Chest palpation & inspection: normal inspection of the chest Resp Effort & Inspection: normal respiratory effort Auscultation: rhonchi, wheezes and diminished lung sounds Cardio Heart sounds: S1 normal heart sound present and S2 normal heart sound present GI Palpation (GI): Soft to palpation Skin General skin exam: no rashes or lesions noted Extrem General: Yes no clubbing, cyanosis or edema Office Meds methylprednisolone sod suc(PF) 125 mg/2 mL solution for injection Performing Provider: José Miguel Ayon MD Performing Location: [facility] [place] Pulmonology Services Administered by: Dahiana Zabala LPN on 06/01/25 11:43 Dose Route Admin Location Dispensed Lot Number Expiration Date [employer] 62.5 mg IM right buttock 1 ea [id number] 10/04/26 9283-2723-78 [employer] [place] [employer] Total Dispensed Waste 1 ea 0 % Comments: Given 62.5mg (1Ml) and 1Ml wasted. Assessment & Plan Assessment & Plan (1) Asthma: Code(s): J45.909 - Unspecified asthma, uncomplicated Category: Medical Qualifiers: Asthma complication type: with acute exacerbation Asthma persistence: persistent Asthma severity: moderate Qualified Code(s): J45.41 - Moderate persistent asthma with (acute) exacerbation (2) Obstructive sleep apnea: Comment: AHI 9/hr, O2 jose 81% Code(s): G47.33 - Obstructive sleep apnea (adult) (pediatric) Category: Medical (3) Chronic rhinitis: Code(s): J31.0 - Chronic rhinitis Category: Medical Plan Solumedrol 62.5mg IM x 1 Prednisone taper doxycycline nebulizer provided ([employer]) Singulair Symbicort continue antihitamine therapy GALILEA as needed positional sleep therapy PFTs when better consider repeating PSG F/U 2-3 months Orders: Orders XR chest 2V Today J45.40 - Moderate persistent asthma, uncomplicated AMB Methylprednisolone Sod Succ Injection Today J45.40 - Moderate persistent asthma, uncomplicated Medications: New doxycycline hyclate 100 mg PO BID 20 caps 0RF 10 days prednisone PO daily; Take 2 tabs daily x 5 days, then 1 tablet daily x 5 days 15 tabs 0RF 10 days Coding Level of Care Code Est Pt Level 4 (32554) Diagnoses Moderate persistent asthma with acute exacerbation J45.41 Asthma complication type: with acute exacerbation Asthma persistence: persistent Asthma severity: moderate Obstructive sleep apnea G47.33 Chronic rhinitis J31.0 Time Spent (min) 17
[2025-06-01 10:50] VITALS: BP 140/70; PULSE 92; O2SAT 98; BMI 23.2
--- OUTSIDE RECORDS SUMMARY | 2025-06-01 11:59 | XMS_ITS | Patient Health Record ---
Author Organization [facility] Address [address] [place] [address] Care Team Providers Care Thin Film Technician Name Role Phone RachanaJanel pace Primary Care [...] Status Risk Notes Problem Acquired hallux rigidus (8089086) Hallux rigidus, right foot (M20.21) Active confirmed Problem Acquired hallux rigidus (9134458) Hallux rigidus, left foot (M20.22) Active confirmed Problem Type II diabetes mellitus without complication (971430683) Controlled type 2 diabetes mellitus without complication, [...] Coverage Start Date Coverage End Date [facility] [address] [facility] [place] [phone] [id number] Jessica Lozano Self - patient is the [...]
--- OUTSIDE RECORDS SUMMARY | 2025-06-01 11:59 | XMS_ITS | Patient Health Record ---
Author Organization [facility] Address [address] [place] [address] Care Team Providers Care Agricultural Research Technologist Name Role Phone WALLACE DING Unavailable [phone] Allergies Allergen (clinical drug ingredient) Drug/Non Drug Allergy documented on EMR Reaction Allergy Type Onset Date Status Pollen Pollen Swelling Allergy Active Results Component Value Reference Range Notes CR Forearm RT 2 Views Reviewed date:06/21/2024 08:18:51 AM Interpretation: Performing Lab: Notes/Report: Original Ordering Provider: WALLACE DING [facility] CR Humerus RT Min 2 Views Reviewed date:06/21/2024 08:18:51 AM Interpretation: Performing Lab: Notes/Report: Original Ordering Provider: WALLACE DING [facility] CR Shoulder RT Min 2 View Reviewed date:06/21/2024 08:18:51 AM Interpretation: Performing Lab: Notes/Report: Original Ordering Provider: WALLACE DING [facility] Reason For Referral Diagnosis 1 Asthma, unspecified asthma severity, unspecified whether complicated, unspecified whether persistent (J45.909) Referral Organization [facility] [address] Referring Provider First [...] day; Duration: 90 days Active Dexcom G7 Guest Relations Associate - as directed; Durati on: 365 days [...] Status Risk Notes Problem Vitamin D deficiency (55052446) Vitamin D deficiency, unspecified (E55.9) Active confirmed Problem Chronic tension-type headache (608697947) Chronic tension-type headache, intractable (G44.221) Active confirmed Problem Fibromyalgia (053633566) Fibromyalgia (M79.7) Active confirmed Problem Weakness (25443069) Weakness (R53.1) Active con firmed Problem Pure hypercholesterolemia (867682404) Pure hypercholesterolem ia, unspecified (E78.00) Active confirmed Problem Hyperlipidaemia (40759600) Hyperlipidemia, unspecified hyperlipidemia type (E78.5) Active confirmed Problem Hypothyroidism (15655917) Hypothyroidism, unspecified type (E03.9) Active confirmed Problem Annual health maintenance examination (55860487) Annual physical exam (Z00.00) Active confirmed Problem Gastroesophageal reflux disease without esophagitis (285584969) Gastroesophageal reflux disease without esophagitis (K21.9) Active confirmed Problem Type II diabetes mellitus without complication (334370380) Type 2 diabetes mellitus without complication, without long-term current use of insulin (E11.9) Active confirmed Problem Asthma without statu s asthmaticus (73733883) Asthma, unspecified asthma severity, unspecified whether complicated, unspecified whether persistent (J45.909) Active confirmed Problem Migraine without aur a, not refractory (420259277) Other migraine without status migrainosus, not intractable (G43.809) Active confirmed Problem Pain in eye (54246057) Pain in e ye, unspecified laterality (H57.10) Active confirmed Vital Signs Heart Rate 88 /min 12/01/2024 Oximetry 99 % 12/01/2024 Blood pressure diastolic 82 mm Hg 12/01/2024 Height 60 in 12/01/2024 Blood pressure systolic 124 mm Hg 12/01/2024 Weight 115 lbs 12/01/2024 BMI 22.46 kg/m2 12/01/2024 Encounters Encounter Location Date Provider Diagnosis [facility] [address] [address] 06/20/2024 WALLACE DING Type 2 diabetes ray itus without complication, without long-term current use of insulin E11.9 ; Annual physical exam Z00.00 ; Fibromyalgia M79.7 ; Gastroesophageal reflux disease without esophagitis K21.9 ; Pure hypercholesterolemia, unspecified E78.00 ; Closed fracture of nasal bone, initial encounter S02.2XXA ; Acute pain of right shoulder M25.511 and Right arm pain M79.601 [facility] [address] [facility] [address] [place] [address] 12/01/2024 WALLACEYOANA DING Palpitations R00.2 a nd Abdominal bloating R14.0 [facility] [address] [place] [address] 06/08/2024 WALLACE BORHOT [facility] [address] [address] 06/14/2024 WALLACE BORHOT [facility] [address] [place] [address] 07/05/2024 W[place]ACE BORHOT [facility] [address] [address] 08/01/2024 W[place]ACE BORHOT [facility] [address] [address] 08/01/2024 W[facility]ACE BORHOT [facility] [address] [facility] [address] [address] 08/09/2024 WALLACE DING Pre-op exam Z01.818 [facility] [address] [address] 08/12/2024 WALLACE BORHOT [facility] [address] [address] 09/23/2024 WALLACE BORHOT [facility] [address] [facility] [address] [address] 11/08/2024 WALLACE DING Annual physical exam Z00.00 ; Weakness R53.1 ; Vitamin D deficiency, unspecified E55.9 ; Hypothyroidism, unspecified type E03.9 ; Hyperlipidemia, unspecified hyperlipidemia type E78.5 and Type 2 diabetes mellitus without complication, without long-term current use of insulin E11.9 [facility] [address] [address] 11/11/2024 WALLACE BORHOT [facility] [address] [address] 11/16/2024 WALLACE BORHOT [facility] [address] [facility] [address] [address] 11/30/2024 WALLACE BORHOT [facility] [address] [facility] [address] 01/10/2025 WALLACE DING Encounter for immuni zation Z23 [facility] [address] 06/02/2024 WALLACE DING [facility] [address] [address] 10/10/2024 WALLACE DING Type 2 diabetes ray itus without complication, without long-term current use of insulin E11.9 and Pre-op exam Z01.818 [facility] [address] 11/17/2024 WALLACE DING [facility] [address] 11/29/2024 WALLACE DING Assessments Encounter Date Diagnosis (ICD Code) Assessment Notes Treatment Notes Treatment Clinical Notes Section Notes 06/20/2024 Annual physical exam (ICD-10 - Z00.00) Pt here for CPE Acute Concerns/Problem List: 06/20/2024 Will get some x-rays of the right forearm/ shoulder Discussed closed head injury nasal bone fractures Did see ENT Refer to [facility] for colonoscopy screening Diabetes management and [...] software and direct typing Please excuse inadvertent crystal inspector or typing errors, or uncorrected word substitutions Although every attempt has been made by the provider to proofread this document, occasional misspellings and typographical errors may still be present Due to the previous pandemic, and the use of personal protective equipment (PPE) This may decrease voice recognition accuracy Inadvertent crystal inspector errors may occur 06/20/2024 Type 2 diabetes mellitus without complication, without long-term current use of insulin (ICD-10 - E11.9) Pt here for CPE Acute Concerns/Problem List: 06/20/2024 Will get some x-rays of the right forearm/ shoulder Discussed closed head injury nasal bone fractures Did see ENT Refer to [facility] for colonoscopy screening Diabetes management and [...] software and direct typing Please excuse inadvertent crystal inspector or typing errors, or uncorrected word substitutions Although every attempt has been made by the provider to proofread this document, occasional misspellings and typographical errors may still be present Due to the previous pandemic, and the use of personal protective equipment (PPE) This may decrease voice recognition accuracy Inadvertent crystal inspector errors may occur 08/09/2024 Pre-op exam (ICD-10 [...] to bloating. Other comprehensive labs reviewed at [facility] and were unremarkable including thyroid function Of note, some information is being carried forward from prior records for informational purposes only and is being cited so that efficiency, safety and quality of the patient's care is not compromised This note was prepared using voice recognition software and direct typing Please excuse inadvertent crystal inspector or typing errors, or uncorrected word substitutions Although every attempt has been made by the provider to proofread this document, occasional misspellings and typographical errors may still be present Due to the previous pandemic, and the use of personal protective equipment (PPE) This may decrease voice recognition accuracy Inadvertent crystal inspector errors may occur 12/01/2024 Abdominal bloating (ICD-10 - R14.0) Currently in NSR, says she is not presently having Palpitations. She will go for EKG today. Discussed Holter Monitor, she will be outfitted with 14 day model. She will hold PPI for two weeks, get H pylori testing due to bloating. Other comprehensive labs reviewed at [facility] and were unremarkable including thyroid function Of note, some information is being carried forward from prior records for informational purposes only and is being cited so that efficiency, safety and quality of the patient's care is not compromised This note was prepared using voice recognition software and direct typing Please excuse inadvertent crystal inspector or typing errors, or uncorrected word substitutions Although every attempt has been made by the provider to proofread this document, occasional misspellings and typographical errors may still be present Due to the previous pandemic, and the use of personal protective equipment (PPE) This may decrease voice recognition accuracy Inadvertent crystal inspector errors may occur 01/10/2025 Encounter for immunization (ICD-10 - Z23) 11/08/2024 Weakness (ICD-10 - R53.1) 10/10/2024 Pre-op exam (ICD-10 - Z01.818) 06/20/2024 Fibromyalgia (ICD-10 - M79.7) Pt here for CPE Acute Concerns/Problem List: 06/20/2024 Will get some x-rays of the right forearm/ shoulder Discussed closed head injury nasal bone fractures Did see ENT Refer to [facility] for colonoscopy screening Diabetes management and [...] software and direct typing Please excuse inadvertent crystal inspector or typing errors, or uncorrected word substitutions Although every attempt has been made by the provider to proofread this document, occasional misspellings and typographical errors may still be present Due to the previous pandemic, and the use of personal protective equipment (PPE) This may decrease voice recognition accuracy Inadvertent crystal inspector errors may occur 06/20/2024 Gastroesophageal reflux disease without esophagitis (ICD-10 - K21.9) Pt here for CPE Acute Concerns/Problem List: 06/20/2024 Will get some x-rays of the right forearm/ shoulder Discussed closed head injury nasal bone fractures Did see ENT Refer to [facility] for colonoscopy screening Diabetes management and [...] software and direct typing Please excuse inadvertent crystal inspector or typing errors, or uncorrected word substitutions Although every attempt has been made by the provider to proofread this document, occasional misspellings and typographical errors may still be present Due to the previous pandemic, and the use of personal protective equipment (PPE) This may decrease voice recognition accuracy Inadvertent crystal inspector errors may occur 11/08/2024 Vitamin D deficiency, unspecified (ICD-10 - E55.9) 11/08/2024 Hypothyroidism, unspecified type (ICD-10 - E03.9) 06/20/2024 Pure hypercholesterolemi a, unspecified (ICD-10 - E78.00) Pt here for CPE Acute Concerns/Problem List: 06/20/2024 Will get some x-rays of the right forearm/ shoulder Discussed closed head injury nasal bone fractures Did see ENT Refer to [facility] for colonoscopy screening Diabetes management and [...] software and direct typing Please excuse inadvertent crystal inspector or typing errors, or uncorrected word substitutions Although every attempt has been made by the provider to proofread this document, occasional misspellings and typographical errors may still be present Due to the previous pandemic, and the use of personal protective equipment (PPE) This may decrease voice recognition accuracy Inadvertent crystal inspector errors may occur 11/08/2024 Hyperlipidemia, unspecified hyperlipidemia type (ICD-10 - E78.5) 06/20/2024 Closed fracture of nasal bone, initial encounter (ICD-10 - S02.2XXA) Pt here for CPE Acute Concerns/Problem List: 06/20/2024 Will get some x-rays of the right forearm/ shoulder Discussed closed head injury nasal bone fractures Did see ENT Refer to [facility] for colonoscopy screening Diabetes management and [...] software and direct typing Please excuse inadvertent crystal inspector or typing errors, or uncorrected word substitutions Although every attempt has been made by the provider to proofread this document, occasional misspellings and typographical errors may still be present Due to the previous pandemic, and the use of personal protective equipment (PPE) This may decrease voice recognition accuracy Inadvertent crystal inspector errors may occur 11/08/2024 Type 2 diabetes mellitus without complication, without long-term current use of insulin (ICD-10 - E11.9) 06/20/2024 Acute pain of right shoulder (ICD-10 - M25.511) Pt here for CPE Acute Concerns/Problem List: 06/20/2024 Will get some x-rays of the right forearm/ shoulder Discussed closed head injury nasal bone fractures Did see ENT Refer to [facility] for colonoscopy screening Diabetes management and [...] software and direct typing Please excuse inadvertent crystal inspector or typing errors, or uncorrected word substitutions Although every attempt has been made by the provider to proofread this document, occasional misspellings and typographical errors may still be present Due to the previous pandemic, and the use of personal protective equipment (PPE) This may decrease voice recognition accuracy Inadvertent crystal inspector errors may occur 06/20/2024 Right arm pain (ICD-10 - M79.601) Pt here for CPE Acute Concerns/Problem List: 06/20/2024 Will get some x-rays of the right forearm/ shoulder Discussed closed head injury nasal bone fractures Did see ENT Refer to [facility] for colonoscopy screening Diabetes management and [...] software and direct typing Please excuse inadvertent crystal inspector or typing errors, or uncorrected word substitutions Although every attempt has been made by the provider to proofread this document, occasional misspellings and typographical errors may still be present Due to the previous pandemic, and the use of personal protective equipment (PPE) This may decrease voice recognition accuracy Inadvertent crystal inspector errors may occur 12/20/2024 Acute Concerns/Problem List: 12/20/2024 Currently in NSR, says she is not presently having Palpitations. She will go for EKG today. Discussed Holter Monitor, she will be outfitted with 14 day model. She will hold PPI for two weeks, get H pylori testing due to bloating. Other comprehensive labs reviewed at [facility] and were unremarkable including thyroid function Of note, some information is being carried forward from prior records for informational purposes only and is being cited so that efficiency, safety and quality of the patient's care is not compromised This note was prepared using voice recognition software and direct typing Please excuse inadvertent crystal inspector or typing errors, or uncorrected word substitutions Although every attempt has been made by the provider to proofread this document, occasional misspellings and typographical errors may still be present Due to the previous pandemic, and the use of personal protective equipment (PPE) This may decrease voice recognition accuracy Inadvertent crystal inspector errors may occur Plan Of Treatment Pending [...] End Date [employer] [place] [address] [address] [place] [address] [id number] PAULO LOPEZ Self - patient is the insured Medical (General) History Medical History History ICD Code high cholesterol Diabetes Asthma Headaches Fibromyalgia
== END 2025-06-01 11:48 | disposition home or self-care (01) ==
LOC: HO.HPS 10:39
PROVIDERS: PCP Internal Medicine; Visit Provider Hospitalist
DX: J45.41 Moderate persistent asthma with (acute) exacerbation (principal); G47.33 Obstructive sleep apnea (adult) (pediatric); J31.0 Chronic rhinitis; J45.40 Moderate persistent asthma, uncomplicated
CPT/HCPCS: 99214

== ENCOUNTER 2025-06-01 10:38 | Outpatient (REF) | payer OTHER, SELFPAY ==
--- NOTE | ~2025-06-01 | XR_ITS ---
EXAMINATION: XR CHEST CLINICAL INFORMATION: J45.40 - Moderate persistent asthma, uncomplicated COMPARISON: 03/16/2025. TECHNIQUE: 2 views of the chest were obtained. FINDINGS: The cardiac, hilar, and mediastinal contours are normal. The lungs are clear bilaterally. There is no pneumothorax or pleural effusion. There is no focal osseous or soft tissue abnormality. XR/XR chest 2V IMPRESSION: No active pulmonary disease. Electronically signed by: Shahid Diego MD 06/01/2025 12:41 PM EDT
== END 2025-06-01 10:39 | disposition home or self-care (01) ==
LOC: HO.XRAY 10:38
PROVIDERS: PCP Internal Medicine; Visit Provider Hospitalist
DX: J45.41 Moderate persistent asthma with (acute) exacerbation (principal); G47.33 Obstructive sleep apnea (adult) (pediatric); J31.0 Chronic rhinitis
CPT/HCPCS: 71046; 96372

== ENCOUNTER → 2025-06-01 11:51 | Outpatient (BNV) | payer OTHER, SELFPAY | PROVIDERS: PCP Internal Medicine; Visit Provider Radiology Diagnostic Radiology | DX: J45.40 Moderate persistent asthma, uncomplicated (principal) | CPT/HCPCS: 71046 ==

== ENCOUNTER → 2025-06-08 08:50 | Outpatient (BNV) | payer OTHER, SELFPAY | PROVIDERS: PCP Internal Medicine; Visit Provider Radiology Diagnostic Radiology | DX: R06.02 Shortness of breath (principal) | CPT/HCPCS: 71045 ==

== ENCOUNTER 2025-06-08 09:09 | Emergency (ER) | payer OTHER, SELFPAY ==
--- OUTSIDE RECORDS SUMMARY | 2024-12-20 11:30 | XMS_ITS ---
Author Organization [facility] [address] Address [address] [place] [address] Care Team Providers Care Pedigree Tracer Name Role Phone WALLACE DING Unavailable [phone] REASON FOR VISIT 2 week f/u, bardray holter Encounters Encounter Location Date Provider Diagnosis [facility] [address] [address] 12/20/2024 WALLACE DING Palpitations R00.2 ; Abdominal [...] bloating. Other comprehensive labs reviewed at [facility] and were unremarkable including thyroid function Of note, some information is being carried forward from prior records for informational purposes only and is being cited so that efficiency, safety and quality of the patient's care is not compromised This note was prepared using voice recognition software and direct typing Please excuse inadvertent mold presser or typing errors, or uncorrected word substitutions Although every attempt has been made by the provider to proofread this document, occasional misspellings and typographical errors may still be present Due to the previous pandemic, and the use of personal protective equipment (PPE) This may decrease voice recognition accuracy Inadvertent mold presser errors may occur 12/20/2024 Abdominal bloating (ICD-10 - R14.0) Acute Concerns/Problem List: 12/20/2024 Currently in NSR, says she is not presently having Palpitations. She will go for EKG today. Discussed Holter Monitor, she will be outfitted with 14 day model. She will hold PPI for two weeks, get H pylori testing due to bloating. Other comprehensive labs reviewed at [facility] and were unremarkable including thyroid function Of note, some information is being carried forward from prior records for informational purposes only and is being cited so that efficiency, safety and quality of the patient's care is not compromised This note was prepared using voice recognition software and direct typing Please excuse inadvertent mold presser or typing errors, or uncorrected word substitutions Although every attempt has been made by the provider to proofread this document, occasional misspellings and typographical errors may still be present Due to the previous pandemic, and the use of personal protective equipment (PPE) This may decrease voice recognition accuracy Inadvertent mold presser errors may occur 12/20/2024 Type 2 diabetes [...] bloating. Other comprehensive labs reviewed at [facility] and were unremarkable including thyroid function Of note, some information is being carried forward from prior records for informational purposes only and is being cited so that efficiency, safety and quality of the patient's care is not compromised This note was prepared using voice recognition software and direct typing Please excuse inadvertent mold presser or typing errors, or uncorrected word substitutions Although every attempt has been made by the provider to proofread this document, occasional misspellings and typographical errors may still be present Due to the previous pandemic, and the use of personal protective equipment (PPE) This may decrease voice recognition accuracy Inadvertent mold presser errors may occur 12/20/2024 Fibromyalgia (ICD-10 - M79.7) Acute Concerns/Problem List: 12/20/2024 Currently in NSR, says she is not presently having Palpitations. She will go for EKG today. Discussed Holter Monitor, she will be outfitted with 14 day model. She will hold PPI for two weeks, get H pylori testing due to bloating. Other comprehensive labs reviewed at [facility] and were unremarkable including thyroid function Of note, some information is being carried forward from prior records for informational purposes only and is being cited so that efficiency, safety and quality of the patient's care is not compromised This note was prepared using voice recognition software and direct typing Please excuse inadvertent mold presser or typing errors, or uncorrected word substitutions Although every attempt has been made by the provider to proofread this document, occasional misspellings and typographical errors may still be present Due to the previous pandemic, and the use of personal protective equipment (PPE) This may decrease voice recognition accuracy Inadvertent mold presser errors may occur 12/20/2024 Gastroesophageal reflux disease without esophagitis (ICD-10 - K21.9) Acute Concerns/Problem List: 12/20/2024 Currently in NSR, says she is not presently having Palpitations. She will go for EKG today. Discussed Holter Monitor, she will be outfitted with 14 day model. She will hold PPI for two weeks, get H pylori testing due to bloating. Other comprehensive labs reviewed at [facility] and were unremarkable including thyroid function Of note, some information is being carried forward from prior records for informational purposes only and is being cited so that efficiency, safety and quality of the patient's care is not compromised This note was prepared using voice recognition software and direct typing Please excuse inadvertent mold presser or typing errors, or uncorrected word substitutions Although every attempt has been made by the provider to proofread this document, occasional misspellings and typographical errors may still be present Due to the previous pandemic, and the use of personal protective equipment (PPE) This may decrease voice recognition accuracy Inadvertent mold presser errors may occur 12/20/2024 Pure hypercholesterolemi a, unspecified (ICD-10 - E78.00) Acute Concerns/Problem List: 12/20/2024 Currently in NSR, says she is not presently having Palpitations. She will go for EKG today. Discussed Holter Monitor, she will be outfitted with 14 day model. She will hold PPI for two weeks, get H pylori testing due to bloating. Other comprehensive labs reviewed at [facility] and were unremarkable including thyroid function Of note, some information is being carried forward from prior records for informational purposes only and is being cited so that efficiency, safety and quality of the patient's care is not compromised This note was prepared using voice recognition software and direct typing Please excuse inadvertent mold presser or typing errors, or uncorrected word substitutions Although every attempt has been made by the provider to proofread this document, occasional misspellings and typographical errors may still be present Due to the previous pandemic, and the use of personal protective equipment (PPE) This may decrease voice recognition accuracy Inadvertent mold presser errors may occur 12/20/2024 Other migraine without [...] bloating. Other comprehensive labs reviewed at [facility] and were unremarkable including thyroid function Of note, some information is being carried forward from prior records for informational purposes only and is being cited so that efficiency, safety and quality of the patient's care is not compromised This note was prepared using voice recognition software and direct typing Please excuse inadvertent mold presser or typing errors, or uncorrected word substitutions Although every attempt has been made by the provider to proofread this document, occasional misspellings and typographical errors may still be present Due to the previous pandemic, and the use of personal protective equipment (PPE) This may decrease voice recognition accuracy Inadvertent mold presser errors may occur Plan Of Treatment No Information Progress Notes * PAULO LOPEZ LDOB:[birth year] (55 yo F)Acc No.[id number]:12/20/2024 Progress Notes Patient: PAULO NOLASCO Provider: Isamar DING NP :[id number] A ge:54 Y S ex:Female Date:12/20/2024 Address:[address] [place], [place] [address], [id number] Subjective: * Chief Complaints: * 1 . 2 week f/u, shanice mccann. * HPI: C onstitutional: Patient is here today for a Chronic Disease Management Follow-up Visit Full past medical history, social history, family history, allergies and current medications were reviewed and updated. Acute Concerns/Problem List: 12/20/2024 labs were 2024, [facility] CBC is stable Hemoglobin A1c of [...] Hypercholesteremia, GERD, REGINA Was previously followed by web sizer Erika, [address] [place] [address] She is off her sulfonylurea, now on Farxiga 10mg/as well as metformin 500mg BID pt educated to continue to use CGM/Dexcom Diabetic Eye exam: 2023, at [facility], Normal Neurological symptoms have essentially resolved She did see neurologist [place] [facility] w/o January 2024 Unremarkable Surgical history: Bone spurs on both shoulders removed, carpel tunnel Surgery to come on toes for bone spurs (NEOS) family history, Father: diabetes, heart surgery (unknown) Mother: deseased, dimentia Allergies: cats, dogs, pollen, grass, dust, Avelox 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 Other comprehensive labs reviewed at [facility] and were unremarkable including thyroid function Of note, some information is being carried forward from prior records for informational purposes only and is being cited so that efficiency, safety and quality of the patient's care is not compromised This note was prepared using voice recognition software and direct typing Please excuse inadvertent mold presser or typing errors, or uncorrected word substitutions Although every attempt has been made by the provider to proofread this document, occasional misspellings and typographical errors may still be present Due to the previous pandemic, and the use of personal protective equipment (PPE) This may decrease voice recognition accuracy Inadvertent mold presser errors may occur. Plan: * Treatment: * Images: Billing Information: * Visit Code: * Procedure Codes: Care Plan Details* * Electronic signature of VITA DING on 06/08/2025 at 11:17 AM EDT Sign off status: Pending * Provider: Isamar DING NP Date: 0 12/20/2024 Generated for Ana stephenson/Rose/Mamadou on: 0 06/08/2025 11:17 AM EDT History and Physical Notes * HPI (History of Present Illness) Category Sub-Category Detail Notes Category Not es Constitutional Patient is here today for a Chronic Disease Management Follow-up Visit Full past medical history, social history, family history, allergies and current medications were reviewed and updated. Acute Concerns/Problem List: 12/20/2024 labs were 2024, [facility] CBC is stable Hemoglobin A1c of [...] Hypercholesteremia, GERD, REGINA Was previously followed by web [facility] Erika, [address] [place] [address] She is off her sulfonylurea, now on Farxiga 10mg/as well as metformin 500mg BID pt educated to continue to use CGM/Dexcom Diabetic Eye exam: 2023, at [facility], Normal Neurological symptoms have essentially resolved She did see neurologist at [facility] [place] brain w/o January 2024 Unremarkable Surgical history: Bone spurs on both shoulders removed, carpel tunnel Surgery to come on toes for bone spurs (NEOS) family history, Father: diabetes, heart surgery (unknown) Mother: deseased, dimentia Allergies: cats, dogs, pollen, grass, dust, Avelox 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[facility]) Alcohol: ocassionally Smoking: None Illicit drugs: Has medical marijuana card that she uses rarely Comprehensive labs May 2024 [facility] Urinalysis mostly unremarkable Renal function electrolytes and LFTs are stable Total cholesterol 146, LDL 69, HDL 57, triglycerides 101 TSH 4.03, T4, 0.84 Hemoglobin A1c of 6.0 CBC is stable Vitamin D 26 Health Maintenance: COVID MRNA: 2 initial series Flu 2023 UTD TDAP: Unknown, thinks she got it Gyno/Pap: 2023 UTD Mammography: at [facility] in may 2024, UTD Cscope: 2019 DXA: N/a Shingrix: No Examination Category Sub-Category Detail Notes Category Not es General Examination GENERAL APPEARANCE: in no ac huslia distress, well developed, well nourished HEAD: normocephalic, [...]
[2025-06-08] VITALS (9 sets, daily range): BP systolic 97–117; BP diastolic 50–67; PULSE 81–118; RESP 14–20; TEMP -17.7–37.2; O2SAT 95–100; BMI 20.5
--- NOTE | ~2025-06-08 | XR_ITS ---
EXAMINATION: XR CHEST CLINICAL INFORMATION: ongoing asthma COMPARISON: June 01, 2025 TECHNIQUE: Frontal view of the chest was obtained. FINDINGS: No consolidation, pleural effusion or pneumothorax. Hyperinflated lungs. Cardiomediastinal silhouette size is normal. Mild S-shaped curvature of the thoracic spine which could be positional. XR/XR chest 1V IMPRESSION: Hyperinflated lungs without acute airspace disease. Electronically signed by: Jose Eduardo Rivera MD 06/08/2025 10:00 AM EDT
[2025-06-08 09:40] LABS: MANUAL DIFF FLAG NO
[2025-06-08 09:43] LABS: Hematocrit 43.9 % (37.0-47.0); Hemoglobin 14.8 g/dl (12.0-16.0); Imm Gran Abs Auto 0.08 X10*3/uL (0.00-0.03); Imm Gran Pct Auto 0.9 % (0.0-0.4); Lymphocytes Absolute Auto 3.7 X10*3/uL (1.2-4.9); Mean Corpuscular HGB Conc 33.7 g/dl (31.0-35.0); Mean Corpuscular Hemoglobin 28.7 pg (27.0-33.0); Mean Corpuscular Volume 85.1 fL (80.0-98.0); NRBC Abs Auto 0.000 X10*3/uL (0.0-0.012); NRBC Pct Auto 0.0 /100WBC (0.0-0.2); Platelet Count 286 X10*3/uL (160-400); Red Blood Count 5.16 X10*6/uL (4.20-5.50); White Blood Count 9.0 X10*3/uL (4.8-10.8)
--- NOTE | 2025-06-08 10:00 | PC.NURSE ---
Strong productive cough. Labs & xray obtained, results pending. Awaiting ED provider evaluation. Patient stated I can't breathe with a strong, frequent cough. Pulse oximetry readings normal, placed on supportive oxygen via nasal cannula. Stated that she has taken multiple antibiotics over the past month without relief. Coughing so hard that she is experiencing nausea with gagging.
[2025-06-08 10:07] LABS: Alanine Aminotransferase 19 U/L (0-31); Albumin Level 3.7 g/dL (3.5-5.0); Alkaline Phosphatase 68 U/L (39-117); Anion Gap 17 (12-20); Aspartate Amino Transferase 18 U/L (5-31); Blood Urea Nitrogen 20 mg/dL (9-16); Calcium 8.7 mg/dL (8.4-10.2); Carbon Dioxide 29 mmol/L (22-29); Chloride 98 mmol/L (96-108); Creatinine Clr Calc Pharmacy 58.3; Estimated Glomerular Filt Rate > 60; Magnesium 1.7 mg/dL (1.6-2.6); Potassium 3.8 mmol/L (3.3-5.1); Sodium 140 mmol/L (135-145); Total Protein 6.3 g/dL (6.5-8.0)
[2025-06-08 10:31] LABS: IDNOW Serial# 16C4AD1C
[2025-06-08 10:32] LABS: IDNOW Serial# 16C4AD1C; Influenza B2 Negative (Negative); Strep A Nucleic Acid Negative (Negative)
[2025-06-08 10:33] LABS: COVID-19 Test Negative (Negative); IDNOW Serial# 152EDE1D
--- OUTSIDE RECORDS SUMMARY | 2025-06-08 11:17 | XMS_ITS | Patient Health Record ---
Author Organization [facility] [address] Address [address] [place] [address] Care Team Providers Care Grommet Worker Name Role Phone WALLACE DING Unavailable [phone] Allergies Allergen (clinical drug ingredient) Drug/Non Drug Allergy documented on EMR Reaction Allergy Type Onset Date Status Pollen Pollen Swelling Allergy Active Results Component Value Reference Range Notes CR Forearm RT 2 Views Reviewed date:06/21/2024 08:18:51 AM Interpretation: Performing Lab: Notes/Report: Original Ordering Provider: WALLACE DING [facility] CR Humerus RT Min 2 Views Reviewed date:06/21/2024 08:18:51 AM Interpretation: Performing Lab: Notes/Report: Original Ordering Provider: WALLACE DING [facility] CR Shoulder RT Min 2 View Reviewed date:06/21/2024 08:18:51 AM Interpretation: Performing Lab: Notes/Report: Original Ordering Provider: WALLACE DING [facility] Reason For Referral Diagnosis 1 Asthma, [...] day; Duration: 90 days Active Dexcom G7 Improvement Lead - as directed; Durati on: 365 days [...] Status Risk Notes Problem Vitamin D deficiency (79402551) Vitamin D deficiency, unspecified (E55.9) Active confirmed Problem Chronic tension-type headache (102107700) Chronic tension-type headache, intractable (G44.221) Active confirmed Problem Fibromyalgia (870691092) Fibromyalgia (M79.7) Active confirmed Problem Weakness (30407985) Weakness (R53.1) Active con firmed Problem Pure hypercholesterolemia (158132800) Pure hypercholesterolem ia, unspecified (E78.00) Active confirmed Problem Hyperlipidaemia (33970257) Hyperlipidemia, unspecified hyperlipidemia type (E78.5) Active confirmed Problem Hypothyroidism (52700888) Hypothyroidism, unspecified type (E03.9) Active confirmed Problem Annual health maintenance examination (26536244) Annual physical exam (Z00.00) Active confirmed Problem Gastroesophageal reflux disease without esophagitis (714266140) Gastroesophageal reflux disease without esophagitis (K21.9) Active confirmed Problem Type II diabetes mellitus without complication (273382478) Type 2 diabetes mellitus without complication, without long-term current use of insulin (E11.9) Active confirmed Problem Asthma without statu s asthmaticus (82169131) Asthma, unspecified asthma severity, unspecified whether complicated, unspecified whether persistent (J45.909) Active confirmed Problem Migraine without aur a, not refractory (236254827) Other migraine without status migrainosus, not intractable (G43.809) Active confirmed Problem Pain in eye (04993881) Pain in e ye, unspecified laterality (H57.10) Active confirmed Vital Signs Heart Rate 88 /min 12/01/2024 Oximetry 99 % 12/01/2024 Blood pressure diastolic 82 mm Hg 12/01/2024 Height 60 in 12/01/2024 Blood pressure systolic 124 mm Hg 12/01/2024 Weight 115 lbs 12/01/2024 BMI 22.46 kg/m2 12/01/2024 Encounters Encounter Location Date Provider Diagnosis [facility] [address] [address] 06/20/2024 WALLACE DING Type 2 diabetes ray itus without complication, without long-term current use of insulin E11.9 ; Annual physical exam Z00.00 ; Fibromyalgia M79.7 ; Gastroesophageal reflux disease without esophagitis K21.9 ; Pure hypercholesterolemia, unspecified E78.00 ; Closed fracture of nasal bone, initial encounter S02.2XXA ; Acute pain of right shoulder M25.511 and Right arm pain M79.601 [facility] [address] [facility] [address] [place] [address] 12/01/2024 WALLACEYOANA DING Palpitations R00.2 a nd Abdominal bloating R14.[address] [facility] [address] [place] [address] 06/08/2024 WALALCE BORHOT [facility] [address] [address] 06/14/2024 WALLACE BORHOT [facility] [address] [place] [address] 07/05/2024 WALLACE BORHOT [facility] [address] [address] 08/01/2024 WALLACE BORHOT [facility] [address] [address] 08/01/2024 WALLACE BORHOT [facility] [address] [facility] [address] [address] 08/09/2024 WALLACE DING Pre-op exam Z01.818 [facility] [address] [address] 08/12/2024 WALLACE BORHOT [facility] [address] [address] 09/23/2024 WALLACE BORHOT [facility] [address] [facility] [address] [address] 11/08/2024 WALLACE DING Annual physical exam Z00.00 ; Weakness R53.1 ; Vitamin D deficiency, unspecified E55.9 ; Hypothyroidism, unspecified type E03.9 ; Hyperlipidemia, unspecified hyperlipidemia type E78.5 and Type 2 diabetes mellitus without complication, without long-term current use of insulin E11.9 [facility] [address] [address] 11/11/2024 WALLACE BORHOT [facility] [address] [address] 11/16/2024 WALLACE BORHOT [facility] [address] [facility] [address] [address] 11/30/2024 WALLACE BORHOT [facility] [address] [facility] [address] [address] 01/10/2025 WALLACE DING Encounter for immuni zation Z23 [facility] [address] [address] 10/10/2024 WALLACE DING Type 2 diabetes ray itus without complication, without long-term current use of insulin E11.9 and Pre-op exam Z01.818 [facility] [address] [address] 11/17/2024 WALLACE DING [facility] [address] [address] 11/29/2024 WALLACE DING Assessments Encounter Date Diagnosis (ICD Code) Assessment Notes Treatment Notes Treatment Clinical Notes Section Notes 06/20/2024 Annual physical exam (ICD-10 - Z00.00) Pt here for CPE Acute Concerns/Problem List: 06/20/2024 Will get some x-rays of the right forearm/ shoulder Discussed closed head injury nasal bone fractures Did see ENT Refer to [place] [facility] for colonoscopy screening Diabetes management and [...] software and direct typing Please excuse inadvertent environmental field office manager or typing errors, or uncorrected word substitutions Although every attempt has been made by the provider to proofread this document, occasional misspellings and typographical errors may still be present Due to the previous pandemic, and the use of personal protective equipment (PPE) This may decrease voice recognition accuracy Inadvertent environmental field office manager errors may occur 06/20/2024 Type 2 diabetes mellitus without complication, without long-term current use of insulin (ICD-10 - E11.9) Pt here for CPE Acute Concerns/Problem List: 06/20/2024 Will get some x-rays of the right forearm/ shoulder Discussed closed head injury nasal bone fractures Did see ENT Refer to [facility] for colonoscopy screening Diabetes management and [...] software and direct typing Please excuse inadvertent environmental field office manager or typing errors, or uncorrected word substitutions Although every attempt has been made by the provider to proofread this document, occasional misspellings and typographical errors may still be present Due to the previous pandemic, and the use of personal protective equipment (PPE) This may decrease voice recognition accuracy Inadvertent environmental field office manager errors may occur 08/09/2024 Pre-op exam (ICD-10 [...] to bloating. Other comprehensive labs reviewed at [facility] and were unremarkable including thyroid function Of note, some information is being carried forward from prior records for informational purposes only and is being cited so that efficiency, safety and quality of the patient's care is not compromised This note was prepared using voice recognition software and direct typing Please excuse inadvertent environmental field office manager or typing errors, or uncorrected word substitutions Although every attempt has been made by the provider to proofread this document, occasional misspellings and typographical errors may still be present Due to the previous pandemic, and the use of personal protective equipment (PPE) This may decrease voice recognition accuracy Inadvertent environmental field office manager errors may occur 12/01/2024 Abdominal bloating (ICD-10 - R14.0) Currently in NSR, says she is not presently having Palpitations. She will go for EKG today. Discussed Holter Monitor, she will be outfitted with 14 day model. She will hold PPI for two weeks, get H pylori testing due to bloating. Other comprehensive labs reviewed at [facility] and were unremarkable including thyroid function Of note, some information is being carried forward from prior records for informational purposes only and is being cited so that efficiency, safety and quality of the patient's care is not compromised This note was prepared using voice recognition software and direct typing Please excuse inadvertent environmental field office manager or typing errors, or uncorrected word substitutions Although every attempt has been made by the provider to proofread this document, occasional misspellings and typographical errors may still be present Due to the previous pandemic, and the use of personal protective equipment (PPE) This may decrease voice recognition accuracy Inadvertent environmental field office manager errors may occur 01/10/2025 Encounter for immunization (ICD-10 - Z23) 11/08/2024 Weakness (ICD-10 - R53.1) 10/10/2024 Pre-op exam (ICD-10 - Z01.818) 06/20/2024 Fibromyalgia (ICD-10 - M79.7) Pt here for CPE Acute Concerns/Problem List: 06/20/2024 Will get some x-rays of the right forearm/ shoulder Discussed closed head injury nasal bone fractures Did see ENT Refer to [place] [facility] for colonoscopy screening Diabetes management and [...] software and direct typing Please excuse inadvertent environmental field office manager or typing errors, or uncorrected word substitutions Although every attempt has been made by the provider to proofread this document, occasional misspellings and typographical errors may still be present Due to the previous pandemic, and the use of personal protective equipment (PPE) This may decrease voice recognition accuracy Inadvertent environmental field office manager errors may occur 06/20/2024 Gastroesophageal reflux disease without esophagitis (ICD-10 - K21.9) Pt here for CPE Acute Concerns/Problem List: 06/20/2024 Will get some x-rays of the right forearm/ shoulder Discussed closed head injury nasal bone fractures Did see ENT Refer to [facility] for colonoscopy screening Diabetes management and [...] software and direct typing Please excuse inadvertent environmental field office manager or typing errors, or uncorrected word substitutions Although every attempt has been made by the provider to proofread this document, occasional misspellings and typographical errors may still be present Due to the previous pandemic, and the use of personal protective equipment (PPE) This may decrease voice recognition accuracy Inadvertent environmental field office manager errors may occur 11/08/2024 Vitamin D deficiency, unspecified (ICD-10 - E55.9) 11/08/2024 Hypothyroidism, unspecified type (ICD-10 - E03.9) 06/20/2024 Pure hypercholesterolemi a, unspecified (ICD-10 - E78.00) Pt here for CPE Acute Concerns/Problem List: 06/20/2024 Will get some x-rays of the right forearm/ shoulder Discussed closed head injury nasal bone fractures Did see ENT Refer to [facility] for colonoscopy screening Diabetes management and [...] software and direct typing Please excuse inadvertent environmental field office manager or typing errors, or uncorrected word substitutions Although every attempt has been made by the provider to proofread this document, occasional misspellings and typographical errors may still be present Due to the previous pandemic, and the use of personal protective equipment (PPE) This may decrease voice recognition accuracy Inadvertent environmental field office manager errors may occur 11/08/2024 Hyperlipidemia, unspecified hyperlipidemia type (ICD-10 - E78.5) 06/20/2024 Closed fracture of nasal bone, initial encounter (ICD-10 - S02.2XXA) Pt here for CPE Acute Concerns/Problem List: 06/20/2024 Will get some x-rays of the right forearm/ shoulder Discussed closed head injury nasal bone fractures Did see ENT Refer to [place] [facility] for colonoscopy screening Diabetes management and [...] software and direct typing Please excuse inadvertent environmental field office manager or typing errors, or uncorrected word substitutions Although every attempt has been made by the provider to proofread this document, occasional misspellings and typographical errors may still be present Due to the previous pandemic, and the use of personal protective equipment (PPE) This may decrease voice recognition accuracy Inadvertent environmental field office manager errors may occur 11/08/2024 Type 2 diabetes mellitus without complication, without long-term current use of insulin (ICD-10 - E11.9) 06/20/2024 Acute pain of right shoulder (ICD-10 - M25.511) Pt here for CPE Acute Concerns/Problem List: 06/20/2024 Will get some x-rays of the right forearm/ shoulder Discussed closed head injury nasal bone fractures Did see ENT Refer to [facility] for colonoscopy screening Diabetes management and [...] software and direct typing Please excuse inadvertent environmental field office manager or typing errors, or uncorrected word substitutions Although every attempt has been made by the provider to proofread this document, occasional misspellings and typographical errors may still be present Due to the previous pandemic, and the use of personal protective equipment (PPE) This may decrease voice recognition accuracy Inadvertent environmental field office manager errors may occur 06/20/2024 Right arm pain (ICD-10 - M79.601) Pt here for CPE Acute Concerns/Problem List: 06/20/2024 Will get some x-rays of the right forearm/ shoulder Discussed closed head injury nasal bone fractures Did see ENT Refer to [facility] for colonoscopy screening Diabetes management and [...] software and direct typing Please excuse inadvertent environmental field office manager or typing errors, or uncorrected word substitutions Although every attempt has been made by the provider to proofread this document, occasional misspellings and typographical errors may still be present Due to the previous pandemic, and the use of personal protective equipment (PPE) This may decrease voice recognition accuracy Inadvertent environmental field office manager errors may occur 12/20/2024 Acute Concerns/Problem List: 12/20/2024 Currently in NSR, says she is not presently having Palpitations. She will go for EKG today. Discussed Holter Monitor, she will be outfitted with 14 day model. She will hold PPI for two weeks, get H pylori testing due to bloating. Other comprehensive labs reviewed at [facility] and were unremarkable including thyroid function Of note, some information is being carried forward from prior records for informational purposes only and is being cited so that efficiency, safety and quality of the patient's care is not compromised This note was prepared using voice recognition software and direct typing Please excuse inadvertent environmental field office manager or typing errors, or uncorrected word substitutions Although every attempt has been made by the provider to proofread this document, occasional misspellings and typographical errors may still be present Due to the previous pandemic, and the use of personal protective equipment (PPE) This may decrease voice recognition accuracy Inadvertent environmental field office manager errors may occur Plan Of Treatment Pending Test Test Name Order Date PT AND PTT 06/24/2023 MRI : Brain without Contrast 01/08/2024 EKG 06/24/2023 EKG 12/01/2024 25OH VITAMIN D 11/08/2024 25OH VITAMIN D 11/09/2023 CBC (COMPLETE BLOOD COUNT) WITH DIFF 02/2024 CBC (COMPLETE BLOOD COUNT) WITH DIFF 01/2025 COMPREHENSIVE METABOLIC PANEL 11/08/2024 COMPREHENSIVE METABOLIC PANEL 11/09/2023 HEMOGLOBIN A1C 11/08/2024 HEMOGLOBIN A1C 11/09/2023 LIPID PANEL 11/08/2024 LIPID PANEL 11/09/2023 MICROALBUMIN, [...] End Date [employer] [place] [address] [address] [place] [address] [id number] PAULO LOPEZ Self - patient is the insured Medical (General) History Medical History History ICD Code high cholesterol Diabetes Asthma Headaches Fibromyalgia
--- OUTSIDE RECORDS SUMMARY | 2025-06-08 11:18 | XMS_ITS | Patient Health Record ---
Author Organization [facility] Address [address] [facility] [address] [place] [address] Care Team Providers Care External Relations Manager Name Role Phone RachanaJanel pace Primary Care [...] Status Risk Notes Problem Acquired hallux rigidus (0838193) Hallux rigidus, right foot (M20.21) Active confirmed Problem Acquired hallux rigidus (9790618) Hallux rigidus, left foot (M20.22) Active confirmed Problem Type II diabetes mellitus without complication (747968448) Controlled type 2 diabetes mellitus without complication, [...] Start Date Coverage End Date [facility] [address] [facility] [place] [phone] [id number] Jessica Lozano Self - patient is the [...]
--- NOTE | 2025-06-08 12:35 | ED_ITS ---
HPI - General Adult General Chief complaint: Upper Respiratory Symptoms Stated complaint: asthma x 3 wks Time Seen by Provider: 06/08/25 12:35 History of Present Illness ED Provider: Stoney GARCIA narrative: The patient is a 55-year-old woman with a history of asthma who says she has been having problems with shortness of breath for over a month. She has been seen at an urgent care twice during the last month and also once at her director of vendor management's office. She has been on a a course of amoxicillin and a few courses of prednisone. She is currently on a tapering course of prednisone and also took a course of doxycycline. She took 20 mg of prednisone today. Despite these treatments she is still feeling short of breath and comes to the emergency room because she has not gotten any better. No definite fevers. Related Data Home Medications ?Medication ?Instructions ?Recorded ?Confirmed atorvastatin 10 mg tablet 10 mg PO DAILY 09/11/2009/05 cetirizine 10 mg tablet (Zyrtec) 10 mg PO DAILY 10/02/21 metformin 500 mg tablet 500 mg PO BID 09/11/2010/02 albuterol sulfate 2.5 mg/3 mL 2.5 mg inhalation Q6H (0.083 %) solution for nebulization albuterol sulfate 90 mcg/actuation 2 inh inhalation Q6 H 03/06/25 breath activated powder inhaler,sensor losartan 25 mg tablet 25 mg PO DAILY 03/06/25 semaglutide 1 mg/dose (4 mg/3 mL) 1 mg subcut QWEEK subcutaneous pen injector (Ozempic) omeprazole 40 mg capsule,delayed 40 mg PO DAILY PRN release ondansetron HCl 4 mg tablet 4 mg PO Q8H PRN 05/01/25 Previous Rx's ?Medication ?Instructions ?Recorded lidocaine 5 % topical patch 1 patch topical DAILY 30 d ays #30 10/28/21 ea budesonide-formoterol HFA 160 2 puff inhalation BID 30 days 03/06/25 mcg-4.5 mcg/actuation aerosol #10.2 grams inhaler montelukast 10 mg tablet 10 mg PO BEDTIME 30 days #30 tabs 03/06/25 (Singulair) doxycycline hyclate 100 mg capsule 100 mg PO BID 10 da ys #20 caps 06/01/25 prednisone 20 mg tablet See Rx Instructions PO DAILY 10 06/01/25 days #15 tabs azithromycin 250 mg tablet 250 mg PO DAILY 4 days #4 t abs 06/08/25 prednisone 5 mg tablet 5 mg PO DIRECTED #78 tabs 06/08/25 Allergies Allergy/AdvReac Type Severity Reaction Status Date / Time moxifloxacin (From Avelox) AdvReac Intermediate hand and Verified 06/08/25 09:21 limp numbness Review of Systems 2 Review of Systems: Yes all other systems are reviewed and are negative COUNT INCLUDES THE [facility] Past Medical History Medical History (Updated 06/08/25 @ 17:44 by Rudolph Lua MD) Subclinical hypothyroidism Thyroid nodule Chronic pain syndrome Chronic rhinitis Carpal tunnel syndrome on right Fibromyalgia Asthma High cholesterol Diabetes Surgical History History of colonoscopy (~05/22/17) H/O shoulder surgery Family History Family History Father Heart problem Diabetes Mother BP (high blood pressure) Pre-diabetes Cervical cancer Social History Social History Housing: Apartment Alcohol intake: current Alcohol intake frequency: holidays/special occasions only Patient Tobacco Use Status: Never used Tobacco Smoked in Last 30 Days: No e-Cigarette/Vaping Use: Never Used Use of substances other than those prescribed or required for medical reasons: No Advance Directives: No Advance Directives Information Provided: Yes service: No Current occupational status: employed Cognitive needs: No Hearing needs: No Vision needs: Yes (rx glasses) Physical Exam ED Vital Signs: Vital Signs - 24 hr 06/08/25 09:18 06/08/25 12:10 06/08/25 13:05 Temperature 97.6 F 98.1 F Pulse Rate 97 81 84 Respiratory Rate 20 16 18 Blood Pressure 117/67 115/67 Pulse Oximetry 99 100 Oxygen Delivery Method Room Air Nasal Cannula Oxygen Flow Rate 1 06/08/25 13:54 06/08/25 14:10 06/08/25 14:39 Temperature 98.3 F Pulse Rate 112 H 105 H Respiratory Rate 19 16 Blood Pressure 106/51 L Pulse Oximetry 97 96 Oxygen Delivery Method Room Air Room Air Oxygen Flow Rate 06/08/25 16:00 06/08/25 16:33 06/08/25 18:22 Temperature 98.9 F 0 F L Pulse Rate 118 H 99 118 H Respiratory Rate 14 14 18 Blood Pressure 97/50 L 114/57 L Pulse Oximetry 96 95 Oxygen Delivery Method Nasal Cannula Room Air Oxygen Flow Rate 2 BMI result Body Mass Index 20.5 Const Other: The patient is awake and alert. She looks mildly unwell. She does not semen obvious overt respiratory distress however. Orientation/consciousness: patient oriented x3 HENMT Other: The face is symmetrical. ?Mucous membranes moist. Eyes Other: Pupils are round equal, conjunctivae are clear, extraocular movements intact Neck Neck: Yes normal visual inspection and Yes full ROM Resp Other: The patient is not exhibiting significant increased work of breathing but she has very loud rhonchorous wheezes throughout all lung cali. Cardio Rate: regular rate Rhythm: regular rhythm Heart sounds: S1 normal heart sound present and S2 normal heart sound present GI Other: Abdomen is soft and nontender Skin Other: Skin is dry and unremarkable Neuro General: patient oriented x3, moves all extremities, no focal motor deficits and CN's II-XI intact bilaterally Extrem Other: There is no calf swelling or tenderness. No asymmetry. No peripheral edema. Medications Administered Discontinued Medications Generic Name Dose Route Start Last Admin Trade Name Emilianoq PRN Reason Stop Dose Admin Albuterol Sulfate 2.5 mg/ 5 mg 06/08/25 14:36 06/08/25 14:38 Albuterol Sulfate 2.5 mg INHALE 06/08/25 14:37 5 mg ONCE ONE Administration Albuterol/Ipratropium 3 ml 06/08/25 16:24 06/08/25 16:33 Albuterol/Iprat 2.5/0.5mg 3 Ml Ampul.Neb INHALE 06/08/25 16:25 3 ml ONCE ONE Administration Azithromycin 500 mg 06/08/25 17:42 06/08/25 17:51 Azithromycin 500 Mg Tablet PO 06/08/25 17:43 500 mg ONCE ONE Administration Albuterol Sulfate 2.5 mg/ 0 mg 06/08/25 12:58 06/08/25 13:03 Albuterol/Ipratropium 3 ml INHALE 06/08/25 12:59 5 dose ONCE ONE Administration Magnesium Sulfate 2 gm in 50 mls @ 150 mls/hr 06/08/25 12:47 06/08/25 14:33 Magnesium Sulfate/H2o IV 06/08/25 13:06 Infused ONCE ONE Infusion Sodium Chloride 1,000 mls @ 999 mls/hr 06/08/25 16:30 06/08/25 18:22 Ns IV 06/08/25 17:30 Infused .Q1H1M LAURA Infusion Methylprednisolone Sodium Succinate 80 mg 06/08/25 12:47 06/08/25 13:44 Methylprednisolone Sod Succ 125 Mg/2 Ml Vial IVPUSH 06/08/25 12:48 80 mg ONCE ONE Administration Prednisone 60 mg 06/08/25 17:42 06/08/25 17:51 Prednisone 20 Mg Tablet PO 06/08/25 17:43 60 mg ONCE ONE Administration Medical Decision Making Medical Decision Making [facility] Narrative: The patient is a 55-year-old woman with a history of asthma. She also has a history of type 2 diabetes. She has been having problems with her asthma for the last month. Initially she was treated with a course of amoxicillin and a course of prednisone. She did not seem to significantly improve with this regimen and she followed up with her director of vendor management who placed her on another course of prednisone and also a course of doxycycline. She is not improved on this regimen either. Her prednisone dosing was at 40 mg daily for the last few days. The patient has a negative chest x-ray today but she does have extremely abnormal lung sounds bilaterally. She has very rhonchorous wheezing bilaterally. She does not really show significant increased work of breathing however and her oxygen saturations on room air were for the most part very good. Chest x-ray shows no infiltrate. Given the degree that her breath sounds were very abnormal I think this is not a case of a pulmonary embolism. A pulmonary embolism would not cause such remarkable wheezing. The patient has laboratory evaluation argues fairly strongly against a significant bacterial infection. She has a normal white count with a mild lymphocytosis. She has a normal C-reactive protein. She is negative for COVID and influenza. Additionally an extended viral respiratory panel is negative. The patient was treated with IV methylprednisolone and IV magnesium as well as bronchodilator updraft treatments. She was also given IV fluids. Her breath sounds improved with multiple bronchodilator treatments but did not entirely clear. Nevertheless her oxygen saturations on room air remained good and she was not exhibiting significant increased work of breathing. Ultimately I felt an additional trial of management at home was reasonable. She will be started on a higher dose prednisone taper, starting at 60 mg daily today and tomorrow and then tapering 5 mg less per day. She will also be placed on a course of azithromycin. She should contact her director of vendor management tomorrow. She should return to the emergency room if worse. Lab Data 06/08/25 09:35 06/08/25 09:35 Labs: Lab Results 06/08/25 06/08/25 06/08/25 Range/Units 09:32 09:35 13:29 WBC 9.0 (4.8-10.8) X10*3/uL RBC 5.16 (4.20-5.50) X10*6/uL Hgb 14.8 (12.0-16.0) g/dl Hct 43.9 (37.0-47.0) % MCV 85.1 (80.0-98.0) fL MCH 28.7 (27.0-33.0) pg MCHC 33.7 (31.0-35.0) g/dl RDW 12.1 (11.0-16.0) % Plt Count 286 (160-400) X10*3/uL MPV 8.8 L (9.4-12.3) fL Immature Gran % (Auto) 0.9 H (0.0-0.4) % Neut % (Auto) 49.0 (45-73) % Lymph % (Auto) 41.7 H (20-40) % [place] % (Auto) 7.5 (2-11) % Eos % (Auto) 0.8 (0-4) % Baso % (Auto) 0.1 (0-2) % Lymph # (Auto) 3.7 (1.2-4.9) X10*3/uL [place] # (Auto) 0.7 (0.1-1.2) X10*3/uL Eos # (Auto) 0.1 (0.0-0.4) X10*3/uL Baso # (Auto) 0.0 (0.0-0.2) X10*3/uL Abs Immat Gran (auto) 0.08 H (0.00-0.03) X10*3/uL Absolute Neuts (auto) 4.4 (2.0-8.3) x10*3/uL Absolute Nucleated RBC 0.000 (0.0-0.012) X10*3/uL Nucleated RBC % (auto) 0.0 (0.0-0.2) /100WBC Sodium 140 (135-145) mmol/L Potassium 3.8 (3.3-5.1) mmol/L Chloride 98 (96-108) mmol/L Carbon Dioxide 29 (22-29) mmol/L Anion Gap 17 (12-20) BUN 20 H (9-16) mg/dL Creatinine 0.88 (0.5-1.4) mg/dL Estim Creat Clear Calc 58.3 Estimated GFR > 60 Random Glucose 176 H (60-115) mg/dL Calcium 8.7 (8.4-10.2) mg/dL Magnesium 1.7 (1.6-2.6) mg/dL Total Bilirubin 0.8 (0.0-1.0) mg/dL AST 18 (5-31) U/L ALT 19 (0-31) U/L Alkaline Phosphatase 68 (39-117) U/L C-Reactive Protein 0.11 (< or = 0.50) mg/dL Total Protein 6.3 L (6.5-8.0) g/dL Albumin 3.7 (3.5-5.0) g/dL Urine Color Urine Appearance Urine pH (5.0-9.0) Ur Specific [place] (1.005-1.025) Urine Protein (Neg-Trace) mg/dL Urine Glucose (UA) (Negative) mg/dL Urine Ketones (Negative) mg/dL Urine Blood (Negative) Urine Nitrite (Negative) Ur Leukocyte Esterase (Negative) Respiratory Panel [place] See Note Adenovirus (Rapid PCR) Not Detected (Not Detect.) B.pert (TEM-PCR) Not Detected (Not Detect.) B.parapertussis DNA PCR Not Detected (Not Detect.) C. pneumoniae DNA (PCR) Not Detected (Not Detect.) Coronavirus OC43 (PCR) Not Detected (Not Detect.) Coronavirus HKU1 (PCR) Not Detected (Not Detect.) Coronavirus 229E (PCR) Not Detected (Not Detect.) COVID-19 (YONATHAN) Negative (Negative) COVID-19 Clin Com See Note Coronavirus NL63 (PCR) Not Detected (Not Detect.) Human Metapneumovir PCR Not Detected (Not Detect.) Influenza Type A (KESHAV) Negative (Negative) Influenza A (RT-PCR) Not Detected (Not Detect.) Influenza A (H1) PCR Not Detected (Not Detect.) Influ A (H1/09) PCR Not Detected (Not Detect.) Influenza A (H3) PCR Not Detected (Not Detect.) Influenza Type B (KESHAV) Negative (Negative) Influenza B (RT-PCR) Not Detected (Not Detect.) Influenza A & B Note See Note M. pneumoniae (PCR) Not Detected (Not Detect.) Parainfluenza 1 (PCR) Not Detected (Not Detect.) Parainfluenza 2 (PCR) Not Detected (Not Detect.) Parainfluenza 3 (PCR) Not Detected (Not Detect.) Parainfluenza 4 (PCR) Not Detected (Not Detect.) RSV (PCR) Not Detected (Not Detect.) Entero/Rhino (PCR) Not Detected (Not Detect.) SARS-CoV-2 RNA (RT-PCR) Not Detected (Not Detect.) S. pyogenes GrpA KESHAV Negative (Negative) 06/08/25 Range/Units 13:53 WBC (4.8-10.8) X10*3/uL RBC (4.20-5.50) X10*6/uL Hgb (12.0-16.0) g/dl Hct (37.0-47.0) % MCV (80.0-98.0) fL MCH (27.0-33.0) pg MCHC (31.0-35.0) g/dl RDW (11.0-16.0) % Plt Count (160-400) X10*3/uL MPV (9.4-12.3) fL Immature Gran % (Auto) (0.0-0.4) % Neut % (Auto) (45-73) % Lymph % (Auto) (20-40) % [place] % (Auto) (2-11) % Eos % (Auto) (0-4) % Baso % (Auto) (0-2) % Lymph # (Auto) (1.2-4.9) X10*3/uL [place] # (Auto) (0.1-1.2) X10*3/uL Eos # (Auto) (0.0-0.4) X10*3/uL Baso # (Auto) (0.0-0.2) X10*3/uL Abs Immat Gran (auto) (0.00-0.03) X10*3/uL Absolute Neuts (auto) (2.0-8.3) x10*3/uL Absolute Nucleated RBC (0.0-0.012) X10*3/uL Nucleated RBC % (auto) (0.0-0.2) /100WBC Sodium (135-145) mmol/L Potassium (3.3-5.1) mmol/L Chloride (96-108) mmol/L Carbon Dioxide (22-29) mmol/L Anion Gap (12-20) BUN (9-16) mg/dL Creatinine (0.5-1.4) mg/dL Estim Creat Clear Calc Estimated GFR Random Glucose (60-115) mg/dL Calcium (8.4-10.2) mg/dL Magnesium (1.6-2.6) mg/dL Total Bilirubin (0.0-1.0) mg/dL AST (5-31) U/L ALT (0-31) U/L Alkaline Phosphatase (39-117) U/L C-Reactive Protein (< or = 0.50) mg/dL Total Protein (6.5-8.0) g/dL Albumin (3.5-5.0) g/dL Urine Color Yellow Urine Appearance Clear Urine pH 6.0 (5.0-9.0) Ur Specific [place] 1.010 (1.005-1.025) Urine Protein Negative (Neg-Trace) mg/dL Urine Glucose (UA) Negative (Negative) mg/dL Urine Ketones Negative (Negative) mg/dL Urine Blood Negative (Negative) Urine Nitrite Negative (Negative) Ur Leukocyte Esterase Negative (Negative) Respiratory Panel [place] Adenovirus (Rapid PCR) (Not Detect.) B.pert (TEM-PCR) (Not Detect.) B.parapertussis DNA PCR (Not Detect.) C. pneumoniae DNA (PCR) (Not Detect.) Coronavirus OC43 (PCR) (Not Detect.) Coronavirus HKU1 (PCR) (Not Detect.) Coronavirus 229E (PCR) (Not Detect.) COVID-19 (YONATHAN) (Negative) COVID-19 Clin Com Coronavirus NL63 (PCR) (Not Detect.) Human Metapneumovir PCR (Not Detect.) Influenza Type A (KESHAV) (Negative) Influenza A (RT-PCR) (Not Detect.) Influenza A (H1) PCR (Not Detect.) Influ A (H1/09) PCR (Not Detect.) Influenza A (H3) PCR (Not Detect.) Influenza Type B (KESHAV) (Negative) Influenza B (RT-PCR) (Not Detect.) Influenza A & B Note M. pneumoniae (PCR) (Not Detect.) Parainfluenza 1 (PCR) (Not Detect.) Parainfluenza 2 (PCR) (Not Detect.) Parainfluenza 3 (PCR) (Not Detect.) Parainfluenza 4 (PCR) (Not Detect.) RSV (PCR) (Not Detect.) Entero/Rhino (PCR) (Not Detect.) SARS-CoV-2 RNA (RT-PCR) (Not Detect.) S. pyogenes GrpA KESHAV (Negative) Discharge Plan Discharge Clinical Impression: Acute asthma exacerbation Patient Disposition: Home, Self-Care Instructions: Asthma (ED) Additional Instructions: Please continue to use your albuterol nebulizer machine every 4 hours. Please take the new prescription of prednisone. This will be a tapering prescription. Take 60 mg (12 tablets) a prednisone tomorrow on Thursday. Take 55 mg (11 tablets) of prednisone on Thursday. Continue to take 1 pill less per day until done. Take the azithromycin once a day as prescribed. Drink lot of fluids. Please call your director of vendor management tomorrow to check in. You have a work note for no work until Thursday. Please return to the emergency room if you feel significantly worse. Prescriptions: New azithromycin 250 mg tablet 250 mg PO DAILY 4 Days Qty: 4 0RF Rx Instructions: start on day 2 of therapy prednisone 5 mg tablet 5 mg PO DIRECTED Qty: 78 0RF Rx Instructions: Take 12 tabs p.o. x1 day, then take 11 tabs p.o. x1 day, then 10 tabs p.o. x1 day, continue 1 tablet less per day until done. No Action lidocaine 5 % adhesive patch,medicated 1 patch topical DAILY 30 Days Qty: 30 8RF Rx Instructions: leave on most painful area for up to 12 hrs cetirizine [Zyrtec] 10 mg tablet 10 mg PO DAILY metformin 500 mg tablet 500 mg PO BID atorvastatin 10 mg tablet 10 mg PO DAILY omeprazole 40 mg capsule,delayed release(DR/EC) 40 mg PO DAILY PRN ondansetron HCl 4 mg tablet 4 mg PO Q8H PRN albuterol sulfate 90 mcg/actuation aero powdr breath act w/sensor 2 inh inhalation Q6H albuterol sulfate 2.5 mg /3 mL (0.083 %) solution for nebulization 2.5 mg inhalation Q6H losartan 25 mg tablet 25 mg PO DAILY Ozempic 1 mg/dose (4 mg/3 mL) pen injector 1 mg subcut QWEEK montelukast [Singulair] 10 mg tablet 10 mg PO BEDTIME 30 Days Qty: 30 11RF budesonide-formoterol 160-4.5 mcg/actuation HFA aerosol inhaler 2 puff inhalation BID 30 Days Qty: 10.2 11RF doxycycline hyclate 100 mg capsule 100 mg PO BID 10 Days Qty: 20 0RF prednisone 20 mg tablet See Rx Instructions PO DAILY 10 Days Qty: 15 0RF Rx Instructions: PO daily; Take 2 tabs daily x 5 days, then 1 tablet daily x 5 days Referrals: José Miguel Ayon MD [Physician, Pulmonology] Song Garcia MD [Primary Care Provider, Internal Medicine] Stand Alone Forms: Work/School Release Interventions: ED Discharge Assessment Last Done: 06/08/25 18:22 Discharge Date/Time: 06/08/25 18:23 Print Language: Latvian
[2025-06-08] MEDS: Albuterol Sulfate 2.5 MG, Albuterol/Iprat 2.5/0.5MG 3 ML 3 ML INHALE (13:03)
[2025-06-08] MEDS: Magnesium Sulfate/H2O 2 GM/50 ML PIGGYBACK IV (13:44)
--- NOTE | 2025-06-08 13:56 | PC.NURSE ---
Assumed care of this patient at 1345, IV line placed, medications given, patient placed on diagnostic cardiac sonographer, noted to be ST 120's. Patient awaiting UA results & Resp panel.
[2025-06-08 14:00] LABS: Appearance Urine Clear; Glucose Urine UA Negative (Negative); PH 6.0 (5.0-9.0); Specific Gravity - Urine 1.010 (1.005-1.025)
[2025-06-08] MEDS: Albuterol Sulfate 2.5 MG, Albuterol Sulfate (0.083%) 2.5 MG 5 MG INHALE (14:38)
[2025-06-08 15:04] LABS: Chlamydia pneumoniae PCR Not Detected (Not Detect.); Coronavirus 229E PCR Not Detected (Not Detect.); Coronavirus HKU1 PCR Not Detected (Not Detect.); Coronavirus NL63 PCR Not Detected (Not Detect.); Coronavirus OC43 PCR Not Detected (Not Detect.); RSV PCR Not Detected (Not Detect.); Rhino/Enterovirus PCR Not Detected (Not Detect.)
[2025-06-08 15:20] LABS: Influenza A H1 PCR Not Detected (Not Detect.); Influenza A H1-2009 PCR Not Detected (Not Detect.); Influenza A H3 PCR Not Detected (Not Detect.); SARS-CoV-2 PCR Not Detected (Not Detect.)
[2025-06-08] MEDS: Albuterol/Iprat 2.5/0.5MG 3 ML AMPUL.NEB INHALE (16:33)
== END 2025-06-08 18:23 | disposition home or self-care (01) ==
PROVIDERS: Emergency Provider Emergency Medicine; PCP Internal Medicine
DX: J45.901 Unspecified asthma with (acute) exacerbation (principal); E11.9 Type 2 diabetes mellitus without complications; G89.4 Chronic pain syndrome; Z79.899 Other long term (current) drug therapy
CPT/HCPCS: 71045; 80053; 81003; 83735; 85025; 86140; 87502; 87633; 87635; 87651; 94640; 96361; 96365; 96375; 99285; J2919; J3475

== ENCOUNTER 2025-06-14 11:02 | Emergency (ER) | payer OTHER, SELFPAY ==
--- OUTSIDE RECORDS SUMMARY | 2024-12-20 11:30 | XMS_ITS ---
Author Organization [facility] [address] Address [address] [place] [address] Care Team Providers Care Web Master Name Role Phone WALLACE DING Unavailable [phone] REASON FOR VISIT 2 week f/u, bardray holter Encounters Encounter Location Date Provider Diagnosis [facility] [address] [address] 12/20/2024 WALLAEC DING Palpitations R00.2 ; Abdominal bloating R14.0 [...] to bloating. Other comprehensive labs reviewed at [facility] and were unremarkable including thyroid function Of note, some information is being carried forward from prior records for informational purposes only and is being cited so that efficiency, safety and quality of the patient's care is not compromised This note was prepared using voice recognition software and direct typing Please excuse inadvertent window trimmer or typing errors, or uncorrected word substitutions Although every attempt has been made by the provider to proofread this document, occasional misspellings and typographical errors may still be present Due to the previous pandemic, and the use of personal protective equipment (PPE) This may decrease voice recognition accuracy Inadvertent window trimmer errors may occur 12/20/2024 Abdominal bloating (ICD-10 - R14.0) Acute Concerns/Problem List: 12/20/2024 Currently in NSR, says she is not presently having Palpitations. She will go for EKG today. Discussed Holter Monitor, she will be outfitted with 14 day model. She will hold PPI for two weeks, get H pylori testing due to bloating. Other comprehensive labs reviewed at [facility] and were unremarkable including thyroid function Of note, some information is being carried forward from prior records for informational purposes only and is being cited so that efficiency, safety and quality of the patient's care is not compromised This note was prepared using voice recognition software and direct typing Please excuse inadvertent window trimmer or typing errors, or uncorrected word substitutions Although every attempt has been made by the provider to proofread this document, occasional misspellings and typographical errors may still be present Due to the previous pandemic, and the use of personal protective equipment (PPE) This may decrease voice recognition accuracy Inadvertent window trimmer errors may occur 12/20/2024 Type 2 diabetes [...] to bloating. Other comprehensive labs reviewed at [facility] and were unremarkable including thyroid function Of note, some information is being carried forward from prior records for informational purposes only and is being cited so that efficiency, safety and quality of the patient's care is not compromised This note was prepared using voice recognition software and direct typing Please excuse inadvertent window trimmer or typing errors, or uncorrected word substitutions Although every attempt has been made by the provider to proofread this document, occasional misspellings and typographical errors may still be present Due to the previous pandemic, and the use of personal protective equipment (PPE) This may decrease voice recognition accuracy Inadvertent window trimmer errors may occur 12/20/2024 Fibromyalgia (ICD-10 - M79.7) Acute Concerns/Problem List: 12/20/2024 Currently in NSR, says she is not presently having Palpitations. She will go for EKG today. Discussed Holter Monitor, she will be outfitted with 14 day model. She will hold PPI for two weeks, get H pylori testing due to bloating. Other comprehensive labs reviewed at [facility] and were unremarkable including thyroid function Of note, some information is being carried forward from prior records for informational purposes only and is being cited so that efficiency, safety and quality of the patient's care is not compromised This note was prepared using voice recognition software and direct typing Please excuse inadvertent window trimmer or typing errors, or uncorrected word substitutions Although every attempt has been made by the provider to proofread this document, occasional misspellings and typographical errors may still be present Due to the previous pandemic, and the use of personal protective equipment (PPE) This may decrease voice recognition accuracy Inadvertent window trimmer errors may occur 12/20/2024 Gastroesophageal reflux disease without esophagitis (ICD-10 - K21.9) Acute Concerns/Problem List: 12/20/2024 Currently in NSR, says she is not presently having Palpitations. She will go for EKG today. Discussed Holter Monitor, she will be outfitted with 14 day model. She will hold PPI for two weeks, get H pylori testing due to bloating. Other comprehensive labs reviewed at [facility] and were unremarkable including thyroid function Of note, some information is being carried forward from prior records for informational purposes only and is being cited so that efficiency, safety and quality of the patient's care is not compromised This note was prepared using voice recognition software and direct typing Please excuse inadvertent window trimmer or typing errors, or uncorrected word substitutions Although every attempt has been made by the provider to proofread this document, occasional misspellings and typographical errors may still be present Due to the previous pandemic, and the use of personal protective equipment (PPE) This may decrease voice recognition accuracy Inadvertent window trimmer errors may occur 12/20/2024 Pure hypercholesterolemi a, unspecified (ICD-10 - E78.00) Acute Concerns/Problem List: 12/20/2024 Currently in NSR, says she is not presently having Palpitations. She will go for EKG today. Discussed Holter Monitor, she will be outfitted with 14 day model. She will hold PPI for two weeks, get H pylori testing due to bloating. Other comprehensive labs reviewed at [facility] and were unremarkable including thyroid function Of note, some information is being carried forward from prior records for informational purposes only and is being cited so that efficiency, safety and quality of the patient's care is not compromised This note was prepared using voice recognition software and direct typing Please excuse inadvertent window trimmer or typing errors, or uncorrected word substitutions Although every attempt has been made by the provider to proofread this document, occasional misspellings and typographical errors may still be present Due to the previous pandemic, and the use of personal protective equipment (PPE) This may decrease voice recognition accuracy Inadvertent window trimmer errors may occur 12/20/2024 Other migraine without [...] to bloating. Other comprehensive labs reviewed at [facility] and were unremarkable including thyroid function Of note, some information is being carried forward from prior records for informational purposes only and is being cited so that efficiency, safety and quality of the patient's care is not compromised This note was prepared using voice recognition software and direct typing Please excuse inadvertent window trimmer or typing errors, or uncorrected word substitutions Although every attempt has been made by the provider to proofread this document, occasional misspellings and typographical errors may still be present Due to the previous pandemic, and the use of personal protective equipment (PPE) This may decrease voice recognition accuracy Inadvertent window trimmer errors may occur Plan Of Treatment No Information Progress Notes * PAULO LOPEZ LDOB:[birth year] (55 yo F)Acc No.[id number]:12/20/2024 Progress Notes Patient: PAULO NOLASCO Provider: Isamar DING NP :[id number] A ge:54 Y S ex:Female Date:12/20/2024 Address:[address] [place], [place] [address], [id number] Subjective: * Chief Complaints: * 1 . 2 week f/u, shanice mccann. * HPI: C onstitutional: Patient is here today for a Chronic Disease Management Follow-up Visit Full past medical history, social history, family history, allergies and current medications were reviewed and updated. 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, [address] [place] [address] She is off her sulfonylurea, now on Farxiga 10mg/as well as metformin 500mg BID pt educated to continue to use CGM/Dexcom Diabetic Eye exam: 2023, at [facility], Normal Neurological symptoms have essentially resolved She [place] [facility] [place]o [place]24 Unremarkable Surgical history: Bone spurs on both shoulders removed, carpel tunnel Surgery to come on toes for bone spurs (NEOS) family history, Father: diabetes, heart surgery (unknown) Mother: deseased, dimentia Allergies: cats, dogs, pollen, grass, dust, Avelox Social history work: [employer] ([address]) Alcohol: ocassionally Smoking: None Illicit drugs: Has medical marijuana card that she uses rarely Comprehensive labs May 2024 [facility] Urinalysis mostly unremarkable Renal function electrolytes and LFTs are stable Total cholesterol 146, LDL 69, HDL 57, triglycerides 101 TSH 4.03, T4, 0.84 Hemoglobin A1c of 6.0 CBC is stable Vitamin D 26 Health Maintenance: COVID MRNA: 2 initial series Flu 2023 UTD TDAP: Unknown, thinks she got it Gyno/Pap: 2023 UTD Mammography: at [facility] in may 2024, UTD Cscope: 2019 [...] to bloating. Other comprehensive labs reviewed at [facility] and were unremarkable including thyroid function Of note, some information is being carried forward from prior records for informational purposes only and is being cited so that efficiency, safety and quality of the patient's care is not compromised This note was prepared using voice recognition software and direct typing Please excuse inadvertent window trimmer or typing errors, or uncorrected word substitutions Although every attempt has been made by the provider to proofread this document, occasional misspellings and typographical errors may still be present Due to the previous pandemic, and the use of personal protective equipment (PPE) This may decrease voice recognition accuracy Inadvertent window trimmer errors may occur. Plan: * Treatment: * Images: Billing Information: * Visit Code: * Procedure Codes: Care Plan Details* * Electronic signature of VITA DING on 06/14/2025 at 04:03 PM EDT Sign off status: Pending * Provider: Isamar DING NP Date: 12/20/2024 Generated for Ana stephenson/Rose/Mamadou on: 0 06/14/2025 04:03 PM EDT History and Physical Notes * HPI (History of Present Illness) Category Sub-Category Detail Notes Category Not es Constitutional Patient is here today for a Chronic Disease Management Follow-up Visit Full past medical history, social history, family history, allergies and current medications were reviewed and updated. 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, [address] [place] [address] She is off her sulfonylurea, now on Farxiga 10mg/as well as metformin 500mg BID pt educated to continue to use CGM/Dexcom Diabetic Eye exam: 2023, at [facility], Normal Neurological symptoms have essentially resolved She [place] [facility] [place] w/o [place] 2024 Unremarkable Surgical history: Bone spurs on both shoulders removed, carpel tunnel Surgery to come on toes for bone spurs (NEOS) family history, Father: diabetes, heart surgery (unknown) Mother: deseased, dimentia Allergies: cats, dogs, pollen, grass, dust, Avelox Social history work: [employer] ([employer] [employer]) Alcohol: ocassionally Smoking: None Illicit drugs: Has medical marijuana card that she uses rarely Comprehensive labs May 2024 [facility] Urinalysis mostly unremarkable Renal function electrolytes and LFTs are stable Total cholesterol 146, LDL 69, HDL 57, triglycerides 101 TSH 4.03, T4, 0.84 Hemoglobin A1c of 6.0 CBC is stable Vitamin D 26 Health Maintenance: COVID MRNA: 2 initial series Flu 2023 UTD TDAP: Unknown, thinks she got it Gyno/Pap: 2023 UTD Mammography: at [facility] in may 2024, UTD Cscope: 2019 [...]
[2025-06-14] VITALS (7 sets, daily range): BP systolic 113–127; BP diastolic 62–82; PULSE 71–95; RESP 12–18; TEMP -17.7–36.9; O2SAT 93–99; BMI 22.8
--- NOTE | ~2025-06-14 | CT_ITS ---
EXAMINATION: CT ANGIOGRAM CHEST CLINICAL INFORMATION: Shortness of breath. Palpitations. COMPARISON: None available. TECHNIQUE: Multiple axial images were obtained through the chest after the administration of 65 mL of Omnipaque 350 intravenous contrast. Extensive vascular post-processing including two-dimensional and three-dimensional reformatted images were created and reviewed on an independent workstation. SmartPrep technique. This CT examination was performed using dose optimization techniques as appropriate, variously including the following: *Automated exposure control *Adjustment of mA and/or kV according to patient size (this includes techniques or standardized protocols for targeted exams where dose is matched to indication/reason for exam; i.e. extremities or head) *Use of iterative reconstruction technique. DLP: 887 mGy centimeter. FINDINGS: Main pulmonary artery its main left and right branches and subsegmental pulmonary branches are patent without intraluminal filling defects. No aneurysm or dissection, thoracic aorta. Calcified plaques in the coronary artery. 1 cm patchy pulmonary groundglass, lingula. Patchy pulmonary groundglass, left upper lung lobe. Atelectasis lung bases. No pleural effusion or pneumothorax. No bronchiectasis. No honeycombing. No gross pulmonary nodules. The airways are patent. No pericardial effusion. No lymphadenopathy, mediastinum or perihilar. No calcified pleural plaques. No hemothorax. No pneumomediastinum. No hemopericardium. Heart is not enlarged. Thyroid gland is not enlarged. No acute fracture or listhesis in the axial skeleton. Sternum is intact. Clavicles are not fully evaluated. No acute rib fracture. Scapula are intact. CT/CT angio chest PE protocol IMPRESSION: No acute pulmonary artery emboli. Acute small airway inflammatory process versus pneumonitis involving mostly left lung should be considered in the correct clinical settings. Fleischner guidelines were followed. Electronically signed by: Jose Eduardo Rivera MD 06/14/2025 03:45 PM EDT
--- NOTE | ~2025-06-14 | CT_ITS ---
EXAMINATION: CT HEAD WITHOUT CONTRAST CLINICAL INFORMATION: Dizziness COMPARISON: None available. TECHNIQUE: Contiguous axial imaging was performed from the skull base to vertex without intravenous administration of contrast. This CT examination was performed using dose optimization techniques as appropriate, variously including the following: *Automated exposure control *Adjustment of mA and/or kV according to patient size (this includes techniques or standardized protocols for targeted exams where dose is matched to indication/reason for exam; i.e. extremities or head) *Use of iterative reconstruction technique DLP: 887 mGY*cm FINDINGS: There is no acute ischemic change. There is no intracranial hemorrhage. There is no mass-effect or midline shift. Basal cisterns and ventricles are within normal limits for age/cerebral volume. Orbits are symmetrical and unremarkable. Paranasal sinuses and mastoid air cells are pneumatized. There are no bony abnormalities. CT/CT head/brain wo IV con IMPRESSION: No acute intracranial abnormality. Electronically signed by: Christofer Richard MD 06/14/2025 03:42 PM EDT
--- NOTE | 2025-06-14 11:09 | ECG_ITS ---
Test Reason : DIZZINESS Blood Pressure : */* mmHG Vent. Rate : 90 BPM Atrial Rate : 90 BPM P-R Int : 148 ms QRS Dur : 74 ms QT Int : 346 ms P-R-T Axes : 52 23 44 degrees QTcB Int : 423 ms Normal sinus rhythm Low voltage QRS Borderline ECG When compared with ECG of 16-Mar-2025 13:46, No significant change was found Referred By: Dee Barron Electronically Signed By: MARICRUZ LOPES MD
--- NOTE | 2025-06-14 11:12 | ED_ITS ---
HPI - General Adult General Chief complaint: General Medical Stated complaint: sick over a month, nausea, dizziness Time Seen by Provider: 06/14/25 11:26 Source: patient and old records reviewed Mode of arrival: ambulatory Limitations: no limitations History of Present Illness ED Provider: Melinda Boyd PA-C HPI narrative: Patient is a 55 year old assigned female at with a history of asthma, hypothyroidism, GERD, DM, and fibromyalgia presenting to the emergency department today with continued palpitations, dizziness, and feeling generally unwell. Patient states that over the last month she has continued to feel unwell with dizziness and palpitations. Patient states that she was treated with prednisone + antibiotics but her symptoms persist. Patient denies any other complaints at this time. Related Data Home Medications ?Medication ?Instructions ?Recorded ?Confirmed atorvastatin 10 mg tablet 10 mg PO DAILY 09/11/2009/05 cetirizine 10 mg tablet (Zyrtec) 10 mg PO DAILY 10/02/21 metformin 500 mg tablet 500 mg PO BID 09/11/2010/02 albuterol sulfate 2.5 mg/3 mL 2.5 mg inhalation Q6H (0.083 %) solution for nebulization albuterol sulfate 90 mcg/actuation 2 inh inhalation Q6 H 03/06/25 breath activated powder inhaler,sensor losartan 25 mg tablet 25 mg PO DAILY 03/06/25 semaglutide 1 mg/dose (4 mg/3 mL) 1 mg subcut QWEEK subcutaneous pen injector (Ozempic) omeprazole 40 mg capsule,delayed 40 mg PO DAILY PRN release ondansetron HCl 4 mg tablet 4 mg PO Q8H PRN 05/01/25 Previous Rx's ?Medication ?Instructions ?Recorded lidocaine 5 % topical patch 1 patch topical DAILY 30 d ays #30 10/28/21 ea budesonide-formoterol HFA 160 2 puff inhalation BID 30 days 03/06/25 mcg-4.5 mcg/actuation aerosol #10.2 grams inhaler montelukast 10 mg tablet 10 mg PO BEDTIME 30 days #30 tabs 03/06/25 (Singulair) doxycycline hyclate 100 mg capsule 100 mg PO BID 10 da ys #20 caps 06/01/25 prednisone 20 mg tablet See Rx Instructions PO DAILY 10 06/01/25 days #15 tabs azithromycin 250 mg tablet 250 mg PO DAILY 4 days #4 t abs 06/08/25 prednisone 5 mg tablet 5 mg PO DIRECTED #78 tabs 06/08/25 azithromycin 250 mg tablet See Rx Instructions PO .COM PLEX #6 06/09/25 (Zithromax Z-Emile) tabs Allergies Allergy/AdvReac Type Severity Reaction Status Date / Time moxifloxacin (From Avelox) AdvReac Intermediate hand and Verified 06/14/25 11:06 limp numbness Review of Systems 2 Constitutional: Constitutional: Reports as per HPI Eyes: Eyes: Reports as per HPI ENT: Reports as per HPI Cardiovascular: Cardiovascular: Reports as per HPI Respiratory: Respiratory: Reports as per HPI Gastrointestinal: Gastrointestinal: Reports as per HPI Genitourinary: Genitourinary: Reports as per HPI Musculoskeletal: Musculoskeletal: Reports as per HPI Integumentary/Breasts: Skin/Breast: Reports as per HPI Neurologic: Reports as per HPI Psychiatric: Psychiatric: Reports as per HPI Endocrine: Endocrine: Reports as per HPI Hematologic/Lymphatic: Hematologic/Lymphatic: Reports as per HPI Allergic/Immunologic: Allergic/Immunologic: Reports as per HPI PMF Past Medical History Attestation statement: The following information was validated with the patient. Source: old records reviewed and nursing notes reviewed Medical History Subclinical hypothyroidism Thyroid nodule Chronic pain syndrome Chronic rhinitis Carpal tunnel syndrome on right Fibromyalgia Asthma High cholesterol Diabetes Surgical History History of colonoscopy (~05/22/17) H/O shoulder surgery Family History Family History Father Heart problem Diabetes Mother BP (high blood pressure) Pre-diabetes Cervical cancer Social History Social History Housing: Apartment Alcohol intake: current Alcohol intake frequency: holidays/special occasions only Patient Tobacco Use Status: Never used Tobacco Smoked in Last 30 Days: No e-Cigarette/Vaping Use: Never Used Use of substances other than those prescribed or required for medical reasons: No Advance Directives: No Advance Directives Information Provided: Yes Do you have a plan to hurt others: No Plan service: No Current occupational status: employed Cognitive needs: No Hearing needs: No Vision needs: Yes (rx glasses) Physical Exam ED Vital Signs: Vital Signs - 24 hr 06/14/25 11:05 06/14/25 11:49 06/14/25 12:09 Temperature 98.5 F 98 F 98.1 F Pulse Rate 95 85 86 Respiratory Rate 18 12 18 Blood Pressure 127/82 118/65 113/62 Pulse Oximetry 98 93 97 Oxygen Delivery Method Room Air Room Air Room Air 06/14/25 14:22 06/14/25 14:50 06/14/25 16:14 Temperature 98.1 F Pulse Rate 84 84 71 Respiratory Rate 16 16 16 Blood Pressure 114/63 114/63 113/68 Pulse Oximetry 99 95 Oxygen Delivery Method Room Air Room Air 06/14/25 16:26 Temperature 0 F L Pulse Rate 71 Respiratory Rate 16 Blood Pressure 113/68 Pulse Oximetry 95 Oxygen Delivery Method Room Air BMI result Body Mass Index 22.8 Const General: cooperative, no acute distress, alert and awake Nutritional Appearance: well nourished Orientation/consciousness: patient oriented x3 HENMT Head: Yes normal to inspection and Yes atraumatic Ears: hearing grossly normal bilaterally and external ears normal General nose exam: Normal external nose present, no nasal discharge noted and no epistaxis Face and sinus: Yes normal facial exam, No abrasion and No laceration Mouth: Normal oral and palatal mucosa present, no drooling and no muffled voice Eyes General: appearance normal, both eyes and all related structures Periorbital: periorbital findings normal Eyelids: Yes eyelids normal Conjunctivae: conjunctivae normal Pupils: Equal, round and reactive pupils present EOM: EOMs intact bilaterally Neck Neck: Yes normal visual inspection and Yes full ROM Resp Effort & Inspection: normal respiratory effort and able to speak in complete sentences Neuro General: patient oriented x3, moves all extremities and CN's II-XI intact bilaterally Cranial nerves: Yes Equal, round and reactive pupils present Cognition (Neuro): normal cognition Extrem General: Yes normal to inspection, Yes full ROM and Yes capillary refill normal Psych Appearance: grossly normal Mental Status: mental status grossly normal Affect: normal affect Attitude: cooperative Thought process: Normal thought process present Thought content: Normal thought content present Insight: Good insight present (Psych) Course Course Course Narrative: This is a Rapid Medical Examination (RME) performed by Ruby Barron PA-C in triage. Full HPI, ROS, assessment and treatment plan per primary provider in the Main ED. Hx: 55 yo F here for eval of feeling generally unwell w/ dizziness and palpitations since URI/strep throat 1 month ago. Plan: labs, ekg Medications Administered Discontinued Medications Generic Name Dose Route Start Last Admin Trade Name Earle PRN Reason Stop Dose Admin Acetaminophen 650 mg 06/14/25 13:29 06/14/25 13:37 Acetaminophen 325 Mg Tablet PO 06/14/25 13:30 650 mg ONCE ONE Administration Iohexol 100 ml 06/14/25 15:09 06/14/25 15:09 Iohexol 350 Mg/Ml 100 Ml Infus..Btl IV 06/14/25 15:10 65 ml ONCE ONE Administration Morphine Sulfate 4 mg 06/14/25 14:22 06/14/25 14:30 Morphine Sulfate 4 Mg/Ml Cartridge IVPUSH 06/14/25 14:23 4 mg ONCE ONE Administration Protocol Ondansetron HCl 4 mg 06/14/25 14:22 06/14/25 14:40 Ondansetron Hcl 4 Mg/2 Ml Vial IVPUSH 06/14/25 14:23 4 mg ONCE ONE Administration Medical Decision Making Medical Decision Making MDM Narrative: Patient is a 55 year old assigned female at with a history of asthma, hypothyroidism, GERD, DM, and fibromyalgia presenting to the emergency department today with continued palpitations, dizziness, and feeling generally unwell. Patient's physical exam was unremarkable. Patient's blood work was unremarkable. Patient's urine showed moderate leuks with 11-20 WBC but the patient has no symptoms of UTI at this time - will await culture before initiating treatment. Patient's EKG was unremarkable. Patient's head CT and CTA PE of the chest showed no acute process. Patient's CT PE study did show inflammatory airway consistent with asthma for which the patient just completed a course of Azithromycin and prednisone. Patient denies any shortness of breath / difficulty breathing. I explained my physical exam findings as well as all test results to the patient. I answered all questions asked by the patient. I stressed the importance of the patient taking her medication as directed (either prescribed or as the over the counter packaging recommends). I stressed the importance of the patient following up with her primary care provider. I stressed the importance of the patient returning to the emergency department immediately if her symptoms were to worsen or if she were to develop any dizziness, shortness of breath, difficulty breathing, chest pain, blurry vision, loss of vision, nausea, vomiting, abdominal pain, fever, chills, back pain, or any other complaints. Patient verbalized agreement and understanding with this treatment plan and discharge. Differential Diagnosis Differential Diagnoses: The differential diagnosis associated with the presentation includes Palpitations Dizziness Viral illness Post-viral syndrome PE Admission/Observation Consideration of admission/observation: Escalation of care including admission/observation considered Patient would have been admitted to the hospital had her work up had any findings where hospital admission was appropriate and her clinical presentation warranted hospital admission. Lab Data [facility] Lab Attestation statement: I reviewed the patient's lab results. My interpretation of these results are in the [facility] Rationale portion of this note. 06/14/25 11:18 06/14/25 11:18 Labs: Lab Results 06/14/25 06/14/25 06/14/25 Range/Units 11:18 11:46 14:35 WBC 5.7 (4.8-10.8) X10*3/uL RBC 5.06 (4.20-5.50) X10*6/uL Hgb 14.7 (12.0-16.0) g/dl Hct 43.1 (37.0-47.0) % MCV 85.2 (80.0-98.0) fL MCH 29.1 (27.0-33.0) pg MCHC 34.1 (31.0-35.0) g/dl RDW 12.6 (11.0-16.0) % Plt Count 205 D (160-400) X10*3/uL MPV 8.9 L (9.4-12.3) fL Immature Gran % (Auto) 0.5 H (0.0-0.4) % Neut % (Auto) 43.7 L (45-73) % Lymph % (Auto) 45.5 H (20-40) % Lee % (Auto) 7.8 (2-11) % Eos % (Auto) 2.3 (0-4) % Baso % (Auto) 0.2 (0-2) % Lymph # (Auto) 2.6 (1.2-4.9) X10*3/uL Lee # (Auto) 0.5 (0.1-1.2) X10*3/uL Eos # (Auto) 0.1 (0.0-0.4) X10*3/uL Baso # (Auto) 0.0 (0.0-0.2) X10*3/uL Abs Immat Gran (auto) 0.03 (0.00-0.03) X10*3/uL Absolute Neuts (auto) 2.5 (2.0-8.3) x10*3/uL Absolute Nucleated RBC 0.000 (0.0-0.012) X10*3/uL Nucleated RBC % (auto) 0.0 (0.0-0.2) /100WBC Sodium 141 (135-145) mmol/L Potassium 4.0 (3.3-5.1) mmol/L Chloride 102 (96-108) mmol/L Carbon Dioxide 28 (22-29) mmol/L Anion Gap 15 (12-20) BUN 11 (9-16) mg/dL Creatinine 0.72 (0.5-1.4) mg/dL Estim Creat Clear Calc 61.9 Estimated GFR > 60 Random Glucose 151 H (60-115) mg/dL Calcium 9.3 D (8.4-10.2) mg/dL Magnesium 1.6 (1.6-2.6) mg/dL Total Bilirubin 0.6 (0.0-1.0) mg/dL AST 22 (5-31) U/L ALT 25 (0-31) U/L Alkaline Phosphatase 75 (39-117) U/L Troponin I High Sens < 2.7 (<3.5-17.0) ng/L B-Natriuretic Peptide < 10 (<100) pg/mL Total Protein 6.8 (6.5-8.0) g/dL Albumin 4.2 (3.5-5.0) g/dL TSH 2.26 (0.32-4.0) uIU/mL Urine Color Yellow Urine Appearance Clear Urine pH 7.0 (5.0-9.0) Ur Specific [place] 1.010 (1.005-1.025) Urine Protein Negative (Neg-Trace) mg/dL Urine Glucose (UA) Negative (Negative) mg/dL Urine Ketones Negative (Negative) mg/dL Urine Blood Negative (Negative) Urine Nitrite Negative (Negative) Ur Leukocyte Esterase Moderate (2+) H (Negative) Urine RBC 0-2 (0-2) /HPF Urine WBC 11-20 H (0-5) /HPF Ur Squamous Epith Cells 3-5 (0-2) /HPF Urine Bacteria None Seen (None Seen) Hyaline Casts 0-2 (0-2) /LPF COVID-19 (YONATHAN) Negative (Negative) COVID-19 Clin Com See Note Influenza Type A (KESHAV) Negative (Negative) Influenza Type B (KESHAV) Negative (Negative) Influenza A & B Note See Note Independent Interpretation I performed an independent interpretation of an: EKG and CT Scan Interpretation: My interpretation is in agreement with the radiologist's impression of these imaging studies. L Reason for Exam: dizziness EXAMINATION: CT HEAD WITHOUT CONTRAST CLINICAL INFORMATION: Dizziness COMPARISON: None available. TECHNIQUE: Contiguous axial imaging was performed from the skull base to vertex without intravenous administration of contrast. This CT examination was performed using dose optimization techniques as appropriate, variously including the following: *Automated exposure control *Adjustment of mA and/or kV according to patient size (this includes techniques or standardized protocols for targeted exams where dose is matched to indication/reason for exam; i.e. extremities or head) *Use of iterative reconstruction technique DLP: 887 mGY*cm FINDINGS: There is no acute ischemic change. There is no intracranial hemorrhage. There is no mass-effect or midline shift. Basal cisterns and ventricles are within normal limits for age/cerebral volume. Orbits are symmetrical and unremarkable. Paranasal sinuses and mastoid air cells are pneumatized. There are no bony abnormalities. CT/CT head/brain wo IV con IMPRESSION: No acute intracranial abnormality. Electronically signed by: Christofer Richard MD 06/14/2025 03:42 PM EDT Dictated By: Christofer Richard MD Signed By: Electronically signed by Christofer Richard MD 06/14/25 1542 Report Number: [id number]: Total DLP = 887.00 mGy-cm Reason for Exam: palpitations, SOB, weakness, concern for PE EXAMINATION: CT ANGIOGRAM CHEST CLINICAL INFORMATION: Shortness of breath. Palpitations. COMPARISON: None available. TECHNIQUE: Multiple axial images were obtained through the chest after the administration of 65 mL of Omnipaque 350 intravenous contrast. Extensive vascular post-processing including two-dimensional and three- dimensional reformatted images were created and reviewed on an independent workstation. SmartPrep technique. This CT examination was performed using dose optimization techniques as appropriate, variously including the following: *Automated exposure control *Adjustment of mA and/or kV according to patient size (this includes techniques or standardized protocols for targeted exams where dose is matched to indication/reason for exam; i.e. extremities or head) *Use of iterative reconstruction technique. DLP: 887 mGy centimeter. FINDINGS: Main pulmonary artery its main left and right branches and subsegmental pulmonary branches are patent without intraluminal filling defects. No aneurysm or dissection, thoracic aorta. Calcified plaques in the coronary artery. 1 cm patchy pulmonary groundglass, lingula. Patchy pulmonary groundglass, left upper lung lobe. Atelectasis lung bases. No pleural effusion or pneumothorax. No bronchiectasis. No honeycombing. No gross pulmonary nodules. The airways are patent. No pericardial effusion. No lymphadenopathy, mediastinum or perihilar. No calcified pleural plaques. No hemothorax. No pneumomediastinum. No hemopericardium. Heart is not enlarged. Thyroid gland is not enlarged. No acute fracture or listhesis in the axial skeleton. Sternum is intact. Clavicles are not fully evaluated. No acute rib fracture. Scapula are intact. CT/CT angio chest PE protocol IMPRESSION: No acute pulmonary artery emboli. Acute small airway inflammatory process versus pneumonitis involving mostly left lung should be considered in the correct clinical settings. Fleischner guidelines were followed. Electronically signed by: Jose Eduardo Rivera MD 06/14/2025 03:45 PM EDT Dictated By: Jose Eduardo Conklin MD Signed By: Electronically signed by Jose Eduardo Sierra MD 06/14/25 1545 I independently interpreted this EKG and am in agreement with the below findings: Vent. Rate: 90 BPM Atrial Rate: 90 BPM P-R Int: 148 ms QRS Dur: 74 ms QT Int: 346 ms P-R-T Axes: 52 23 44 degrees QTcB Int: 423 ms Normal sinus rhythm When compared with ECG of 16-Mar-2025 13:46, No significant change was found Referred By: Dee Barron Electronically Signed By: ANTON LOPES MD Dictated By: Anton Lopes MD Signed By: Electronically signed by Anton Lopes MD 06/14/25 1187 Radiology Impression Discussion of test interpretation with radiology: I have reviewed the radiologist's reading. Discharge Plan Discharge Clinical Impression: Palpitations, Dizziness Patient Disposition: Home, Self-Care Instructions: Heart Palpitations (DC), Dizziness (ED) Additional Instructions: Your work up today was reassuring there is no EMERGENT process for your symptoms. You should follow up with a bar useful or busser for your palpitations. IF you are prescribed home medications and/or you are taking over the counter medications at home - it is very important you continue to do so as prescribed / directed unless told otherwise. Follow up with your primary care provider. Return to the emergency department immediately if your symptoms worsen or if you develop any numbness, tingling, dizziness, shortness of breath, difficulty breathing, chest pain, blurry vision, loss of vision, nausea, vomiting, abdominal pain, fever, chills, back pain, or any other complaints. Please see the information below about our Patient Portal. If you are not yet enrolled in the [facility] Patient Portal, you will receive an enrollment email invitation following your visit to any [facility] care setting. You may also self-enroll in the Patient Portal by visiting our website: [email or web address] The following information is required to access the Patient Portal: - Your [facility] Medical Record Number - Your personal home email address (must match what is in your electronic medical record, Registration staff can assist with this) - Name - Date of Capabilities of the Patient Portal: - Message some providers - View upcoming appointments - Access your health summary, medical history, and visit history - View current conditions and allergies - View procedure and lab results - View your medications, including guidelines, side effects, and precautions - Complete pre-appointment questionnaires requested by your provider - Ready summary reports of your office visits and procedures To access the Patient Portal Mobile Vj, follow these directions: - Search K121 in the Vj Store or Side.Cr Store - Download the Vj - Search for [facility] - Enter your login/password Prescriptions: No Action lidocaine 5 % adhesive patch,medicated 1 patch topical DAILY 30 Days Qty: 30 8RF Rx Instructions: leave on most painful area for up to 12 hrs azithromycin [Zithromax Z-Emile] 250 mg tablet See Rx Instructions PO .COMPLEX Qty: 6 0RF Rx Instructions: For 250 mg dose pack: take 500 mg today (day 1), then 250 mg for 4 days (days 2-5) PO azithromycin 250 mg tablet 250 mg PO DAILY 4 Days Qty: 4 0RF Rx Instructions: start on day 2 of therapy prednisone 5 mg tablet 5 mg PO DIRECTED Qty: 78 0RF Rx Instructions: Take 12 tabs p.o. x1 day, then take 11 tabs p.o. x1 day, then 10 tabs p.o. x1 day, continue 1 tablet less per day until done. cetirizine [Zyrtec] 10 mg tablet 10 mg PO DAILY metformin 500 mg tablet 500 mg PO BID atorvastatin 10 mg tablet 10 mg PO DAILY omeprazole 40 mg capsule,delayed release(DR/EC) 40 mg PO DAILY PRN ondansetron HCl 4 mg tablet 4 mg PO Q8H PRN albuterol sulfate 90 mcg/actuation aero powdr breath act w/sensor 2 inh inhalation Q6H albuterol sulfate 2.5 mg /3 mL (0.083 %) solution for nebulization 2.5 mg inhalation Q6H losartan 25 mg tablet 25 mg PO DAILY Ozempic 1 mg/dose (4 mg/3 mL) pen injector 1 mg subcut QWEEK montelukast [Singulair] 10 mg tablet 10 mg PO BEDTIME 30 Days Qty: 30 11RF budesonide-formoterol 160-4.5 mcg/actuation HFA aerosol inhaler 2 puff inhalation BID 30 Days Qty: 10.2 11RF doxycycline hyclate 100 mg capsule 100 mg PO BID 10 Days Qty: 20 0RF prednisone 20 mg tablet See Rx Instructions PO DAILY 10 Days Qty: 15 0RF Rx Instructions: PO daily; Take 2 tabs daily x 5 days, then 1 tablet daily x 5 days Referrals: [facility] [Provider Group] Referral Note: Call to establish and follow up with a bar useful or busser for your palpitations. Song Garcia MD [Primary Care Provider, Internal Medicine] Stand Alone Forms: Work/School Release Interventions: ED Discharge Assessment Last Done: 06/14/25 16:26 Discharge Date/Time: 06/14/25 16:29 Print Language: Gambian
[2025-06-14 11:23] LABS: MANUAL DIFF FLAG NO
[2025-06-14 11:24] LABS: Hematocrit 43.1 % (37.0-47.0); Hemoglobin 14.7 g/dl (12.0-16.0); Imm Gran Abs Auto 0.03 X10*3/uL (0.00-0.03); Imm Gran Pct Auto 0.5 % (0.0-0.4); Lymphocytes Absolute Auto 2.6 X10*3/uL (1.2-4.9); Mean Corpuscular HGB Conc 34.1 g/dl (31.0-35.0); Mean Corpuscular Hemoglobin 29.1 pg (27.0-33.0); Mean Corpuscular Volume 85.2 fL (80.0-98.0); NRBC Abs Auto 0.000 X10*3/uL (0.0-0.012); NRBC Pct Auto 0.0 /100WBC (0.0-0.2); Platelet Count 205 X10*3/uL (160-400); Red Blood Count 5.06 X10*6/uL (4.20-5.50); White Blood Count 5.7 X10*3/uL (4.8-10.8)
[2025-06-14 11:41] LABS: Alanine Aminotransferase 25 U/L (0-31); Albumin Level 4.2 g/dL (3.5-5.0); Alkaline Phosphatase 75 U/L (39-117); Anion Gap 15 (12-20); Aspartate Amino Transferase 22 U/L (5-31); Blood Urea Nitrogen 11 mg/dL (9-16); Calcium 9.3 mg/dL (8.4-10.2); Carbon Dioxide 28 mmol/L (22-29); Chloride 102 mmol/L (96-108); Creatinine Clr Calc Pharmacy 61.9; Estimated Glomerular Filt Rate > 60; Magnesium 1.6 mg/dL (1.6-2.6); Potassium 4.0 mmol/L (3.3-5.1); Sodium 141 mmol/L (135-145); Total Protein 6.8 g/dL (6.5-8.0)
[2025-06-14 11:50] LABS: Troponin-I High Sensitivity < 2.7 ng/L (<3.5-17.0)
[2025-06-14 11:59] LABS: Appearance Urine Clear; Glucose Urine UA Negative (Negative); PH 7.0 (5.0-9.0); Specific Gravity - Urine 1.010 (1.005-1.025); UMIC TRIGGER UACC YES
[2025-06-14 12:01] LABS: UACC Culture Trigger YES
[2025-06-14 12:15] LABS: B Type Natriuretic Peptide < 10 pg/mL (<100)
--- NOTE | 2025-06-14 13:40 | PC.NURSE ---
Pt reports headache 10/10 and dry mouth. Taking Tylenol. Awaiting CT SCAN
[2025-06-14 14:56] LABS: COVID-19 Test Negative (Negative); IDNOW Serial# 55D5AD1C
[2025-06-14 14:58] LABS: IDNOW Serial# 58CA691E
[2025-06-14 14:59] LABS: Influenza B2 Negative (Negative)
[2025-06-14] MEDS: iohexoL 350 MG/ML 100 ML INFUS..BTL IV (15:09)
--- OUTSIDE RECORDS SUMMARY | 2025-06-14 16:03 | XMS_ITS | Patient Health Record ---
Author Organization [facility] Address [address] [place] [address] Care Team Providers Care Robotics Technician Name Role Phone RachanaJanel pace Primary [...] Status Risk Notes Problem Acquired hallux rigidus (0704659) Hallux rigidus, right foot (M20.21) Active confirmed Problem Acquired hallux rigidus (4279815) Hallux rigidus, left foot (M20.22) Active confirmed Problem Type II diabetes mellitus without complication (687384397) Controlled type 2 diabetes mellitus without complication, [...] Insured Coverage Start Date Coverage End Date [facility] [address] [place] [phone] [id number] Jessica Lozano Self - patient is the [...]
--- OUTSIDE RECORDS SUMMARY | 2025-06-14 16:03 | XMS_ITS | Patient Health Record ---
Author Organization [facility] [address] Address [address] [place] [address] Care Team Providers Care Watch Technician Name Role Phone WALLACE DING Unavailable [phone] Allergies Allergen (clinical drug ingredient) Drug/Non Drug Allergy documented on EMR Reaction Allergy Type Onset Date Status Pollen Pollen Swelling Allergy Active Results Component Value Reference Range Notes CR Forearm RT 2 Views Reviewed date:06/21/2024 08:18:51 AM Interpretation: Performing Lab: Notes/Report: Original Ordering Provider: WALLACE DING [facility] CR Humerus RT Min 2 Views Reviewed date:06/21/2024 08:18:51 AM Interpretation: Performing Lab: Notes/Report: Original Ordering Provider: WALLACE DING [facility] CR Shoulder RT Min 2 View Reviewed date:06/21/2024 08:18:51 AM Interpretation: Performing Lab: Notes/Report: Original Ordering Provider: WALLACE DING [facility] Reason For Referral Diagnosis 1 Asthma, unspecified asthma severity, unspecified whether complicated, unspecified whether persistent (J45.909) Referral Organization [facility] [address] Referring Provider First Name WALLACE [...] day; Duration: 90 days Active 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 - as directed; Durati on: 365 days [...] Status Risk Notes Problem Vitamin D deficiency (79506075) Vitamin D deficiency, unspecified (E55.9) Active confirmed Problem Chronic tension-type headache (613097573) Chronic tension-type headache, intractable (G44.221) Active confirmed Problem Fibromyalgia (205910652) Fibromyalgia (M79.7) Active confirmed Problem Weakness (41287656) Weakness (R53.1) Active con firmed Problem Pure hypercholesterolemia (686529236) Pure hypercholesterolem ia, unspecified (E78.00) Active confirmed Problem Hyperlipidaemia (98654947) Hyperlipidemia, unspecified hyperlipidemia type (E78.5) Active confirmed Problem Hypothyroidism (40751905) Hypothyroidism, unspecified type (E03.9) Active confirmed Problem Annual health maintenance examination (98727167) Annual physical exam (Z00.00) Active confirmed Problem Gastroesophageal reflux disease without esophagitis (699156344) Gastroesophageal reflux disease without esophagitis (K21.9) Active confirmed Problem Type II diabetes mellitus without complication (527302167) Type 2 diabetes mellitus without complication, without long-term current use of insulin (E11.9) Active confirmed Problem Asthma without statu s asthmaticus (14839792) Asthma, unspecified asthma severity, unspecified whether complicated, unspecified whether persistent (J45.909) Active confirmed Problem Migraine without aur a, not refractory (540506467) Other migraine without status migrainosus, not intractable (G43.809) Active confirmed Problem Pain in eye (08978149) Pain in e ye, unspecified laterality (H57.10) Active confirmed Vital Signs Heart Rate 88 /min 12/01/2024 Oximetry 99 % 12/01/2024 Blood pressure diastolic 82 mm Hg 12/01/2024 Height 60 in 12/01/2024 Blood pressure systolic 124 mm Hg 12/01/2024 Weight 115 lbs 12/01/2024 BMI 22.46 kg/m2 12/01/2024 Encounters Encounter Location Date Provider Diagnosis [facility] [address] [address] 06/20/2024 WALLACE DING Type 2 diabetes ray itus without complication, without long-term current use of insulin E11.9 ; Annual physical exam Z00.00 ; Fibromyalgia M79.7 ; Gastroesophageal reflux disease without esophagitis K21.9 ; Pure hypercholesterolemia, unspecified E78.00 ; Closed fracture of nasal bone, initial encounter S02.2XXA ; Acute pain of right shoulder M25.511 and Right arm pain M79.601 [facility] [address] [facility] [address] [place] [address] 12/01/2024 WALLACE DING Palpitations R00.2 a nd Abdominal bloating R14.0 [facility] [address] [facility] [address] [place] [address] 06/14/2024 WALLACE GOLDHOT [facility] [address] [facility] [address] [place] [address] 07/05/2024 WALLACE MALCOLMHOT [facility] [address] [facility] [address] [place] [address] 08/01/2024 WALLACE BORHOT [facility] [address] [address] 08/01/2024 WALLACE GOLDHOT [facility] [address] [facility] [address] [address] 08/09/2024 WALLACE DING Pre-op exam Z01.818 [facility] [address] [address] 08/12/2024 WALLACE MALCOLMHOT [facility] [address] [facility] [address] [address] 09/23/2024 WALLACE MALCOLMHOT [facility] [address] [facility] [address] [address] 11/08/2024 WALLACE DING Annual physical exam Z00.00 ; Weakness R53.1 ; Vitamin D deficiency, unspecified E55.9 ; Hypothyroidism, unspecified type E03.9 ; Hyperlipidemia, unspecified hyperlipidemia type E78.5 and Type 2 diabetes mellitus without complication, without long-term current use of insulin E11.9 [facility] [address] [facility] [address] [place] [address] 11/11/2024 WALLACE COVARRUBIAST [facility] [address] [facility] [address] [address] 11/16/2024 WALLACE DING [facility] [address] [facility] [address] [address] 11/30/2024 WALLACE MALCOLMHOT [facility] [address] [address] 01/10/2025 WALLACE DING Encounter for immuni zation Z23 [facility] [address] [address] 10/10/2024 WALLACE DING Type 2 diabetes ray itus without complication, without long-term current use of insulin E11.9 and Pre-op exam Z01.818 [facility] [address] [address] 11/17/2024 WALLACE DING [facility] [address] [address] 11/29/2024 WALLACE DING Assessments Encounter Date Diagnosis (ICD Code) Assessment Notes Treatment Notes Treatment Clinical Notes Section Notes 06/20/2024 Annual physical exam (ICD-10 - Z00.00) Pt here for CPE Acute Concerns/Problem List: 06/20/2024 Will get some x-rays of the right forearm/ shoulder Discussed closed head injury nasal bone fractures Did see ENT Refer to [facility] for colonoscopy screening Diabetes management and [...] software and direct typing Please excuse inadvertent chainstitch felled seam operator or typing errors, or uncorrected word substitutions Although every attempt has been made by the provider to proofread this document, occasional misspellings and typographical errors may still be present Due to the previous pandemic, and the use of personal protective equipment (PPE) This may decrease voice recognition accuracy Inadvertent chainstitch felled seam operator errors may occur 06/20/2024 Type 2 diabetes mellitus without complication, without long-term current use of insulin (ICD-10 - E11.9) Pt here for CPE Acute Concerns/Problem List: 06/20/2024 Will get some x-rays of the right forearm/ shoulder Discussed closed head injury nasal bone fractures Did see ENT Refer to [facility] for colonoscopy screening Diabetes management and [...] software and direct typing Please excuse inadvertent chainstitch felled seam operator or typing errors, or uncorrected word substitutions Although every attempt has been made by the provider to proofread this document, occasional misspellings and typographical errors may still be present Due to the previous pandemic, and the use of personal protective equipment (PPE) This may decrease voice recognition accuracy Inadvertent chainstitch felled seam operator errors may occur 08/09/2024 Pre-op exam (ICD-10 [...] to bloating. Other comprehensive labs reviewed at [facility] and were unremarkable including thyroid function Of note, some information is being carried forward from prior records for informational purposes only and is being cited so that efficiency, safety and quality of the patient's care is not compromised This note was prepared using voice recognition software and direct typing Please excuse inadvertent chainstitch felled seam operator or typing errors, or uncorrected word substitutions Although every attempt has been made by the provider to proofread this document, occasional misspellings and typographical errors may still be present Due to the previous pandemic, and the use of personal protective equipment (PPE) This may decrease voice recognition accuracy Inadvertent chainstitch felled seam operator errors may occur 12/01/2024 Abdominal bloating (ICD-10 - R14.0) Currently in NSR, says she is not presently having Palpitations. She will go for EKG today. Discussed Holter Monitor, she will be outfitted with 14 day model. She will hold PPI for two weeks, get H pylori testing due to bloating. Other comprehensive labs reviewed at [facility] and were unremarkable including thyroid function Of note, some information is being carried forward from prior records for informational purposes only and is being cited so that efficiency, safety and quality of the patient's care is not compromised This note was prepared using voice recognition software and direct typing Please excuse inadvertent chainstitch felled seam operator or typing errors, or uncorrected word substitutions Although every attempt has been made by the provider to proofread this document, occasional misspellings and typographical errors may still be present Due to the previous pandemic, and the use of personal protective equipment (PPE) This may decrease voice recognition accuracy Inadvertent chainstitch felled seam operator errors may occur 01/10/2025 Encounter for immunization (ICD-10 - Z23) 11/08/2024 Weakness (ICD-10 - R53.1) 10/10/2024 Pre-op exam (ICD-10 - Z01.818) 06/20/2024 Fibromyalgia (ICD-10 - M79.7) Pt here for CPE Acute Concerns/Problem List: 06/20/2024 Will get some x-rays of the right forearm/ shoulder Discussed closed head injury nasal bone fractures Did see ENT Refer to [facility] for colonoscopy screening Diabetes management and [...] software and direct typing Please excuse inadvertent chainstitch felled seam operator or typing errors, or uncorrected word substitutions Although every attempt has been made by the provider to proofread this document, occasional misspellings and typographical errors may still be present Due to the previous pandemic, and the use of personal protective equipment (PPE) This may decrease voice recognition accuracy Inadvertent chainstitch felled seam operator errors may occur 11/08/2024 Vitamin D deficiency, unspecified (ICD-10 - E55.9) 06/20/2024 Gastroesophageal reflux disease without esophagitis (ICD-10 - K21.9) Pt here for CPE Acute Concerns/Problem List: 06/20/2024 Will get some x-rays of the right forearm/ shoulder Discussed closed head injury nasal bone fractures Did see ENT Refer to [facility] for colonoscopy screening Diabetes management and [...] software and direct typing Please excuse inadvertent chainstitch felled seam operator or typing errors, or uncorrected word substitutions Although every attempt has been made by the provider to proofread this document, occasional misspellings and typographical errors may still be present Due to the previous pandemic, and the use of personal protective equipment (PPE) This may decrease voice recognition accuracy Inadvertent chainstitch felled seam operator errors may occur 11/08/2024 Hypothyroidism, unspecified type (ICD-10 - E03.9) 06/20/2024 Pure hypercholesterolemi a, unspecified (ICD-10 - E78.00) Pt here for CPE Acute Concerns/Problem List: 06/20/2024 Will get some x-rays of the right forearm/ shoulder Discussed closed head injury nasal bone fractures Did see ENT Refer to [facility] for colonoscopy screening Diabetes management and [...] software and direct typing Please excuse inadvertent chainstitch felled seam operator or typing errors, or uncorrected word substitutions Although every attempt has been made by the provider to proofread this document, occasional misspellings and typographical errors may still be present Due to the previous pandemic, and the use of personal protective equipment (PPE) This may decrease voice recognition accuracy Inadvertent chainstitch felled seam operator errors may occur 06/20/2024 Closed fracture of nasal bone, initial encounter (ICD-10 - S02.2XXA) Pt here for CPE Acute Concerns/Problem List: 06/20/2024 Will get some x-rays of the right forearm/ shoulder Discussed closed head injury nasal bone fractures Did see ENT Refer to [facility] for colonoscopy screening Diabetes management and [...] software and direct typing Please excuse inadvertent chainstitch felled seam operator or typing errors, or uncorrected word substitutions Although every attempt has been made by the provider to proofread this document, occasional misspellings and typographical errors may still be present Due to the previous pandemic, and the use of personal protective equipment (PPE) This may decrease voice recognition accuracy Inadvertent chainstitch felled seam operator errors may occur 11/08/2024 Hyperlipidemia, unspecified hyperlipidemia type (ICD-10 - E78.5) 11/08/2024 Type 2 diabetes mellitus without complication, without long-term current use of insulin (ICD-10 - E11.9) 06/20/2024 Acute pain of right shoulder (ICD-10 - M25.511) Pt here for CPE Acute Concerns/Problem List: 06/20/2024 Will get some x-rays of the right forearm/ shoulder Discussed closed head injury nasal bone fractures Did see ENT Refer to [facility] for colonoscopy screening Diabetes management and [...] software and direct typing Please excuse inadvertent chainstitch felled seam operator or typing errors, or uncorrected word substitutions Although every attempt has been made by the provider to proofread this document, occasional misspellings and typographical errors may still be present Due to the previous pandemic, and the use of personal protective equipment (PPE) This may decrease voice recognition accuracy Inadvertent chainstitch felled seam operator errors may occur 06/20/2024 Right arm pain (ICD-10 - M79.601) Pt here for CPE Acute Concerns/Problem List: 06/20/2024 Will get some x-rays of the right forearm/ shoulder Discussed closed head injury nasal bone fractures Did see ENT Refer to [facility] for colonoscopy screening Diabetes management and [...] software and direct typing Please excuse inadvertent chainstitch felled seam operator or typing errors, or uncorrected word substitutions Although every attempt has been made by the provider to proofread this document, occasional misspellings and typographical errors may still be present Due to the previous pandemic, and the use of personal protective equipment (PPE) This may decrease voice recognition accuracy Inadvertent chainstitch felled seam operator errors may occur 12/20/2024 Acute Concerns/Problem List: 12/20/2024 Currently in NSR, says she is not presently having Palpitations. She will go for EKG today. Discussed Holter Monitor, she will be outfitted with 14 day model. She will hold PPI for two weeks, get H pylori testing due to bloating. Other comprehensive labs reviewed at [facility] and were unremarkable including thyroid function Of note, some information is being carried forward from prior records for informational purposes only and is being cited so that efficiency, safety and quality of the patient's care is not compromised This note was prepared using voice recognition software and direct typing Please excuse inadvertent chainstitch felled seam operator or typing errors, or uncorrected word substitutions Although every attempt has been made by the provider to proofread this document, occasional misspellings and typographical errors may still be present Due to the previous pandemic, and the use of personal protective equipment (PPE) This may decrease voice recognition accuracy Inadvertent chainstitch felled seam operator errors may occur Plan Of Treatment Pending Test Test Name Order Date PT AND PTT 06/24/2023 MRI : Brain without Contrast 01/08/2024 EKG 12/01/2024 EKG 06/24/2023 25OH VITAMIN D 11/08/2024 25OH VITAMIN D [...] End Date [employer] [place] [address] [address] [place] [address] [id number] PAULO LOPEZ Self - patient is the insured Medical (General) History Medical History History ICD Code high cholesterol Diabetes Asthma Headaches Fibromyalgia
[2025-06-15 09:39] LABS: Lyme Abs Screen <0.90 index
[2025-06-15 22:04] LABS: A. Phagocytphilium DNA,RT-PCR NOT DETECTED (NOT DETECTED); Babesia Microti DNA, RT-PCR NOT DETECTED (NOT DETECTED); Borrelia Miyamotoi,DNA RT-PCR NOT DETECTED (NOT DETECTED); E.Chaffeensis DNA RT-PCR NOT DETECTED (NOT DETECTED); Lyme(Borrelia ssp)DNA RT-PCR NOT DETECTED (NOT DETECTED)
== END 2025-06-14 16:29 | disposition home or self-care (01) ==
PROVIDERS: Physician Assistant Medical; Emergency Provider Emergency Medicine Emergency Medical Services; PCP Internal Medicine
DX: R42 Dizziness and giddiness (principal); R06.02 Shortness of breath; R00.2 Palpitations; E11.9 Type 2 diabetes mellitus without complications; Z79.899 Other long term (current) drug therapy; Z03.818 Encounter for observation for suspected exposure to other biological agents ruled out
CPT/HCPCS: 36415; 70450; 71275; 80053; 81001; 83735; 83880; 84443; 84484; 85025; 86617; 86618; 87086; 87468; 87469; 87478; 87484; 87502; 87635; 87798; 93005; 96374; 96375; 99285; J2270; J2405; Q9967

== ENCOUNTER → 2025-06-14 11:09 | Outpatient (BNV) | payer OTHER, SELFPAY | PROVIDERS: PCP Internal Medicine; Visit Provider Internal Medicine Cardiovascular Disease | DX: R42 Dizziness and giddiness (principal) | CPT/HCPCS: 93010 ==

== ENCOUNTER → 2025-06-14 11:34 | Outpatient (BNV) | payer OTHER, SELFPAY | PROVIDERS: PCP Internal Medicine; Visit Provider Radiology Diagnostic Radiology | DX: R06.02 Shortness of breath (principal); R42 Dizziness and giddiness | CPT/HCPCS: 70450; 71275 ==

== ENCOUNTER 2025-06-15 14:32 | Outpatient (AMB) | payer OTHER, SELFPAY ==
--- OUTSIDE RECORDS SUMMARY | 2024-12-20 11:30 | XMS_ITS ---
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 Other comprehensive labs reviewed at [facility] and were unremarkable including thyroid function Of note, some information is being carried forward from prior records for informational purposes only and is being cited so that efficiency, safety and quality of the patient's care is not compromised This note was prepared using voice recognition software and direct typing Please excuse inadvertent statistical clerk or typing errors, or uncorrected word substitutions Although every attempt has been made by the provider to proofread this document, occasional misspellings and typographical errors may still be present Due to the previous pandemic, and the use of personal protective equipment (PPE) This may decrease voice recognition accuracy Inadvertent statistical clerk errors may occur 12/20/2024 Abdominal bloating (ICD-10 - R14.0) Acute Concerns/Problem List: 12/20/2024 Currently in NSR, says she is not presently having Palpitations. She will go for EKG today. Discussed Holter Monitor, she will be outfitted with 14 day model. She will hold PPI for two weeks, get H pylori testing due to bloating. Other comprehensive labs reviewed at [facility] and were unremarkable including thyroid function Of note, some information is being carried forward from prior records for informational purposes only and is being cited so that efficiency, safety and quality of the patient's care is not compromised This note was prepared using voice recognition software and direct typing Please excuse inadvertent statistical clerk or typing errors, or uncorrected word substitutions Although every attempt has been made by the provider to proofread this document, occasional misspellings and typographical errors may still be present Due to the previous pandemic, and the use of personal protective equipment (PPE) This may decrease voice recognition accuracy Inadvertent statistical clerk errors may occur 12/20/2024 Type 2 diabetes [...] to bloating. Other comprehensive labs reviewed at [facility] and were unremarkable including thyroid function Of note, some information is being carried forward from prior records for informational purposes only and is being cited so that efficiency, safety and quality of the patient's care is not compromised This note was prepared using voice recognition software and direct typing Please excuse inadvertent statistical clerk or typing errors, or uncorrected word substitutions Although every attempt has been made by the provider to proofread this document, occasional misspellings and typographical errors may still be present Due to the previous pandemic, and the use of personal protective equipment (PPE) This may decrease voice recognition accuracy Inadvertent statistical clerk errors may occur 12/20/2024 Fibromyalgia (ICD-10 - M79.7) Acute Concerns/Problem List: 12/20/2024 Currently in NSR, says she is not presently having Palpitations. She will go for EKG today. Discussed Holter Monitor, she will be outfitted with 14 day model. She will hold PPI for two weeks, get H pylori testing due to bloating. Other comprehensive labs reviewed at [facility] and were unremarkable including thyroid function Of note, some information is being carried forward from prior records for informational purposes only and is being cited so that efficiency, safety and quality of the patient's care is not compromised This note was prepared using voice recognition software and direct typing Please excuse inadvertent statistical clerk or typing errors, or uncorrected word substitutions Although every attempt has been made by the provider to proofread this document, occasional misspellings and typographical errors may still be present Due to the previous pandemic, and the use of personal protective equipment (PPE) This may decrease voice recognition accuracy Inadvertent statistical clerk errors may occur 12/20/2024 Gastroesophageal reflux disease without esophagitis (ICD-10 - K21.9) Acute Concerns/Problem List: 12/20/2024 Currently in NSR, says she is not presently having Palpitations. She will go for EKG today. Discussed Holter Monitor, she will be outfitted with 14 day model. She will hold PPI for two weeks, get H pylori testing due to bloating. Other comprehensive labs reviewed at [facility] and were unremarkable including thyroid function Of note, some information is being carried forward from prior records for informational purposes only and is being cited so that efficiency, safety and quality of the patient's care is not compromised This note was prepared using voice recognition software and direct typing Please excuse inadvertent statistical clerk or typing errors, or uncorrected word substitutions Although every attempt has been made by the provider to proofread this document, occasional misspellings and typographical errors may still be present Due to the previous pandemic, and the use of personal protective equipment (PPE) This may decrease voice recognition accuracy Inadvertent statistical clerk errors may occur 12/20/2024 Pure hypercholesterolemi a, unspecified (ICD-10 - E78.00) Acute Concerns/Problem List: 12/20/2024 Currently in NSR, says she is not presently having Palpitations. She will go for EKG today. Discussed Holter Monitor, she will be outfitted with 14 day model. She will hold PPI for two weeks, get H pylori testing due to bloating. Other comprehensive labs reviewed at [facility] and were unremarkable including thyroid function Of note, some information is being carried forward from prior records for informational purposes only and is being cited so that efficiency, safety and quality of the patient's care is not compromised This note was prepared using voice recognition software and direct typing Please excuse inadvertent statistical clerk or typing errors, or uncorrected word substitutions Although every attempt has been made by the provider to proofread this document, occasional misspellings and typographical errors may still be present Due to the previous pandemic, and the use of personal protective equipment (PPE) This may decrease voice recognition accuracy Inadvertent statistical clerk errors may occur 12/20/2024 Other migraine without [...] to bloating. Other comprehensive labs reviewed at [facility] and were unremarkable including thyroid function Of note, some information is being carried forward from prior records for informational purposes only and is being cited so that efficiency, safety and quality of the patient's care is not compromised This note was prepared using voice recognition software and direct typing Please excuse inadvertent statistical clerk or typing errors, or uncorrected word substitutions Although every attempt has been made by the provider to proofread this document, occasional misspellings and typographical errors may still be present Due to the previous pandemic, and the use of personal protective equipment (PPE) This may decrease voice recognition accuracy Inadvertent statistical clerk errors may occur Plan Of Treatment No Information Progress Notes * PAULO LOPEZ LDOB:[birth year] (55 yo F)Acc No.[id number]:12/20/2024 Progress Notes Patient: PAULO NOLASCO Provider: Isamar DING NP :[id number] A ge:54 Y S ex:Female Date:12/20/2024 Address:[address] [place], [place] [address], [id number] Subjective: * Chief Complaints: * 1 . 2 week f/u, shanice mccann. * HPI: C onstitutional: Patient is here today for a Chronic Disease Management Follow-up Visit Full past medical history, social history, family history, allergies and current medications were reviewed and updated. Acute Concerns/Problem List: 12/20/2024 labs were 2024, [facility] CBC is stable Hemoglobin A1c of [...] Hypercholesteremia, GERD, REGINA Was previously followed by watch assembly inspector Erika, [address] [place] [address] She is off her sulfonylurea, now on Farxiga 10mg/as well as metformin 500mg BID pt educated to continue to use CGM/Dexcom Diabetic Eye exam: 2023, at [facility], Normal Neurological symptoms have essentially resolved She did see neurologist at [facility] MRI of the brain w/o January 2024 Unremarkable Surgical history: Bone spurs on both shoulders removed, carpel tunnel Surgery to come on toes for bone spurs (NEOS) family history, Father: diabetes, heart surgery (unknown) Mother: deseased, dimentia Allergies: cats, dogs, pollen, grass, dust, Avelox 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 Other comprehensive labs reviewed at [facility] and were unremarkable including thyroid function Of note, some information is being carried forward from prior records for informational purposes only and is being cited so that efficiency, safety and quality of the patient's care is not compromised This note was prepared using voice recognition software and direct typing Please excuse inadvertent statistical clerk or typing errors, or uncorrected word substitutions Although every attempt has been made by the provider to proofread this document, occasional misspellings and typographical errors may still be present Due to the previous pandemic, and the use of personal protective equipment (PPE) This may decrease voice recognition accuracy Inadvertent statistical clerk errors may occur. Plan: * Treatment: * Images: Billing Information: * Visit Code: * Procedure Codes: Care Plan Details* * Electronic signature of VITA DING on 06/15/2025 at 06:15 PM EDT Sign off status: Pending * Provider: Isamar DING NP Date: 12/20/2024 Generated for Ana stephenson/Rose/Mamadou on: 0 06/15/2025 06:15 PM EDT History and Physical Notes * HPI (History of Present Illness) Category Sub-Category Detail Notes Category Not es Constitutional Patient is here today for a Chronic Disease Management Follow-up Visit Full past medical history, social history, family history, allergies and current medications were reviewed and updated. Acute Concerns/Problem List: 12/20/2024 labs were 2024, [facility] CBC is stable Hemoglobin A1c of [...] Hypercholesteremia, GERD, REGINA Was previously followed by watch assembly inspector Erika, [address] [place] [address] She is off her sulfonylurea, now on Farxiga 10mg/as well as metformin 500mg BID pt educated to continue to use CGM/Dexcom Diabetic Eye exam: 2023, at [facility], Normal Neurological symptoms have essentially resolved She did see neurologist at [facility] MRI of the brain w/o January 2024 Unremarkable Surgical history: Bone spurs on both shoulders removed, carpel tunnel Surgery to come on toes for bone spurs (NEOS) family history, Father: diabetes, heart surgery (unknown) Mother: deseased, dimentia Allergies: cats, dogs, pollen, grass, dust, Avelox 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[facility] [employer]) Alcohol: ocassionally Smoking: None Illicit drugs: Has medical marijuana card that she uses rarely Comprehensive labs May 2024 [facility] Urinalysis mostly unremarkable Renal function electrolytes and LFTs are stable Total cholesterol 146, LDL 69, HDL 57, triglycerides 101 TSH 4.03, T4, 0.84 Hemoglobin A1c of 6.0 CBC is stable Vitamin D 26 Health Maintenance: COVID MRNA: 2 initial series Flu 2023 UTD TDAP: Unknown, thinks she got it Gyno/Pap: 2023 UTD Mammography: at [facility] in may 2024, UTD Cscope: 2019 DXA: N/a Shingrix: No Examination Category Sub-Category Detail Notes Category Not es General Examination GENERAL APPEARANCE: in no ac nina distress, well developed, well nourished HEAD: normocephalic, [...]
--- NOTE | 2025-06-15 14:34 | A.OFFPC_ITS ---
Vital Signs 06/15/25 14:40 Height 5 ft Weight 116 lb BMI 22.7 BP 130/62 Blood Pressure Location Rt brachial Position Sitting Respiration 16 Pulse 102 H Pulse Source Pulse Oximeter Temp 97.7 F Pulse Oximetry (%) 99 Oxygen Delivery Method Room Air Intake Visit Reasons: Shakes, palpitations Explosives Engineer Required: No Accompanied by: Self / Same As Patient Allergies moxifloxacin (From Avelox) Adverse Reaction (Intermediate, Verified 06/15/25 14:34) hand and limp numbness Tobacco use date assessed: 03/28/25 Dental Screening Dental Screen Date: 03/28/25 HPI HPI Comments History of Present Illness Details The patient is a 55-year-old female presenting with persistent shaking and tremor. The symptoms began approximately one month ago, initially following an episode of strep throat on May 24, for which she received amoxicillin. The patient subsequently developed an upper respiratory tract infection and was treated with various antibiotics, prednisone, and additional steroid injections provided by Dr. Ayon, though this did not alleviate the tremor. The shaking is characterized as occurring all the time, particularly when trying to perform tasks such as showering or working, with episodes of difficulty concentrating. At rest, she feels fine, but physical activity exacerbates the symptoms. She describes the tremor as both mild when seated and intense and pervasive when active, including feelings of her heart fluttering and pounding, particularly when using her nebulizer for asthma treatment. The patient reports prior episodes of dizziness, though not current, and struggles with moderate appetite control due to her use of Ozempic for weight management and diabetes. Her recorded blood glucose has been mostly under control, with instances as low as 66 mg/dL occurring during shaking events. The patient denies any dizziness since her last meal at 12 pm today; however, she feels very light tremor persists. She expresses concern over potential anxiety, despite denying significant stress at home, though she notes some work- related anxiety due to missing days due to the shaking. Medical History: - Asthma - Streptococcal Pharyngitis - Upper Respiratory Tract Infection - Type 2 Diabetes Mellitus - Hyperlipidemia - Hypertension - Thyroid Nodule - Urinary Tract Infection - Essential Tremor Medications: - Albuterol inhaler and nebulizer soluti on for asthma - Atorvastatin for hyperlipidemia - Budesonide for asthma - Zyrtec for allergies - Breo Ellipta for asthma - Losartan for hypertension - Metformin 500 mg twice daily for diabe dinorah - Montelukast for asthma - Ozempic 1 mg weekly for weight loss an d diabetes Diagnostic Results: - Normal blood glucose readings noted, w ith episodic lows as low as 66 mg/dL - No recent EKG results available in the conversation Social: - Employed, with missed workdays due to health concerns - Lives at home with - Consumes alcohol occasionally - Denies use of tobacco, marijuana, coca ine, heroin PFSH Medical History (Updated 06/15/25 @ 15:31 by Dylan Baires MD) Urinary tract infection Hyperlipidemia Shaking Subclinical hypothyroidism Thyroid nodule Chronic pain syndrome Chronic rhinitis Carpal tunnel syndrome on right Fibromyalgia Asthma High cholesterol Diabetes Surgical History History of colonoscopy (~05/22/17) H/O shoulder surgery Family History Father Heart problem Diabetes Mother BP (high blood pressure) Pre-diabetes Cervical cancer Social History Housing: Apartment Alcohol intake: current Alcohol intake frequency: holidays/special occasions only Patient Tobacco Use Status: Never used Tobacco e-Cigarette/Vaping Use: Never Used service: No Current occupational status: employed Cognitive needs: No Hearing needs: No Vision needs: Yes (rx glasses) Questionnaire Thrive Questionnaire Date Thrive assessed: 03/28/25 MICHAEL-7 AMB Questionnaire MICHAEL-7 Date MICHAEL - 7 assessed: 03/28/25 Source: Developed by Drs. Mikhail Huber, Tiff Enrique, Pollo Johnson and colleagues, with an educational madelyn from [employer]. Review of Systems Const Details: - Neurologic: Reports tremor, denies current dizziness. - Cardiovascular: Reports heart fluttering. - Respiratory: Reports increased albuterol and nebulizer use; occasional wheezing. - Genitourinary: Reports urinary burning with potential urinary tract infection. - Gastrointestinal: Denies significant changes in appetite, minimizing intake due to Ozempic. - Psychological: Denies anxiety or significant stress; expresses work-related concern. - General: Reports weight loss of 45 pounds. All systems reviewed & are unremarkable except as reviewed in HPI and above Physical exam (Primary Care) Vital Signs: Last Vital Signs Temp 97.7 F 06/15/25 14:40 Pulse 102 H 06/15/25 14:40 Resp 16 06/15/25 14:40 BP 130/62 06/15/25 14:40 Pulse Ox 99 06/15/25 14:40 Oxygen Delivery Method Room Air 06/15/25 14:40 BMI result Body Mass Index 22.7 Tobacco/Smoking Status: Tobacco use Status Tobacco use date assessed 03/28/25 06/15/25 14:42 Patient Tobacco Use Status Never used Tobacco 06/15/25 14:42 e-Cigarette/Vaping Use Never Used 06/15/25 14:42 Thrive Assessment: Date of Thrive Assessment Date Thrive assessed 03/28/25 06/15/25 14:42 Const Other: General: +Alert and oriented, Well nourished, No acute distress. Eye: Pupils are equal, round and reactive to light, Intact accommodation, Extraocular movements are intact, Normal conjunctiva, Vision unchanged. HENT: Normocephalic, Atraumatic, Tympanic membranes are clear, Normal hearing, Oral mucosa is moist, No pharyngeal erythema, Ear canals patent. Respiratory: Lungs CTA bilaterally, Wheezing noted in the left upper lung, Respirations are non-labored. Cardiovascular: Regular rate, Regular rhythm, S1 auscultated, S2 auscultated, No murmur, Good pulses equal in all extremities, Normal peripheral perfusion, No edema. Gastrointestinal: Soft, Non-tender, Non-distended, Normal bowel sounds, No organomegaly. Musculoskeletal: Normal range of motion, Normal strength, No tenderness, No swelling, No deformity, Normal gait. Integumentary: Warm, Dry, [place], Intact. Neurologic: Alert, Oriented, Normal sensory, Normal motor function, No focal defects, Cranial Nerves II-XII are grossly intact, Normal deep tendon reflexes. Psychiatric: Cooperative, Appropriate mood & affect, Normal judgment, Patient appears anxious and teary-eyed. Coding Level of Care Code Est Pt Level 4 (80676) Complex EM visit Add On G2211 Diagnoses Shaking R25.1 Thyroid nodule E04.1 Hyperlipidemia, unspecified hyperlipidemia type E78.5 Hyperlipidemia type: unspecified Moderate persistent asthma with acute exacerbation J45.41 Asthma severity: moderate Asthma persistence: persistent Asthma complication type: with acute exacerbation Urinary tract infection without hematuria, site unspecified N39.0 Urinary tract infection type: site unspecified Hematuria presence: without hematuria Type 2 diabetes mellitus with other specified complication, without long-term current use of insulin E11.69 Diabetes mellitus type: type 2 Diabetes mellitus care home insulin use: without terminal gauger use Diabetes mellitus complication status: with other specified complication Hypertension, unspecified type I10 Hypertension type: unspecified Time Spent (min) 45 Assessment & Plan Assessment & Plan (1) Shaking: Comment: Endorses diffuse shaking of her bilateral upper extremities and her heart pounding. Lab review completed and unremarkable with an EKG completed in clinic and in the ED yesterday also be unremarkable. When she subjectively says she has shaking, there is no actively shaking seen on her hands and more of her reporting that her heart is racing. We will start her on a SSRI in addition to a combination dose of benzos to bridge until they take effect given her anxiety There is also possibility that this could be secondary to hypoglycemia therefore of advised to hold off on Ozempic for 1 we can re-evaluate Code(s): R25.1 - Tremor, unspecified Category: Medical (2) Thyroid nodule: Comment: Seen on regular imaging and evaluated by Endocrinology who recommended no intervention at this time Code(s): E04.1 - Nontoxic single thyroid nodule Category: Medical (3) Hyperlipidemia: Comment: - Continue atorvastatin as prescribed. Code(s): E78.5 - Hyperlipidemia, unspecified Category: Medical Qualifiers: Hyperlipidemia type: unspecified Qualified Code(s): E78.5 - Hyperlipidemia, unspecified (4) Asthma: Comment: - Reduce frequency of albuterol use to minimize exacerbating tremors. - Plan to transition to levoalbuterol pending insurance approval. Code(s): J45.909 - Unspecified asthma, uncomplicated Category: Medical Qualifiers: Asthma severity: moderate Asthma persistence: persistent Asthma complication type: with acute exacerbation Qualified Code(s): J45.41 - Moderate persistent asthma with (acute) exacerbation (5) Urinary tract infection: Comment: - Initiate 5-day course of antibiotics for relief of current symptoms given positive UA Code(s): N39.0 - Urinary tract infection, site not specified Category: Medical Qualifiers: Urinary tract infection type: site unspecified Hematuria presence: without hematuria Qualified Code(s): N39.0 - Urinary tract infection, site not specified (6) Diabetes: Comment: - Instructed to hold Ozempic for one week to observe impact on tremor and glucose levels as hypoglycemia can cause tremors - Continue metformin Code(s): E11.9 - Type 2 diabetes mellitus without complications Category: Medical Qualifiers: Diabetes mellitus type: type 2 Diabetes mellitus care home insulin use: without care home use Diabetes mellitus complication status: with other specified complication Qualified Code(s): E11.69 - Type 2 diabetes mellitus with other specified complication (7) Hypertension: Comment: - Continue losartan as prescribed. Code(s): I10 - Essential (primary) hypertension Category: Medical Qualifiers: Hypertension type: unspecified Qualified Code(s): I10 - Essential (primary) hypertension Plan During the visit, we discussed at length the management of the patient?s persistent tremor and potential exacerbating factors. I suggested reducing albuterol usage due to potential stimulation effects that may aggravate tremor. The patient's thyroid has been stable, and the nodule is deemed benign, requiring only routine surveillance. I advised the patient to withhold Ozempic for a week to assess if it may be contributing to hypoglycemia-induced tremor. We introduced the possibility of trying levoalbuterol pending insurance approval to mitigate any cardiac stimulation. I emphasized the importance of relaxation and addressed likely anxiety contributing to symptoms. An antibiotic course for the suspected urinary tract infection was agreed upon. Lastly, surveillance of the thyroid nodule and reassessment of current medications were reviewed. Medications: New citalopram 10 mg PO DAILY 90 tabs 0RF lorazepam 0.5 mg PO DAILY PRN 10 tabs 0RF anxiety levalbuterol HCl must dilute for administration 1.25 mg (0.5 mL) inhalation Q4-6H PRN 30 ea 2RF shortness of breath or wheezing nitrofurantoin monohyd/m-cryst 100 mg (Macrobid) must administer with a meal/food 100 mg PO Q12H 10 caps 0RF 5 days Patient Instructions: - Reduce use of albuterol inhaler to minimize tremor. - Hold off on Ozempic for one week. - Start antibiotic for urinary tract infection as prescribed. - Use prescribed levoalbuterol as directed if approved. - Try relaxation techniques to help reduce anxiety. - Visit ER or follow up if symptoms worsen or new symptoms develop.
[2025-06-15 14:40] VITALS: BP 130/62; PULSE 102; RESP 16; TEMP 36.5; O2SAT 99; BMI 22.7
--- OUTSIDE RECORDS SUMMARY | 2025-06-15 18:15 | XMS_ITS | Patient Health Record ---
Author Organization [facility] Address [address] [place] [address] Care Team Providers Care Committee Member Name Role Phone RachanaJanel pace Primary Care [...] Status Risk Notes Problem Acquired hallux rigidus (2243004) Hallux rigidus, right foot (M20.21) Active confirmed Problem Acquired hallux rigidus (9697411) Hallux rigidus, left foot (M20.22) Active confirmed Problem Type II diabetes mellitus without complication ([id number]) Controlled type 2 diabetes mellitus without complication, [...] Coverage Start Date Coverage End Date [facility] [address] [facility] [place] [phone] [id number] Jessica Lozano Self - patient is the [...]
--- OUTSIDE RECORDS SUMMARY | 2025-06-15 18:15 | XMS_ITS | Patient Health Record ---
Author Organization [facility] [address] Address [address] [place] [address] Care Team Providers Care Retread Supervisor Name Role Phone WALLACE DING Unavailable [phone] Allergies Allergen (clinical drug ingredient) Drug/Non Drug Allergy documented on EMR Reaction Allergy Type Onset Date Status Pollen Pollen Swelling Allergy Active Results Component Value Reference Range Notes CR Forearm RT 2 Views Reviewed date:06/21/2024 08:18:51 AM Interpretation: Performing Lab: Notes/Report: Original Ordering Provider: WALLACE DING [facility] CR Humerus RT Min 2 Views Reviewed date:06/21/2024 08:18:51 AM Interpretation: Performing Lab: Notes/Report: Original Ordering Provider: WALLACE DING [facility] CR Shoulder RT Min 2 View Reviewed date:06/21/2024 08:18:51 AM Interpretation: Performing Lab: Notes/Report: Original Ordering Provider: WALLACE DING [facility] Reason For Referral Diagnosis 1 Asthma, unspecified asthma severity, unspecified whether complicated, unspecified whether persistent (J45.909) Referral Organization [facility] [address] Referring Provider First Name [...] day; Duration: 90 days Active Dexcom G7 Outreach Liaison - as directed; Durati on: 365 days [...] Status Risk Notes Problem Vitamin D deficiency (33337724) Vitamin D deficiency, unspecified (E55.9) Active confirmed Problem Chronic tension-type headache (667038888) Chronic tension-type headache, intractable (G44.221) Active confirmed Problem Fibromyalgia (045168289) Fibromyalgia (M79.7) Active confirmed Problem Weakness (65645260) Weakness (R53.1) Active con firmed Problem Pure hypercholesterolemia (420531174) Pure hypercholesterolem ia, unspecified (E78.00) Active confirmed Problem Hyperlipidaemia (37286138) Hyperlipidemia, unspecified hyperlipidemia type (E78.5) Active confirmed Problem Hypothyroidism (95909174) Hypothyroidism, unspecified type (E03.9) Active confirmed Problem Annual health maintenance examination (68115997) Annual physical exam (Z00.00) Active confirmed Problem Gastroesophageal reflux disease without esophagitis (385891643) Gastroesophageal reflux disease without esophagitis (K21.9) Active confirmed Problem Type II diabetes mellitus without complication (126994278) Type 2 diabetes mellitus without complication, without long-term current use of insulin (E11.9) Active confirmed Problem Asthma without statu s asthmaticus (49877325) Asthma, unspecified asthma severity, unspecified whether complicated, unspecified whether persistent (J45.909) Active confirmed Problem Migraine without aur a, not refractory (026047538) Other migraine without status migrainosus, not intractable (G43.809) Active confirmed Problem Pain in eye (18324095) Pain in e ye, unspecified laterality (H57.10) Active confirmed Vital Signs Heart Rate 88 /min 12/01/2024 Oximetry 99 % 12/01/2024 Blood pressure diastolic 82 mm Hg 12/01/2024 Height 60 in 12/01/2024 Blood pressure systolic 124 mm Hg 12/01/2024 Weight 115 lbs 12/01/2024 BMI 22.46 kg/m2 12/01/2024 Encounters Encounter Location Date Provider Diagnosis [facility] [address] [address] 06/20/2024 WALLACE DING Type 2 diabetes ray itus without complication, without long-term current use of insulin E11.9 ; Annual physical exam Z00.00 ; Fibromyalgia M79.7 ; Gastroesophageal reflux disease without esophagitis K21.9 ; Pure hypercholesterolemia, unspecified E78.00 ; Closed fracture of nasal bone, initial encounter S02.2XXA ; Acute pain of right shoulder M25.511 and Right arm pain M79.601 [facility] [address] [address] 12/01/2024 WALLACE DING Palpitations R00.2 a nd Abdominal bloating R14.0 [facility] [address] [address] 07/05/2024 WALLACE GOLDHOT [facility] [address] [address] 08/01/2024 WALLACE MALCOLMHOT [facility] [address] [address] 08/01/2024 WALLACE GOLDHOT [facility] [address] [address] 08/09/2024 WALLACE DING Pre-op exam Z01.818 [facility] [address] [address] 08/12/2024 WALLACE DING [facility] [address] [address] 09/23/2024 WALLACE DING [facility] [address] [address] 11/08/2024 WALLACE DING Annual physical exam Z00.00 ; Weakness R53.1 ; Vitamin D deficiency, unspecified E55.9 ; Hypothyroidism, unspecified type E03.9 ; Hyperlipidemia, unspecified hyperlipidemia type E78.5 and Type 2 diabetes mellitus without complication, without long-term current use of insulin E11.9 [facility] [address] [address] 11/11/2024 WALLACE DING [facility] [address] [address] 11/16/2024 WALLACE DING [facility] [address] [address] 11/30/2024 WALLACE DING [facility] [address] [address] 01/10/2025 WALLACE DING Encounter for immuni zation Z23 [facility] [address] [address] 10/10/2024 WALLACE DING Type 2 diabetes ray itus without complication, without long-term current use of insulin E11.9 and Pre-op exam Z01.818 [facility] [address] [address] 11/17/2024 WALLACE DING [facility] [address] [address] 11/29/2024 WALLACE COVARRUBIASHailey Assessments Encounter Date Diagnosis (ICD Code) Assessment Notes Treatment Notes Treatment Clinical Notes Section Notes 06/20/2024 Annual physical exam (ICD-10 - Z00.00) Pt here for CPE Acute Concerns/Problem List: 06/20/2024 Will get some x-rays of the right forearm/ shoulder Discussed closed head injury nasal bone fractures Did see ENT Refer to [facility] for colonoscopy screening Diabetes management and [...] software and direct typing Please excuse inadvertent nutrition services worker or typing errors, or uncorrected word substitutions Although every attempt has been made by the provider to proofread this document, occasional misspellings and typographical errors may still be present Due to the previous pandemic, and the use of personal protective equipment (PPE) This may decrease voice recognition accuracy Inadvertent nutrition services worker errors may occur 06/20/2024 Type 2 diabetes mellitus without complication, without long-term current use of insulin (ICD-10 - E11.9) Pt here for CPE Acute Concerns/Problem List: 06/20/2024 Will get some x-rays of the right forearm/ shoulder Discussed closed head injury nasal bone fractures Did see ENT Refer to [facility] for colonoscopy screening Diabetes management and [...] software and direct typing Please excuse inadvertent nutrition services worker or typing errors, or uncorrected word substitutions Although every attempt has been made by the provider to proofread this document, occasional misspellings and typographical errors may still be present Due to the previous pandemic, and the use of personal protective equipment (PPE) This may decrease voice recognition accuracy Inadvertent nutrition services worker errors may occur 08/09/2024 Pre-op exam (ICD-10 [...] to bloating. Other comprehensive labs reviewed at [facility] and were unremarkable including thyroid function Of note, some information is being carried forward from prior records for informational purposes only and is being cited so that efficiency, safety and quality of the patient's care is not compromised This note was prepared using voice recognition software and direct typing Please excuse inadvertent nutrition services worker or typing errors, or uncorrected word substitutions Although every attempt has been made by the provider to proofread this document, occasional misspellings and typographical errors may still be present Due to the previous pandemic, and the use of personal protective equipment (PPE) This may decrease voice recognition accuracy Inadvertent nutrition services worker errors may occur 12/01/2024 Abdominal bloating (ICD-10 - R14.0) Currently in NSR, says she is not presently having Palpitations. She will go for EKG today. Discussed Holter Monitor, she will be outfitted with 14 day model. She will hold PPI for two weeks, get H pylori testing due to bloating. Other comprehensive labs reviewed at [facility] and were unremarkable including thyroid function Of note, some information is being carried forward from prior records for informational purposes only and is being cited so that efficiency, safety and quality of the patient's care is not compromised This note was prepared using voice recognition software and direct typing Please excuse inadvertent nutrition services worker or typing errors, or uncorrected word substitutions Although every attempt has been made by the provider to proofread this document, occasional misspellings and typographical errors may still be present Due to the previous pandemic, and the use of personal protective equipment (PPE) This may decrease voice recognition accuracy Inadvertent nutrition services worker errors may occur 01/10/2025 Encounter for immunization (ICD-10 - Z23) 11/08/2024 Weakness (ICD-10 - R53.1) 10/10/2024 Pre-op exam (ICD-10 - Z01.818) 06/20/2024 Fibromyalgia (ICD-10 - M79.7) Pt here for CPE Acute Concerns/Problem List: 06/20/2024 Will get some x-rays of the right forearm/ shoulder Discussed closed head injury nasal bone fractures Did see ENT Refer to [facility] for colonoscopy screening Diabetes management and [...] software and direct typing Please excuse inadvertent nutrition services worker or typing errors, or uncorrected word substitutions Although every attempt has been made by the provider to proofread this document, occasional misspellings and typographical errors may still be present Due to the previous pandemic, and the use of personal protective equipment (PPE) This may decrease voice recognition accuracy Inadvertent nutrition services worker errors may occur 06/20/2024 Gastroesophageal reflux disease without esophagitis (ICD-10 - K21.9) Pt here for CPE Acute Concerns/Problem List: 06/20/2024 Will get some x-rays of the right forearm/ shoulder Discussed closed head injury nasal bone fractures Did see ENT Refer to [facility] for colonoscopy screening Diabetes management and [...] software and direct typing Please excuse inadvertent nutrition services worker or typing errors, or uncorrected word substitutions Although every attempt has been made by the provider to proofread this document, occasional misspellings and typographical errors may still be present Due to the previous pandemic, and the use of personal protective equipment (PPE) This may decrease voice recognition accuracy Inadvertent nutrition services worker errors may occur 11/08/2024 Vitamin D deficiency, unspecified (ICD-10 - E55.9) 11/08/2024 Hypothyroidism, unspecified type (ICD-10 - E03.9) 06/20/2024 Pure hypercholesterolemi a, unspecified (ICD-10 - E78.00) Pt here for CPE Acute Concerns/Problem List: 06/20/2024 Will get some x-rays of the right forearm/ shoulder Discussed closed head injury nasal bone fractures Did see ENT Refer to [facility] for colonoscopy screening Diabetes management and [...] software and direct typing Please excuse inadvertent nutrition services worker or typing errors, or uncorrected word substitutions Although every attempt has been made by the provider to proofread this document, occasional misspellings and typographical errors may still be present Due to the previous pandemic, and the use of personal protective equipment (PPE) This may decrease voice recognition accuracy Inadvertent nutrition services worker errors may occur 11/08/2024 Hyperlipidemia, unspecified hyperlipidemia type (ICD-10 - E78.5) 06/20/2024 Closed fracture of nasal bone, initial encounter (ICD-10 - S02.2XXA) Pt here for CPE Acute Concerns/Problem List: 06/20/2024 Will get some x-rays of the right forearm/ shoulder Discussed closed head injury nasal bone fractures Did see ENT Refer to [facility] for colonoscopy screening Diabetes management and [...] software and direct typing Please excuse inadvertent nutrition services worker or typing errors, or uncorrected word substitutions Although every attempt has been made by the provider to proofread this document, occasional misspellings and typographical errors may still be present Due to the previous pandemic, and the use of personal protective equipment (PPE) This may decrease voice recognition accuracy Inadvertent nutrition services worker errors may occur 11/08/2024 Type 2 diabetes mellitus without complication, without long-term current use of insulin (ICD-10 - E11.9) 06/20/2024 Acute pain of right shoulder (ICD-10 - M25.511) Pt here for CPE Acute Concerns/Problem List: 06/20/2024 Will get some x-rays of the right forearm/ shoulder Discussed closed head injury nasal bone fractures Did see ENT Refer to [facility] for colonoscopy screening Diabetes management and [...] software and direct typing Please excuse inadvertent nutrition services worker or typing errors, or uncorrected word substitutions Although every attempt has been made by the provider to proofread this document, occasional misspellings and typographical errors may still be present Due to the previous pandemic, and the use of personal protective equipment (PPE) This may decrease voice recognition accuracy Inadvertent nutrition services worker errors may occur 06/20/2024 Right arm pain (ICD-10 - M79.601) Pt here for CPE Acute Concerns/Problem List: 06/20/2024 Will get some x-rays of the right forearm/ shoulder Discussed closed head injury nasal bone fractures Did see ENT Refer to [facility] for colonoscopy screening Diabetes management and [...] software and direct typing Please excuse inadvertent nutrition services worker or typing errors, or uncorrected word substitutions Although every attempt has been made by the provider to proofread this document, occasional misspellings and typographical errors may still be present Due to the previous pandemic, and the use of personal protective equipment (PPE) This may decrease voice recognition accuracy Inadvertent nutrition services worker errors may occur 12/20/2024 Acute Concerns/Problem List: 12/20/2024 Currently in NSR, says she is not presently having Palpitations. She will go for EKG today. Discussed Holter Monitor, she will be outfitted with 14 day model. She will hold PPI for two weeks, get H pylori testing due to bloating. Other comprehensive labs reviewed at [facility] and were unremarkable including thyroid function Of note, some information is being carried forward from prior records for informational purposes only and is being cited so that efficiency, safety and quality of the patient's care is not compromised This note was prepared using voice recognition software and direct typing Please excuse inadvertent nutrition services worker or typing errors, or uncorrected word substitutions Although every attempt has been made by the provider to proofread this document, occasional misspellings and typographical errors may still be present Due to the previous pandemic, and the use of personal protective equipment (PPE) This may decrease voice recognition accuracy Inadvertent nutrition services worker errors may occur Plan Of Treatment Pending [...] End Date [employer] [place] [address] [address] [place] [address] [id number] PAULO LOPEZ Self - patient is the insured Medical (General) History Medical History History ICD Code high cholesterol Diabetes Asthma Headaches Fibromyalgia
== END 2025-06-15 15:33 | disposition home or self-care (01) ==
LOC: HO.HMCHD 14:33
PROVIDERS: PCP Student in an Organized Health Care Education/Training Program; Visit Provider Student in an Organized Health Care Education/Training Program
DX: R25.1 Tremor, unspecified (principal); E04.1 Nontoxic single thyroid nodule; E78.5 Hyperlipidemia, unspecified; J45.41 Moderate persistent asthma with (acute) exacerbation; N39.0 Urinary tract infection, site not specified; E11.69 Type 2 diabetes mellitus with other specified complication; I10 Essential (primary) hypertension

== ENCOUNTER → 2025-06-15 14:32 | Outpatient (BNVA) | payer OTHER, SELFPAY | PROVIDERS: PCP Internal Medicine; Visit Provider Student in an Organized Health Care Education/Training Program | DX: R25.1 Tremor, unspecified (principal); E04.1 Nontoxic single thyroid nodule; E78.5 Hyperlipidemia, unspecified; J45.41 Moderate persistent asthma with (acute) exacerbation; N39.0 Urinary tract infection, site not specified; E11.69 Type 2 diabetes mellitus with other specified complication; I10 Essential (primary) hypertension | CPT/HCPCS: 93005 ==

== ENCOUNTER 2025-06-26 16:27 | Outpatient (REF) | payer OTHER, SELFPAY ==
--- NOTE | ~2025-06-26 | MM_ITS ---
EXAMINATION: MM SCREENING DIGITAL BREAST TOMOSYNTHESIS, BILATERAL CLINICAL INFORMATION: Screening. Asymptomatic. COMPARISON: Comparison made to multiple prior, most recent April 08, 2024, and most remote April 03, 2021. TECHNIQUE: Digital breast tomosynthesis is performed in mediolateral oblique and craniocaudal views along with computer-aided detection (CAD). Synthesized 2D images are generated from the tomosynthesis. FINDINGS: BREAST COMPOSITION: The breasts are heterogeneously dense, which may obscure small masses. BILATERAL BREASTS: No significant masses, suspicious calcifications or other abnormalities are seen in either breast. MM/MM tomosynthesis screening BI IMPRESSION: BILATERAL BREASTS: Negative, no mammographic evidence of malignancy. Normal interval follow-up is recommended in 12 months. ASSESSMENT: BI-RADS: Category 1: Negative RECOMMENDATION: Routine annual mammography screening. FOLLOW-UP: 1 year F/U This examination should not preclude the clinical evaluation of a suspicious palpable abnormality. This patient's information was entered into a reminder system with a target due date for their next mammogram. Electronically signed by: Lisa Stark MD 06/27/2025 07:55 PM EDT
--- OUTSIDE RECORDS SUMMARY | 2025-06-26 18:15 | XMS_ITS ---
Patient Health Record Created on: June 26, 2025 PAULO LOPEZ : 1970
== END 2025-06-26 16:28 | disposition home or self-care (01) ==
LOC: HO.MAMMO 16:27
PROVIDERS: PCP Internal Medicine; Visit Provider Internal Medicine
DX: Z12.31 Encounter for screening mammogram for malignant neoplasm of breast (principal)
CPT/HCPCS: 77063; 77067

== ENCOUNTER → 2025-06-26 16:30 | Outpatient (BNV) | payer OTHER, SELFPAY | PROVIDERS: PCP Internal Medicine; Visit Provider Radiology Body Imaging | DX: Z12.31 Encounter for screening mammogram for malignant neoplasm of breast (principal) | CPT/HCPCS: 77063; 77067 ==

== ENCOUNTER 2025-07-28 16:10 | Outpatient (AMB) | payer OTHER, SELFPAY ==
--- OUTSIDE RECORDS SUMMARY | 2024-02-23 06:30 | XMS_ITS ---
Author Organization [facility] [address] Address [address] [place] [address] Care Team Providers Care Housing Coordinator Name Role Phone WALLACE DING Unavailable [phone] Encounters Encounter Location Date Provider Diagnosis [facility] [address] [address] 02/23/2024 WALLACE DING Plan Of Treatment No Information Progress Notes * PAULO LOPEZ LDOB:[birth year] (55 yo F)Acc No.[id number]:02/23/2024 CPE Patient: Dewey PAULO YADAV Provider: Isamar DING NP :1970 A ge:53 Y S ex:Female Date:02/23/2024 Address:[address] [place], [place] [phone] Subjective: * Chief Complaints: * * Medical History: Objective: * Vitals: Assessment: Plan: * Treatment: * Images: Billing Information: * Visit Code: * Procedure Codes: Care Plan Details* * Electronic signature of VITA DING on 07/28/2025 at 05:13 PM EDT Sign off status: Pending * Provider: Isamar DING NP Date: 0 02/23/2024 Generated for Ana stephenson/Rose/eTransmitting on: 05:13 PM EDT
--- OUTSIDE RECORDS SUMMARY | 2024-12-20 11:30 | XMS_ITS ---
Author Organization [facility] [address] Address [address] [place] [address] Care Team Providers Care Laboratory Scientist Name Role Phone WALLACE DING Unavailable [phone] REASON FOR VISIT 2 week f/u, bardray holter Encounters Encounter Location Date Provider Diagnosis [facility] [address] [address] 12/20/2024 WALLACE DING Palpitations R00.2 ; Abdominal [...] to bloating. Other comprehensive labs reviewed at [facility] and were unremarkable including thyroid function Of note, some information is being carried forward from prior records for informational purposes only and is being cited so that efficiency, safety and quality of the patient's care is not compromised This note was prepared using voice recognition software and direct typing Please excuse inadvertent jewel inserter or typing errors, or uncorrected word substitutions Although every attempt has been made by the provider to proofread this document, occasional misspellings and typographical errors may still be present Due to the previous pandemic, and the use of personal protective equipment (PPE) This may decrease voice recognition accuracy Inadvertent jewel inserter errors may occur 12/20/2024 Abdominal bloating (ICD-10 - R14.0) Acute Concerns/Problem List: 12/20/2024 Currently in NSR, says she is not presently having Palpitations. She will go for EKG today. Discussed Holter Monitor, she will be outfitted with 14 day model. She will hold PPI for two weeks, get H pylori testing due to bloating. Other comprehensive labs reviewed at [facility] and were unremarkable including thyroid function Of note, some information is being carried forward from prior records for informational purposes only and is being cited so that efficiency, safety and quality of the patient's care is not compromised This note was prepared using voice recognition software and direct typing Please excuse inadvertent jewel inserter or typing errors, or uncorrected word substitutions Although every attempt has been made by the provider to proofread this document, occasional misspellings and typographical errors may still be present Due to the previous pandemic, and the use of personal protective equipment (PPE) This may decrease voice recognition accuracy Inadvertent jewel inserter errors may occur 12/20/2024 Type 2 diabetes [...] to bloating. Other comprehensive labs reviewed at [facility] and were unremarkable including thyroid function Of note, some information is being carried forward from prior records for informational purposes only and is being cited so that efficiency, safety and quality of the patient's care is not compromised This note was prepared using voice recognition software and direct typing Please excuse inadvertent jewel inserter or typing errors, or uncorrected word substitutions Although every attempt has been made by the provider to proofread this document, occasional misspellings and typographical errors may still be present Due to the previous pandemic, and the use of personal protective equipment (PPE) This may decrease voice recognition accuracy Inadvertent jewel inserter errors may occur 12/20/2024 Fibromyalgia (ICD-10 - M79.7) Acute Concerns/Problem List: 12/20/2024 Currently in NSR, says she is not presently having Palpitations. She will go for EKG today. Discussed Holter Monitor, she will be outfitted with 14 day model. She will hold PPI for two weeks, get H pylori testing due to bloating. Other comprehensive labs reviewed at [facility] and were unremarkable including thyroid function Of note, some information is being carried forward from prior records for informational purposes only and is being cited so that efficiency, safety and quality of the patient's care is not compromised This note was prepared using voice recognition software and direct typing Please excuse inadvertent jewel inserter or typing errors, or uncorrected word substitutions Although every attempt has been made by the provider to proofread this document, occasional misspellings and typographical errors may still be present Due to the previous pandemic, and the use of personal protective equipment (PPE) This may decrease voice recognition accuracy Inadvertent jewel inserter errors may occur 12/20/2024 Gastroesophageal reflux disease without esophagitis (ICD-10 - K21.9) Acute Concerns/Problem List: 12/20/2024 Currently in NSR, says she is not presently having Palpitations. She will go for EKG today. Discussed Holter Monitor, she will be outfitted with 14 day model. She will hold PPI for two weeks, get H pylori testing due to bloating. Other comprehensive labs reviewed at [facility] and were unremarkable including thyroid function Of note, some information is being carried forward from prior records for informational purposes only and is being cited so that efficiency, safety and quality of the patient's care is not compromised This note was prepared using voice recognition software and direct typing Please excuse inadvertent jewel inserter or typing errors, or uncorrected word substitutions Although every attempt has been made by the provider to proofread this document, occasional misspellings and typographical errors may still be present Due to the previous pandemic, and the use of personal protective equipment (PPE) This may decrease voice recognition accuracy Inadvertent jewel inserter errors may occur 12/20/2024 Pure hypercholesterolemi a, unspecified (ICD-10 - E78.00) Acute Concerns/Problem List: 12/20/2024 Currently in NSR, says she is not presently having Palpitations. She will go for EKG today. Discussed Holter Monitor, she will be outfitted with 14 day model. She will hold PPI for two weeks, get H pylori testing due to bloating. Other comprehensive labs reviewed at [facility] and were unremarkable including thyroid function Of note, some information is being carried forward from prior records for informational purposes only and is being cited so that efficiency, safety and quality of the patient's care is not compromised This note was prepared using voice recognition software and direct typing Please excuse inadvertent jewel inserter or typing errors, or uncorrected word substitutions Although every attempt has been made by the provider to proofread this document, occasional misspellings and typographical errors may still be present Due to the previous pandemic, and the use of personal protective equipment (PPE) This may decrease voice recognition accuracy Inadvertent jewel inserter errors may occur 12/20/2024 Other migraine without [...] to bloating. Other comprehensive labs reviewed at [facility] and were unremarkable including thyroid function Of note, some information is being carried forward from prior records for informational purposes only and is being cited so that efficiency, safety and quality of the patient's care is not compromised This note was prepared using voice recognition software and direct typing Please excuse inadvertent jewel inserter or typing errors, or uncorrected word substitutions Although every attempt has been made by the provider to proofread this document, occasional misspellings and typographical errors may still be present Due to the previous pandemic, and the use of personal protective equipment (PPE) This may decrease voice recognition accuracy Inadvertent jewel inserter errors may occur Plan Of Treatment No Information Progress Notes * PAULO LOPEZ LDOB:[birth year] (55 yo F)Acc No.[id number]:12/20/2024 Progress Notes Patient: PAULO NOLASCO Provider: Isamar DING NP :[id number] A ge:54 Y S ex:Female Date:12/20/2024 Address:[address] [place], [place] [id number] Subjective: * Chief Complaints: * 1 . 2 week f/u, shanice mccann. * HPI: C onstitutional: Patient is here today for a Chronic Disease Management Follow-up Visit Full past medical history, social history, family history, allergies and current medications were reviewed and updated. Acute Concerns/Problem List: 12/20/2024 labs were 2024, [facility] CBC is stable Hemoglobin A1c of 6.0 [...] Hypercholesteremia, GERD, REGINA Was previously followed by [employer] machine operator Erika, [address] [place] [address] She is off her sulfonylurea, now on Farxiga 10mg/as well as metformin 500mg BID pt educated to continue to use CGM/Dexcom Diabetic Eye exam: 2023, at [facility], Normal Neurological symptoms have essentially resolved She did see neurolog[place] [facility] [place] w/o January 2024 Unremarkable Surgical history: Bone spurs on both shoulders removed, carpel tunnel Surgery to come on toes for bone spurs (NEOS) family history, Father: diabetes, heart surgery (unknown) Mother: deseased, dimentia Allergies: cats, dogs, pollen, grass, dust, Avelox 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 in may 2024, UTD Cscope: 2019 DXA: [...] ucosa moist. T HROAT: c lear. N DAVID/THYROID: n david supple, full range of motion, no cervical [...] to bloating. Other comprehensive labs reviewed at [facility] and were unremarkable including thyroid function Of note, some information is being carried forward from prior records for informational purposes only and is being cited so that efficiency, safety and quality of the patient's care is not compromised This note was prepared using voice recognition software and direct typing Please excuse inadvertent jewel inserter or typing errors, or uncorrected word substitutions Although every attempt has been made by the provider to proofread this document, occasional misspellings and typographical errors may still be present Due to the previous pandemic, and the use of personal protective equipment (PPE) This may decrease voice recognition accuracy Inadvertent jewel inserter errors may occur. Plan: * Treatment: * Images: Billing Information: * Visit Code: * Procedure Codes: Care Plan Details* * Electronic signature of VITA DING on 07/28/2025 at 05:13 PM EDT Sign off status: Pending * Provider: Isamar DING NP Date: 0 12/20/2024 Generated for Ana stephenson/Rose/Mamadou on: 1 05:13 PM EDT History and Physical Notes * HPI (History of Present Illness) Category Sub-Category Detail Notes Category Not es Constitutional Patient is here today for a Chronic Disease Management Follow-up Visit Full past medical history, social history, family history, allergies and current medications were reviewed and updated. Acute Concerns/Problem List: 12/20/2024 labs were 2024, [facility] CBC is stable Hemoglobin A1c of 6.0 [...] We set her up with 14-day Holter monitorShanice We told her to hold her PPI for 2 weeks and we are going to test H. pylori secondary to abdominal bloating The patient reports she does not use her CPAP other Medical history: asthma, diabetes, fibromyalgia, Hypercholesteremia, GERD, REGINA Was previously followed by [employer] machine operator Erika, [address] [place] [address] She is off her sulfonylurea, now on Farxiga 10mg/as well as metformin 500mg BID pt educated to continue to use CGM/Dexcom Diabetic Eye exam: 2023, at [facility], Normal Neurological symptoms have essentially resolved She did see neurologist [place] [facility] [place] w/o January 2024 Unremarkable Surgical history: Bone spurs on both shoulders removed, carpel tunnel Surgery to come on toes for bone spurs (NEOS) family history, Father: diabetes, heart surgery (unknown) Mother: deseased, dimentia Allergies: cats, dogs, pollen, grass, dust, Avelox 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 in may 2024, UTD Cscope: 2019 DXA: N/a Shingrix: No Examination Category Sub-Category Detail Notes Category Not es General Examination GENERAL APPEARANCE: in no ac [place] distress, well developed, well nourished HEAD: normocephalic, [...]
--- NOTE | 2025-07-28 15:41 | MHC.PC.OV ---
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 Required: No Accompanied by: Self / Same As Patient Allergies moxifloxacin (From Avelox) Adverse Reaction (Intermediate, Verified 07/28/25 15:42) hand and limp numbness Medication List - Last Reconciled 07/28/25 by ALEC Chase albuterol sulfate 90 mcg/actuation 2 inhalations inhalation Q6H albuterol sulfate 2.5 mg inhalation Q6H atorvastatin 10 mg PO DAILY budesonide-formoterol 160-4.5 mcg/actuation 2 puffs inhalation BID 30 days cetirizine (Zyrtec) 10 mg PO DAILY citalopram 10 mg PO DAILY fluticasone furoate-vilanterol 200-25 mcg/dose (Breo Ellipta) 1 inh inhalation DAILY 30 days levalbuterol HCl 1.25 mg (0.5 mL) inhalation Q4-6H PRN lidocaine 5% 1 patch topical DAILY lorazepam 0.5 mg PO DAILY PRN losartan 25 mg PO DAILY metformin 500 mg PO BID montelukast (Singulair) 10 mg PO BEDTIME 30 days omeprazole 40 mg PO DAILY PRN ondansetron HCl 4 mg PO Q8H PRN semaglutide (Ozempic) 1 mg subcut QWEEK Tobacco use date assessed: 07/28/25 Dental Screening Dental Screen Date: 07/28/25 Did you have a dental visit in the last 12 months?: Yes Did you have a dental problem in the last 6 months where you did not have access to dental care?: No HPI HPI Comments History of Present Illness Details 55-year-old female with history of type 2 diabetes, REGINA, GERD, hypertension, depression, subclinical hypothyroidism with thyroid nodule, hyperlipidemia, asthma presenting to the office today for follow-up. Type 2 diabetes-complicated by neuropathy. Last A1c 5.7%. Using metformin 500 mg twice daily and Ozempic 1 mg weekly. Looking to modify medications. Due for updated A1c. Eye exam is up-to-date REGINA/asthma-follows with Dr. Ayon. Recently had exacerbation requiring multiple courses of prednisone as well as IV methylprednisolone. She did experience emotional lability as well as tremors following the prednisone compliant with maintenance inhalers, Singulair, albuterol Depression-stable on citalopram HLD-atorvastatin. Concerns: Left carpal tunnel syndrome-numbness and tingling of the 1st 3 fingers upon waking every morning ongoing for several months. Using ice ibuprofen Health maintenance: Last colonoscopy 05/2017, 10 year follow-up Last mammogram 06/2025 with 1 year follow-up ROS: General: No fevers, malaise, unintentional weight loss HEENT: No blurred vision, diplopia. No sore throat, nasal congestion, rhinorrhea, sinus pain, ear pain Cardiovascular: No chest pain, palpitations, or leg edema Respiratory: No shortness of breath, wheezing, cough GI: No abdominal pain, nausea, vomiting, diarrhea, constipation, melena, hematochezia : No dysuria, hematuria, increased urinary frequency, decreased urinary output MSK: No myalgia, back pain Neuro: No headaches, weakness, paresthesias Skin: No rashes or lesions EXAM: Constitutional - Awake and Alert, No apparent distress Eyes - PERRL Cardiovascular - S1S2, RRR, No edema Respiratory - Normal lung expansion, Normal respiratory effort, No respiratory distress, CTA bilaterally Extremities - no calf tenderness bilaterally, no swelling Skin - Warm/Dry Neurological - Alert & oriented x3. Positive Tinel's test Psychological - Appropriate affect PFSH Medical History Urinary tract infection Hyperlipidemia Shaking Subclinical hypothyroidism Thyroid nodule Chronic pain syndrome Chronic rhinitis Carpal tunnel syndrome on right Fibromyalgia Asthma High cholesterol Diabetes Surgical History History of colonoscopy (~05/22/17) H/O shoulder surgery Family History Father Heart problem Diabetes Mother BP (high blood pressure) Pre-diabetes Cervical cancer Social History Housing: Apartment Alcohol intake: current Alcohol intake frequency: holidays/special occasions only Patient Tobacco Use Status: Never used Tobacco e-Cigarette/Vaping Use: Never Used service: No Current occupational status: employed Cognitive needs: No Hearing needs: No Vision needs: Yes (rx glasses) Questionnaire PHQ-9 Over the last 2 weeks, how often have you been bothered by any of the following problems? 1. Little interest or pleasure in doing things: not at all 2. Feeling down, depressed, or hopeless: not at all 3. Trouble falling or staying asleep, or sleeping too much: not at all 4. Feeling tired or having little energy: not at all 5. Poor appetite or overeating: not at all 6. Feeling bad about yourself - or that you are a failure or have let yourself or your family down: not at all 7. Trouble concentrating on things, such as reading the newspaper or watching television: not at all 8. Moving or speaking so slowly that other people could have noticed. Or the opposite - being so fidgety or restless that you have been moving around a lot more than usual: not at all 9. Thoughts that you would be better off or of hurting yourself in some way: not at all Total score: 0 Source: Developed by Drs. Mikhail Huber, Tiff Enrique, Pollo Johnson and colleagues, with an educational madelyn from [employer]. Thrive Questionnaire Date Thrive assessed: 07/28/25 I am a: Patient Within the past 12 months, did the food you bought not last and you didn't have the money to get more?: Never true Within the past 12 months, did you worry whether your food would run out before you got money to buy more?: Never true Do you have trouble paying for medicines?: No Do you have trouble getting transportation to medical appointments?: No Do you have trouble paying your heating and electricity bill?: No Do you have trouble taking care of your child, family member or friend?: No Do you have trouble with day-to-day activities such as bathing, preparing meals, shopping, managing finances, etc.?: No Are you currently unemployed and looking for a job?: No Are you interested in more education?: No THRIVE Score: 0 AUDIT C Alcohol Use Questionnaire (AUDIT-C) 1. How often do you have a drink containing alcohol?: Monthly or less 2. How many drinks containing alcohol do you have on a typical day when you are drinking?: 1 or 2 3. How often do you have six or more drinks on one occasion?: Less than monthly Total Score: 2 MICHAEL-7 AMB Questionnaire MICHAEL-7 Date MICHAEL - 7 assessed: 07/28/25 Feeling nervous, anxious, or on edge: 0 = Not at all Not being able to stop or control worryin = Not at all Worrying too much about different things: 0 = Not at all Trouble relaxin = Not at all Being so restless that it is hard to sit still: 0 = Not at all Becoming easily annoyed or irritable: 0 = Not at all Feeling afraid as if something awful might happen: 0 = Not at all Total MICHAEL-7 score (0-4 normal; 5-9 mild; 10-14 moderate; 15-21 severe): 0 Source: Developed by Drs. Mikhail Huber, Tiff Enrique, Pollo Johnson and colleagues, with an educational madelyn from [employer]. Physical exam (Primary Care) Vital Signs: Last Vital Signs Temp 98.2 F 07/28/25 16:14 Pulse 89 07/28/25 16:14 BP 115/67 07/28/25 16:14 Pulse Ox 96 07/28/25 16:14 Oxygen Delivery Method Room Air 07/28/25 16:14 BMI result Body Mass Index 24.3 Tobacco/Smoking Status: Tobacco use Status Tobacco use date assessed 07/28/25 07/28/25 15:43 Patient Tobacco Use Status Never used Tobacco 07/28/25 15:43 e-Cigarette/Vaping Use Never Used 07/28/25 15:43 PHQ-9: PHQ-9 Score PHQ-9: Total score 0 07/28/25 17:31 Thrive Assessment: Date of Thrive Assessment Date Thrive assessed 07/28/25 07/28/25 15:43 Coding Level of Care Code Est Pt Level 4 (47710) Complex EM visit Add On G2211 Diagnoses Hypertension, unspecified type I10 Hypertension type: unspecified Hyperlipidemia, unspecified hyperlipidemia type E78.5 Hyperlipidemia type: unspecified Type 2 diabetes mellitus with other specified complication, without long-term current use of insulin E11.69 Diabetes mellitus complication status: with other specified complication Diabetes mellitus assisted insulin use: without assisted use Diabetes mellitus type: type 2 Left carpal tunnel syndrome G56.02 Assessment & Plan Assessment & Plan (1) Hypertension: Comment: - Continue losartan as prescribed. Code(s): I10 - Essential (primary) hypertension Category: Medical Qualifiers: Hypertension type: unspecified Qualified Code(s): I10 - Essential (primary) hypertension Plan: Controlled. Continue current therapies (2) Hyperlipidemia: Comment: - Continue atorvastatin as prescribed. Code(s): E78.5 - Hyperlipidemia, unspecified Category: Medical Qualifiers: Hyperlipidemia type: unspecified Qualified Code(s): E78.5 - Hyperlipidemia, unspecified Plan: Lipid panel ordered. Continue atorvastatin (3) Diabetes: Comment: - Instructed to hold Ozempic for one week to observe impact on tremor and glucose levels as hypoglycemia can cause tremors - Continue metformin Code(s): E11.9 - Type 2 diabetes mellitus without complications Category: Medical Qualifiers: Diabetes mellitus complication status: with other specified complication Diabetes mellitus assisted insulin use: without assisted use Diabetes mellitus type: type 2 Qualified Code(s): E11.69 - Type 2 diabetes mellitus with other specified complication Plan: Well-controlled. Updated hemoglobin A1c ordered. Discontinue metformin or Ozempic pending results. Diabetic diet. Annual eye exams (4) Left carpal tunnel syndrome: Code(s): G56.02 - Carpal tunnel syndrome, left upper limb Category: Medical Plan: Wrist splint ordered. Exercises ordered. Referred for physical therapy. Ice and ibuprofen Orders: Orders PT Evaluation and Treatment Today G56.02 - Carpal tunnel syndrome, left upper limb Basic Metabolic Panel Today E11.69 - Type 2 diabetes mellitus with other specified complication, E78.5 - Hyperlipidemia, unspecified, I10 - Essential (primary) hypertension Complete Blood Count Auto Diff Today E11. - Type 2 diabetes mellitus with other specified complication, E78.5 - Hyperlipidemia, unspecified, I10 - Essential (primary) hypertension Hemoglobin A1c Today E11. - Type 2 diabetes mellitus with other specified complication, E78.5 - Hyperlipidemia, unspecified, I10 - Essential (primary) hypertension Lipid Panel Today E11. - Type 2 diabetes mellitus with other specified complication, E78.5 - Hyperlipidemia, unspecified, I10 - Essential (primary) hypertension Liver Panel Today E11. - Type 2 diabetes mellitus with other specified complication, E78.5 - Hyperlipidemia, unspecified, I10 - Essential (primary) hypertension Medications: New arm brace (Wrist Brace) no spica. Has tried ibuprofen and ice 1 ea 0RF arm brace (Wrist Brace) no spica. Has tried ibuprofen and ice 1 ea 0RF docusate sodium 100 mg PO BID 180 caps 0RF
[2025-07-28 16:14] VITALS: BP 115/67; PULSE 89; TEMP 36.8; O2SAT 96; BMI 24.3
--- OUTSIDE RECORDS SUMMARY | 2025-07-28 17:13 | XMS_ITS | Patient Health Record ---
Author Organization [facility] Address [address] [place] [address] Care Team Providers Care Plating Equipment Tender Name Role Phone RachanaJanel pace Primary Care [...] Status Risk Notes Problem Acquired hallux rigidus (6434495) Hallux rigidus, right foot (M20.21) Active confirmed Problem Acquired hallux rigidus (2440525) Hallux rigidus, left foot (M20.22) Active confirmed Problem Type II diabetes mellitus without complication (832057246) Controlled type 2 diabetes mellitus without complication, [...] Insured Coverage Start Date Coverage End Date [facility] [address] [facility] [place] [phone] [id number] Jessica Lozano Self - patient is the [...]
--- OUTSIDE RECORDS SUMMARY | 2025-07-28 17:13 | XMS_ITS | Data Portability ---
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 [email or web address] Not Available 06/05 15:09:44 Result Notes None recorded. Problems Name Problem SNOMED Code Status Onset Date Resolution Date Notes Provider Name and Address Organization Details Recorded Time Closed fracture of nasal bones 05751469 Active 024 Aaliyah chiang [place] - [facility] 15:22:16 Problem Notes None recorded. Medical [...] Availabl e Not Available [employer] [place] [address] [place] active Not Available Not Available Not Available Vitals Date Recorded Body height Body mass index (BMI) Body weight Provider Name and Address Organization Details Last Updated DateTime 06/14/2024 152.4 cm 22.5 kg/m2 61613.12 g Paola Vyas [place] - [facility] 06/14/2024 14:52:28 Social History None recorded. Functional Status None recorded. Mental Status None recorded. Family History Nothing Reported. Medical History No medical history recorded. Gynecological HistoryNo gynecological history recorded. Obstetrics History GPAL:G 0 P 0 0 0 0 Past Encounters Encounter ID Performer Location Encounter Start Date Encounter Closed Date Diagnosis/Indication Diagnosis SNOMED-CT Code Diagnosis ICD10 Code Diagnosis IMO Codes Diagnosis Note [id number] AALIYAH TREJO PA-C [facility] [address] [place] [address] 06/14/2024 14:43:26 06/14/2024 15:05:35 Closed fracture of nasal bones 49711099 S02.2XXA Health Concerns Section Related Observation LastModified by Organization Detai ls LastModified Time None Recorded Concern Status LastModified by Organization Details LastModified Time None Recorded Advance Directives Directive None Recorded Payers Insurance Date Sequence Insurance Name Policy Number Policy Johnson Covered Member ID Johnson Member ID Guarantor Name 06/14/2024 1 [employer] [facility] [id number] [facility] [id number] [facility] Notes Date Note Type Note Provider Name and Address Organization Details Recorded Time 06/14/2024 text/html ROS as noted in the HPI 54 year old female presents for evaluation of the nose. Fell [...] her nose a little bit, no blood. Aaliyah chiang [place] - [facility] 06/14/2024 15:22:53 OBGyn Episode No OBEpisode recorded.
--- OUTSIDE RECORDS SUMMARY | 2025-07-28 17:13 | XMS_ITS | Patient Health Record ---
Author Organization [facility] Address [address] [place] [address] Care Team Providers Care Private Security Guard Name Role Phone TOÑA WALLACE Unavailable [phone] Allergies Allergen (clinical drug ingredient) Drug/Non Drug Allergy documented on EMR Reaction Allergy Type Onset Date Status Pollen Pollen Swelling Allergy Active Reason For Referral Diagnosis 1 Asthma, unspecified asthma severity, unspecified whether complicated, unspecified whether persistent (J45.909) Referral Organization [facility] [address] Referring Provider First Name WALLACE Referring Provider Last Name TOÑA Referring Provider Speciality Internal M edicine Referred Provider Specialty Pulmonology General Notes Dr. 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 - as directed; Durati on: 365 days [...] Status Risk Notes Problem Vitamin D deficiency (28458084) Vitamin D deficiency, unspecified (E55.9) Active confirmed Problem Chronic tension-type headache (885713034) Chronic tension-type headache, intractable (G44.221) Active confirmed Problem Fibromyalgia (730566846) Fibromyalgia (M79.7) Active confirmed Problem Weakness (02186396) Weakness (R53.1) Active con firmed Problem Pure hypercholesterolemia (305208421) Pure hypercholesterolem ia, unspecified (E78.00) Active confirmed Problem Hyperlipidaemia (68040458) Hyperlipidemia, unspecified hyperlipidemia type (E78.5) Active confirmed Problem Hypothyroidism (20525370) Hypothyroidism, unspecified type (E03.9) Active confirmed Problem Annual health maintenance examination (35612413) Annual physical exam (Z00.00) Active confirmed Problem Gastroesophageal reflux disease without esophagitis (407382225) Gastroesophageal reflux disease without esophagitis (K21.9) Active confirmed Problem Type II diabetes mellitus without complication (365359381) Type 2 diabetes mellitus without complication, without long-term current use of insulin (E11.9) Active confirmed Problem Asthma without statu s asthmaticus (95977140) Asthma, unspecified asthma severity, unspecified whether complicated, unspecified whether persistent (J45.909) Active confirmed Problem Migraine without aur a, not refractory (199327498) Other migraine without status migrainosus, not intractable (G43.809) Active confirmed Problem Pain in eye (50898948) Pain in e ye, unspecified laterality (H57.10) Active confirmed Vital Signs Heart Rate 88 /min 12/01/2024 Oximetry 99 % 12/01/2024 Blood pressure diastolic 82 mm Hg 12/01/2024 Height 60 in 12/01/2024 Blood pressure systolic 124 mm Hg 12/01/2024 Weight 115 lbs 12/01/2024 BMI 22.46 kg/m2 12/01/2024 Encounters Encounter Location Date Provider Diagnosis [facility] [address] [address] 12/01/2024 WALLACE DING Palpitations R00.2 a nd Abdominal bloating R14.0 [facility] [address] [address] 08/01/2024 WALLACE DING [facility] [address] [address] 08/01/2024 WALLACE DING [facility] [address] [address] 08/09/2024 WALLACE DING Pre-op exam Z01.818 [facility] [address] [address] 08/12/2024 WALLACE DING [facility] [address] [address] 09/23/2024 WALLACE DING [facility] [address] [address] 11/08/2024 WALLACE DING Annual physical exam Z00.00 ; Weakness R53.1 ; Vitamin D deficiency, unspecified E55.9 ; Hypothyroidism, unspecified type E03.9 ; Hyperlipidemia, unspecified hyperlipidemia type E78.5 and Type 2 diabetes mellitus without complication, without long-term current use of insulin E11.9 [facility] [address] [facility] [address] [place] [address] 11/11/2024 WALLACE COVARRUBIASHailey [facility] [address] [facility] [address] [place] [address] 11/16/2024 WALLACE MALCOLMCRESENCIO [facility] [address] [address] 11/30/2024 WALLACE COVARRUBIAS [facility] [address] [facility] [address] [place] [address] 01/10/2025 WALLACE DING Encounter for immunization Z23 [facility] [address] [address] 10/10/2024 WALLACE DING Type 2 diabetes ray itus without complication, without long-term current use of insulin E11.9 and Pre-op exam Z01.818 [facility] [address] [address] 11/17/2024 WALLACE COVARRUBIASHailey [facility] [address] [address] 11/29/2024 WALLACE DING Assessments Encounter Date Diagnosis (ICD Code) Assessment Notes Treatment Notes Treatment Clinical Notes Section Notes 08/09/2024 Pre-op exam (ICD-10 - Z01.818) 11/08/2024 Annual physical exam (ICD-10 - Z00.00) 01/10/2025 Encounter for immunization (ICD-10 - Z23) 12/01/2024 Palpitations (ICD-10 - R00.2) Currently in NSR, says she is not presently having Palpitations. She will go for EKG today. Discussed Holter Monitor, she will be outfitted with 14 day model. She will hold PPI for two weeks, get H pylori testing due to bloating. Other comprehensive labs reviewed at [facility] and were unremarkable including thyroid function Of note, some information is being carried forward from prior records for informational purposes only and is being cited so that efficiency, safety and quality of the patient's care is not compromised This note was prepared using voice recognition software and direct typing Please excuse inadvertent gynecologist or typing errors, or uncorrected word substitutions Although every attempt has been made by the provider to proofread this document, occasional misspellings and typographical errors may still be present Due to the previous pandemic, and the use of personal protective equipment (PPE) This may decrease voice recognition accuracy Inadvertent gynecologist errors may occur 12/01/2024 Abdominal bloating (ICD-10 - R14.0) Currently in NSR, says she is not presently having Palpitations. She will go for EKG today. Discussed Holter Monitor, she will be outfitted with 14 day model. She will hold PPI for two weeks, get H pylori testing due to bloating. Other comprehensive labs reviewed at [facility] and were unremarkable including thyroid function Of note, some information is being carried forward from prior records for informational purposes only and is being cited so that efficiency, safety and quality of the patient's care is not compromised This note was prepared using voice recognition software and direct typing Please excuse inadvertent gynecologist or typing errors, or uncorrected word substitutions Although every attempt has been made by the provider to proofread this document, occasional misspellings and typographical errors may still be present Due to the previous pandemic, and the use of personal protective equipment (PPE) This may decrease voice recognition accuracy Inadvertent gynecologist errors may occur 10/10/2024 Type 2 diabetes mellitus without complication, without long-term current use of insulin (ICD-10 - E11.9) 10/10/2024 Pre-op exam (ICD-10 - Z01.818) 11/08/2024 Weakness (ICD-10 - R53.1) 11/08/2024 Vitamin D deficiency, unspecified (ICD-10 - E55.9) 11/08/2024 Hypothyroidism, unspecified type (ICD-10 - E03.9) 11/08/2024 Hyperlipidemia, unspecified hyperlipidemia type (ICD-10 - E78.5) 11/08/2024 Type 2 diabetes mellitus without complication, without long-term current use of insulin (ICD-10 - E11.9) 12/20/2024 Acute Concerns/Problem List: 12/20/2024 Currently in NSR, says she is not presently having Palpitations. She will go for EKG today. Discussed Holter Monitor, she will be outfitted with 14 day model. She will hold PPI for two weeks, get H pylori testing due to bloating. Other comprehensive labs reviewed at [facility] and were unremarkable including thyroid function Of note, some information is being carried forward from prior records for informational purposes only and is being cited so that efficiency, safety and quality of the patient's care is not compromised This note was prepared using voice recognition software and direct typing Please excuse inadvertent gynecologist or typing errors, or uncorrected word substitutions Although every attempt has been made by the provider to proofread this document, occasional misspellings and typographical errors may still be present Due to the previous pandemic, and the use of personal protective equipment (PPE) This may decrease voice recognition accuracy Inadvertent gynecologist errors may occur Plan Of Treatment Pending Test Test Name Order Date PT AND PTT 06/24/2023 MRI : Brain without Contrast 01/08/2024 EKG 12/01/2024 EKG 06/24/2023 25OH VITAMIN D 11/09/2023 25OH VITAMIN D 11/08/2024 CBC (COMPLETE BLOOD COUNT) WITH DIFF 01/2025 CBC (COMPLETE BLOOD COUNT) WITH DIFF 02/2024 COMPREHENSIVE METABOLIC PANEL 11/09/2023 COMPREHENSIVE METABOLIC PANEL 11/08/2024 HEMOGLOBIN A1C 11/08/2024 HEMOGLOBIN A1C 11/09/2023 LIPID PANEL 11/09/2023 LIPID PANEL 11/08/2024 MICROALBUMIN, URINE 11/09/2023 TSH WITH REFLEX TO [...] End Date [place] [address] [id number] [place] [address] [id number] PAULO LOPEZ Self - patient is the insured Medical (General) History Medical History History ICD Code high cholesterol Diabetes Asthma Headaches Fibromyalgia
== END 2025-07-28 16:47 | disposition home or self-care (01) ==
LOC: HO.HMCHD 16:10
PROVIDERS: PCP Student in an Organized Health Care Education/Training Program; Visit Provider Physician Assistant
DX: I10 Essential (primary) hypertension (principal); E78.5 Hyperlipidemia, unspecified; E11.69 Type 2 diabetes mellitus with other specified complication; G56.02 Carpal tunnel syndrome, left upper limb

== ENCOUNTER 2025-08-10 07:35 | Outpatient (REF) | payer OTHER, SELFPAY ==
--- OUTSIDE RECORDS SUMMARY | 2024-02-23 05:30 | XMS_ITS ---
Author Organization [facility] [address] Address [address] [place] [address] Care Team Providers Care Engineer Intern Name Role Phone WALLACE DING Unavailable [phone] Encounters Encounter Location Date Provider Diagnosis [facility] [address] [address] 02/23/2024 WALLACE DING Plan Of Treatment No Information Progress Notes * PAULO LOPEZ LDOB:[birth year] (55 yo F)Acc No.[id number]:02/23/2024 CPE Patient: Dewey PAULO YADAV Provider: Isamar DING NP :1970 A ge:53 Y S ex:Female Date:02/23/2024 Address:[address] [place], [place] [id number] Subjective: * Chief Complaints: * * Medical History: Objective: * Vitals: Assessment: Plan: * Treatment: * Images: Billing Information: * Visit Code: * Procedure Codes: Care Plan Details* * Electronic signature of VITA DING on 08/10/2025 at 07:38 AM EST Sign off status: Pending * Provider: Isamar DING NP Date: 02/23/2024 Generated for Ana stephenson/Rose/eTransmitting on: 10/10/2024 07:38 AM EST
--- OUTSIDE RECORDS SUMMARY | 2024-12-20 10:30 | XMS_ITS ---
Author Organization [facility] [address] Address [address] [place] [address] Care Team Providers Care Dealer Accounts Investigator Name Role Phone WALLACE DING Unavailable [phone] REASON FOR VISIT 2 week f/u, bardray holter Encounters Encounter Location Date Provider Diagnosis [facility] [address] [id number] 12/20/2024 WALLACE DING Palpitations R00.2 ; Abdominal bloating R14.0 ; Type 2 diabetes mellitus without complication, without long-term current use of insulin E11.9 ; Fibromyalgia M79.7 ; Gastroesophageal reflux disease without esophagitis K21.9 ; Pure hypercholesterolemia, unspecified E78.00 and Other migraine without status migrainosus, not intractable G43.809 Assessments Encounter Date Diagnosis (ICD Code) Assessment Notes Treatment Notes Treatment Clinical Notes Section Notes 12/20/2024 Palpitations (ICD-10 - R00.2) Acute Concerns/Problem List: 12/20/2024 Currently in NSR, says she is not presently having Palpitations. She will go for EKG today. Discussed Holter Monitor, she will be outfitted with 14 day model. She will hold PPI for two weeks, get H pylori testing due to bloating. Other comprehensive labs reviewed at [facility] and were unremarkable including thyroid function Of note, some information is being carried forward from prior records for informational purposes only and is being cited so that efficiency, safety and quality of the patient's care is not compromised This note was prepared using voice recognition software and direct typing Please excuse inadvertent smelter operator or typing errors, or uncorrected word substitutions Although every attempt has been made by the provider to proofread this document, occasional misspellings and typographical errors may still be present Due to the previous pandemic, and the use of personal protective equipment (PPE) This may decrease voice recognition accuracy Inadvertent smelter operator errors may occur 12/20/2024 Abdominal bloating (ICD-10 - R14.0) Acute Concerns/Problem List: 12/20/2024 Currently in NSR, says she is not presently having Palpitations. She will go for EKG today. Discussed Holter Monitor, she will be outfitted with 14 day model. She will hold PPI for two weeks, get H pylori testing due to bloating. Other comprehensive labs reviewed at [facility] and were unremarkable including thyroid function Of note, some information is being carried forward from prior records for informational purposes only and is being cited so that efficiency, safety and quality of the patient's care is not compromised This note was prepared using voice recognition software and direct typing Please excuse inadvertent smelter operator or typing errors, or uncorrected word substitutions Although every attempt has been made by the provider to proofread this document, occasional misspellings and typographical errors may still be present Due to the previous pandemic, and the use of personal protective equipment (PPE) This may decrease voice recognition accuracy Inadvertent smelter operator errors may occur 12/20/2024 Type 2 diabetes mellitus without complication, without long-term current use of insulin (ICD-10 - E11.9) Acute Concerns/Problem List: 12/20/2024 Currently in NSR, says she is not presently having Palpitations. She will go for EKG today. Discussed Holter Monitor, she will be outfitted with 14 day model. She will hold PPI for two weeks, get H pylori testing due to bloating. Other comprehensive labs reviewed at [facility] and were unremarkable including thyroid function Of note, some information is being carried forward from prior records for informational purposes only and is being cited so that efficiency, safety and quality of the patient's care is not compromised This note was prepared using voice recognition software and direct typing Please excuse inadvertent smelter operator or typing errors, or uncorrected word substitutions Although every attempt has been made by the provider to proofread this document, occasional misspellings and typographical errors may still be present Due to the previous pandemic, and the use of personal protective equipment (PPE) This may decrease voice recognition accuracy Inadvertent smelter operator errors may occur 12/20/2024 Fibromyalgia (ICD-10 - M79.7) Acute Concerns/Problem List: 12/20/2024 Currently in NSR, says she is not presently having Palpitations. She will go for EKG today. Discussed Holter Monitor, she will be outfitted with 14 day model. She will hold PPI for two weeks, get H pylori testing due to bloating. Other comprehensive labs reviewed at [facility] and were unremarkable including thyroid function Of note, some information is being carried forward from prior records for informational purposes only and is being cited so that efficiency, safety and quality of the patient's care is not compromised This note was prepared using voice recognition software and direct typing Please excuse inadvertent smelter operator or typing errors, or uncorrected word substitutions Although every attempt has been made by the provider to proofread this document, occasional misspellings and typographical errors may still be present Due to the previous pandemic, and the use of personal protective equipment (PPE) This may decrease voice recognition accuracy Inadvertent smelter operator errors may occur 12/20/2024 Gastroesophageal reflux disease without esophagitis (ICD-10 - K21.9) Acute Concerns/Problem List: 12/20/2024 Currently in NSR, says she is not presently having Palpitations. She will go for EKG today. Discussed Holter Monitor, she will be outfitted with 14 day model. She will hold PPI for two weeks, get H pylori testing due to bloating. Other comprehensive labs reviewed at [facility] and were unremarkable including thyroid function Of note, some information is being carried forward from prior records for informational purposes only and is being cited so that efficiency, safety and quality of the patient's care is not compromised This note was prepared using voice recognition software and direct typing Please excuse inadvertent smelter operator or typing errors, or uncorrected word substitutions Although every attempt has been made by the provider to proofread this document, occasional misspellings and typographical errors may still be present Due to the previous pandemic, and the use of personal protective equipment (PPE) This may decrease voice recognition accuracy Inadvertent smelter operator errors may occur 12/20/2024 Pure hypercholesterolemi a, unspecified (ICD-10 - E78.00) Acute Concerns/Problem List: 12/20/2024 Currently in NSR, says she is not presently having Palpitations. She will go for EKG today. Discussed Holter Monitor, she will be outfitted with 14 day model. She will hold PPI for two weeks, get H pylori testing due to bloating. Other comprehensive labs reviewed at [facility] and were unremarkable including thyroid function Of note, some information is being carried forward from prior records for informational purposes only and is being cited so that efficiency, safety and quality of the patient's care is not compromised This note was prepared using voice recognition software and direct typing Please excuse inadvertent smelter operator or typing errors, or uncorrected word substitutions Although every attempt has been made by the provider to proofread this document, occasional misspellings and typographical errors may still be present Due to the previous pandemic, and the use of personal protective equipment (PPE) This may decrease voice recognition accuracy Inadvertent smelter operator errors may occur 12/20/2024 Other migraine without status migrainosus, not intractable (ICD-10 - G43.809) Acute Concerns/Problem List: 12/20/2024 Currently in NSR, says she is not presently having Palpitations. She will go for EKG today. Discussed Holter Monitor, she will be outfitted with 14 day model. She will hold PPI for two weeks, get H pylori testing due to bloating. Other comprehensive labs reviewed at [facility] and were unremarkable including thyroid function Of note, some information is being carried forward from prior records for informational purposes only and is being cited so that efficiency, safety and quality of the patient's care is not compromised This note was prepared using voice recognition software and direct typing Please excuse inadvertent smelter operator or typing errors, or uncorrected word substitutions Although every attempt has been made by the provider to proofread this document, occasional misspellings and typographical errors may still be present Due to the previous pandemic, and the use of personal protective equipment (PPE) This may decrease voice recognition accuracy Inadvertent smelter operator errors may occur Plan Of Treatment No Information Progress Notes * PAULO LOPEZ LDOB:[birth year] (55 yo F)Acc No.[id number]:12/20/2024 Progress Notes Patient: PAULO NOLASCO Provider: Isamar DING NP :[id number] A ge:54 Y S ex:Female Date:12/20/2024 Address:[address] [place], [place] [address] [id number] Subjective: * Chief Complaints: * 1 . 2 week f/u, shanice mccann. * HPI: C onstitutional: Patient is here today for a Chronic Disease Management Follow-up Visit Full past medical history, social history, family history, allergies and current medications were reviewed and updated. Acute Concerns/Problem List: 12/20/2024 labs were 2024, [facility] CBC is stable Hemoglobin A1c of 6.0 Renal function electrolytes and LFTs are stable Total cholesterol 138, LDL 70, HDL 56, triglycerides 60 Vitamin D 60 TSH 4.46 Free T4, 0.98 seen 11/2024 for sick visit felt like sugars were very low Palpitations, shaking, fatigued. POC measurements close to 44. Stopped Ozempic since then, POC have been around 120 Palpitations occur every day at rest. Not brought on by exertion or standing. Denies chest pain, has chest shakiness . Denies visual disturbance, nausea. Also feels bloated, having normal BMs. HAs tried OTC gas pill. Fatigued, no change in sleep habits We set her up with 14-day Holter monitor, Shanice We told her to hold her PPI for 2 weeks and we are going to test H. pylori secondary to abdominal bloating The patient reports she does not use her CPAP other Medical history: asthma, diabetes, fibromyalgia, Hypercholesteremia, GERD, REGINA Was previously followed by marketing finance manager Erika, [address] [place] [address] She is off her sulfonylurea, now on Farxiga 10mg/as well as metformin 500mg BID pt educated to continue to use CGM/Dexcom Diabetic Eye exam: 2023, at [facility], Normal Neurological symptoms have essentially resolved She did see neurologist at [facility] [place] of the brain w/o January 2024 Unremarkable Surgical history: Bone spurs on both shoulders removed, carpel tunnel Surgery to come on toes for bone spurs (NEOS) family history, Father: diabetes, heart surgery (unknown) Mother: deseased, dimentia Allergies: cats, dogs, pollen, grass, dust, Avelox 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 * ROS: A ll Other Systems: Review of Systems (ROS) A ll others negative except those mentioned in HPI. * Medical History: Objective: * Vitals: * Examination: G eneral Examination: GENERAL APPEARANCE: i n no acute distress, well developed, well nourished. H EAD: n ormocephalic, atraumatic. E YES: p upils equal, round, reactive to light and accommodation. E ARS: n ormal. O RAL CAVITY: m ucosa moist. T HROAT: c lear. N YONI/THYROID: n yoni supple, full range of motion, no cervical lymphadenopathy. S KIN: n o suspicious lesions, warm and dry. H EART: n o murmurs, regular rate and rhythm, S1, S2 normal. L UNGS: c lear to auscultation bilaterally. A BDOMEN: n ormal, bowel sounds present, soft, nontender, nondistended. E XTREMITIES: n o clubbing, cyanosis, or edema. N EUROLOGIC: n onfocal, motor strength normal upper and lower extremities, sensory exam intact. Assessment: * Assessment: 1. A bdominal bloating - R14.0 (Primary) 2 . P alpitations - R00.2 ? 3 . T ype 2 diabetes mellitus without complication, without long-term current use of insulin - E11.9 4 . F ibromyalgia - M79.7 5 . G astroesophageal reflux disease without esophagitis - K21.9 6 . P ure hypercholesterolemia, unspecified - E78.00 7 . O ther migraine without status migrainosus, not intractable - G43.809 Acute Concerns/Problem List: 12/20/2024 Currently in NSR, says she is not presently having Palpitations. She will go for EKG today. Discussed Holter Monitor, she will be outfitted with 14 day model. She will hold PPI for two weeks, get H pylori testing due to bloating. Other comprehensive labs reviewed at [facility] and were unremarkable including thyroid function Of note, some information is being carried forward from prior records for informational purposes only and is being cited so that efficiency, safety and quality of the patient's care is not compromised This note was prepared using voice recognition software and direct typing Please excuse inadvertent smelter operator or typing errors, or uncorrected word substitutions Although every attempt has been made by the provider to proofread this document, occasional misspellings and typographical errors may still be present Due to the previous pandemic, and the use of personal protective equipment (PPE) This may decrease voice recognition accuracy Inadvertent smelter operator errors may occur. Plan: * Treatment: * Images: Billing Information: * Visit Code: * Procedure Codes: Care Plan Details* * Electronic signature of VITA DING on 08/10/2025 at 07:38 AM EST Sign off status: Pending * Provider: Isamar DING NP Date: 0 12/20/2024 Generated for Ana stephenson/Rose/Mamadou on: 10/10/2024 07:38 AM EST History and Physical Notes * HPI (History of Present Illness) Category Sub-Category Detail Notes Category Not es Constitutional Patient is here today for a Chronic Disease Management Follow-up Visit Full past medical history, social history, family history, allergies and current medications were reviewed and updated. Acute Concerns/Problem List: 12/20/2024 labs were 2024, [facility] CBC is stable Hemoglobin A1c of 6.0 Renal function electrolytes and LFTs are stable Total cholesterol 138, LDL 70, HDL 56, triglycerides 60 Vitamin D 60 TSH 4.46 Free T4, 0.98 seen 11/2024 for sick visit felt like sugars were very low Palpitations, shaking, fatigued. POC measurements close to 44. Stopped Ozempic since then, POC have been around 120 Palpitations occur every day at rest. Not brought on by exertion or standing. Denies chest pain, has chest shakiness . Denies visual disturbance, nausea. Also feels bloated, having normal BMs. HAs tried OTC gas pill. Fatigued, no change in sleep habits We set her up with 14-day Holter monitor, Shanice We told her to hold her PPI for 2 weeks and we are going to test H. pylori secondary to abdominal bloating The patient reports she does not use her CPAP other Medical history: asthma, diabetes, fibromyalgia, Hypercholesteremia, GERD, REGINA Was previously followed by marketing finance manager Erika, [address] [place] [address] She is off her sulfonylurea, now on Farxiga 10mg/as well as metformin 500mg BID pt educated to continue to use CGM/Dexcom Diabetic Eye exam: 2023, at [facility], Normal Neurological symptoms have essentially resolved She did see neurologist at [facility] MRI of the brain w/o January 2024 Unremarkable Surgical history: Bone spurs on both shoulders removed, carpel tunnel Surgery to come on toes for bone spurs (NEOS) family history, Father: diabetes, heart surgery (unknown) Mother: deseased, davidentia Allergies: cats, dogs, pollen, grass, dust, Avelox 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[employer]) Alcohol: ocassionally Smoking: None Illicit drugs: Has medical marijuana card that she uses rarely Comprehensive labs May 2024 [facility] Urinalysis mostly unremarkable Renal function electrolytes and LFTs are stable Total cholesterol 146, LDL 69, HDL 57, triglycerides 101 TSH 4.03, T4, 0.84 Hemoglobin A1c of 6.0 CBC is stable Vitamin D 26 Health Maintenance: COVID MRNA: 2 initial series Flu 2023 UTD TDAP: Unknown, thinks she got it Gyno/Pap: 2023 UTD Mammography: at [facility] in may 2024, UTD Cscope: 2019 DXA: N/a Shingrix: No Examination Category Sub-Category Detail Notes Category Not es General Examination GENERAL APPEARANCE: in no ac solomon distress, well developed, well nourished HEAD: normocephalic, [...]
--- OUTSIDE RECORDS SUMMARY | 2025-08-10 07:38 | XMS_ITS | Patient Health Record ---
Author Organization [facility] Address [address] [facility] [address] [place] [address] Care Team Providers Care Extractor Machine Operator Name Role Phone RachanaJanel pace Primary [...] Status Risk Notes Problem Acquired hallux rigidus (3045566) Hallux rigidus, right foot (M20.21) Active confirmed Problem Acquired hallux rigidus (9433973) Hallux rigidus, left foot (M20.22) Active confirmed Problem Type II diabetes mellitus without complication (687774489) Controlled type 2 diabetes mellitus without complication, [...] Insured Coverage Start Date Coverage End Date [facility] [address] [facility] [place] [phone] [id number] Jessica Lozano Self - patient is the [...]
--- OUTSIDE RECORDS SUMMARY | 2025-08-10 07:39 | XMS_ITS | Patient Health Record ---
Author Organization [facility] [address] Address [address] [place] [address] Care Team Providers Care Outreach Analyst Name Role Phone TOÑA WALLACE Unavailable [phone] Allergies Allergen (clinical drug ingredient) Drug/Non Drug [...] day; Duration: 90 days Active Dexcom G7 Salesperson Flowers - as directed; Durati on: 365 days [...] Status Risk Notes Problem Vitamin D deficiency (15046238) Vitamin D deficiency, unspecified (E55.9) Active confirmed Problem Chronic tension-type headache (967492695) Chronic tension-type headache, intractable (G44.221) Active confirmed Problem Fibromyalgia (753515945) Fibromyalgia (M79.7) Active confirmed Problem Weakness (75187604) Weakness (R53.1) Active con firmed Problem Pure hypercholesterolemia (689065188) Pure hypercholesterolem ia, unspecified (E78.00) Active confirmed Problem Hyperlipidaemia (31724880) Hyperlipidemia, unspecified hyperlipidemia type (E78.5) Active confirmed Problem Hypothyroidism (15482210) Hypothyroidism, unspecified type (E03.9) Active confirmed Problem Annual health maintenance examination (54422809) Annual physical exam (Z00.00) Active confirmed Problem Gastroesophageal reflux disease without esophagitis (642509081) Gastroesophageal reflux disease without esophagitis (K21.9) Active confirmed Problem Type II diabetes mellitus without complication (876128394) Type 2 diabetes mellitus without complication, without long-term current use of insulin (E11.9) Active confirmed Problem Asthma without statu s asthmaticus (06751425) Asthma, unspecified asthma severity, unspecified whether complicated, unspecified whether persistent (J45.909) Active confirmed Problem Migraine without aur a, not refractory (623497402) Other migraine without status migrainosus, not intractable (G43.809) Active confirmed Problem Pain in eye (97946910) Pain in e ye, unspecified laterality (H57.10) Active confirmed Vital Signs Heart Rate 88 /min 12/01/2024 Oximetry 99 % 12/01/2024 Blood pressure diastolic 82 mm Hg 12/01/2024 Height 60 in 12/01/2024 Blood pressure systolic 124 mm Hg 12/01/2024 Weight 115 lbs 12/01/2024 BMI 22.46 kg/m2 12/01/2024 Encounters Encounter Location Date Provider Diagnosis [facility] [address] [address] 12/01/2024 WALLACE DING Palpitations R00.2 a nd Abdominal bloating R14.0 [facility] [address] [address] [facility] [address] [address] 09/23/2024 WALLACE [facility] [address] [address] 11/08/2024 WALLACE DING Annual physical exam Z00.00 ; Weakness R53.1 ; Vitamin D deficiency, unspecified E55.9 ; Hypothyroidism, unspecified type E03.9 ; Hyperlipidemia, unspecified hyperlipidemia type E78.5 and Type 2 diabetes mellitus without complication, without long-term current use of insulin E11.9 [facility] [address] [address] 11/11/2024 [facility] [address] [address] 11/16/2024 WALLACE DING [facility] [address] [address] 11/30/2024 WALLACE DING [facility] [address] [address] 01/10/2025 WALLACEYOANA DING Encounter for immunization Z23 [facility] [address] [address] 10/10/2024 WALLACE MARCIHailey Type 2 diabetes ray itus without complication, without long-term current use of insulin E11.9 and Pre-op exam Z01.818 [facility] [address] [address] 11/17/2024 WALLACE DING [facility] [address] [address] 11/29/2024 WALLACE DING Assessments Encounter Date Diagnosis (ICD Code) Assessment Notes Treatment Notes Treatment Clinical Notes Section Notes 10/10/2024 Type 2 diabetes mellitus without complication, [...] to bloating. Other comprehensive labs reviewed at [facility] and were unremarkable including thyroid function Of note, some information is being carried forward from prior records for informational purposes only and is being cited so that efficiency, safety and quality of the patient's care is not compromised This note was prepared using voice recognition software and direct typing Please excuse inadvertent salesperson books or typing errors, or uncorrected word substitutions Although every attempt has been made by the provider to proofread this document, occasional misspellings and typographical errors may still be present Due to the previous pandemic, and the use of personal protective equipment (PPE) This may decrease voice recognition accuracy Inadvertent salesperson books errors may occur 12/01/2024 Abdominal bloating (ICD-10 - R14.0) Currently in NSR, says she is not presently having Palpitations. She will go for EKG today. Discussed Holter Monitor, she will be outfitted with 14 day model. She will hold PPI for two weeks, get H pylori testing due to bloating. Other comprehensive labs reviewed at [facility] and were unremarkable including thyroid function Of note, some information is being carried forward from prior records for informational purposes only and is being cited so that efficiency, safety and quality of the patient's care is not compromised This note was prepared using voice recognition software and direct typing Please excuse inadvertent salesperson books or typing errors, or uncorrected word substitutions Although every attempt has been made by the provider to proofread this document, occasional misspellings and typographical errors may still be present Due to the previous pandemic, and the use of personal protective equipment (PPE) This may decrease voice recognition accuracy Inadvertent salesperson books errors may occur 01/10/2025 Encounter for immunization (ICD-10 - Z23) 11/08/2024 Weakness (ICD-10 - R53.1) 10/10/2024 Pre-op exam (ICD-10 - Z01.818) 11/08/2024 Vitamin D deficiency, unspecified (ICD-10 - [...] to bloating. Other comprehensive labs reviewed at [facility] and were unremarkable including thyroid function Of note, some information is being carried forward from prior records for informational purposes only and is being cited so that efficiency, safety and quality of the patient's care is not compromised This note was prepared using voice recognition software and direct typing Please excuse inadvertent salesperson books or typing errors, or uncorrected word substitutions Although every attempt has been made by the provider to proofread this document, occasional misspellings and typographical errors may still be present Due to the previous pandemic, and the use of personal protective equipment (PPE) This may decrease voice recognition accuracy Inadvertent salesperson books errors may occur Plan Of Treatment Pending Test Test Name Order Date PT AND PTT 06/24/2023 MRI : Brain without Contrast 01/08/2024 EKG 06/24/2023 EKG 12/01/2024 25OH VITAMIN D 11/09/2023 25OH VITAMIN D [...] End Date [employer] Benefits [place] [address] [address] [place] [address] [id number] PAULO LOPE[place] Self - patient is the insured Medical (General) History Medical History History ICD Code high cholesterol Diabetes Asthma Headaches Fibromyalgia
--- OUTSIDE RECORDS SUMMARY | 2025-08-10 07:39 | XMS_ITS | Data Portability ---
Author Organization [place] [facility] Address [address] [place] [address] Care Team Providers Care Information Security Systems Instructor Name Role Phone WALLACE DING Primary Care [...] Recorded Time Closed fracture of nasal bones 26266956 Active Heri chiang [place] - [facility] 15:22:16 Problem Notes None recorded. Medical Equipment [...] Availabl e Not Available FreeStyle Racquel 3 [place] active Not Available Not Available Not Available Vitals Date Recorded Body height Body mass index (BMI) Body weight Provider Name and Address Organization Details Last Updated DateTime 06/14/2024 152.4 cm 22.5 kg/m2 80470.12 g Paoal Vyas [place] [facility] 06/14/2024 14:52:28 Social History None recorded. Functional Status None recorded. Mental Status None recorded. Family History Nothing Reported. Medical History No medical history recorded. Gynecological HistoryNo gynecological history recorded. Obstetrics History GPAL:G 0 P 0 0 0 0 Past Encounters Encounter ID Performer Location Encounter Start Date Encounter Closed Date Diagnosis/Indication Diagnosis SNOMED-CT Code Diagnosis ICD10 Code Diagnosis IMO Codes Diagnosis Note [id number] AALIYAH TREJO PA-C [facility] [address] [place] [address] 06/14/2024 14:43:26 06/14/2024 15:05:35 Closed fracture of nasal bones 90597219 S02.2XXA Health Concerns Section Related Observation LastModified by Organization Detai ls LastModified Time None Recorded Concern Status LastModified by Organization Details LastModified Time None Recorded Advance Directives Directive None Recorded Payers Insurance Date Sequence Insurance Name Policy Number Policy Johnson Covered Member ID Johnson Member ID Guarantor Name 06/14/2024 1 [employer] [facility] [id number] [facility] [id number] [facility] Notes Date Note Type Note [...] chiang [place] - [facility] 06/14/2024 15:22:53 OBGyn Episode No OBEpisode recorded.
[2025-08-10 07:45] LABS: MANUAL DIFF FLAG NO
[2025-08-10 08:19] LABS: Hematocrit 41.7 % (37.0-47.0); Hemoglobin 13.5 g/dl (12.0-16.0); Imm Gran Abs Auto 0.01 X10*3/uL (0.00-0.03); Imm Gran Pct Auto 0.2 % (0.0-0.4); Lymphocytes Absolute Auto 2.0 X10*3/uL (1.2-4.9); Mean Corpuscular HGB Conc 32.4 g/dl (31.0-35.0); Mean Corpuscular Hemoglobin 28.8 pg (27.0-33.0); Mean Corpuscular Volume 89.1 fL (80.0-98.0); NRBC Abs Auto 0.000 X10*3/uL (0.0-0.012); NRBC Pct Auto 0.0 /100WBC (0.0-0.2); Platelet Count 252 X10*3/uL (160-400); Red Blood Count 4.68 X10*6/uL (4.20-5.50); White Blood Count 4.1 X10*3/uL (4.8-10.8)
[2025-08-10 08:40] LABS: Alanine Aminotransferase 18 U/L (0-31); Albumin Level 4.3 g/dL (3.5-5.0); Alkaline Phosphatase 64 U/L (39-117); Anion Gap 11 (12-20); Aspartate Amino Transferase 28 U/L (5-31); Blood Urea Nitrogen 16 mg/dL (9-16); Calcium 9.2 mg/dL (8.4-10.2); Carbon Dioxide 28 mmol/L (22-29); Chloride 108 mmol/L (96-108); Cholesterol 155 mg/dL (<200); Estimated Glomerular Filt Rate > 60; HDL Cholesterol 59 mg/dL (>40); Potassium 4.2 mmol/L (3.3-5.1); Sodium 143 mmol/L (135-145); Total Protein 7.0 g/dL (6.5-8.0); Triglycerides 92 mg/dL (<150)
== END 2025-08-10 07:36 | disposition home or self-care (01) ==
LOC: HO.LAB 07:35
PROVIDERS: PCP Internal Medicine; Visit Provider Physician Assistant
DX: I10 Essential (primary) hypertension (principal); E11.69 Type 2 diabetes mellitus with other specified complication; E78.5 Hyperlipidemia, unspecified
CPT/HCPCS: 36415; 80048; 80061; 80076; 83036; 85025

== ENCOUNTER 2025-08-11 15:00 | Outpatient (AMB) | payer OTHER, SELFPAY ==
--- OUTSIDE RECORDS SUMMARY | 2024-02-23 05:30 | XMS_ITS ---
Author Organization [facility] [address] Address [address] [place] [address] Care Team Providers Care Gas Appliance Adjuster Name Role Phone WALLACE DING Unavailable [phone] Encounters Encounter Location Date Provider Diagnosis [facility] [address] [address] 02/23/2024 WALLACE DING Plan Of Treatment No Information Progress Notes * PAULO LOPEZ LDOB:[birth year] (55 yo F)Acc No.[id number]:02/23/2024 CPE Patient: Dewey PAULO YADAV Provider: Isamar DING NP :1970 A ge:53 Y S ex:Female Date:02/23/2024 Address:[address] [place], [place] [id number] Subjective: * Chief Complaints: * * Medical History: Objective: * Vitals: Assessment: Plan: * Treatment: * Images: Billing Information: * Visit Code: * Procedure Codes: Care Plan Details* * Electronic signature of VITA DING on 08/11/2025 at 04:17 PM EST Sign off status: Pending * Provider: Isamar DING NP Date: 02/23/2024 Generated for Ana stephenson/Rose/eTransmitting on: 10/11/2024 04:17 PM EST
--- OUTSIDE RECORDS SUMMARY | 2024-12-20 10:30 | XMS_ITS ---
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 Other comprehensive labs reviewed at [facility] and were unremarkable including thyroid function Of note, some information is being carried forward from prior records for informational purposes only and is being cited so that efficiency, safety and quality of the patient's care is not compromised This note was prepared using voice recognition software and direct typing Please excuse inadvertent taxi truck driver or typing errors, or uncorrected word substitutions Although every attempt has been made by the provider to proofread this document, occasional misspellings and typographical errors may still be present Due to the previous pandemic, and the use of personal protective equipment (PPE) This may decrease voice recognition accuracy Inadvertent taxi truck driver errors may occur 12/20/2024 Abdominal bloating (ICD-10 - R14.0) Acute Concerns/Problem List: 12/20/2024 Currently in [facility], says she is not presently having Palpitations. She will go for EKG today. Discussed Holter Monitor, she will be outfitted with 14 day model. She will hold PPI for two weeks, get H pylori testing due to bloating. Other comprehensive labs reviewed at [facility] and were unremarkable including thyroid function Of note, some information is being carried forward from prior records for informational purposes only and is being cited so that efficiency, safety and quality of the patient's care is not compromised This note was prepared using voice recognition software and direct typing Please excuse inadvertent taxi truck driver or typing errors, or uncorrected word substitutions Although every attempt has been made by the provider to proofread this document, occasional misspellings and typographical errors may still be present Due to the previous pandemic, and the use of personal protective equipment (PPE) This may decrease voice recognition accuracy Inadvertent taxi truck driver errors may occur 12/20/2024 Type 2 diabetes [...] to bloating. Other comprehensive labs reviewed at [facility] and were unremarkable including thyroid function Of note, some information is being carried forward from prior records for informational purposes only and is being cited so that efficiency, safety and quality of the patient's care is not compromised This note was prepared using voice recognition software and direct typing Please excuse inadvertent taxi truck driver or typing errors, or uncorrected word substitutions Although every attempt has been made by the provider to proofread this document, occasional misspellings and typographical errors may still be present Due to the previous pandemic, and the use of personal protective equipment (PPE) This may decrease voice recognition accuracy Inadvertent taxi truck driver errors may occur 12/20/2024 Fibromyalgia (ICD-10 - M79.7) Acute Concerns/Problem List: 12/20/2024 Currently in [facility], says she is not presently having Palpitations. She will go for EKG today. Discussed Holter Monitor, she will be outfitted with 14 day model. She will hold PPI for two weeks, get H pylori testing due to bloating. Other comprehensive labs reviewed at [facility] and were unremarkable including thyroid function Of note, some information is being carried forward from prior records for informational purposes only and is being cited so that efficiency, safety and quality of the patient's care is not compromised This note was prepared using voice recognition software and direct typing Please excuse inadvertent taxi truck driver or typing errors, or uncorrected word substitutions Although every attempt has been made by the provider to proofread this document, occasional misspellings and typographical errors may still be present Due to the previous pandemic, and the use of personal protective equipment (PPE) This may decrease voice recognition accuracy Inadvertent taxi truck driver errors may occur 12/20/2024 Gastroesophageal reflux disease without esophagitis (ICD-10 - K21.9) Acute Concerns/Problem List: 12/20/2024 Currently in [facility], says she is not presently having Palpitations. She will go for EKG today. Discussed Holter Monitor, she will be outfitted with 14 day model. She will hold PPI for two weeks, get H pylori testing due to bloating. Other comprehensive labs reviewed at [facility] and were unremarkable including thyroid function Of note, some information is being carried forward from prior records for informational purposes only and is being cited so that efficiency, safety and quality of the patient's care is not compromised This note was prepared using voice recognition software and direct typing Please excuse inadvertent taxi truck driver or typing errors, or uncorrected word substitutions Although every attempt has been made by the provider to proofread this document, occasional misspellings and typographical errors may still be present Due to the previous pandemic, and the use of personal protective equipment (PPE) This may decrease voice recognition accuracy Inadvertent taxi truck driver errors may occur 12/20/2024 Pure hypercholesterolemi a, unspecified (ICD-10 - E78.00) Acute Concerns/Problem List: 12/20/2024 Currently in [facility], says she is not presently having Palpitations. She will go for EKG today. Discussed Holter Monitor, she will be outfitted with 14 day model. She will hold PPI for two weeks, get H pylori testing due to bloating. Other comprehensive labs reviewed at [facility] and were unremarkable including thyroid function Of note, some information is being carried forward from prior records for informational purposes only and is being cited so that efficiency, safety and quality of the patient's care is not compromised This note was prepared using voice recognition software and direct typing Please excuse inadvertent taxi truck driver or typing errors, or uncorrected word substitutions Although every attempt has been made by the provider to proofread this document, occasional misspellings and typographical errors may still be present Due to the previous pandemic, and the use of personal protective equipment (PPE) This may decrease voice recognition accuracy Inadvertent taxi truck driver errors may occur 12/20/2024 Other migraine without [...] to bloating. Other comprehensive labs reviewed at [facility] and were unremarkable including thyroid function Of note, some information is being carried forward from prior records for informational purposes only and is being cited so that efficiency, safety and quality of the patient's care is not compromised This note was prepared using voice recognition software and direct typing Please excuse inadvertent taxi truck driver or typing errors, or uncorrected word substitutions Although every attempt has been made by the provider to proofread this document, occasional misspellings and typographical errors may still be present Due to the previous pandemic, and the use of personal protective equipment (PPE) This may decrease voice recognition accuracy Inadvertent taxi truck driver errors may occur Plan Of Treatment No Information Progress Notes * PAULO LOPEZ LDOB:[birth year] (55 yo F)Acc No.[id number]:12/20/2024 Progress Notes Patient: PAULO NOLASCO Provider: Isamar DING NP :[id number] A ge:54 Y S ex:Female Date:12/20/2024 Address:[address] [place], [place] [address], [id number] Subjective: * Chief Complaints: * 1 . 2 week f/u, shanice mccann. * HPI: C onstitutional: Patient is here today for a Chronic Disease Management Follow-up Visit Full past medical history, social history, family history, allergies and current medications were reviewed and updated. Acute Concerns/Problem List: 12/20/2024 labs were 2024, [facility] CBC is stable Hemoglobin A1c of [...] Hypercholesteremia, GERD, REGINA Was previously followed by service advisor Erika, [address] [place] [address] She is off her sulfonylurea, now on Farxiga 10mg/as well as metformin 500mg BID pt educated to continue to use CGM/Dexcom Diabetic Eye exam: 2023, at [facility], Normal Neurological symptoms have essentially resolved She did see neurologist at [facility] MRI of the brain w/o January 2024 Unremarkable Surgical history: Bone spurs on both shoulders removed, carpel tunnel Surgery to come on toes for bone spurs (NEOS) family history, Father: diabetes, heart surgery (unknown) Mother: deseased, dimentia Allergies: cats, dogs, pollen, grass, dust, Avelox 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) Alcohol: ocassionally Smoking: None Illicit drugs: Has medical marijuana card that she uses rarely Comprehensive labs May 2024 [facility] Urinalysis mostly unremarkable Renal function electrolytes and LFTs are stable Total cholesterol 146, LDL 69, HDL 57, triglycerides 101 TSH 4.03, T4, 0.84 Hemoglobin A1c of 6.0 CBC is stable Vitamin D 26 Health Maintenance: COVID MRNA: 2 initial series Flu 2023 UTD TDAP: Unknown, thinks she got it Gyno/Pap: 2023 UTD Mammography: at [facility] in may 2024, UTD Cscope: 2019 DXA: [...] to bloating. Other comprehensive labs reviewed at [facility] and were unremarkable including thyroid function Of note, some information is being carried forward from prior records for informational purposes only and is being cited so that efficiency, safety and quality of the patient's care is not compromised This note was prepared using voice recognition software and direct typing Please excuse inadvertent taxi truck driver or typing errors, or uncorrected word substitutions Although every attempt has been made by the provider to proofread this document, occasional misspellings and typographical errors may still be present Due to the previous pandemic, and the use of personal protective equipment (PPE) This may decrease voice recognition accuracy Inadvertent taxi truck driver errors may occur. Plan: * Treatment: * Images: Billing Information: * Visit Code: * Procedure Codes: Care Plan Details* * Electronic signature of VITA IDNG on 08/11/2025 at 04:17 PM EST Sign off status: Pending * Provider: Isamar DING NP Date: 0 12/20/2024 Generated for Ana stephenson/Rose/Mamadou on: 10/11/2024 04:17 PM EST History and Physical Notes * HPI (History of Present Illness) Category Sub-Category Detail Notes Category Not es Constitutional Patient is here today for a Chronic Disease Management Follow-up Visit Full past medical history, social history, family history, allergies and current medications were reviewed and updated. Acute Concerns/Problem List: 12/20/2024 labs were 2024, [facility] CBC is stable Hemoglobin A1c of [...] Hypercholesteremia, GERD, REGINA Was previously followed by service advisor Erika, [address] [place] [address] She is off her sulfonylurea, now on Farxiga 10mg/as well as metformin 500mg BID pt educated to continue to use CGM/Dexcom Diabetic Eye exam: 2023, at [facility], Normal Neurological symptoms have essentially resolved She did see neurologist at [facility] MRI of the brain w/o January 2024 Unremarkable Surgical history: Bone spurs on both shoulders removed, carpel tunnel Surgery to come on toes for bone spurs (NEOS) family history, Father: diabetes, heart surgery (unknown) Mother: deseased, davidentia Allergies: cats, dogs, pollen, grass, dust, Avelox 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[employer]) Alcohol: ocassionally Smoking: None Illicit drugs: Has medical marijuana card that she uses rarely Comprehensive labs May 2024 [facility] Urinalysis mostly unremarkable Renal function electrolytes and LFTs are stable Total cholesterol 146, LDL 69, HDL 57, triglycerides 101 TSH 4.03, T4, 0.84 Hemoglobin A1c of 6.0 CBC is stable Vitamin D 26 Health Maintenance: COVID MRNA: 2 initial series Flu 2023 UTD TDAP: Unknown, thinks she got it Gyno/Pap: 2023 UTD Mammography: at [facility] in may 2024, UTD Cscope: 2019 DXA: N/a Shingrix: No Examination Category Sub-Category Detail Notes Category Not es General Examination GENERAL APPEARANCE: in no ac [place] distress, well developed, well nourished HEAD: normocephalic, [...]
[2025-08-11 15:04] VITALS: BP 122/77; PULSE 78; O2SAT 98; BMI 24.0
--- NOTE | 2025-08-11 15:04 | A.OFFVIS_ITS ---
Vital Signs 08/11/25 15:04 Height 5 ft Weight 123 lb BMI 24.0 BP 122/77 Blood Pressure Location Lt brachial Position Sitting Pulse 78 Pulse Source Pulse Oximeter Pulse Oximetry (%) 98 Oxygen Delivery Method Room Air Intake Visit Reasons: Asthma Allergies moxifloxacin (From Avelox) Adverse Reaction (Intermediate, Verified 07/28/25 15:42) hand and limp numbness HPI Comments Details: The patient is a 55 year woman with known history of lifelong asthma and REGINA. Initially she had asthma as a child in his settled then came back later on in life. She has been followed closely by [facility] pulmonary for some time but is difficult for her to get there. She typically has a couple flare-ups during the year. The last time was back in late winter or early spring. She was prescribed prednisone which did not take take it because it increases her blood sugars and she has diabetes. Currently on a GLP 1 inhibitor. The patient does have a rescue inhaler. She is currently not on a maintenance inhaler. She does not want to be on inhaler all the time. Although, she does have some wheezing rhonchi on exam therefore she does need some type of maintenance medication. The patient also has underlying allergies. She is allergic to cats and she does have a cat at home. She does take Zyrtec. She has never taking Singulair. Will try to maximize her allergy therapy by adding Singulair. She should also be on maintenance inhaler therefore while Symbicort. The patient should have pulmonary function studies and also chest x-ray and will follow-up in a few months. In regards of her obstructive sleep apnea. We did talk about positional therapy specially since she did not have any significant sleep apneas when sleeping her side. Once she gets situated with her positional therapy will discuss if we should be repeating sleep study. Will discuss that further during the next visit. If she has any issues prior to that she will call for an earlier assessment. 06/01/2025 The patient is here for a sick visit. Has been sick with her asthma for about 10 days. +sick contacts. Start Prednisone and amoxicillin, but no better. Significant wheezing. Needs a nebulizer machine. Provided a treatment in the office with xopenex and provided a nebulizer for her home too. Has significant wheezing, but also has DM. Therefore, will give 62.5mg Solumedrol IM and a lower dose of prednisone. She will monitor her BS. I did review her CXR from today, no pneumonia. 08/11/2025 the patient is here for pulmonary follow-up visit. The patient overall has been doing okay although she started developing worsening respiratory symptoms. She has been using her albuterol more often. She is also her nebulizer. She finds her nebulizer effective. She did require prednisone during the last time that she was sick over the summer. The patient did have an elevation her blood sugars and elevated hemoglobin A1c. Therefore we have to minimize the amount of steroids that she uses. The patient has been on Symbicort twice a day. Will go ahead and add a long-acting muscarinic antagonist her regimen. She also complains of postnasal drip and will start Dymista to her regimen. The patient will wait to get better and she is going to go for blood work including allergy testing. She may be a candidate for biologic such as Tezspire. At this point will try to maximize her respiratory therapy and if no better will set the biologics. The patient will return in 2-3 months. If she has any worsening symptoms she will call for further recommendations. [facility] Medical History (Updated 08/13/25 @ 21:04 by José Miguel Ayon MD) Allergies Urinary tract infection Hyperlipidemia Shaking Subclinical hypothyroidism Thyroid nodule Chronic pain syndrome Chronic rhinitis Carpal tunnel syndrome on right Fibromyalgia Asthma High cholesterol Diabetes Surgical History History of colonoscopy (~05/22/17) H/O shoulder surgery Family History Father Heart problem Diabetes Mother BP (high blood pressure) Pre-diabetes Cervical cancer Social History Housing: Apartment Alcohol intake: current Alcohol intake frequency: holidays/special occasions only Patient Tobacco Use Status: Never used Tobacco e-Cigarette/Vaping Use: Never Used service: No Current occupational status: employed Cognitive needs: No Hearing needs: No Vision needs: Yes (rx glasses) Review of Systems Const Reports snoring Eyes Reports no additional complaints ENT Reports nasal congestion Card Denies chest pain and Reports dyspnea on exertion Resp Reports chest congestion, Reports cough, Reports dyspnea on exertion, Reports snoring and Reports wheezing GI Reports no additional complaints Skin/Breast Reports system reviewed and no additional complaints, except as documented Emanuel/Lymph Reports no additional complaints Aller/Immun Reports wheezing Physical Exam Vital Signs: Last Vital Signs Pulse 78 08/11/25 15:04 BP 122/77 08/11/25 15:04 Pulse Ox 98 08/11/25 15:04 Oxygen Delivery Method Room Air 08/11/25 15:04 BMI result Body Mass Index 24.0 Const General: comfortable HEENT General nose exam: Abnormal mucous membranes and turbinates present Neck Neck: Yes supple Chest Chest palpation & inspection: normal inspection of the chest Resp Effort & Inspection: normal respiratory effort Auscultation: wheezes and diminished lung sounds Cardio Heart sounds: S1 normal heart sound present and S2 normal heart sound present GI Palpation (GI): Soft to palpation Skin General skin exam: no rashes or lesions noted Extrem General: Yes no clubbing, cyanosis or edema Assessment & Plan Assessment & Plan (1) Asthma: Code(s): J45.909 - Unspecified asthma, uncomplicated Category: Medical Qualifiers: Asthma complication type: with acute exacerbation Asthma persistence: persistent Asthma severity: moderate Qualified Code(s): J45.41 - Moderate persistent asthma with (acute) exacerbation (2) Obstructive sleep apnea: Comment: AHI 9/hr, O2 jose 81% Code(s): G47.33 - Obstructive sleep apnea (adult) (pediatric) Category: Medical (3) Chronic rhinitis: Code(s): J31.0 - Chronic rhinitis Category: Medical (4) Allergies: Code(s): T78.40XA - Allergy, unspecified, initial encounter Category: Medical Plan nebulizer provided ([employer]) Singulair Symbicort start Spiriva consider Biologics Bloodwork and allergy testing continue antihitamine therapy start Dymista GALILEA as needed positional sleep therapy F/U 2-3 months Orders: Orders Resp Allergy Profile Region I 08/11/25 J45.41 - Moderate persistent asthma with (acute) exacerbation, R91.1 - Solitary pulmonary nodule, T78.40XA - Allergy, unspecified, initial encounter Hypersensitive Pneumonitis Prf 08/11/25 J45.41 - Moderate persistent asthma with (acute) exacerbation, R91.8 - Other nonspecific abnormal finding of lung field, T78.40XA - Allergy, unspecified, initial encounter Complete Blood Count Auto Diff 08/11/25 J45.41 - Moderate persistent asthma with (acute) exacerbation, T78.40XA - Allergy, unspecified, initial encounter Immunoglobulin E 08/11/25 J45.41 - Moderate persistent asthma with (acute) exacerbation, T78.40XA - Allergy, unspecified, initial encounter Immunoglobulins,IgG IgA IgM 08/11/25 J45.41 - Moderate persistent asthma with (acute) exacerbation, T78.40XA - Allergy, unspecified, initial encounter SARS COV2 IgG 08/11/25 J45.41 - Moderate persistent asthma with (acute) exacerbation, T78.40XA - Allergy, unspecified, initial encounter Erythrocyte Sedimentation Rate 08/11/25 J45.41 - Moderate persistent asthma with (acute) exacerbation, T78.40XA - Allergy, unspecified, initial encounter Basic Metabolic Panel 08/11/25 J45.41 - Moderate persistent asthma with (acute) exacerbation, T78.40XA - Allergy, unspecified, initial encounter Medications: New tiotropium bromide 2.5 mcg/actuation (Spiriva Respimat) 2 puffs inhalation DAILY 1 ea 11RF 30 days azelastine-fluticasone 137-50 mcg/spray (Dymista) administer into each nostril 1 spray intranasal BID 23 grams 11RF 30 days Coding Level of Care Code Est Pt Level 4 (05575) Diagnoses Moderate persistent asthma with acute exacerbation J45.41 Asthma complication type: with acute exacerbation Asthma persistence: persistent Asthma severity: moderate Obstructive sleep apnea G47.33 Chronic rhinitis J31.0 Allergies T78.40XA Time Spent (min) 16
--- OUTSIDE RECORDS SUMMARY | 2025-08-11 16:18 | XMS_ITS | Patient Health Record ---
Author Organization [facility] Address [address] [facility] [address] [place] [address] Care Team Providers Care Tire Spotter Name Role Phone RachanaJanel pace Primary Care [...] Status Risk Notes Problem Acquired hallux rigidus (9850516) Hallux rigidus, right foot (M20.21) Active confirmed Problem Acquired hallux rigidus (0447358) Hallux rigidus, left foot (M20.22) Active confirmed Problem Type II diabetes mellitus without complication (416034836) Controlled type 2 diabetes mellitus without complication, [...] Coverage Start Date Coverage End Date [facility] [address] [facility] [place] [phone] [id number] Jessica Lozano Self - patient is the [...]
--- OUTSIDE RECORDS SUMMARY | 2025-08-11 16:18 | XMS_ITS | Patient Health Record ---
Author Organization [facility] [address] Address [address] [place] [address] Care Team Providers Care Memorial Counselor Name Role Phone TOÑA WALLACE Unavailable [phone] Allergies Allergen (clinical drug ingredient) Drug/Non Drug Allergy documented on EMR Reaction Allergy Type Onset Date Status Pollen Pollen Swelling Allergy Active Reason For Referral Diagnosis 1 Asthma, unspecified asthma severity, unspecified whether complicated, unspecified whether persistent (J45.909) Referral Organization [facility] [address] Referring Provider First Name [...] day; Duration: 90 days Active 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 - as directed; Durati on: 365 days [...] Status Risk Notes Problem Vitamin D deficiency (80723712) Vitamin D deficiency, unspecified (E55.9) Active confirmed Problem Chronic tension-type headache (633317774) Chronic tension-type headache, intractable (G44.221) Active confirmed Problem Fibromyalgia (509195051) Fibromyalgia (M79.7) Active confirmed Problem Weakness (34324205) Weakness (R53.1) Active con firmed Problem Pure hypercholesterolemia (411279733) Pure hypercholesterolem ia, unspecified (E78.00) Active confirmed Problem Hyperlipidaemia (90207906) Hyperlipidemia, unspecified hyperlipidemia type (E78.5) Active confirmed Problem Hypothyroidism (88995307) Hypothyroidism, unspecified type (E03.9) Active confirmed Problem Annual health maintenance examination (14944700) Annual physical exam (Z00.00) Active confirmed Problem Gastroesophageal reflux disease without esophagitis (567334127) Gastroesophageal reflux disease without esophagitis (K21.9) Active confirmed Problem Type II diabetes mellitus without complication (140611499) Type 2 diabetes mellitus without complication, without long-term current use of insulin (E11.9) Active confirmed Problem Asthma without statu s asthmaticus (84027868) Asthma, unspecified asthma severity, unspecified whether complicated, unspecified whether persistent (J45.909) Active confirmed Problem Migraine without aur a, not refractory (077398739) Other migraine without status migrainosus, not intractable (G43.809) Active confirmed Problem Pain in eye (56057857) Pain in e ye, unspecified laterality (H57.10) Active confirmed Vital Signs Heart Rate 88 /min 12/01/2024 Oximetry 99 % 12/01/2024 Blood pressure diastolic 82 mm Hg 12/01/2024 Height 60 in 12/01/2024 Blood pressure systolic 124 mm Hg 12/01/2024 Weight 115 lbs 12/01/2024 BMI 22.46 kg/m2 12/01/2024 Encounters Encounter Location Date Provider Diagnosis [facility] [address] [address] 12/01/2024 WALLACE DING Palpitations R00.2 a nd Abdominal bloating R14.0 [facility] [address] [address] 08/12/2024 [facility] [address] [address] 09/23/[address] [facility] [address] [address] 11/08/2024 WALLACE DING Annual physical exam Z00.00 ; Weakness R53.1 ; Vitamin D deficiency, unspecified E55.9 ; Hypothyroidism, unspecified type E03.9 ; Hyperlipidemia, unspecified hyperlipidemia type E78.5 and Type 2 diabetes mellitus without complication, without long-term current use of insulin E11.9 [facility] [address] [address] 11/11/2024 [facility] [address] [address] 11/16/2024 WALLACE DING [facility] [address] [address] 11/30/2024 WALLACE DING [facility] [address] [address] 01/10/2025 WALLACEYOANA DING Encounter for immunization Z23 [facility] [address] [address] 10/10/2024 WALLACE MARCIHailey Type 2 diabetes ray itus without complication, without long-term current use of insulin E11.9 and Pre-op exam Z01.818 [facility] [address] [address] 11/17/2024 WALLACE DING [facility] [address] [address] 11/29/2024 WALLACE DING Assessments Encounter Date Diagnosis [...] Other comprehensive labs reviewed at [facility] and were unremarkable including thyroid function Of note, some information is being carried forward from prior records for informational purposes only and is being cited so that efficiency, safety and quality of the patient's care is not compromised This note was prepared using voice recognition software and direct typing Please excuse inadvertent log chipper operator or typing errors, or uncorrected word substitutions Although every attempt has been made by the provider to proofread this document, occasional misspellings and typographical errors may still be present Due to the previous pandemic, and the use of personal protective equipment (PPE) This may decrease voice recognition accuracy Inadvertent log chipper operator errors may occur 12/01/2024 Abdominal bloating (ICD-10 - R14.0) Currently in NSR, says she is not presently having Palpitations. She will go for EKG today. Discussed Holter Monitor, she will be outfitted with 14 day model. She will hold PPI for two weeks, get H pylori testing due to bloating. Other comprehensive labs reviewed at [facility] and were unremarkable including thyroid function Of note, some information is being carried forward from prior records for informational purposes only and is being cited so that efficiency, safety and quality of the patient's care is not compromised This note was prepared using voice recognition software and direct typing Please excuse inadvertent log chipper operator or typing errors, or uncorrected word substitutions Although every attempt has been made by the provider to proofread this document, occasional misspellings and typographical errors may still be present Due to the previous pandemic, and the use of personal protective equipment (PPE) This may decrease voice recognition accuracy Inadvertent log chipper operator errors may occur 01/10/2025 Encounter for [...] Other comprehensive labs reviewed at [facility] and were unremarkable including thyroid function Of note, some information is being carried forward from prior records for informational purposes only and is being cited so that efficiency, safety and quality of the patient's care is not compromised This note was prepared using voice recognition software and direct typing Please excuse inadvertent log chipper operator or typing errors, or uncorrected word substitutions Although every attempt has been made by the provider to proofread this document, occasional misspellings and typographical errors may still be present Due to the previous pandemic, and the use of personal protective equipment (PPE) This may decrease voice recognition accuracy Inadvertent log chipper operator errors may occur Plan Of Treatment [...] End Date [employer] Benefits [place] [address] [address] [place] [address] [id number] PAULO LOPEZ Self - patient is the insured Medical (General) History Medical History History ICD Code high cholesterol Diabetes Asthma Headaches Fibromyalgia
== END 2025-08-11 15:25 | disposition home or self-care (01) ==
LOC: HO.HPS 15:01
PROVIDERS: PCP Internal Medicine; Visit Provider Hospitalist
DX: J45.41 Moderate persistent asthma with (acute) exacerbation (principal); G47.33 Obstructive sleep apnea (adult) (pediatric); J31.0 Chronic rhinitis; T78.40XA Allergy, unspecified, initial encounter
CPT/HCPCS: 99214

== ENCOUNTER 2025-08-21 16:12 | Outpatient (AMB) | payer OTHER, SELFPAY ==
--- NOTE | 2025-08-21 16:17 | A.OFFPC_ITS ---
Vital Signs 08/21/25 16:20 Weight 121 lb 6 oz BP 120/82 Blood Pressure Location Lt brachial Position Sitting Pulse 83 Pulse Source Pulse Oximeter Temp 97.6 F Temp Source Temporal Artery Scan Pulse Oximetry (%) 99 Oxygen Delivery Method Room Air Intake Visit Reasons: PFMLA Paperwork Intake Note: Has had bilateral eye burning, itching and discharge x 3 days. Also has been h aving migraine Medical Technologist Clinical Required: No Accompanied by: Self / Same As Patient Allergies moxifloxacin (From Avelox) Adverse Reaction (Intermediate, Verified 08/21/25 16:17) hand and limp numbness Medication List - Last Reconciled 08/21/25 by Dylan Baires MD albuterol sulfate 90 mcg/actuation 2 inhalations inhalation Q6H albuterol sulfate 2.5 mg inhalation Q6H arm brace (Wrist Brace) no spica. Has tried ibuprofen and ice atorvastatin 10 mg PO DAILY azelastine-fluticasone 137-50 mcg/spray (Dymista) 1 spray intranasal BID 30 days budesonide-formoterol 160-4.5 mcg/actuation 2 puffs inhalation BID 30 days cetirizine (Zyrtec) 10 mg PO DAILY levalbuterol HCl 1.25 mg (0.5 mL) inhalation Q4-6H PRN lidocaine 5% 1 patch topical DAILY losartan 25 mg PO DAILY metformin 500 mg PO BID montelukast (Singulair) 10 mg PO BEDTIME 30 days omeprazole 40 mg PO DAILY PRN ondansetron HCl 4 mg PO Q8H PRN semaglutide (Ozempic) 1 mg subcut QWEEK tiotropium bromide 2.5 mcg/actuation (Spiriva Respimat) 2 puffs inhalation DAILY 30 days Tobacco use date assessed: 08/21/25 Dental Screening Dental Screen Date: 08/21/25 Did you have a dental visit in the last 12 months?: No Did you have a dental problem in the last 6 months where you did not have access to dental care?: No HPI HPI Comments History of Present Illness Details History of Present Illness The patient is a 55-year-old female presenting for a follow-up visit for any louis of chronic conditions and completion of [place] paperwork. She reports feeling well since discontinuing prednisone, which she believes was causing anxiety-like symptoms and palpitations. She has not used her prescribed anxiety medication. Regarding her diabetes, her A1c has increased to 7.0 from a baseline of 5.8, which is attributed to recent steroid use. She is managed at this clinic for her diabetes and takes metformin 500 mg twice daily and Ozempic 1 mg. She reports occasional constipation, which is a known side effect of Ozempic. For her asthma, she was recently treated with multiple courses of prednisone, with doses up to 60 mg, following visits to her specialist and two emergency room visits. Her current asthma medication regimen includes albuterol, levalbuterol, azelastine/fluticasone, budesonide, and Spiriva, as prescribed by her specialist to avoid future steroid use and the need for allergy shots. She has a history of allergies to pollen and trees. She reports new-onset migraine headaches and itchy eyes over the past three days. Medical History: - Type 2 diabetes mellitus - Asthma - Environmental allergies to pollen and trees - Migraine - History of medication-induced anxiety and palpitations secondary to prednisone Medications: - Albuterol for asthma - Azelastine/fluticasone (Dymista) for a sthma and allergies - Budesonide for asthma - Levalbuterol for asthma - Metformin 500 mg twice a day for diabe dinorah - Ozempic 1 mg for diabetes - Tiotropium (Spiriva) for asthma Diagnostic Results: - Labs - Hemoglobin A1c: 7.0%, increased from 5 .8%. Social History - Employment: Requires [place] paperwork fo r intermittent leave due to health conditions. FOR[facility] [employer] [facility], [facility] Medical History (Updated 08/21/25 @ 16:37 by Dylan Baires MD) Encounter for disability examination Constipation Allergies Urinary tract infection Hyperlipidemia Shaking Subclinical hypothyroidism Thyroid nodule Chronic pain syndrome Chronic rhinitis Carpal tunnel syndrome on right Fibromyalgia Asthma High cholesterol Diabetes Surgical History History of colonoscopy (~05/22/17) H/O shoulder surgery Family History Father Heart problem Diabetes Mother BP (high blood pressure) Pre-diabetes Cervical cancer Social History Housing: Apartment Alcohol intake: current Alcohol intake frequency: holidays/special occasions only Patient Tobacco Use Status: Never used Tobacco e-Cigarette/Vaping Use: Never Used service: No Current occupational status: employed Cognitive needs: No Hearing needs: No Vision needs: Yes (rx glasses) Questionnaire PHQ-9 Over the last 2 weeks, how often have you been bothered by any of the following problems? 1. Little interest or pleasure in doing things: not at all 2. Feeling down, depressed, or hopeless: not at all 3. Trouble falling or staying asleep, or sleeping too much: not at all 4. Feeling tired or having little energy: not at all 5. Poor appetite or overeating: not at all 6. Feeling bad about yourself - or that you are a failure or have let yourself or your family down: not at all 7. Trouble concentrating on things, such as reading the newspaper or watching television: not at all 8. Moving or speaking so slowly that other people could have noticed. Or the opposite - being so fidgety or restless that you have been moving around a lot more than usual: not at all 9. Thoughts that you would be better off or of hurting yourself in some way: not at all Total score: 0 Depression Screening Interpretation: Negative Depression Screening Done: Yes Source: Developed by Drs. Mikhail Huber, Tiff Ernique, Pollo Johnson and colleagues, with an educational madelyn from [employer]. Thrive Questionnaire Date Thrive assessed: 08/21/25 I am a: Patient What is your living situation today?: I have a steady place to live Within the past 12 months, did the food you bought not last and you didn't have the money to get more?: Never true Within the past 12 months, did you worry whether your food would run out before you got money to buy more?: Never true Do you have trouble paying for medicines?: No Do you have trouble getting transportation to medical appointments?: No Do you have trouble paying your heating and electricity bill?: No Do you have trouble taking care of your child, family member or friend?: No Do you have trouble with day-to-day activities such as bathing, preparing meals, shopping, managing finances, etc.?: No Are you currently unemployed and looking for a job?: No Are you interested in more education?: No THRIVE Score: 0 AUDIT C Alcohol Use Questionnaire (AUDIT-C) 1. How often do you have a drink containing alcohol?: Monthly or less 2. How many drinks containing alcohol do you have on a typical day when you are drinking?: 1 or 2 3. How often do you have six or more drinks on one occasion?: Less than monthly Total Score: 2 MICHAEL-7 AMB Questionnaire MICHAEL-7 Date MICAHEL - 7 assessed: 08/21/25 Feeling nervous, anxious, or on edge: 0 = Not at all Not being able to stop or control worryin = Not at all Worrying too much about different things: 0 = Not at all Trouble relaxin = Not at all Being so restless that it is hard to sit still: 0 = Not at all Becoming easily annoyed or irritable: 0 = Not at all Feeling afraid as if something awful might happen: 0 = Not at all Total MICHAEL-7 score (0-4 normal; 5-9 mild; 10-14 moderate; 15-21 severe): 0 Source: Developed by Drs. Mikhail Huber, Tiff Enrique, Pollo Johnson and colleagues, with an educational madelyn from [employer]. Review of Systems Narrative Review of Systems - Eyes: Reports itchy eyes for the last three days. - Neurological: Reports migraine headaches. - Cardiovascular: Denies palpitations. - Gastrointestinal: Reports occasional constipation but otherwise normal bowel and bladder function; denies nausea and vomiting. - Psychiatric: Denies anxiety since stopping prednisone. All systems reviewed & are unremarkable except as reviewed in HPI and above Physical exam (Primary Care) Vital Signs: Last Vital Signs Temp 97.6 F 08/21/25 16:20 Pulse 83 08/21/25 16:20 BP 120/82 08/21/25 16:20 Pulse Ox 99 08/21/25 16:20 Oxygen Delivery Method Room Air 08/21/25 16:20 Tobacco/Smoking Status: Tobacco use Status Tobacco use date assessed 08/21/25 08/21/25 16:18 Patient Tobacco Use Status Never used Tobacco 08/21/25 16:18 e-Cigarette/Vaping Use Never Used 08/21/25 16:18 PHQ-9: PHQ-9 Score PHQ-9: Total score 0 08/21/25 16:33 Depression Screening Interpretation: Negative Thrive Assessment: Date of Thrive Assessment Date Thrive assessed 08/21/25 08/21/25 16:18 Narrative Physical Exam General: +Alert and oriented, Well nourished, No acute distress. Eye: Pupils are equal, round and reactive to light, Intact accommodation, Extraocular movements are intact, Normal conjunctiva, Vision unchanged, Eyes are very itchy. HENT: Normocephalic, Atraumatic, Tympanic membranes are clear, Normal hearing, Oral mucosa is moist, No pharyngeal erythema, Ear canals patent. Respiratory: Lungs CTA bilaterally, No wheeze, Respirations are non-labored. Cardiovascular: Regular rate, Regular rhythm, S1 auscultated, S2 auscultated, No murmur, Good pulses equal in all extremities, Normal peripheral perfusion, No edema. Gastrointestinal: Soft, Non-tender, Non-distended, Normal bowel sounds, No organomegaly. Musculoskeletal: Normal range of motion, Normal strength, No tenderness, No swelling, No deformity, Normal gait. Integumentary: Warm, Dry, [place], Intact. Neurologic: Alert, Oriented, Normal sensory, Normal motor function, No focal defects, Cranial Nerves II-XII are grossly intact, Normal deep tendon reflexes. Psychiatric: Cooperative, Appropriate mood & affect, Normal judgment. Office Procedures Flu Questionnaire Does the patient have a severe egg allergy?: No Does the patient have severe life threatening allergies?: No Does the patient have a fever or illness today?: No Has the patient ever had Guillain-Jackson Syndrome?: No Has the patient ever had any past reaction to a flu shot?: No Immunizations Fluarix [id number] (PF) 45 mcg (15 mcg x 3)/0.5 mL IM syringe Performing Provider: Dylan Baires MD Performing Location: [facility] Documented (not given) by: Tiffani Grey CMA on 08/21/25 16:25 Reason Not Given: Patient Refused Coding Level of Care Code Est Pt Level 4 (57208) Complex EM visit Add On G2211 Diagnoses Type 2 diabetes mellitus with other specified complication, without long-term current use of insulin E11.69 Diabetes mellitus type: type 2 Diabetes mellitus facility maintenance mechanic insulin use: without facility maintenance mechanic use Diabetes mellitus complication status: with other specified complication Hypertension, unspecified type I10 Hypertension type: unspecified Hyperlipidemia, unspecified hyperlipidemia type E78.5 Hyperlipidemia type: unspecified Moderate persistent asthma with acute exacerbation J45.41 Asthma severity: moderate Asthma persistence: persistent Asthma complication type: with acute exacerbation Constipation, unspecified constipation type K59.00 Constipation type: unspecified constipation type Encounter for disability examination Z02.71 Assessment & Plan Assessment & Plan (1) Diabetes: Comment: - The patient's A1c has worsened from 5.8% to 7.0%, likely due to recent high- dose prednisone therapy for asthma. - The current regimen of metformin 500 mg twice daily and Ozempic 1 mg will be continued without changes at this time to allow for washout of the steroid effects. - She will follow up with the clinic's advanced practice provider in October, who can manage her diabetes at that time. Code(s): E11.9 - Type 2 diabetes mellitus without complications Category: Medical Qualifiers: Diabetes mellitus type: type 2 Diabetes mellitus facility maintenance mechanic insulin use: without facility maintenance mechanic use Diabetes mellitus complication status: with other specified complication Qualified Code(s): E11.69 - Type 2 diabetes mellitus with other specified complication (2) Hypertension: Comment: - Continue losartan as prescribed. Code(s): I10 - Essential (primary) hypertension Category: Medical Qualifiers: Hypertension type: unspecified Qualified Code(s): I10 - Essential (primary) hypertension (3) Hyperlipidemia: Comment: - Continue atorvastatin as prescribed. Code(s): E78.5 - Hyperlipidemia, unspecified Category: Medical Qualifiers: Hyperlipidemia type: unspecified Qualified Code(s): E78.5 - Hype rlipidemia, unspecified (4) Asthma: Comment: - The patient is on a comprehensive inhaler regimen to minimize the need for systemic steroids. - She was counseled to inform her asthma specialist about her diabetes diagnosis, as steroids will exacerbate her blood glucose levels, but also that they are a necessary mainstay of treatment for acute exacerbations. Code(s): J45.909 - Unspecified asthma, uncomplicated Category: Medical Qualifiers: Asthma severity: moderate Asthma persistence: persistent Asthma complication type: with acute exacerbation Qualified Code(s): J45.41 - Moderate persistent asthma with (acute) exacerbation (5) Constipation: Comment: - This is likely a side effect of Ozempic. - The patient was advised to take MiraLax as needed Code(s): K59.00 - Constipation, unspecified Category: Medical Qualifiers: Constipation type: unspecified constipation type Qualified Code(s): K59.00 - Constipation, unspecified (6) Encounter for disability examination: Comment: - FMLA paperwork was completed for intermittent leave of 4 times per month, for up to 3 days per episode, from May 24 to November 05. Code(s): Z02.71 - Encounter for disability determination Category: Medical Plan: Health Maintenance; - Patient was counseled on coordinating care between specialists, specifically advising her operating system designer/irrigator overhead about her diabetes diagnosis due to the impact of steroid treatments. - Advised to continue her current complex medication regimen for asthma and diabetes as prescribed. - Scheduled for a follow-up visit in October to reassess diabetes management. Plan I discussed with the patient that her recent increase in A1c to 7.0 was very likely a result of the multiple courses of high-dose prednisone she received for her asthma. Due to these recent fluctuations, I explained that I did not want to make any changes to her diabetes regimen of Ozempic and metformin at this time, and that we would re-evaluate at her next visit. I advised her to inform Dr. Ayon about her diabetes, as steroids are an inflammatory part of asthma exacerbation treatment but will impact her blood sugar. We also discussed her new symptoms of itchy eyes, for which I recommended artificial tears, and her constipation, for which I recommended MiraLax. I completed her FMLA paperwork for intermittent leave. The patient will follow up in the clinic in October. Orders: Orders Influenza [id number] Immunization Today Z23 - Encounter for immunization Patient Instructions: - Continue taking your current medications for diabetes and asthma as prescribed. We are not making any changes to your Ozempic or metformin at this time. - For your itchy eyes, you can use [id number] artificial tear eye drops to help keep them moist. - If you experience constipation, which can be a side effect of Ozempic, you can take MiraLax to help with regular bowel movements. - It is very important to let your asthma doctor, Dr. Ayon, know that you are diabetic, because the steroids he may prescribe can raise your blood sugar. However, if you have a severe asthma attack, you will still need to take them as they are the main treatment. - Keep your follow-up appointment in October.
[2025-08-21 16:20] VITALS: BP 120/82; PULSE 83; TEMP 36.4; O2SAT 99
--- OUTSIDE RECORDS SUMMARY | 2025-08-22 06:56 | XMS_ITS | Data Portability ---
Author Organization [place] [facility], [facility] Address [address] [place] [address] Care Team Providers Care Wealth Management Manager Name Role Phone WALLACE DING Primary Care [...] Recorded Time Closed fracture of nasal bones 50697139 Active Heri chiang [place] [facility] 15:22:16 Problem Notes None recorded. Medical [...] Availabl e Not Available FreeStyle Racquel 3 [place] active Not Available Not Available Not Available Vitals Date Recorded Body height Body mass index (BMI) Body weight Provider Name and Address Organization Details Last Updated DateTime 06/14/2024 152.4 cm 22.5 kg/m2 77794.12 g Paola Vyas [place] [facility] 06/14/2024 14:52:28 Social History None recorded. Functional Status None recorded. Mental Status None recorded. Family History Nothing Reported. Medical History No medical history recorded. Gynecological HistoryNo gynecological history recorded. Obstetrics History GPAL:G 0 P 0 0 0 0 Past Encounters Encounter ID Performer Location Encounter Start Date Encounter Closed Date Diagnosis/Indication Diagnosis SNOMED-CT Code Diagnosis ICD10 Code Diagnosis IMO Codes Diagnosis Note [id number] AALIYAH TREJO PA-C [facility] [address] [place] [address] 06/14/2024 14:43:26 06/14/2024 15:05:35 Closed fracture of nasal bones 22244921 S02.2XXA Health Concerns Section Related Observation LastModified by Organization Detai ls LastModified Time None Recorded Concern Status LastModified by Organization Details LastModified Time None Recorded Advance Directives Directive None Recorded Payers Insurance Date Sequence Insurance Name Policy Number Policy Johnson Covered Member ID Johnson Member ID Guarantor Name 06/14/2024 1 [employer]UE [employer]EFIT ADMIN[employer]AT[employer] OF [facility] [id number] [facility] [id number] [facility] Notes Date Note Type Note Provider [...] chiang [place] [facility] 06/14/2024 15:22:53 OBGyn Episode No OBEpisode recorded.
== END 2025-08-21 16:32 | disposition home or self-care (01) ==
LOC: HO.HMCHD 16:12
PROVIDERS: PCP Internal Medicine; Visit Provider Student in an Organized Health Care Education/Training Program
DX: E11.69 Type 2 diabetes mellitus with other specified complication (principal); I10 Essential (primary) hypertension; E78.5 Hyperlipidemia, unspecified; J45.41 Moderate persistent asthma with (acute) exacerbation; K59.00 Constipation, unspecified; Z02.71 Encounter for disability determination

== ENCOUNTER 2025-08-23 07:48 | Outpatient (REF) | payer OTHER, SELFPAY ==
[2025-08-23 08:05] LABS: MANUAL DIFF FLAG NO
[2025-08-23 08:39] LABS: Hematocrit 42.4 % (37.0-47.0); Hemoglobin 13.8 g/dl (12.0-16.0); Imm Gran Abs Auto 0.00 X10*3/uL (0.00-0.03); Imm Gran Pct Auto 0.0 % (0.0-0.4); Lymphocytes Absolute Auto 2.0 X10*3/uL (1.2-4.9); Mean Corpuscular HGB Conc 32.5 g/dl (31.0-35.0); Mean Corpuscular Hemoglobin 29.3 pg (27.0-33.0); Mean Corpuscular Volume 90.0 fL (80.0-98.0); NRBC Abs Auto 0.000 X10*3/uL (0.0-0.012); NRBC Pct Auto 0.0 /100WBC (0.0-0.2); Platelet Count 216 X10*3/uL (160-400); Red Blood Count 4.71 X10*6/uL (4.20-5.50); White Blood Count 4.0 X10*3/uL (4.8-10.8)
[2025-08-23 09:02] LABS: Anion Gap 12 (12-20); Blood Urea Nitrogen 13 mg/dL (9-16); Calcium 9.3 mg/dL (8.4-10.2); Carbon Dioxide 26 mmol/L (22-29); Chloride 107 mmol/L (96-108); Estimated Glomerular Filt Rate > 60; Potassium 3.8 mmol/L (3.3-5.1); Sodium 141 mmol/L (135-145)
--- OUTSIDE RECORDS SUMMARY | 2025-08-23 15:22 | XMS_ITS | Patient Health Record ---
Author Organization [facility] Address [address] [facility] [address] [place] [address] Care Team Providers Care Automobile Technician Name Role Phone RachanaJanel pace Primary [...] Status Risk Notes Problem Acquired hallux rigidus (5109042) Hallux rigidus, right foot (M20.21) Active confirmed Problem Acquired hallux rigidus (2098921) Hallux rigidus, left foot (M20.22) Active confirmed Problem Type II diabetes mellitus without complication (044085040) Controlled type 2 diabetes mellitus without complication, [...] Insured Coverage Start Date Coverage End Date [facility] [address] [facility] [place] [phone] [id number] Jessica Lozano Self - patient is the [...]
--- OUTSIDE RECORDS SUMMARY | 2025-08-23 15:22 | XMS_ITS | Patient Health Record ---
Author Organization [facility] Address [address] [place] [address] Care Team Providers Care Principal Technical Architect Name Role Phone TOÑA WALLACE Unavailable [phone] Allergies Allergen (clinical drug ingredient) Drug/Non Drug [...] End Date Status Atorvastatin Calcium 10 MG Tablet TAKE 1 TABLET BY MOUTH ONCE A DAY 90 DAYS; Duration: 90 Active Ondansetron HCl 4 MG Tablet 1 tablet Ora lly every 8 hrs; Duration: 30 days Active Albuterol Sulfate (2.5 MG/3ML) 0.083% Nebulization Solution INHALE 3ML VIA NEBULIZER EVERY 6 HOURS NEEDED; Duration: 30 Active Diclofenac Sodium 3 % Gel 1 application to affected area Externally Twice a day; Duration: 30 days 05/27/2023 Active Losartan Potassium 50 MG Tablet 1 tablet Orally Once a day; Duration: 90 days 06/24/2023 Active Cetirizine HCl 10 MG Tablet TAKE ONE (1) TABLET BY MOUTH EVERY DAY; Duration: 90 Active Farxiga 10 MG Tablet 1 tablet Orally Onc e a day; Duration: 90 days Active Dexcom G7 [facility] Supervisor - Device as directed; Duration: 365 days 08/01/2024 Active FreeStyle Racquel 3 Sensor - Miscellaneous Use 1 sensor every 14 days for diabetes E11.9; Duration: 90 days Active metFORMIN HCl ER 500 MG Tablet Extended Release 24 Hour TAKE ONE TABLET BY MOUTH TWO TIMES A DAY WITH FOOD; Duration: 30 Active Albuterol Sulfate HFA 108 (90 Base) MCG/ACT Aerosol Solution 1 puff as needed Inhalation every 4 hrs; Duration: 30 days 06/24/2023 Active Lidocaine 5 % Patch 1 patch remove after 12 hours Externally Once a day; Duration: 30 days Active Dexcom G7 Sensor - Miscellaneous apply one sensor every 10 days; Duration: 30 days 01/21/2024 Active Omeprazole 20 MG Capsule Delayed Release TAKE TWO (2) CAPSULES (40MG)PO ONCE EVERY DAY; Duration: 45 Active Social History Tobacco Use: Social History Observation Description Date Details (start date - stop date) Never Smoker NA - NA Social History Tobacco Use: Social Info Question Answer Notes Tobacco Use/Smoking Are you a nonsmoker Section Notes: 3 [...] Status Risk Notes Problem Vitamin D deficiency (78566024) Vitamin D deficiency, unspecified (E55.9) Active confirmed Problem Chronic tension-type headache (086104838) Chronic tension-type headache, intractable (G44.221) Active confirmed Problem Fibromyalgia (316657189) Fibromyalgia (M79.7) Active confirmed Problem Weakness (95877405) Weakness (R53.1) Active con firmed Problem Pure hypercholesterolemia (076140889) Pure hypercholesterolem ia, unspecified (E78.00) Active confirmed Problem Hyperlipidaemia (14038552) Hyperlipidemia, unspecified hyperlipidemia type (E78.5) Active confirmed Problem Hypothyroidism (00254186) Hypothyroidism, unspecified type (E03.9) Active confirmed Problem Annual health maintenance examination (31208838) Annual physical exam (Z00.00) Active confirmed Problem Gastroesophageal reflux disease without esophagitis (666602262) Gastroesophageal reflux disease without esophagitis (K21.9) Active confirmed Problem Type II diabetes mellitus without complication (602757543) Type 2 diabetes mellitus without complication, without long-term current use of insulin (E11.9) Active confirmed Problem Asthma without statu s asthmaticus (52229778) Asthma, unspecified asthma severity, unspecified whether complicated, unspecified whether persistent (J45.909) Active confirmed Problem Migraine without aur a, not refractory (056464464) Other migraine without status migrainosus, not intractable (G43.809) Active confirmed Problem Pain in eye (93035792) Pain in e ye, unspecified laterality (H57.10) Active confirmed Vital Signs Heart Rate 88 /min 12/01/2024 Oximetry 99 % 12/01/2024 Blood pressure diastolic 82 mm Hg 12/01/2024 Height 60 in 12/01/2024 Blood pressure systolic 124 mm Hg 12/01/2024 Weight 115 lbs 12/01/2024 BMI 22.46 kg/m2 12/01/2024 Encounters Encounter Location Date Provider Diagnosis [facility] [address] [address] 12/01/2024 WALLACE DING Palpitations R00.2 a nd Abdominal bloating R14.0 [facility] [address] [address] 09/23/2024 WALLACE DING [facility] [address] [address] 11/08/2024 WALLACE DING Annual physical exam Z00.00 ; Weakness R53.1 ; Vitamin D deficiency, unspecified E55.9 ; Hypothyroidism, unspecified type E03.9 ; Hyperlipidemia, unspecified hyperlipidemia type E78.5 and Type 2 diabetes mellitus without complication, without long-term current use of insulin E11.9 [facility] [address] [address] 11/11/2024 WALLACE DING [facility] [address] [address] 11/16/2024 WALLACE DING [facility] [address] [place] [address] [address] 11/30/2024 WALLACE DING [facility] [address] [address] 01/10/2025 WALLACEYOANA DING Encounter for immunization Z23 [facility] [address] [address] 10/10/2024 WALLACE DING Type 2 diabetes ray itus without complication, without long-term current use of insulin E11.9 and Pre-op exam Z01.818 [facility] [address] [place] [address] [address] 11/17/2024 WALLACE DING [facility] [address] [address] 11/29/2024 WALLACEYOANA COVARRUBIASHailey Assessments Encounter Date Diagnosis (ICD Code) [...] to bloating. Other comprehensive labs reviewed at [facility] and were unremarkable including thyroid function Of note, some information is being carried forward from prior records for informational purposes only and is being cited so that efficiency, safety and quality of the patient's care is not compromised This note was prepared using voice recognition software and direct typing Please excuse inadvertent coordinator of placement or typing errors, or uncorrected word substitutions Although every attempt has been made by the provider to proofread this document, occasional misspellings and typographical errors may still be present Due to the previous pandemic, and the use of personal protective equipment (PPE) This may decrease voice recognition accuracy Inadvertent coordinator of placement errors may occur 12/01/2024 Abdominal bloating (ICD-10 - R14.0) Currently in NSR, says she is not presently having Palpitations. She will go for EKG today. Discussed Holter Monitor, she will be outfitted with 14 day model. She will hold PPI for two weeks, get H pylori testing due to bloating. Other comprehensive labs reviewed at [facility] and were unremarkable including thyroid function Of note, some information is being carried forward from prior records for informational purposes only and is being cited so that efficiency, safety and quality of the patient's care is not compromised This note was prepared using voice recognition software and direct typing Please excuse inadvertent coordinator of placement or typing errors, or uncorrected word substitutions Although every attempt has been made by the provider to proofread this document, occasional misspellings and typographical errors may still be present Due to the previous pandemic, and the use of personal protective equipment (PPE) This may decrease voice recognition accuracy Inadvertent coordinator of placement errors may occur 01/10/2025 Encounter for immunization (ICD-10 - Z23) 11/08/2024 Weakness (ICD-10 - R53.1) 10/10/2024 Pre-op exam (ICD-10 - Z01.818) 11/08/2024 Vitamin D deficiency, unspecified (ICD-10 - E55.9) 11/08/2024 Hypothyroidism, unspecified type (ICD-10 - E03.9) 11/08/2024 Hyperlipidemia, unspecified hyperlipidemia type (ICD-10 - E78.5) 11/08/2024 Type 2 diabetes mellitus without complication, without long-term current use of insulin (ICD-10 - E11.9) Plan Of Treatment Pending Test Test Name [...] End Date Blue Benefits Admin [address] [address] [place] [address] [id number] PAULO LOPEZ Self - patient is the insured Medical (General) History Medical History History ICD Code high cholesterol Diabetes Asthma Headaches Fibromyalgia
[2025-08-24 23:23] LABS: Class Alternaria alternata 0; Class Aspergillus fumigatus 0; Class Bermuda Grass 0; Class Birch 0; Class Cat Dander 3; Class Cladosporium herbarum 0; Class Cockroach 0; Class Common Ragweed 0; Class Cottonwood 0; Class Derm. pterony 0; Class Dermatophagoides farinae 0; Class Dog Dander 0/1; Class Elm 0; Class Maple Box Elder 0; Class Mountain Cedar 0; Class Mouse Urine Protein 0; Class Mugwort 0; Class Oak 0; Class Penicillium crysogenum 0; Class Rough Pigweed 0; Class Sheep Sorrel 0; Class Sycamore 0; Class Timothy Grass 0; Class Walnut Tree 0; Class White Ash 0; Class White Mulberry 0; D002 - IgE D farinae <0.10 kU/L; E001 - IgE Cat Dander 4.92 kU/L; E005 - IgE Dog Dander 0.16 kU/L; G006 - IgE Timothy Grass <0.10 kU/L; I006-IgE Cockroach, German <0.10 kU/L; M002 - IgE Cladosporium herbar <0.10 kU/L; M003 - IgE Aspergillus fumigat <0.10 kU/L; M006 - IgE Alternaria alternat <0.10 kU/L; T001 IgE Maple/Box Elder <0.10 kU/L; T006 - IgE Cedar, Mountain <0.10 kU/L; T007 - IgE Oak, White <0.10 kU/L; T008 IgE Elm, American <0.10 kU/L; T010 - IgE Walnut <0.10 kU/L; T011 - IgE Maple Leaf Sycamore <0.10 kU/L; T014 - IgE Cottonwood <0.10 kU/L; T015 - IgE Ash, White <0.10 kU/L; T070 - IgE White Mulberry <0.10 kU/L; W001 - IgE Ragweed, Short <0.10 kU/L; W006 - IgE Mugwort <0.10 kU/L; W014 IgE Pigweed, Common <0.10 kU/L; W018 IgE Sheep Sorrel <0.10 kU/L
[2025-08-27 15:09] LABS: SARS COV2 IgG Negative (Negative)
[2025-08-30 11:08] LABS: Asperg fumigatus Precip Abs NEGATIVE; Micropoly faeni Abs NEGATIVE; Saccharo pora viridis Abs NEGATIVE; Thermo candidus Abs NEGATIVE
== END 2025-08-23 07:49 | disposition home or self-care (01) ==
LOC: HO.LAB 07:48
PROVIDERS: PCP Internal Medicine; Visit Provider Hospitalist
DX: J45.41 Moderate persistent asthma with (acute) exacerbation (principal); R91.8 Other nonspecific abnormal finding of lung field; R91.1 Solitary pulmonary nodule; T78.40XA Allergy, unspecified, initial encounter; Z01.84 Encounter for antibody response examination
CPT/HCPCS: 36415; 80048; 82784; 82785; 85025; 85652; 86003; 86331; 86606; 86609; 86769

== ENCOUNTER 2025-10-02 12:54 | Outpatient (AMB) | payer OTHER, SELFPAY ==
[2025-10-02 13:16] VITALS: BP 159/77; PULSE 87; RESP 16; TEMP 36.7; O2SAT 98; BMI 24.0
--- NOTE | 2025-10-02 13:16 | MHC.OFFWIV ---
Intake Vital Signs 10/02/25 13:16 10/02/25 13:27 Height 5 ft Weight 123 lb BMI 24.0 BP 159/77 H 130/80 Blood Pressure Location Lt brachial Rt brachial Position Sitting Sitting Respiration 16 Pulse 87 Pulse Source Pulse Oximeter Temp 98.1 F Temp Source Oral Pulse Oximetry (%) 98 Oxygen Delivery Method Room Air Intake Visit Reasons: EP- Wheezing, runny nose Intake Note: EP complains of coughing (yellowish sputum), runny nose, body ache and headache started last Thursday. Patient Tobacco Use Status: Never used Tobacco Allergies moxifloxacin (From Avelox) Adverse Reaction (Intermediate, Verified 10/02/25 13:22) hand and limp numbness Do you need a note to return to daycare/school/sports/work: Yes HPI HPI Comments History of Present Illness Details History of Present Illness The patient is a 55 year old female with a past medical history of asthma, REGINA, GERD, hypertension, diabetes presenting with feeling unwell with chills, fatigue, cough, and wheezing. - The patient has been feeling unwell since last Thursday, with initial symptoms of generalized body chills. - She subsequently developed fatigue, preventing her from getting out of bed, and also reports wheezing, cough, and a sensation of head fullness. - She reports one episode of diarrhea but denies nausea or vomiting. - She experienced chills but has not measured her temperature. - The patient has a history of asthma and has been using her home nebulizer with albuterol every four hours. - She takes two inhalers daily for maintenance but was unable to obtain a rescue inhaler. - She denies any history of hospitalization or intubation for asthma Review of Systems - Constitutional: Reports generalized body chills and profound fatigue/lack of energy. - HEENT: Reports rhinorrhea and congestion. Reports a sensation of head fullness and chronically clogged ears. - Cardiac: Denies chest pain - Respiratory: Reports wheezing and cough. - Gastrointestinal: Reports one episode of diarrhea. Denies nausea or vomiting Physical Exam General Appearance: Normal appearance, well developed. No acute distress. HEENT: Normocephalic, atraumatic. External ears and ear canals impacted with ear wax. Clear post nasal drainage with post nasal drip present. Oropharynx clear without erythema or exudate. Cardiac: Regular rate and rhythm. No murmurs. Pulmonary: Patient speaking in full sentences. End expiratory wheezing noted in the lower lung bases bilaterally. Musculoskeletal: Moving all extremities spontaneously and against gravity. Mental Status: Alert and Oriented x 3. Psychiatric: Normal mood. Normal affect. [facility] Medical History (Updated 08/21/25 @ 16:37 by Dylan Baires MD) Encounter for disability examination Constipation Allergies Urinary tract infection Hyperlipidemia Shaking Subclinical hypothyroidism Thyroid nodule Chronic pain syndrome Chronic rhinitis Carpal tunnel syndrome on right Fibromyalgia Asthma High cholesterol Diabetes Surgical History History of colonoscopy (~05/22/17) H/O shoulder surgery Family History Father Heart problem Diabetes Mother BP (high blood pressure) Pre-diabetes Cervical cancer Social History Housing: Apartment Alcohol intake: current Alcohol intake frequency: holidays/special occasions only Patient Tobacco Use Status: Never used Tobacco e-Cigarette/Vaping Use: Never Used service: No Current occupational status: employed Cognitive needs: No Hearing needs: No Vision needs: Yes (rx glasses) Physical Exam Vital Signs: Last Vital Signs Temp 98.1 F 10/02/25 13:16 Pulse 87 10/02/25 13:16 Resp 16 10/02/25 13:16 BP 130/80 10/02/25 13:27 Pulse Ox 98 10/02/25 13:16 Oxygen Delivery Method Room Air 10/02/25 13:16 BMI result Body Mass Index 24.0 Office Procedures Nebulizer Treatment Nebulizer Treatment 81600-Mmipzozil/MDI RX initial, or Nebulizer Subsequent Treatment Office Meds ipratropium 0.5 mg-albuterol 3 mg (2.5 mg base)/3 mL nebulization soln Performing Provider: Farnaz Rodriguez MD Performing Location: [facility] Administered by: Farnaz Rodriguez MD on 10/02/25 14:02 Dose Route Admin Location Dispensed Lot Number Expiration Date NDC [employer] 3 mL inhalation 3 mL [id number] 03/04/27 59934-397-72 [employer] Assessment & Plan Assessment & Plan (1) Asthma exacerbation: Code(s): J45.901 - Unspecified asthma with (acute) exacerbation Qualifiers: Asthma severity: unspecified severity Asthma persistence: unspecified Qualified Code(s): J45.901 - Unspecified asthma with (acute) exacerbation (2) Viral URI: Code(s): J06.9 - Acute upper respiratory infection, unspecified (3) Bilateral impacted cerumen: Code(s): H61.23 - Impacted cerumen, bilateral Plan - The patient's presentation with acute onset of chills, profound fatigue, cough, and body aches is highly suspicious for influenza, especially given the current prevalence. - A nasopharyngeal swab for COVID-19, influenza, and RSV will be performed based on patient preference, though management will not change pending results due to the duration of symptoms. - The patient is experiencing an asthma exacerbation, evidenced by expiratory wheezing on exam, likely triggered by her viral illness. - Administered a DuoNeb (albuterol/ipratropium) treatment in-office. Upon re-evaluation, wheezing noted to slightly improve. - A chest xray was ordered. Will call patient with results. - A 5-day course of prednisone 40 mg once daily was recommended. Patient reports past treatments with steroids occasionally caused her to be hyperactive with palpitations. Discussed decreasing dose of prednisone to 20mg daily. Patient reports she will try 40 mg and if she develops adverse effects, will take only one pill. - The risk of temporary hyperglycemia and hyperactivity/ palpitations was discussed with the patient, and the benefits were deemed to outweigh the risks. - An albuterol rescue inhaler will be prescribed. - She was advised to seek emergency care for new fevers, if breathing difficulties worsen, she is requiring nebulizer/inhaler use more frequently than every 4 hours, or she develops chest pain. - The patient has significant cerumen impaction in both ears, consistent with her subjective feeling of her ears being clogged. - Recommended ihyo-njw-iwkatfs Debrox drops to soften the wax. - Advised her to follow-up for ear lavage once her acute illness has resolved. Patient was informed and verbally consented to the use of an ambient scribe for clinic note documentation during the visit. Orders: Orders SARS-CoV2/FLU/RSV 10/02/25 R09.89 - Other specified symptoms and signs involving the circulatory and respiratory systems AMB Nebulizer Treatment 10/02/25 R06.2 - Wheezing XR chest 2V 10/02/25 R05.9 - Cough, unspecified Medications: New prednisone 40 mg (2 x 20 mg) PO DAILY 10 tabs 0RF albuterol sulfate 90 mcg/actuation 2 puffs inhalation Q6H PRN 8.5 grams 0RF shortness of breath or wheezing or cough Coding Level of Care Code Est Pt Level 4 (04719) Diagnoses Exacerbation of asthma, unspecified asthma severity, unspecified whether persistent J45.901 Asthma severity: unspecified severity Asthma persistence: unspecified Viral URI J06.9 Bilateral impacted cerumen H61.23 CPT Codes Nebulizer Treatment - Nebulizer Treatment, initial or subsequent: 33283-Ytnzwpfww/MDI RX initial, or Nebulizer Subsequent Treatment ([id number])
[2025-10-02 13:27] VITALS: BP 130/80
--- OUTSIDE RECORDS SUMMARY | 2025-10-02 14:47 | XMS_ITS | Patient Health Record ---
Author Organization [facility] Address [address] [facility] [address] [place] [address] Care Team Providers Care Roof Bolting Coal Miner Name Role Phone RachanaJanel pace Primary Care [...] Status Risk Notes Problem Acquired hallux rigidus (0137918) Hallux rigidus, right foot (M20.21) Active confirmed Problem Acquired hallux rigidus (9741071) Hallux rigidus, left foot (M20.22) Active confirmed Problem Type II diabetes mellitus without complication (500542487) Controlled type 2 diabetes mellitus without complication, [...] Start Date Coverage End Date [facility] [address] [facility] [place] [phone] [id number] Jessica Lozano Self - patient is the [...]
--- OUTSIDE RECORDS SUMMARY | 2025-10-02 14:48 | XMS_ITS | Data Portability ---
Author Organization [place] [facility] Address [address] [place] [address] Care Team Providers Care Refrigerator Cabinetmaker Name Role Phone WALLACE DING Primary Care [...] Recorded Time Closed fracture of nasal bones 84708060 Active Heri chiang [place] [facility] 15:22:16 Problem Notes None recorded. Medical [...] Availabl e Not Available FreeStyle Racquel 3 [place] active Not Available Not Available Not Available Vitals Date Recorded Body height Body mass index (BMI) Body weight Provider Name and Address Organization Details Last Updated DateTime 06/14/2024 152.4 cm 22.5 kg/m2 22476.12 g Paola Vyas [place] [facility] 06/14/2024 14:52:28 Social History None recorded. Functional Status None recorded. Mental Status None recorded. Family History Nothing Reported. Medical History No medical history recorded. Gynecological HistoryNo gynecological history recorded. Obstetrics History GPAL:G 0 P 0 0 0 0 Past Encounters Encounter ID Performer Location Encounter Start Date Encounter Closed Date Diagnosis/Indication Diagnosis SNOMED-CT Code Diagnosis ICD10 Code Diagnosis IMO Codes Diagnosis Note [id number] AALIYAH TREJO PA-C [facility] [address] [place] [address] 06/14/2024 14:43:26 06/14/2024 15:05:35 Closed fracture of nasal bones 45270228 S02.2XXA Health Concerns Section Related Observation LastModified by Organization Detai ls LastModified Time None Recorded Concern Status LastModified by Organization Details LastModified Time None Recorded Advance Directives Directive None Recorded Payers Insurance Date Sequence Insurance Name Policy Number Policy Johnson Covered Member ID Johnson Member ID Guarantor Name 06/14/2024 1 BLUE BENEFIT ADMINISTRATORS OF [facility] [id number] [facility] [id number] [facility] Notes Date Note Type Note Provider [...] chiang [place] [facility] 06/14/2024 15:22:53 OBGyn Episode No OBEpisode recorded.
--- OUTSIDE RECORDS SUMMARY | 2025-10-02 14:48 | XMS_ITS | Patient Health Record ---
Author Organization [facility] [address] Address [address] [place] [address] Care Team Providers Care Diesel Technician Mechanic Name Role Phone WALLACE DING Unavailable [phone] Allergies Allergen (clinical drug ingredient) Drug/Non Drug Allergy documented on EMR Reaction Allergy Type Onset Date Status Pollen Pollen Swelling Allergy Active Reason For Referral No Information [...] day; Duration: 90 days Active Dexcom G7 Coverstitch Binder - Device as directed; Duration: 365 days [...] Status Risk Notes Problem Vitamin D deficiency (37795833) Vitamin D deficiency, unspecified (E55.9) Active confirmed Problem Chronic tension-type headache (359208116) Chronic tension-type headache, intractable (G44.221) Active confirmed Problem Fibromyalgia (241918825) Fibromyalgia (M79.7) Active confirmed Problem Weakness (45686348) Weakness (R53.1) Active con firmed Problem Pure hypercholesterolemia (229749303) Pure hypercholesterolem ia, unspecified (E78.00) Active confirmed Problem Hyperlipidaemia (57712043) Hyperlipidemia, unspecified hyperlipidemia type (E78.5) Active confirmed Problem Hypothyroidism (63269085) Hypothyroidism, unspecified type (E03.9) Active confirmed Problem Annual health maintenance examination (10041596) Annual physical exam (Z00.00) Active confirmed Problem Gastroesophageal reflux disease without esophagitis (518663117) Gastroesophageal reflux disease without esophagitis (K21.9) Active confirmed Problem Type II diabetes mellitus without complication (120429633) Type 2 diabetes mellitus without complication, without long-term current use of insulin (E11.9) Active confirmed Problem Asthma without statu s asthmaticus (47546024) Asthma, unspecified asthma severity, unspecified whether complicated, unspecified whether persistent (J45.909) Active confirmed Problem Migraine without aur a, not refractory (084588036) Other migraine without status migrainosus, not intractable (G43.809) Active confirmed Problem Pain in eye (74948058) Pain in e ye, unspecified laterality (H57.10) Active confirmed Vital Signs Heart Rate 88 /min 12/01/2024 Oximetry 99 % 12/01/2024 Blood pressure diastolic 82 mm Hg 12/01/2024 Height 60 in 12/01/2024 Blood pressure systolic 124 mm Hg 12/01/2024 Weight 115 lbs 12/01/2024 BMI 22.46 kg/m2 12/01/2024 Encounters Encounter Location Date Provider Diagnosis [facility] [address] [address] 12/01/2024 WALLACE DING Palpitations R00.2 a nd Abdominal bloating R14.0 [facility] [address] [address] 11/08/2024 WALLACE DING Annual physical exam Z00.00 ; Weakness R53.1 ; Vitamin D deficiency, unspecified E55.9 ; Hypothyroidism, unspecified type E03.9 ; Hyperlipidemia, unspecified hyperlipidemia type E78.5 and Type 2 diabetes mellitus without complication, without long-term current use of insulin E11.[address] [facility] [address] [facility] [address] [place] [address] 11/11/2024 WALLACE DING [facility] [address] [address] 11/16/2024 WALLACE DING [facility] [address] [address] 11/30/2024 WALLACE DING [facility] [address] [address] 01/10/2025 WALLACE DING Encounter for immunization Z23 [facility] [address] [address] 10/10/2024 WALLACE DING Type 2 diabetes ray itus without complication, without long-term current use of insulin E11.9 and Pre-op exam Z01.818 [facility] [address] [address] 11/17/2024 WALLACE DING [facility] [address] [address] 11/29/2024 WALLACE DING Assessments Encounter Date Diagnosis [...] to bloating. Other comprehensive labs reviewed at [place] and were unremarkable including thyroid function Of note, some information is being carried forward from prior records for informational purposes only and is being cited so that efficiency, safety and quality of the patient's care is not compromised This note was prepared using voice recognition software and direct typing Please excuse inadvertent kindergartner or typing errors, or uncorrected word substitutions Although every attempt has been made by the provider to proofread this document, occasional misspellings and typographical errors may still be present Due to the previous pandemic, and the use of personal protective equipment (PPE) This may decrease voice recognition accuracy Inadvertent kindergartner errors may occur 12/01/2024 Abdominal bloating (ICD-10 - R14.0) Currently in NSR, says she is not presently having Palpitations. She will go for EKG today. Discussed Holter Monitor, she will be outfitted with 14 day model. She will hold PPI for two weeks, get H pylori testing due to bloating. Other comprehensive labs reviewed at [place] and were unremarkable including thyroid function Of note, some information is being carried forward from prior records for informational purposes only and is being cited so that efficiency, safety and quality of the patient's care is not compromised This note was prepared using voice recognition software and direct typing Please excuse inadvertent kindergartner or typing errors, or uncorrected word substitutions Although every attempt has been made by the provider to proofread this document, occasional misspellings and typographical errors may still be present Due to the previous pandemic, and the use of personal protective equipment (PPE) This may decrease voice recognition accuracy Inadvertent kindergartner errors may occur 01/10/2025 Encounter for immunization (ICD-10 - Z23) 10/10/2024 Pre-op exam (ICD-10 - Z01.818) 11/08/2024 [...] 11/09/2023 COMPREHENSIVE METABOLIC PANEL 11/08/2024 HEMOGLOBIN A1C 11/09/2023 HEMOGLOBIN A1C 11/08/2024 LIPID [...] End Date [employer] [place] [address] [address] [place] [address] [phone] [id number] PAULO LOPEZ Self - patient is the insured Medical (General) History Medical History History ICD Code high cholesterol Diabetes Asthma Headaches Fibromyalgia
== END 2025-10-02 14:23 | disposition home or self-care (01) ==
LOC: HO.HMCWIS 12:54
PROVIDERS: PCP Physician Assistant; Visit Provider Family Medicine
DX: R06.2 Wheezing (principal)

== ENCOUNTER 2025-10-02 12:54 | Outpatient (REF) | payer OTHER, SELFPAY ==
--- OUTSIDE RECORDS SUMMARY | 2025-10-02 16:09 | XMS_ITS | Data Portability ---
Author Organization [place] [facility], Allergy Address [address] [place] [address] Care Team Providers Care Jewelry Estimator Name Role Phone WALLACE DING Primary Care [...] Recorded Time Closed fracture of nasal bones 11342564 Active Heri chiang [place] - [facility] 15:22:16 Problem Notes None recorded. Medical [...] Availabl e Not Available [employer] [facility] [address] [place] active Not Available Not Available Not Available Vitals Date Recorded Body height Body mass index (BMI) Body weight Provider Name and Address Organization Details Last Updated DateTime 06/14/2024 152.4 cm 22.5 kg/m2 52678.12 g Paola Vyas [place] [facility] 06/14/2024 14:52:28 Social History None recorded. Functional Status None recorded. Mental Status None recorded. Family History Nothing Reported. Medical History No medical history recorded. Gynecological HistoryNo gynecological history recorded. Obstetrics History GPAL:G 0 P 0 0 0 0 Past Encounters Encounter ID Performer Location Encounter Start Date Encounter Closed Date Diagnosis/Indication Diagnosis SNOMED-CT Code Diagnosis ICD10 Code Diagnosis IMO Codes Diagnosis Note [id number] AALIYAH TREJO PA-C [facility] [address] [place] [address] 06/14/2024 14:43:26 06/14/2024 15:05:35 Closed fracture of nasal bones 35879742 S02.2XXA Health Concerns Section Related Observation LastModified by Organization Detai ls LastModified Time None Recorded Concern Status LastModified by Organization Details LastModified Time None Recorded Advance Directives Directive None Recorded Payers Insurance Date Sequence Insurance Name Policy Number Policy Johnson Covered Member ID Johnson Member ID Guarantor Name 06/14/2024 1 [employer] OF [facility] [id number] [facility] [id number] [facility] Notes Date Note Type Note Provider Name [...] - [facility] 06/14/2024 15:22:53 OBGyn Episode No OBEpisode recorded.
[2025-10-02 19:43] LABS: Resp Syncy Virus RNA Qual PCR NEGATIVE (Negative); SARS COV2 PCR INHOUSE NEGATIVE (Negative)
== END 2025-10-02 12:55 | disposition home or self-care (01) ==
LOC: HO.LAB 12:54
PROVIDERS: PCP Physician Assistant; Visit Provider Family Medicine
DX: J45.901 Unspecified asthma with (acute) exacerbation (principal); J06.9 Acute upper respiratory infection, unspecified; H61.23 Impacted cerumen, bilateral
CPT/HCPCS: 87637; 94640

== ENCOUNTER 2025-10-04 11:54 | Outpatient (REF) | payer OTHER, SELFPAY ==
--- NOTE | ~2025-10-04 | XR_ITS ---
EXAMINATION: XR CHEST 2 VIEWS HISTORY: R05.9 - Cough, unspecified COMPARISON: Comparison is made with the prior examination dated 06/08/2025. FINDINGS: PA and lateral views of the chest are submitted. The lungs are expanded and clear. There is no pleural effusion, pneumothorax, or pulmonary vascular congestion. The heart is normal in size. The bones are intact. XR/XR chest 2V IMPRESSION: No acute cardiopulmonary abnormality. Electronically signed by: Mikhail De Leon MD 10/04/2025 12:49 PM T[facility]
--- OUTSIDE RECORDS SUMMARY | 2025-10-04 13:43 | XMS_ITS | Data Portability ---
Author Organization [place] [facility], Allergy Address [address] [place] [address] Care Team Providers Care Hedis Review Nurse Name Role Phone WALLACE DING Primary Care [...] Recorded Time Closed fracture of nasal bones 59234326 Active Heri chiang [place] - [facility] 15:22:16 Problem Notes None recorded. Medical [...] Availabl e Not Available [employer] [address] [place] active Not Available Not Available Not Available Vitals Date Recorded Body height Body mass index (BMI) Body weight Provider Name and Address Organization Details Last Updated DateTime 06/14/2024 152.4 cm 22.5 kg/m2 48213.12 g Paola Vyas [place] [facility] 06/14/2024 14:52:28 Social History None [...] ICD10 Code Diagnosis IMO Codes Diagnosis Note [id number] AALIYAH TREJO PA-C [facility] [address] [place] [address] 06/14/2024 14:43:26 06/14/2024 15:05:35 Closed fracture of nasal bones 22888685 S02.2XXA Health Concerns Section Related Observation LastModified by Organization Detai ls LastModified Time None Recorded Concern Status LastModified by Organization Details LastModified Time None Recorded Advance Directives Directive None Recorded Payers Insurance Date Sequence Insurance Name Policy Number Policy Johnson Covered Member ID Johnson Member ID Guarantor Name 06/14/2024 1 [employer] OF [facility] [id number] [facility] [id number] [facility] Notes Date Note Type Note Provider [...] chiang [place] - [facility] 06/14/2024 15:22:53 OBGyn Episode No OBEpisode recorded.
--- OUTSIDE RECORDS SUMMARY | 2025-10-04 13:43 | XMS_ITS | Patient Health Record ---
Author Organization [facility] [address] Address [address] [place] [address] Care Team Providers Care Basting Cleaner Name Role Phone WALLACE DING Unavailable [phone] Allergies Allergen (clinical drug ingredient) Drug/Non Drug [...] day; Duration: 90 days Active Dexcom G7 Tile Mason - Device as directed; Duration: 365 days [...] Status Risk Notes Problem Vitamin D deficiency (54104238) Vitamin D deficiency, unspecified (E55.9) Active confirmed Problem Chronic tension-type headache (507760163) Chronic tension-type headache, intractable (G44.221) Active confirmed Problem Fibromyalgia (597122862) Fibromyalgia (M79.7) Active confirmed Problem Weakness (54894754) Weakness (R53.1) Active con firmed Problem Pure hypercholesterolemia (610233995) Pure hypercholesterolem ia, unspecified (E78.00) Active confirmed Problem Hyperlipidaemia (43922747) Hyperlipidemia, unspecified hyperlipidemia type (E78.5) Active confirmed Problem Hypothyroidism (10730831) Hypothyroidism, unspecified type (E03.9) Active confirmed Problem Annual health maintenance examination (87613479) Annual physical exam (Z00.00) Active confirmed Problem Gastroesophageal reflux disease without esophagitis (670675562) Gastroesophageal reflux disease without esophagitis (K21.9) Active confirmed Problem Type II diabetes mellitus without complication (896197183) Type 2 diabetes mellitus without complication, without long-term current use of insulin (E11.9) Active confirmed Problem Asthma without statu s asthmaticus (57601384) Asthma, unspecified asthma severity, unspecified whether complicated, unspecified whether persistent (J45.909) Active confirmed Problem Migraine without aur a, not refractory (923489859) Other migraine without status migrainosus, not intractable (G43.809) Active confirmed Problem Pain in eye (10164627) Pain in e ye, unspecified laterality (H57.10) Active confirmed Vital Signs Heart Rate 88 /min 12/01/2024 Oximetry 99 % 12/01/2024 Blood pressure diastolic 82 mm Hg 12/01/2024 Height 60 in 12/01/2024 Blood pressure systolic 124 mm Hg 12/01/2024 Weight 115 lbs 12/01/2024 BMI 22.46 kg/m2 12/01/2024 Encounters Encounter Location Date Provider Diagnosis [facility] [address] [address] 12/01/2024 WALLACE DING Palpitations R00.2 a nd Abdominal bloating R14.0 [facility] [address] [address] 11/08/2024 WALLACE DING Annual physical exam Z00.00 ; Weakness R53.1 ; Vitamin D deficiency, unspecified E55.9 ; Hypothyroidism, unspecified type E03.9 ; Hyperlipidemia, unspecified hyperlipidemia type E78.5 and Type 2 diabetes mellitus without complication, without long-term current use of insulin E11.9 [facility] [address] [facility] [address] [place] [address] 11/11/2024 WALLACE DING [facility] [address] [address] 11/16/2024 WALLACE DING [facility] [address] [address] 11/30/2024 WALLACE DING [facility] [address] [address] 01/10/2025 WALLACE DING Encounter for immunization Z23 [facility] [address] [address] 10/10/2024 WALLACE DING Type 2 diabetes ray itus without complication, without long-term current use of insulin E11.9 and Pre-op exam Z01.818 [facility] [address] [address] 11/17/2024 WALLACE DING [facility] [address] [address] 11/29/2024 WALLACE DING Assessments Encounter Date Diagnosis [...] software and direct typing Please excuse inadvertent oracle ebs architect or typing errors, or uncorrected word substitutions Although every attempt has been made by the provider to proofread this document, occasional misspellings and typographical errors may still be present Due to the previous pandemic, and the use of personal protective equipment (PPE) This may decrease voice recognition accuracy Inadvertent oracle ebs architect errors may occur 12/01/2024 Abdominal bloating (ICD-10 [...] software and direct typing Please excuse inadvertent oracle ebs architect or typing errors, or uncorrected word substitutions Although every attempt has been made by the provider to proofread this document, occasional misspellings and typographical errors may still be present Due to the previous pandemic, and the use of personal protective equipment (PPE) This may decrease voice recognition accuracy Inadvertent oracle ebs architect errors may occur 01/10/2025 Encounter for immunization [...] End Date Blue Benefits Admin [address] [address] [place] [address] [id number] PAULO LOPEZ Self - patient is the insured Medical (General) History Medical History History ICD Code high cholesterol Diabetes Asthma Headaches Fibromyalgia
--- OUTSIDE RECORDS SUMMARY | 2025-10-04 13:43 | XMS_ITS | Patient Health Record ---
Author Organization [facility] Address [address] [facility] [address] [place] [address] Care Team Providers Care Oil Driller Name Role Phone RachanaJanel pace Primary Care [...] Status Risk Notes Problem Acquired hallux rigidus (2876997) Hallux rigidus, right foot (M20.21) Active confirmed Problem Acquired hallux rigidus (5466056) Hallux rigidus, left foot (M20.22) Active confirmed Problem Type II diabetes mellitus without complication (791079222) Controlled type 2 diabetes mellitus without complication, [...] Coverage Start Date Coverage End Date [facility] [address] [place] [address] [facility] [place] [address] [id number] Jessica Lozano Self - patient is the [...]
== END 2025-10-04 11:55 | disposition home or self-care (01) ==
LOC: HO.XRAY 11:54
PROVIDERS: PCP Internal Medicine; Visit Provider Family Medicine
DX: R05.9 Cough, unspecified (principal)
CPT/HCPCS: 71046

== ENCOUNTER → 2025-10-04 11:58 | Outpatient (BNV) | payer OTHER, SELFPAY | PROVIDERS: PCP Internal Medicine; Visit Provider Radiology Diagnostic Radiology | DX: R05.9 Cough, unspecified (principal) | CPT/HCPCS: 71046 ==